=== PATIENT | male | born 1945 | race Caucasian/White ===

== ENCOUNTER 2019-08-15 00:53 | Day surgery (SDC) | payer MEDICARE, SELFPAY ==
[2019-08-12 11:24] VITALS: BMI 38.0
[2019-08-15 07:45] VITALS: BP 168/74; PULSE 59; RESP 18; TEMP 36.4; O2SAT 96; BMI 38.6
--- NOTE | 2019-08-15 08:01 | WPDANESEPPF ---
Anes - Initial Pre Proc Eval Procedure: Operation Date: 08/15/19 08:30 Proposed Procedures p Screening Colonoscopy - Carlos Simpson MD Date/Time: 08/15/19 08:01 Surgeon: Carlos Simpson MD Pre Op Diagnosis: hx colon polyps Patient Data Age: 74 Gender: M Height: 6 ft Weight: 129.1 kg Last Vital Signs Temp 36.4 C 08/15/19 07:45 Pulse 59 L 08/15/19 07:45 Resp 18 08/15/19 07:45 BP 168/74 H 08/15/19 07:45 Pulse Ox 96 08/15/19 07:45 Allergies Allergy/AdvReac Type Severity Reaction Status Date / Time No Known Allergies Allergy Unknown Verified 08/15/19 07:43 Home Medications Medication Instructions Recorded Confirmed Type allopurinol 300 mg PO QAM 08/12/19 08/12/19 History aspirin [Aspir-81] 81 mg PO DAILY 08/12/19 08/12/19 History atorvastatin 80 mg PO DAILY 08/12/19 08/12/19 History benazepril 20 mg PO QAM 08/12/19 08/12/19 History carvedilol 25 mg PO BID 08/12/19 08/12/19 History gabapentin 600 mg PO BID 08/12/19 08/12/19 History hydralazine 10 mg PO QAM 08/12/19 08/12/19 History insulin glargine U-300 conc 34 unit SUBCUT BID 08/12/19 08/12/19 History [Toujeo SoloStar U-300 Insulin] leflunomide See Rx Instructions .ROUTE .COMPLEX 08/12/19 08/12/19 History sildenafil [Viagra] 100 mg PO BID PRN 08/12/19 08/12/19 History testosterone cypionate 200 mg SUBCUT DIRECTED 08/12/19 08/12/19 History Patient hx anesthesia problems: none Family hx anesthesia problems: none PMFSH Past Medical History Medical History (Updated 08/15/19 @ 08:05 by Fransico Alcantar MD) CAD (coronary artery disease) Diabetes HTN (hypertension) Hyperlipidemia Obesity JAZMYNE (obstructive sleep apnea) Social History Social History Smoking status: Never smoker Alcohol intake: never Anes - Eval Final PreProcedure Day of Procedure 08/15/19 08:01 Patient weight: obese Heart: regular rate and rhythm Lungs: clear to auscultation Airway: Mallampati scale class II Neurological: alert and oriented Last oral intake: >/= 8 hours ASA classification: III Emergent: no Anesthetic plan: proceed Anesthesia type and monitoring: general GIVS and standard monitoring Informed Consent: The patient's anesthetic plan and its attendant risks and benefits were discussed with the patient/family/POA. Questions were solicited and answers provided to the satisfaction of the patient/family/POA.
[2019-08-15] MEDS: LACTATED RINGERS 1,000 ML 150 ML IV CONT (08:02)
[2019-08-15 08:03] LABS: Glucose Point of Care 140 (65-105)
--- NOTE | 2019-08-15 08:11 | WPDGICN ---
Assessment and Plan Additional Plan This is a 74-year-old white male patient I am asked to see at the request of NP. Lizzy Villa. Patient presents for follow-up colonoscopy. Patient's current weight appetite bowel movements are normal. He denies any blood in his stools. He denies abdominal pain. His bowel habits are regular in the past he has had an adenomatous colon polyp removed in 2006. An inflammatory polyp removed in 2014. Patient presents today for surveillance colonoscopy. Family history noncontributory Past medical history is significant for diabetes mellitus. 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 He is also treated for hypertension and neuropathy. Current medications include benazepril, carvedilol, hydralazine, indapamide, a atorvastatin, allopurinol, gabapentin, and insulin. No known drug allergies Physical exam reveals him to be alert. Vital signs stable. HEENT exam unremarkable. Lungs are clear to auscultation and percussion. Heart is without murmur or extra sounds. Abdominal exam bowel sounds are present soft nontender with no organomegaly. Digital external rectal exam is normal. Extremities revealed surgical deformity to the right foot. Impression 1. Personal history of colon polyps. 2. Diabetes mellitus. 3. Peripheral neuropathy. 4. History of Charcot joint Plan is for surveillance colonoscopy now and at intervals in the future 5 year follow-up anticipated GI Consult Note Consult date/time: 08/15/19 08:11 HPI: Erickson Navarro Sr. is a 74 year old male [facility] Past Medical History Medical History (Updated 08/15/19 @ 08:05 by Fransico Alcantar MD) CAD (coronary artery disease) Diabetes HTN (hypertension) Hyperlipidemia Obesity JAZMYNE (obstructive sleep apnea) Social History Social History Smoking status: Never smoker Alcohol intake: never Meds Home Medications and Allergies Home Medications Medication Instructions Recorded Confirmed Type allopurinol 300 mg PO QAM 08/12/19 08/12/19 History aspirin [Aspir-81] 81 mg PO DAILY 08/12/19 08/12/19 History atorvastatin 80 mg PO DAILY 08/12/19 08/12/19 History benazepril 20 mg PO QAM 08/12/19 08/12/19 History carvedilol 25 mg PO BID 08/12/19 08/12/19 History gabapentin 600 mg PO BID 08/12/19 08/12/19 History hydralazine 10 mg PO QAM 08/12/19 08/12/19 History insulin glargine U-300 conc 34 unit SUBCUT BID 08/12/19 08/12/19 History [Touhairo SoloStar U-300 Insulin] leflunomide See Rx Instructions .ROUTE .COMPLEX 08/12/19 08/12/19 History sildenafil [Viagra] 100 mg PO BID PRN 08/12/19 08/12/19 History testosterone cypionate 200 mg SUBCUT DIRECTED 08/12/19 08/12/19 History Allergies Allergy/AdvReac Type Severity Reaction Status Date / Time No Known Allergies Allergy Unknown Verified 08/15/19 07:43 Vital Signs Vital Signs - 24 hr 08/15/19 07:45 Temperature 36.4 C Pulse Rate 59 L Respiratory Rate 18 Blood Pressure 168/74 H Pulse Oximetry 96
[2019-08-15 08:41] VITALS: BP 119/65; PULSE 61; RESP 17; O2SAT 96
[2019-08-15 08:46] LABS: Glucose Point of Care 102 (65-105)
[2019-08-15 08:51] VITALS: BP 105/61; PULSE 60; RESP 16; O2SAT 99
[2019-08-15 09:01] VITALS: BP 116/68; PULSE 61; RESP 13; O2SAT 98
[2019-08-15 09:11] VITALS: BP 116/65; PULSE 60; RESP 18; O2SAT 100
== END 2019-08-15 09:21 | disposition home or self-care (01) ==
PROVIDERS: PCP Registered Nurse; Visit Provider Internal Medicine Gastroenterology
PROC: 0DJD8ZZ Inspection of Lower Intestinal Tract, Via Natural or Artificial Opening Endoscopic (ICD-10-PCS; CPT 45378; principal; 2019-08-15 08:30)
DX: Z12.11 Encounter for screening for malignant neoplasm of colon (principal); D12.4 Benign neoplasm of descending colon; D12.5 Benign neoplasm of sigmoid colon; K63.5 Polyp of colon; K64.8 Other hemorrhoids; I10 Essential (primary) hypertension; I25.10 Atherosclerotic heart disease of native coronary artery without angina pectoris; E11.40 Type 2 diabetes mellitus with diabetic neuropathy, unspecified; E78.5 Hyperlipidemia, unspecified; G47.33 Obstructive sleep apnea (adult) (pediatric); E66.9 Obesity, unspecified; Z68.38 Body mass index [BMI] 38.0-38.9, adult; Z79.82 Long term (current) use of aspirin; Z79.4 Long term (current) use of insulin
CPT/HCPCS: 45385; 88305; J2704; J7120

== ENCOUNTER 2019-08-17 21:10 | Inpatient (IN) | payer MEDICARE, SELFPAY ==
[2019-08-17] VITALS (11 sets, daily range): BP systolic 123–178; BP diastolic 72–102; PULSE 38–62; RESP 16–26; TEMP 36.6; O2SAT 94–100; BMI 39.6
--- NOTE | ~2019-08-17 | XR_ITS ---
EXAMINATION: XR chest 1V portable DATE: 08/17/2019 21:33 INDICATION: Left chest pain. Shortness of breath. TECHNIQUE: A single frontal view of the chest was obtained. COMPARISON: Chest single view 02/24/2016, CT abdomen and pelvis 06/01/2017 FINDINGS: Sensitivity is decreased by obesity. There are mild airspace opacities in left mid and lowe r lung zones. No pleural effusion or pneumothorax. The heart size is normal. IMPRESSION: 1. Mild airspace opacities in left mid and lower lung zones, consistent with atelectasis versus pneum onia. Reviewed, dictated and finalized at location A. TENDER IMPRESSION: 1. Mild airspace opacities in left mid and lower lung zones, consistent with at electasis versus pneumonia.
--- NOTE | 2019-08-17 21:12 | ED.CHESTPAIN ---
HPI - Chest Pain General Chief Complaint: Chest Pain Stated Complaint: CP Time Seen by Provider: 08/17/19 21:12 Source: patient Mode of arrival: ambulatory Limitations: no limitations History of Present Illness HPI narrative: A 74 y/o male pt presents to the ED, via private vehicle, with c/o midsternal CP, SOB, and lt arm pain that began 30 minutes ago. Pt states that the CP is constant and describes his pain as an elephant sitting on his chest. Pt has N/V in the ED bed, and is complaining of epigastric ABD pain. He notes that his pain feels worse when lying supine. Pt states that he has a hx of CAD and had 4 stents placed about 7 years ago, but states that the pain does not feel similar to any prior episodes or cardiac events he has had in the past. Pt's cover seamer is Dr. Apodaca. complaint: chest pain Pertinent past history: coronary artery disease Onset (ago): minute(s) (30) Timing of current episode: constant Prior episodes: No Pain location: epigastric and other (midsternal) Pain radiation: left arm Severity: severe Quality: other ( elephant sitting on chest ) Exacerbating factors: supine Associated symptoms: nausea, vomiting, diaphoresis and dyspnea Related Data Home Medications Medication Instructions Recorded Confirmed allopurinol 300 mg PO QAM 08/12/19 08/12/19 aspirin [Aspir-81] 81 mg PO DAILY 08/12/19 08/12/19 atorvastatin 80 mg PO DAILY 08/12/19 08/12/19 benazepril 20 mg PO QAM 08/12/19 08/12/19 carvedilol 25 mg PO BID 08/12/19 08/12/19 gabapentin 600 mg PO BID 08/12/19 08/12/19 hydralazine 10 mg PO QAM 08/12/19 08/12/19 insulin glargine U-300 conc 34 unit SUBCUT BID 08/12/19 08/12/19 [Toujeo SoloStar U-300 Insulin] leflunomide See Rx Instructions .ROUTE .COMPLEX 08/12/19 08/12/19 sildenafil [Viagra] 100 mg PO BID PRN 08/12/19 08/12/19 testosterone cypionate 200 mg SUBCUT DIRECTED 08/12/19 08/12/19 Allergies Allergy/AdvReac Type Severity Reaction Status Date / Time No Known Allergies Allergy Unknown Verified 08/17/19 21:49 Review of Systems Review of Systems: All systems reviewed & are unremarkable except as noted in HPI and below Cardiovascular: Cardiovascular: Reports chest pain, Reports dyspnea and Reports other (radiating lt arm pain) Gastrointestinal: Gastrointestinal: Reports abdominal pain (epigastric), Reports nausea and Reports vomiting PMFSH Past Medical History Medical History (Updated 08/17/19 @ 22:20 by Jacques Soto MD) CAD (coronary artery disease) Chronic cholecystitis Diabetes Gout HTN (hypertension) Hypercholesteremia Hyperlipidemia Obesity JAZMYNE (obstructive sleep apnea) Peripheral neuropathy Rheumatoid arthritis Sleep apnea Surgical History Surgical History (Updated 08/17/19 @ 21:40 by Afshin Brown To The Tops) History of cardiac cath Social History Social History (Updated 08/17/19 @ 21:47 by Afshin Brown To [employer]) Smoking status: Never smoker Alcohol intake: never Living arrangements: with family Gender identity (if verbalized by the patient): Male Exam Const: General: ill appearing acutely Nutritional Appearance: obese Other: severe distress HENMT: Head: normal to inspection Neck: Neck: normal visual inspection Resp: Effort & Inspection: normal respiratory effort Auscultation: clear to auscultation bilaterally Cardio: Rate: bradycardic Rhythm: regular rhythm GI: Other: epigastric tenderness Skin: General skin exam: pallor Other: Diaphoretic Neuro: General: patient oriented x3 and moves all extremities Speech: normal speech Extrem: General: edema bilateral Course Vital Signs Vital signs: Vital Signs Temperature 36.6 C 08/17/19 21:13 Pulse Rate 62 08/17/19 21:13 Respiratory Rate 22 H 08/17/19 21:13 Blood Pressure 123/73 08/17/19 21:13 Pulse Oximetry 100 08/17/19 21:13 Temperature 36.6 C 08/17/19 21:13 Pulse Rate 49 L 08/17/19 22:00 Respiratory Rate 24 H 08/17/19 22:00 Blood Pressu
--- NOTE | 2019-08-17 21:21 | PC.NURSE ---
PT HEART RATE 38- DR WEEKS NOTIFIED. VRBO. NS BOLUS STARTED. WILL CONTINUE TO MONITOR
[2019-08-17] MEDS: MORPHINE SULFATE 2 MG/ML INJ ×3 (21:22→21:55)
--- NOTE | 2019-08-17 21:25 | ECG_ITS ---
Measurements Intervals [place] Rate: 38 P: 81 NH: 159 QRS: 66 QRSD: 121 T: 88 QT: 401 QTc: 320 Interpretive Statements SINUS RHYTHM WITH SECOND DEGREE AV BLOCK, TYPE I OR II INTRAVENTRICULAR CONDUCTION DELAY INFERIOR ST ELEVATION MYOCARDIAL INFARCT- ACUTE CONSIDER POSTERIOR INFARCT, ACUTE BASELINE ARTIFACT- I, II, III, AVR, AVL, AVF, V2-V6 ABNORMAL ECG Electronically Signed On 08-18-2019 9:15:20 TECHNICAL REPORT WRITER by Philippe Abdi D.O.
[2019-08-17] MEDS: MORPHINE SULFATE 2 MG/ML INJ 4 MG (21:31)
[2019-08-17 21:34] LABS: Basophils Absolute Auto 0.1 K/mm3 (0.0-0.1); Basophils Percent Auto 1.1 % (0.2-1.2); Eosinophils Absolute Auto 0.6 K/mm3 (0-0.3); Hematocrit 45.1 % (42.0-52.0); Hemoglobin 14.4 g/dL (14.0-18.0); Immature Granulocyte Absolute 0.04 K/mm3 (0.00-0.031); Immature Granulocyte Percent A 0.3 % (0-0.5); Lymphocytes Absolute Auto 4.27 K/mm3 (0.9-3.2); Lymphocytes Percent Auto 34.9 % (18.3-44.2); Mean Corpuscular HGB Conc 31.9 g/dl (32-36); Mean Corpuscular Hemoglobin 30.1 pg (26-34); Mean Corpuscular Volume 94.4 fl (80-100); Mean Platelet Volume 10.6 fl (7.4-10.4); Monocytes Absolute Auto 1.7 K/mm3 (0.1-0.6); Monocytes Percent Auto 13.8 % (2.6-8.5); Neutrophils Absolute Auto 5.5 K/mm3 (1.3-6.7); Neutrophils Percent Auto 44.9 % (45.5-73.1); Platelet Count Result 183 k/mm3 (150-375); Red Blood Count 4.78 M/mm3 (4.6-6.20); Red Cell Distribution Width 13.8 % (11.5-14.5); White Blood Count 12.3 K/mm3 (4.5-10.0)
[2019-08-17 21:47] LABS: INR 0.9; Prothrombin Time 12.1 Seconds (11.1-14.7)
[2019-08-17 21:48] LABS: Partial Thromboplastin Time 25.1 SECONDS (22.3-36.8)
[2019-08-17 22:06] LABS: Alanine Aminotransferase 23 U/L (4-50); Albumin Level 3.7 g/dL (3.5-5.1); Alkaline Phosphatase 49 U/L (38-126); Aspartate Amino Transferase 24 U/L (17-59); Bilirubin,Total 0.6 mg/dL (0.2-1.3); Blood Urea Nitrogen 31 mg/dL (9-20); Calcium 8.9 mg/dL (8.4-10.2); Carbon Dioxide 23 mmol/L (22-30); Chloride 101 mmol/L (98-107); Cholesterol 97 mg/dL (0-200); Estimated Glomerular Filt Rate 33; Glucose 234 mg/dL (75-110); HDL Direct 30 mg/dL; Potassium 3.6 mmol/L (3.4-5.0); Sodium 140 mmol/L (137-145); Triglycerides 119 mg/dL (<150)
[2019-08-17 22:18] LABS: LDL Cholesterol Direct 48 mg/dL
[2019-08-17 22:46] LABS: Troponin I 0.051 ng/mL (0.000-0.034)
--- NOTE | 2019-08-17 22:51 | ECG_ITS ---
Measurements Intervals [place] Rate: 59 P: 89 NV: 211 QRS: 0 QRSD: 107 T: 26 QT: 384 QTc: 383 Interpretive Statements SINUS BRADYCARDIA WITH FIRST DEGREE AV BLOCK INFERIOR INFARCT, AGE INDETERMINATE BORDERLINE ST ABNORMALITY- LATERAL LEADS BASELINE ARTIFACT- V4 ABNORMAL ECG Electronically Signed On 08-18-2019 9:16:06 PERFORMANCE ARCHITECT by Philippe Abdi D.O.
--- NOTE | 2019-08-17 22:57 | WPDCARDPROC ---
Cardiac Cath Procedure Note Date of procedure:: 08/17/19 Performing physician:: Ravi Apodaca MD Indication:: 74-year-old man with history of coronary artery disease previous PCI in 2013 presenting with 30 minutes of chest pain and inferolateral ST-elevation by ECG. Brief clinical history:: As detailed above Procedure Procedure performed:: emergency coronary angiography emergency PCI to circumflex ostium no left ventriculogram performed because of renal insufficiency Sedation/Medication given:: no additional sedation in the kiln labourer Access site:: right femoral artery Estimated blood loss:: a 30-50 cc Procedure note:: patient was brought to the cardiac catheterization lab in the emergent setting described above. His right femoral triangle was prepped and draped in the usual fashion. Anesthesia was then provided with 1% lidocaine infiltrated locally. Using the modified Seldinger technique the femoral artery was punctured and a 6 [place] vascular sheath was placed. After this I used a 6 [place] Citizen JR4 catheter to inject the right coronary artery in orthogonal projections. Following this the left coronary artery was not engaged using a 6 [place] Citizen CLS 3.5 guiding catheter. Angiography was performed in multiple projections. Following review of the cineangiogram circumflex ostial PCI was recommended and carried out as detailed below. Prior to PCI the patient was systemically anticoagulated with bolus and infusion of intravenous Angiomax. He received Brilinta 180 mg orally. He was loaded with aspirin in the emergency department. Following PCI as detailed below the sheath was sutured into position and the patient was taken to the ICU in stable condition with no evidence of a groin hematoma chest pain was minimal upon leaving the cardiac catheterization lab otherwise no evidence of a groin hematoma. Findings:: Central aortic pressure was 142/84. Left ventricle was not entered during the case left main coronary artery is moderate caliber and widely patent the LAD is a medium caliber vessel extending down to around the apex the LAD has mild luminal irregularities throughout but no flow limiting lesions are identified. Circumflex is a very large caliber vessel and is dominant to the posterior circulation. The ostial segment of the circumflex has a 99% stenosis with visible intraluminal thrombus obviously the culprit for the acute presentation. There is SOPHIE 2 flow in the circumflex due to this subtotal ostial stenosis. The OM2 branch is visible stent material in the in it from a previous PCI. Right coronary artery is small and non dominant with mild luminal irregularities. PCI was carried out to the circumflex ostium. I elected to place 2.014 BMW wires 1 down the circumflex and 1 in the LAD to protected due to the ostial nature of the circumflex disease. Following this the circumflex was pre-dilated using a 3.0 x 20 mm emerge PTCA balloon. Care was given to position this balloon right at the ostium of the circumflex. Following this the 3.5 by 28 mm Tereza science stent was placed into the circumflex and with multiple cineangiograms being performed to ensure ostial placement and avoiding the LAD this stent was deployed at 20 atmospheres with a favorable anatomical result. There was mild residual stenosis at the ostium and the I post dilated this with a 3.5 by 15 mm apex noncompliant balloon at 22 atmospheres with a nice anatomic result. At the end of the procedure there was SOPHIE 3 flow in the circumflex and no embarrassment of the left main or LAD. Conclusion:: Acute myocardial infarction due to subtotal stenosis at the ostium of the a dominant left circumflex in this gentleman with previous stenting into the OM2 branch in 2013. This lesion was treated successfully using the 3.5 x 28 mm Tereza drug-eluting stent with an excellent anatomical result and no dissection perforation or distal embolization. Patient will be admitted to the ICU fo
[2019-08-17] MEDS: AMIODARONE 360 MG/D5W 200 ML 360 MG/200 ML BAG 33.3 MG IV CONT (23:15)
[2019-08-18] VITALS (18 sets, daily range): BP systolic 105–158; BP diastolic 63–84; PULSE 49–70; RESP 11–20; TEMP 36.3–36.9; O2SAT 94–100
--- NOTE | 2019-08-18 00:07 | ADMGEN ---
This patient, Erickson Navarro Sr., was admitted to Intensive Care Unit-7 at 2316. Patient/family oriented to hospital policies and general routines including ID bracelet, bed and alarms, visiting hours, pain management, procedures, bathroom and other care routines, personal items, smoking policy, room service/diet, and visiting hours. Valuables list has been completed. Information on how to activate the Rapid Response Team has been discussed. Patient/Family are encouraged to report perceived risks to care and to ask questions if they do not understand what they are told or what they should do.
[2019-08-18] MEDS: SODIUM CHLORIDE 0.9% IV 1,000 ML 125 ML IV CONT (01:07)
[2019-08-18 01:25] LABS: Glucose Point of Care 112 (65-105)
[2019-08-18] MEDS: AMIODARONE 360 MG/D5W 200 ML 360 MG/200 ML BAG 16.7 MG IV CONT (04:06)
--- NOTE | 2019-08-18 05:11 | ECG_ITS ---
Measurements Intervals [place] Rate: 58 P: 85 MI: 210 QRS: 2 QRSD: 105 T: 42 QT: 385 QTc: 381 Interpretive Statements SINUS BRADYCARDIA WITH FIRST DEGREE AV BLOCK INFERIOR INFARCT, AGE INDETERMINATE BORDERLINE ST ABNORMALITY- LATERAL LEADS BASELINE ARTIFACT- V4 ABNORMAL ECG Electronically Signed On 08-18-2019 9:16:38 SHUTTLELESS LOOM WEAVER by Philippe Abdi D.O.
[2019-08-18 05:44] LABS: Troponin I > 80.000 ng/mL (0.000-0.034)
[2019-08-18 08:40] LABS: Glucose Point of Care 174 (65-105)
--- NOTE | 2019-08-18 09:36 | PM.PNCARD ---
Progress Note: A&P Additional Plan 74-year-old man with: Coronary artery disease with previous PCI presenting last evening with acute ST-elevation FL and subtotal stenosis of the circumflex ostium which was a large dominant vessel. PCI done successfully with a 3.5 mm drug-eluting stent with good angiographic result. Patient was placed on intravenous amiodarone in the track repair laborer that will be stopped this morning is there are no arrhythmias currently Patient will be allowed to get up in a chair and ambulate in the room Anticipate at least 2 more days in the hospital before discharge can be considered Time Spent With Patient Time with patient: 15 - 25 minutes Subjective Date/time seen: Date of service: 08/18/19 09:36 Interval history: Follow-up visit for acute inferolateral FL last evening Patient with history of previous PCI to the circumflex Looks good this morning reports some residual central chest discomfort persisting. Rather high troponin peak not unexpected given the ostial stenosis of the large dominant circumflex. Exam Const: General: comfortable and no acute distress Other: Obese white male in no distress appears to be in good spirits HENMT: Mouth: Yes moist mucous membranes Eyes: Sclera: sclerae normal Pupils: Equal, round and reactive pupils present Neck: Neck: supple and no JVD Thyroid: thyroid normal Resp: Effort & Inspection: normal respiratory effort Auscultation: clear to auscultation bilaterally Cardio: Rate: regular rate and bradycardic Rhythm: regular rhythm Other: No murmur no rub GI: Auscultation: normal bowel sounds Skin: General skin exam: normal color Neuro: Cognition (Neuro): normal cognition Extrem: General: normal to inspection Other: Right groin puncture site looks normal good pulse no hematoma Objective Data Vital Signs Vital Signs: Vital Signs - 24 hr 08/17/19 21:13 08/17/19 21:23 08/17/19 21:33 Temperature 36.6 C Pulse Rate 62 38 L 43 L Pulse Rate [Bilateral Pedal (Dorsalis Pedis)] Respiratory Rate 22 H 26 H 22 H Blood Pressure 123/73 125/72 150/79 H Pulse Oximetry 100 100 100 08/17/19 21:37 08/17/19 21:38 08/17/19 21:46 Temperature Pulse Rate 45 L 46 L 49 L Pulse Rate [Bilateral Pedal (Dorsalis Pedis)] Respiratory Rate 20 24 H Blood Pressure 156/81 H 166/100 H Pulse Oximetry 98 100 08/17/19 21:51 08/17/19 21:57 08/17/19 22:00 Temperature Pulse Rate 49 L 49 L 49 L Pulse Rate [Bilateral Pedal (Dorsalis Pedis)] Respiratory Rate 22 H 22 H 24 H Blood Pressure 174/99 H 178/98 H 178/98 H Pulse Oximetry 98 98 08/17/19 22:51 08/17/19 23:06 08/18/19 00:00 Temperature Pulse Rate 58 L 58 L 58 L Pulse Rate [Bilateral Pedal (Dorsalis Pedis)] Respiratory Rate 16 16 Blood Pressure 148/102 H 161/78 H Pulse Oximetry 94 94 08/18/19 02:00 08/18/19 02:28 08/18/19 03:35 Temperature 36.6 C 36.4 C L Pulse Rate 57 L 52 L 58 L Pulse Rate [Bilateral Pedal (Dorsalis Pedis)] Respiratory Rate 12 17 Blood Pressure 143/81 H 148/82 H Pulse Oximetry 94 95 08/18/19 03:45 08/18/19 04:00 08/18/19 05:19 Temperature 36.6 C Pulse Rate 53 L 54 L 51 L Pulse Rate [Bilateral Pedal (Dorsalis Pedis)] Respiratory Rate 16 11 L 16 Blood Pressure 148/82 H 153/81 H 152/83 H Pulse Oximetry 97 95 96 08/18/19 06:00 08/18/19 08:00 Temperature 36.3 C L Pulse Rate 52 L 49 L Pulse Rate [Bilateral Pedal (Dorsalis Pedis)] 52 L Respiratory Rate 16 16 Blood Pressure 158/74 H 153/79 H Pulse Oximetry 99 99 Intake/Output Intake/Output: Intake & Output 08/15/19 08/16/19 08/17/19 08/18/19 23:59 23:59 23:59 23:59 Intake Total 1320 Output Total 500 Balance 820 Meds/Results Medications: Active Medications Generic Name Dose Route Start Last Admin Trade Name Freq PRN Reason Stop Dose Admin Aspirin 81 mg 08/18/19 08:00 Aspirin Chewable PO DAILY@0800 [facility] Atorvastatin Calcium 80 mg 08/18/19 09:00
[2019-08-18] MEDS: ATORVASTATIN 40 MG TABLET 80 MG PO (09:48)
[2019-08-18] MEDS: lisinopriL 20 MG TABLET PO (09:48)
[2019-08-18] MEDS: ASPIRIN 81 MG CHEWABLE TABLET PO (09:48)
[2019-08-18] MEDS: DOCUSATE SODIUM 100 MG CAPSULE PO ×2 (09:48→20:07)
[2019-08-18] MEDS: carvediloL 12.5 MG TABLET PO ×2 (09:48→20:07)
[2019-08-18] MEDS: PANTOPRAZOLE 40 MG TABLET PO (09:48)
[2019-08-18] MEDS: TICAGRELOR 90 MG TABLET PO ×2 (09:48→20:07)
--- NOTE | 2019-08-18 11:32 | WPDCNINT ---
Assessment and Plan Assessment and plan (1) ST elevation (STEMI) myocardial infarction: Qualifiers: Involved coronary artery: unspecified coronary artery Qualified Code(s): I21.3 - ST elevation (STEMI) myocardial infarction of unspecified site Code(s): I21.3 - ST elevation (STEMI) myocardial infarction of unspecified site Status: Acute Assessment and Plan: status post PCI of circumflex ostium Echo ordered continue aspirin Lipitor Coreg Brilinta and lisinopril . (2) Ventricular arrhythmia: Code(s): I49.9 - Cardiac arrhythmia, unspecified Status: Acute Assessment and Plan: likely from reperfusion. Patient on amiodarone infusion. Check electrolytes monitor in ICU for another 24 hours (3) Diabetes: Code(s): E11.9 - Type 2 diabetes mellitus without complications Status: Acute Assessment and Plan: start Lantus and sliding scale monitor blood sugars (4) Hyperlipidemia: Code(s): E78.5 - Hyperlipidemia, unspecified Status: Acute Assessment and Plan: continue statin (5) HTN (hypertension): Code(s): I10 - Essential (primary) hypertension Status: Acute Assessment and Plan: on lisinopril and beta-veronica. Monitor and treat as needed (6) Atelectasis: Code(s): J98.11 - Atelectasis Status: Acute Assessment and Plan: incentive spirometry and out of bed today (7) JAZMYNE (obstructive sleep apnea): Code(s): G47.33 - Obstructive sleep apnea (adult) (pediatric) Status: Acute Assessment and Plan: home CPAP Additional Plan DVT prophylaxis - start heparin Stress ulcer prophylaxis - on PPI Nutrition - advance diet Code Status - Full Code Family updated at bedside Corrective And Manual Arts Therapist Consult Note Consult date: 08/18/19 Time Seen: 11:20 HPI: Erickson Navarro Sr. is a 74 year old male with PMH of CAD and had 4 stents placed about 7 years ago Presented yesterday to ED with c/o midsternal CP, SOB, and lt arm pain that began 30 minutes prior to arrival. patient was diagnosed with STEMI and taken emergently to [facility]. patient underwent emergent PCI of circumflex ostium with drug-eluting stent. Patient an episode of ventricular tachycardia during PCI which resolved spontaneously. Patient was started on amiodarone infusion and admitted overnight to ICU for further management and monitor. Patient this morning feels better he feels sore and and states that he it feels like he has been hit by a truck. He states that his chest pain has resolved except some soreness on left side of his chest which is 1/10 severe but different than the pain that he came in. Pain does not radiate anywhere else. Worse with palpation and relieved with rest. he described his quality of soreness. patient denies any shortness of breath or cough at this time Review of Systems Constitutional: Constitutional: Reports no additional constitutional complaints Eyes: Eyes: Reports no additional eye complaints ENT: Reports system reviewed and no additional complaints, except as documented Cardiovascular: Cardiovascular: Denies chest pain, Denies chest pain at rest, Denies rapid heart rate, Denies irregular heart rhythm, Denies palpitations, Denies dyspnea and Denies orthopnea Respiratory: Respiratory: Reports no additional respiratory complaints and Denies cough Gastrointestinal: Gastrointestinal: Reports no additional gastrointestinal complaints Genitourinary: Genitourinary: Reports no additional male genitourinary complaints Musculoskeletal: Musculoskeletal: Reports no additional musculoskeletal complaints Integumentary/Breasts: Skin/Breast: Reports system reviewed and no additional complaints, except as docu Neurologic: Reports system reviewed and no additional complaints, except as documented Psychiatric: Psychiatric: Reports no additional psychiatric complaints Endocrine: Endocrine: Reports no additional
[2019-08-18 12:18] LABS: Blood Urea Nitrogen 30 mg/dL (9-20); Calcium 8.9 mg/dL (8.4-10.2); Carbon Dioxide 30 mmol/L (22-30); Chloride 98 mmol/L (98-107); Estimated CRCL calculation 44 ml/min; Estimated Glomerular Filt Rate 35; Glucose 213 mg/dL (75-110); Magnesium 1.6 mg/dL (1.6-2.3); Potassium 4.3 mmol/L (3.4-5.0); Sodium 138 mmol/L (137-145)
[2019-08-18 12:46] LABS: Glucose Point of Care 231 (65-105)
[2019-08-18] MEDS: INSULIN ASPART (*BKC) 100 UNITS/ML SUB-Q (12:50)
[2019-08-18] MEDS: MAGNESIUM SULF 2 GM/WATER 50ML 2 GM/50 ML BAG IVPB (13:20)
[2019-08-18 17:34] LABS: Glucose Point of Care 198 (65-105)
[2019-08-18] MEDS: GABAPENTIN 300 MG CAPSULE 600 MG PO (20:07)
[2019-08-18] MEDS: HEPARIN SODIUM 5,000 UNITS/ML VIAL 5000 UNITS SUB-Q (20:08)
[2019-08-18 20:18] LABS: Glucose Point of Care 229 (65-105)
[2019-08-19] VITALS (18 sets, daily range): BP systolic 115–181; BP diastolic 65–102; PULSE 62–92; RESP 16–36; TEMP 36.4–36.9; O2SAT 94–100
--- NOTE | 2019-08-19 | ECHO_ITS ---
Patient Info Name: Erickson Navarro Age: 74 years : 1945 Gender: Male Ht: 72 in Wt: 282 lbs BSA: 2.60 m2 HR: 92 bpm BP: 171 / 85 mmHg Heart Rhythm: Sinus Rhythm Exam Date: 08/19/2019 11:12 AM Exam Location: [facility] Patient Status: Inpatient Admit Date: 08/17/2019 Staff Ordering Physician: Ravi Apodaca MD Cash Register Repairer: Nico Pepe RDCS, RT Attending Provider: Ravi Apodaca MD Exam Type: CA echo doppler color flow Study Info Indications - STATUS POST INFEROLATERAL [place] Complete two-dimensional, color flow and Doppler transthoracic echocardiogram is performed. Summary 1. Left ventricular systolic function is normal, estimated at 55-60%. 2. There is mildly increased left ventricular wall thickness. 3. The left ventricular diastolic function is grade II diastolic dysfunction. 4. Regional wall motion assessment limited due to poor endomyocardial border definition despite definity contrast enhancement. However, there is suggestion of mild inferolateral hypokinesis. 5. Right atrial chamber dimension is mildly enlarged. 6. There is no aortic valve stenosis. 7. The mitral valve has normal leaflets. 8. There is trace mitral valve regurgitation. 9. The mitral valve annulus is moderately calcified. 10. There is mild tricuspid valve regurgitation. 11. Moderate pulmonary hypertension, estimated pulmonary arterial systolic pressure is 48 mmHg. 12. Dilated inferior vena cava with >50% collapse upon inspiration consistent with elevated right atrial pressure, 10 mmHg. Left Ventricle Left ventricular chamber dimension is normal. Left ventricular systolic function is normal, estimated at 55-60%. There is mildly increased left ventricular wall thickness. The left ventricular diastolic function is grade II diastolic dysfunction. Regional wall motion assessment limited due to poor endomyocardial border definition despite definity contrast enhancement. However, there is suggestion of mild inferolateral hypokinesis. Right Ventricle Right ventricular chamber dimension is normal. Right ventricular systolic function is normal. Left Atria Left atrial chamber dimension is normal. Right Atria Right atrial chamber dimension is mildly enlarged. Aortic Valve The aortic valve is not well visualized. There is mild aortic valve sclerosis. There is no aortic valve stenosis. There is no aortic valve regurgitation. Pulmonic Valve The pulmonic valve is not well visualized. There is trace pulmonic regurgitation. Mitral Valve The mitral valve has normal leaflets. There is trace mitral valve regurgitation. The mitral valve annulus is moderately calcified. Tricuspid Valve The tricuspid valve leaflets are normal. There is mild tricuspid valve regurgitation. Moderate pulmonary hypertension, estimated pulmonary arterial systolic pressure is 48 mmHg. Pericardium/Pleural The pericardium appears normal. There is trivial pericardial effusion. Inferior Vena Cava Dilated inferior vena cava with >50% collapse upon inspiration consistent with elevated right atrial pressure, 10 mmHg. Aorta The aortic root size at the sinus of Valsalva is normal. There is mild aortic atherosclerosis. Left Ventricular Outflow Tract Name Value Normal LVOT 2D
--- NOTE | 2019-08-19 02:28 | ECG_ITS ---
Measurements Intervals [place] Rate: 86 P: ID: 0 QRS: -53 QRSD: 108 T: -43 QT: 360 QTc: 432 Interpretive Statements ATRIAL FIBRILLATION INFERIOR INFARCT, AGE INDETERMINATE BASELINE ARTIFACT- II, III, AVF ABNORMAL ECG Electronically Signed On 08-19-2019 10:17:35 WIRE STITCHER OPERATOR by Philippe Abdi D.O.
--- NOTE | 2019-08-19 03:11 | PC.NURSE ---
Dr. Mayberry updated on pt A-fib with controlled rate. No new orders received at this time.
[2019-08-19 04:49] LABS: Hematocrit 43.8 % (42.0-52.0); Hemoglobin 14.2 g/dL (14.0-18.0); Mean Corpuscular HGB Conc 32.4 g/dl (32-36); Mean Corpuscular Hemoglobin 30.2 pg (26-34); Mean Corpuscular Volume 93.2 fl (80-100); Mean Platelet Volume 10.4 fl (7.4-10.4); Platelet Count Result 156 k/mm3 (150-375); Red Cell Distribution Width 14.1 % (11.5-14.5); White Blood Count 16.4 K/mm3 (4.5-10.0)
[2019-08-19 05:01] LABS: Blood Urea Nitrogen 32 mg/dL (9-20); Calcium 9.1 mg/dL (8.4-10.2); Carbon Dioxide 30 mmol/L (22-30); Chloride 102 mmol/L (98-107); Estimated CRCL calculation 40 ml/min; Estimated Glomerular Filt Rate 31; Glucose 194 mg/dL (75-110); Magnesium 1.9 mg/dL (1.6-2.3); Sodium 137 mmol/L (137-145)
[2019-08-19 07:57] LABS: Glucose Point of Care 180 (65-105)
[2019-08-19] MEDS: ATORVASTATIN 40 MG TABLET 80 MG PO (08:19)
[2019-08-19] MEDS: PANTOPRAZOLE 40 MG TABLET PO (08:20)
[2019-08-19] MEDS: GABAPENTIN 300 MG CAPSULE 600 MG PO ×2 (08:20→20:30)
[2019-08-19] MEDS: DOCUSATE SODIUM 100 MG CAPSULE PO ×2 (08:20→20:29)
[2019-08-19] MEDS: carvediloL 12.5 MG TABLET PO (08:20)
[2019-08-19] MEDS: HEPARIN SODIUM 5,000 UNITS/ML VIAL 5000 UNITS SUB-Q ×2 (08:21→20:30)
[2019-08-19] MEDS: lisinopriL 20 MG TABLET PO ×2 (08:21→17:54)
[2019-08-19] MEDS: INSULIN GLARGINE (*BKC) 100 UNITS/ML 24 UNITS SUB-Q (08:21)
[2019-08-19] MEDS: ASPIRIN 81 MG CHEWABLE TABLET PO (08:21)
[2019-08-19] MEDS: TICAGRELOR 90 MG TABLET PO ×2 (08:21→20:30)
--- NOTE | 2019-08-19 11:41 | WPDINTPN ---
Progress Note: A&P Assessment and Plan (1) ST elevation (STEMI) myocardial infarction: Qualifiers: Involved coronary artery: unspecified coronary artery Qualified Code(s): I21.3 - ST elevation (STEMI) myocardial infarction of unspecified site Code(s): I21.3 - ST elevation (STEMI) myocardial infarction of unspecified site Status: Acute Assessment and Plan: status post PCI with ANTHONY x1 of circumflex ostium - Echo ordered and pending - continue aspirin Lipitor Coreg Brilinta and lisinopril (2) Ventricular arrhythmia: Code(s): I49.9 - Cardiac arrhythmia, unspecified Status: Acute Assessment and Plan: likely from reperfusion. off amio infusion - maintain normal K and mag (3) Diabetes: Code(s): E11.9 - Type 2 diabetes mellitus without complications Status: Acute Assessment and Plan: Continue Lantus and sliding scale monitor blood sugars (4) Hyperlipidemia: Code(s): E78.5 - Hyperlipidemia, unspecified Status: Acute Assessment and Plan: continue statin (5) HTN (hypertension): Code(s): I10 - Essential (primary) hypertension Status: Acute Assessment and Plan: on lisinopril and beta-veronica. - hydralazine PRN (6) Atelectasis: Code(s): J98.11 - Atelectasis Status: Acute Assessment and Plan: incentive spirometry, up to chair - Pt/OT to folow (7) JAZMYNE (obstructive sleep apnea): Code(s): G47.33 - Obstructive sleep apnea (adult) (pediatric) Status: Acute Assessment and Plan: home CPAP Additional Plan DVT prophylaxis - heparin SQ Stress ulcer prophylaxis - on PPI Nutrition - advance diet Code Status - Full Code Family updated at bedside Subjective Date/time seen: 08/19/19 11:41 Interval history: REASON FOR CONSULT: STEMI status post PCI with ANTHONY x1 to circumflex ostium 08/19/2019; Pt seen and examined. Went into A fib and then converted. had a few runs of NSVT. Pt states he feels weak and has no energy. Denies any chest pain, SOB, N/V, abdominal pain. Review of Systems Review of Systems: All systems reviewed & are unremarkable except as noted in HPI and below Exam Narrative: Exam Narrative: General: Pt is alert awake and in NAD Lungs/Chest: Trachea central Clear BS B/L, No crackles or wheezing. Cardiac: RRR. Normal S1 S2. No murmurs Circulation: Pedal pulses are intact and symmetrical. Abdomen: Normal bowel sounds.. Soft. NT. ND. Extremities: No clubbing, cyanosis or edema. Warm the right femoral catheterization site shows no hematoma or ecchymosis. : Gutierrez in place Neurologic: Follows commands. Moves all 4 extremities PERRL alert oriented x3 Skin: No Rash Objective Data Vital Signs Vital Signs: Vital Signs - 24 hr 08/18/19 12:00 08/18/19 13:53 08/18/19 16:00 Temperature 98.4 F Pulse Rate 56 L 55 L 70 Respiratory Rate 16 17 18 Blood Pressure 144/82 H 153/66 H 157/74 H Pulse Oximetry 99 98 98 08/18/19 18:00 08/18/19 20:00 08/18/19 20:07 Temperature 98.2 F Pulse Rate 60 69 64 Respiratory Rate 14 17 Blood Pressure 135/63 129/67 Pulse Oximetry 99 100 08/18/19 22:00 08/19/19 00:00 08/19/19 02:00 Temperature 98.4 F Pulse Rate 69 72 79 Respiratory Rate 18 22 H 20 Blood Pressure 105/68 126/72 139/69 Pulse Oximetry 99 100 98 08/19/19 02:30 08/19/19 04:00 08/19/19 06:00 Temperature 98.2 F Pulse Rate 86 86 92 Respiratory Rate 26 H 22 H Blood Pressure 145/86 H 171/85 H Pulse Oximetry 99 98 08/19/19 08:00 08/19/19 10:00 Temperature 97.5 F L Pulse Rate 85 78 Respiratory Rate 36 H 21 H Blood Pressure 181/83 H 146/79 H Pulse Oximetry 94 Intake/Output Intake/Output: Intake & Output 08/16/19 08/17/19 08/18/19 08/19/19 23:59 23:59 23:59 23:59 Intake Total 2860 720 Output Total 500 400 Balance 2360 320 Meds/Results Medications: Active Medications Generic Name Dose Route Start Las
[2019-08-19 12:01] LABS: Glucose Point of Care 191 (65-105)
--- NOTE | 2019-08-19 12:31 | PM.PNCARD ---
Progress Note: A&P Assessment and Plan (1) ST elevation (STEMI) myocardial infarction: Qualifiers: Involved coronary artery: unspecified coronary artery Qualified Code(s): I21.3 - ST elevation (STEMI) myocardial infarction of unspecified site Code(s): I21.3 - ST elevation (STEMI) myocardial infarction of unspecified site Status: Acute Assessment and Plan: Coronary artery disease with previous PCI presenting 08/17/[address]-elevation [place] and subtotal stenosis of the circumflex ostium which was a large dominant vessel. PCI done successfully with a 3.5 mm drug-eluting stent with good angiographic result. Ventricular tachycardia requiring amiodarone in the lab animal technician. This was discontinued on 08/18/2019. One 5 beat run noted yesterday evening. Episode of atrial fibrillation for approximately 1 hour this morning. Carvedilol was decreased due to 12.5 mg b.i.d. due to bradycardia. Heart rates have recovered. Will restart carvedilol 25 mg q.12 hours with this evening's dose. Continue aspirin, atorvastatin and Brilinta. (2) HTN (hypertension): Code(s): I10 - Essential (primary) hypertension Status: Acute Assessment and Plan: Blood pressures have been elevated. Carvedilol as above. Was taking benazepril at home b.i.d.. Will increase lisinopril to 20 mg b.i.d. as well. (3) Ventricular arrhythmia: Code(s): I49.9 - Cardiac arrhythmia, unspecified Status: Acute Assessment and Plan: As above. (4) Diabetes: Code(s): E11.9 - Type 2 diabetes mellitus without complications Status: Acute Assessment and Plan: Concerned that his blood sugars are not being controlled with what he is getting at the hospital. Will adjust his insulin and sliding scale (5) Hyperlipidemia: Code(s): E78.5 - Hyperlipidemia, unspecified Status: Acute Assessment and Plan: Continue atorvastatin (6) Dizziness: Code(s): R42 - Dizziness and giddiness Status: Acute Assessment and Plan: Check orthostatic blood pressures. He believes that some his dizziness is due to his elevated blood sugars. Additional Plan Transfer to [facility]. Plan discussed with Dr. Apodaca 1230 08/19/2019 Time Spent With Patient Time with patient: 15 - 25 minutes Subjective Date/time seen: 08/19/19 12:07 Interval history: Follow-up visit for: Acute inferolateral OH 08/17/2019 post drug-eluting stent to proximal circumflex. Diabetes, hypertension, hyperlipidemia Date of service: 08/19/2019 Subjective: Denied chest pain, pressure, tightness or squeezing. Very dizzy when got up to wash up in the bathroom this morning. Was very short of breath coming back to bed as well. States has been dizzy every time he tries to get up. Also concerned about his blood sugars. Review of Systems Constitutional: Constitutional: Reports lethargy and Reports weakness Eyes: Eyes: Denies blurry vision ENT: Reports Normal hearing present Cardiovascular: Cardiovascular: Denies chest pain, Denies pedal edema, Denies leg edema, Reports lightheadedness and Denies palpitations Respiratory: Respiratory: Denies cough, Denies hemoptysis, Reports dyspnea on exertion and Denies wheezing Gastrointestinal: Gastrointestinal: Denies abdominal pain, Reports bloating, Denies nausea and Denies vomiting Genitourinary: Genitourinary: Denies hematuria Musculoskeletal: Musculoskeletal: Denies arthralgias Integumentary/Breasts: Skin/Breast: Denies erythema and Denies rash Neurologic: Denies headache(s) Psychiatric: Psychiatric: Denies behavioral changes Exam Const: General: comfortable and no acute distress Nutritional Appearance: obese Orientation/consciousness:
--- NOTE | 2019-08-19 12:40 | PC.NURSE ---
orthostatic b/p- laying left- 147/70, sitting, left- 164/76, standing, left 153/66
[2019-08-19] MEDS: PERFLUTREN LIPID MICROSPHERES 1.5 ML VIAL DILUTED TO 10 ML TOTAL VOLUME IV PUSH (12:49)
[2019-08-19 16:09] LABS: Glucose Point of Care 162 (65-105)
[2019-08-19] MEDS: carvediloL 25 MG TABLET PO (20:30)
[2019-08-19] MEDS: INSULIN GLARGINE (*BKC) 100 UNITS/ML 32 UNITS SUB-Q (20:35)
[2019-08-19 20:42] LABS: Glucose Point of Care 230 (65-105)
[2019-08-20] VITALS: BP 133/66; PULSE 59; PULSE 65; RESP 12; TEMP 36.8; O2SAT 100
[2019-08-20 02:00] VITALS: BP 126/64; PULSE 64; PULSE 69; RESP 20
[2019-08-20 04:00] VITALS: BP 102/64; PULSE 61; PULSE 65; RESP 20; TEMP 36.9; O2SAT 94
[2019-08-20 04:57] LABS: Hematocrit 38.6 % (42.0-52.0); Hemoglobin 12.6 g/dL (14.0-18.0); Mean Corpuscular HGB Conc 32.6 g/dl (32-36); Mean Corpuscular Hemoglobin 30.2 pg (26-34); Mean Corpuscular Volume 92.6 fl (80-100); Mean Platelet Volume 10.7 fl (7.4-10.4); Platelet Count Result 141 k/mm3 (150-375); Red Blood Count 4.17 M/mm3 (4.6-6.20); Red Cell Distribution Width 14.4 % (11.5-14.5); White Blood Count 10.6 K/mm3 (4.5-10.0)
[2019-08-20 05:15] LABS: Blood Urea Nitrogen 38 mg/dL (9-20); Calcium 8.4 mg/dL (8.4-10.2); Carbon Dioxide 28 mmol/L (22-30); Chloride 98 mmol/L (98-107); Estimated CRCL calculation 35 ml/min; Estimated Glomerular Filt Rate 27; Glucose 134 mg/dL (75-110); Potassium 3.7 mmol/L (3.4-5.0); Sodium 137 mmol/L (137-145)
[2019-08-20 08:00] VITALS: BP 152/71; PULSE 66; RESP 18; TEMP 36.4; O2SAT 99
[2019-08-20 08:07] LABS: Glucose Point of Care 134 (65-105)
[2019-08-20] MEDS: GABAPENTIN 300 MG CAPSULE 600 MG PO (08:33)
[2019-08-20] MEDS: carvediloL 25 MG TABLET PO (08:33)
[2019-08-20] MEDS: ATORVASTATIN 40 MG TABLET 80 MG PO (08:34)
[2019-08-20] MEDS: PANTOPRAZOLE 40 MG TABLET PO (08:34)
[2019-08-20] MEDS: DOCUSATE SODIUM 100 MG CAPSULE PO (08:34)
[2019-08-20] MEDS: TICAGRELOR 90 MG TABLET PO (08:34)
[2019-08-20] MEDS: lisinopriL 20 MG TABLET PO (08:35)
[2019-08-20] MEDS: INSULIN GLARGINE (*BKC) 100 UNITS/ML 32 UNITS SUB-Q (08:35)
[2019-08-20] MEDS: ASPIRIN 81 MG CHEWABLE TABLET PO (08:37)
[2019-08-20 10:00] VITALS: BP 132/71; PULSE 63; RESP 17; O2SAT 98
--- NOTE | 2019-08-20 11:42 | PM.DS ---
DS: Diagnosis Admitting Diagnosis Admitting Diagnosis: ST elevation (STEMI) myocardial infarction of unspecified site Discharge Diagnosis (1) ST elevation (STEMI) myocardial infarction: Qualifiers: Involved coronary artery: unspecified coronary artery Qualified Code(s): I21.3 - ST elevation (STEMI) myocardial infarction of unspecified site Code(s): I21.3 - ST elevation (STEMI) myocardial infarction of unspecified site Status: Acute Assessment and Plan: Coronary artery disease with previous PCI presenting 08/17/[address]-elevation [place] and subtotal stenosis of the circumflex ostium which was a large dominant vessel. PCI done successfully with a 3.5 mm drug-eluting stent with good angiographic result. Ventricular tachycardia requiring amiodarone in the quality assurance/r&d lab technician. This was discontinued on 08/18/2019. One 5 beat run noted after was discontinued. Episode of atrial fibrillation for approximately 1 hour Carvedilol was decreased due to 12.5 mg b.i.d. due to bradycardia. Heart rates have recovered. Carvedilol 25 mg q.12 hours resumed. Continue aspirin, atorvastatin and Brilinta. (2) HTN (hypertension): Code(s): I10 - Essential (primary) hypertension Status: Acute Assessment and Plan: Blood pressures were elevated. Carvedilol as above. Was taking benazepril at home b.i.d.. Resume on discharge (3) Ventricular arrhythmia: Code(s): I49.9 - Cardiac arrhythmia, unspecified Status: Acute Assessment and Plan: As above. (4) Diabetes: Code(s): E11.9 - Type 2 diabetes mellitus without complications Status: Acute Assessment and Plan: Blood sugars better controlled with an adjustments of his insulin (5) Hyperlipidemia: Code(s): E78.5 - Hyperlipidemia, unspecified Status: Acute Assessment and Plan: Continue atorvastatin (6) Dizziness: Code(s): R42 - Dizziness and giddiness Status: Acute Assessment and Plan: No orthostatic blood pressure changes. Dizziness due to elevated blood sugars. Resolved with better control of his blood sugar. DS: Summary Hospital Course Reason for hospitalization: Chest pain Hospital Course: 74-year-old male with a history of coronary artery disease previous PCI in 2013 presented to the emergency room via private vehicle with chest pain. He had inferolateral ST-elevation by ECG. He was taken emergently to the cardiac catheterization lab by Dr. Apodaca on August 17, 2019 with a significant findings of: Subtotal stenosis at the ostium of the a dominant left circumflex in this gentleman with previous stenting into the OM2 branch in 2013. This lesion was treated successfully using the 3.5 x 28 mm Tereza drug-eluting stent with an excellent anatomical result and no dissection perforation or distal embolization. During the procedure he had ventricular tachycardia requiring amiodarone. He was admitted to the ICU for observation. Amiodarone was discontinued. He had approximately 1 hour of atrial fibrillation. Bradycardia was noted and carvedilol dose was decreased. Echocardiogram: Ejection fraction 55-60%. Mild increase of the LV wall thickness. Grade 2 diastolic dysfunction. Mild inferior lateral hypokinesis. Moderate pulmonary hypertension. Despite his heart rate recovering nicely, he still felt dizzy and weak the second day post OR. He attributed this to his elevated blood sugars. His insulin was adjusted. He was observed for another day. On the day of discharge he was ambulating in the avila with no lightheadedness, shortness of breath, chest discomfort or palpitations. Vital signs were stable. He had no further arrhythmias. He was discharged home in stable and pain-free condition. Status at Discharge Functio
== END 2019-08-20 12:31 | disposition home or self-care (01) | DRG 247 ==
LOC: ANHED 21:20 → ANHICU 22:20
PROVIDERS: Internal Medicine; Admitting Provider Specialist; Emergency Provider Emergency Medicine; PCP Registered Nurse; Visit Provider Internal Medicine Cardiovascular Disease
PROC: 027034Z Dilation of Coronary Artery, One Artery with Drug-eluting Intraluminal Device, Percutaneous Approach (ICD-10-PCS; CPT 93454; principal; 2019-08-17 21:50)
PROC: 027034Z Dilation of Coronary Artery, One Artery with Drug-eluting Intraluminal Device, Percutaneous Approach (ICD-10-PCS; 2019-08-17 21:50)
DX: I21.19 ST elevation (STEMI) myocardial infarction involving other coronary artery of inferior wall (principal); Z68.41 Body mass index [BMI] 40.0-44.9, adult; J98.11 Atelectasis; I47.2 Ventricular tachycardia; I48.91 Unspecified atrial fibrillation; I10 Essential (primary) hypertension; E11.42 Type 2 diabetes mellitus with diabetic polyneuropathy; E78.5 Hyperlipidemia, unspecified; R42 Dizziness and giddiness; I25.10 Atherosclerotic heart disease of native coronary artery without angina pectoris; G47.33 Obstructive sleep apnea (adult) (pediatric); M10.9 Gout, unspecified; M06.9 Rheumatoid arthritis, unspecified; E66.9 Obesity, unspecified; Z28.21 Immunization not carried out because of patient refusal; Z95.5 Presence of coronary angioplasty implant and graft
CPT/HCPCS: 36415; 71045; 80048; 80053; 80061; 83735; 84484; 85025; 85027; 85610; 85730; 86850; 86900; 86901; 87081; 88305; 93005; 93306; 93454; 96374; 97161; 97165; 99291; A9270; C1725; C1769; C1874; C1887; C1894; C9606; J0282; J0461; J0583; J1644; J1815; J2270; J2704; J3475; J7030; J7040; J7120; Q9957

== ENCOUNTER 2019-09-02 14:55 | Outpatient (CLI) | payer MEDICARE, SELFPAY ==
[2019-09-02 16:07] LABS: Blood Urea Nitrogen 62 mg/dL (9-20); Calcium 9.9 mg/dL (8.4-10.2); Carbon Dioxide 26 mmol/L (22-30); Chloride 101 mmol/L (98-107); Estimated Glomerular Filt Rate 28; Glucose 152 mg/dL (75-110); Potassium 4.3 mmol/L (3.4-5.0); Sodium 137 mmol/L (137-145)
== END 2019-09-02 14:56 | disposition home or self-care (01) ==
PROVIDERS: PCP Registered Nurse; Visit Provider Nurse Practitioner Adult Health
DX: N18.3 Chronic kidney disease, stage 3 (moderate) (principal)
CPT/HCPCS: 36415; 80048

== ENCOUNTER 2019-12-18 07:37 | Outpatient (CLI) | payer MEDICARE, SELFPAY ==
--- NOTE | ~2019-12-18 | US_ITS ---
EXAMINATION: US right upper quadrant EXAM DATE: 12/18/2019 08:09 INDICATION: Right upper quadrant pain. TECHNIQUE: Multiple grayscale and Doppler images of the abdomen right upper quadrant were obtained (b y a technologist who performed the scan) and subsequently reviewed. Comparison is made to prior exami nation from 02/26/2016. FINDINGS: The pancreatic head and body are normal in appearance. The pancreatic tail is not visualized. The l iver has normal echogenicity and contour. There are no focal liver lesions identified. There is no evidence of intrahepatic biliary duct dilation. Portal venous flow was seen in the hepatopedal, nor mal direction and has normal Doppler waveform. No right-sided hydronephrosis. Common bile duct measures 5 mm, which is normal. The gallbladder wall is normal in thickness, with ex pected amount of distention. No sonographic evidence of pericholecystic fluid. There is no cholelit hiases. Technologist noted maximal tenderness over the otherwise sonographically unremarkable gallbla dder. IMPRESSION: 1. Sonographically normal gallbladder. Reviewed, dictated and finalized at location B.
== END 2019-12-18 07:38 | disposition home or self-care (01) ==
LOC: ANHIMG 07:40
PROVIDERS: PCP Registered Nurse; Visit Provider Registered Nurse
DX: R10.11 Right upper quadrant pain (principal)
CPT/HCPCS: 76705

== ENCOUNTER 2020-01-12 08:36 | Emergency (ER) | payer MEDICARE, SELFPAY ==
--- NOTE | ~2020-01-12 | XR_ITS ---
XR chest 1V portable DATE: 01/12/2020 09:16 INDICATION: Cough. Frontal and midsternal and left chest pain for 2 days. History of myocardial infar ction. TECHNIQUE: Portable AP chest on 01/12/2020 at 0912 hours COMPARISON: 08/17/2019 portable AP chest at 2129 hours FINDINGS: Heart size is within normal range. There is aortic calcification. No hilar or mediastinal e nlargement. No pulmonary infiltrate or consolidation, pleural effusion or pulmonary vascular congestion or pneumo thorax is detected. Degenerative spurring and dextro scoliosis of the thoracic spine. IMPRESSION: No active cardiopulmonary disease Aortic atherosclerosis. Reviewed, dictated and finalized at location A.
[2020-01-12 08:40] VITALS: BP 194/63; PULSE 64; RESP 20; TEMP 37.1; O2SAT 98
--- NOTE | 2020-01-12 09:05 | ECG_ITS ---
Measurements Intervals [place] Rate: 62 P: 32 VT: 194 QRS: -43 QRSD: 102 T: 14 QT: 371 QTc: 378 Interpretive Statements SINUS RHYTHM INFERIOR INFARCT, AGE INDETERMINATE BASELINE ARTIFACT- I, III, AVL, AVF, V3, V6 ABNORMAL ECG Electronically Signed On 01-12-2020 10:46:45 CDT by Philippe Abdi D.O.
--- NOTE | 2020-01-12 09:21 | ED.GENADULT ---
HPI - General Adult General Chief complaint: Chest Pain Stated complaint: chest pain Time Seen by Provider: 01/12/20 08:53 Source: patient Mode of arrival: ambulatory Limitations: no limitations History of Present Illness HPI narrative: This patient is a 74 year old male who presents for evaluation of possible COVID. He states starting on he developed runny nose, cough, intermittent chest pain and shortness of breath. He reports his cough is productive with green sputum. He reports intermittent sob. He also has left chest tightness that occurs at rest and exertion. He states he does not think this is a heart attack. He went to [employer] yesterday to get COVID test but he states they would not perform since he was have chest pain and shortness of breath. He just wants to have COVID test because his is going to baby sit his grandkids this week. Related Data Home Medications Medication Instructions Recorded Confirmed allopurinol 300 mg PO QAM 08/12/19 10/22/19 atorvastatin 80 mg PO HS 08/12/19 10/22/19 benazepril 20 mg PO BID 08/12/19 10/22/19 gabapentin 600 mg PO BID 08/12/19 10/22/19 adalimumab [Humira(CF)] 40 mg SUBCUT [id number] 08/17/19 10/22/19 cholecalciferol (vitamin D3) 2,500 unit PO DAILY 08/17/19 10/22/19 cinnamon bark 1,000 mg PO DAILY 08/17/19 10/22/19 flaxseed oil 1,000 mg PO DAILY 08/17/19 10/22/19 clopidogrel 75 mg tablet 75 mg PO DAILY 10/07/19 10/22/19 insulin glargine U-300 conc 300 60 unit SUBCUT QPM ml 10/12/19 10/22/19 unit/mL (1.5 mL) subcutaneous pen pen needle, diabetic 31 gauge x #1,200 each 10/12/19 10/22/1911/01 carvedilol 6.25 mg PO Q12H 01/12/20 indapamide 2.5 mg PO DAILY 01/12/20 isosorbide mononitrate 7.5 mg PO BID 01/12/20 leflunomide 20 mg PO DAILY 01/12/20 Allergies Allergy/AdvReac Type Severity Reaction Status Date / Time No Known Allergies Allergy Unknown Verified 08/17/19 21:49 Review of Systems Review of Systems: All systems reviewed & are unremarkable except as noted in HPI and below Constitutional: Constitutional: Denies chills and Denies fever(s) Cardiovascular: Cardiovascular: Reports chest pain Respiratory: Respiratory: Reports cough, Reports dyspnea and Denies wheezing Gastrointestinal: Gastrointestinal: Denies abdominal pain, Denies diarrhea, Denies nausea and Denies vomiting PMFSH Social History Social History Smoking status: Never smoker Alcohol intake: never Substance use: never Gender identity (if verbalized by the patient): Male Spiritual care concerns: No Agree to blood products: Yes Exam Narrative: Exam Narrative: GENERAL: Well-appearing, well-nourished, and in no acute distress. HEAD: Normocephalic, atraumatic EYES: PERRLA and EOMI, conjunctiva clear without discharge THROAT:Mucous membranes moist, Oropharynx normal without erythema, exudate, peritonsillar swelling or fluctuance NECK: Supple, without lymphadenopathy or mass RESPIRATORY: No respiratory distress, Airway patent, Respirations non-labored, Clear to auscultation without rales, rhonchi or wheeze HEART: Regular rate and rhythm. No murmur heard. Normal peripheral pulses. ABDOMEN: Soft, nontender, nondistended, normal active bowel sounds. No masses. No rebound or guarding, No organomegaly. EXTREMITIES: No edema, normal strength with full range of motion. SKIN: Warm, dry, normal color without rash NEURO: Alert and oriented x3. CN 2-12 grossly intact. No focal deficits. PSYCH: Normal mood and affect. Course Reevaluation(s) Reevaluation #1: I have discussed with patient xray and labs. Kidney function is stable. Repeat potassium is normal. He is stable for discharge and I discussed cose results. Date: 01/12/20 Time: 11:03 Vital Signs Vital signs: Vital Signs Temperature 98.7 F 01/12/20 08:40 Pulse Rate 64 01/12/20 08:40 Respiratory Rate 20 01/12/20 08:40 Blood Pressure 194/63 H 0
[2020-01-12 09:22] LABS: Basophils Absolute Auto 0.1 K/mm3 (0.0-0.1); Basophils Percent Auto 1.3 % (0.2-1.2); Eosinophils Absolute Auto 0.5 K/mm3 (0-0.3); Eosinophils Percent Auto 7.4 % (0-4.4); Hematocrit 40.5 % (42.0-52.0); Hemoglobin 13.2 g/dL (14.0-18.0); Immature Granulocyte Absolute 0.02 K/mm3 (0.00-0.031); Immature Granulocyte Percent A 0.3 % (0-0.5); Lymphocytes Absolute Auto 1.66 K/mm3 (0.9-3.2); Lymphocytes Percent Auto 26.2 % (18.3-44.2); Mean Corpuscular HGB Conc 32.6 g/dl (32-36); Mean Corpuscular Hemoglobin 31.6 pg (26-34); Mean Corpuscular Volume 96.9 fl (80-100); Mean Platelet Volume 10.7 fl (7.4-10.4); Monocytes Absolute Auto 0.7 K/mm3 (0.1-0.6); Monocytes Percent Auto 11.5 % (2.6-8.5); Neutrophils Absolute Auto 3.4 K/mm3 (1.3-6.7); Neutrophils Percent Auto 53.3 % (45.5-73.1); Platelet Count Result 182 k/mm3 (150-375); Red Blood Count 4.18 M/mm3 (4.6-6.20); Red Cell Distribution Width 13.8 % (11.5-14.5); White Blood Count 6.3 K/mm3 (4.5-10.0)
[2020-01-12 09:36] LABS: Prothrombin Time 12.4 Seconds (11.1-14.7)
[2020-01-12 09:41] LABS: Alanine Aminotransferase 39 U/L (4-50); Albumin Level 4.6 g/dL (3.5-5.1); Alkaline Phosphatase 63 U/L (38-126); Anion Gap 16.5 mmol/L (7-16); Aspartate Amino Transferase 75 U/L (17-59); Bilirubin,Total 1.6 mg/dL (0.2-1.3); Blood Urea Nitrogen 47 mg/dL (9-20); CRP 0.8 mg/dL (<1.0); Carbon Dioxide 22 mmol/L (22-30); Chloride 103 mmol/L (98-107); Estimated CRCL calculation 41 ml/min; Estimated Glomerular Filt Rate 33; Glucose 207 mg/dL (75-110); Potassium 6.5 mmol/L (3.4-5.0); Sodium 135 mmol/L (137-145)
[2020-01-12 09:46] LABS: Troponin I 0.025 ng/mL (0.000-0.034)
[2020-01-12 10:49] LABS: Potassium 4.8 mmol/L (3.4-5.0)
[2020-01-12 11:29] VITALS: BP 127/76; PULSE 56; RESP 18; O2SAT 100
[2020-01-15 03:25] LABS: SARS-CoV-2 RNA PCR Negative
== END 2020-01-12 11:30 | disposition home or self-care (01) ==
PROVIDERS: Emergency Provider General Practice; PCP Registered Nurse
DX: J06.9 Acute upper respiratory infection, unspecified (principal); R07.89 Other chest pain; Z20.828 Contact with and (suspected) exposure to other viral communicable diseases; I70.0 Atherosclerosis of aorta; R94.31 Abnormal electrocardiogram [ECG] [EKG]
CPT/HCPCS: 36415; 71045; 80053; 84132; 84484; 85025; 85610; 85730; 86140; 87635; 93005; 99284; C9803; U0003

== ENCOUNTER → 2021-02-12 04:15 | Outpatient (CLI) | payer MEDICARE, SELFPAY ==
[2021-02-12 18:23] LABS: SARS-CoV-2 RNA PCR Positive
== END ==
PROVIDERS: PCP Registered Nurse; Visit Provider Internal Medicine Gastroenterology
DX: U07.1 COVID-19 (principal)
CPT/HCPCS: C9803; U0003; U0005

== ENCOUNTER 2021-03-03 00:44 | Day surgery (SDC) | payer MEDICARE, SELFPAY ==
[2021-02-03 14:36] VITALS: BMI 38.4
--- NOTE | 2021-02-15 08:14 | WPDANESEPPF ---
Anes - Initial Pre Proc Eval Procedure: Operation Date: 02/15/21 11:00 Proposed Procedures p Esophagogastroduodenoscopy - Carlos Simpson MD Date/Time: 02/15/21 08:14 Surgeon: Carlos Simpson MD Pre Op Diagnosis: Epigastric Pain Patient Data Age: 76 Gender: M Height: 1.8 m Weight: 125 kg Allergies Allergy/AdvReac Type Severity Reaction Status Date / Time No Known Allergies Allergy Unknown Verified 01/27/21 10:45 Home Medications Medication Instructions Recorded Confirmed Type allopurinol 300 mg PO QAM 08/12/19 02/10/21 History benazepril 20 mg PO BID 08/12/19 02/10/21 History cinnamon bark 1,000 mg PO DAILY 08/17/19 02/10/21 History flaxseed oil 1,000 mg PO DAILY 08/17/19 02/10/21 History aspirin [Children's Aspirin] 81 mg PO DAILY@0800 #30 tablet 08/20/19 02/10/21 Rx clopidogrel 75 mg tablet 75 mg PO DAILY 10/07/19 02/10/21 History carvedilol 6.25 mg PO Q12H 01/12/20 02/10/21 History indapamide 2.5 mg PO DAILY 01/12/20 02/10/21 History leflunomide 20 mg PO DAILY 01/12/20 02/10/21 History atorvastatin 80 mg tablet 80 mg PO QPM tablet 04/10/20 02/10/21 History cholecalciferol (vitamin D3) 75 3,000 unit PO DAILY tablet 04/10/20 02/10/21 History mcg (3,000 unit) tablet insulin lispro 200 unit/mL (3 mL) See Rx Instructions SUBCUT TID #69 10/22/20 02/10/21 Rx subcutaneous pen ml blood sugar diagnostic #400 each 11/30/20 02/10/21 Rx gabapentin 600 mg PO BID 02/03/21 02/10/21 History hydroxychloroquine 200 mg PO BID 02/03/21 02/10/21 History insulin glargine [Basaglar KwikPen 65 unit SUBCUT QAM 02/03/21 02/10/21 History U-100 Insulin] sucralfate 1 g PO QID 02/03/21 02/10/21 History ezetimibe 10 mg tablet 10 mg PO DAILY #90 tablet 02/10/21 02/10/21 Rx pen needle, diabetic 31 gauge x #1,200 each 02/10/21 02/10/21 Rx 11/01 [facility] Past Medical History Medical History (Updated 02/15/21 @ 08:14 by Sd Brown DO) CAD (coronary artery disease) Chronic cholecystitis Diabetes Epigastric pain Gout HTN (hypertension) Hypercholesteremia Hyperlipidemia Obesity JAZMYNE (obstructive sleep apnea) CPAP Peripheral neuropathy Rheumatoid arthritis Sleep apnea Surgical History Surgical History (Updated 02/15/21 @ 08:14 by Sd Brown DO) History of cardiac cath History of coronary artery stent placement x4 Social History Social History (Reviewed 02/10/21 @ 10:16 by Clementine Monk, [facility]) Smoking status: Never smoker Alcohol intake: never Substance use: never Living arrangements: with family Gender identity (if verbalized by the patient): Male Sexual Orientation (if Verbalized by the Patient): Straight or Heterosexual Spiritual care concerns: No Agree to blood products: Yes Anes - Eval Final PreProcedure Day of Procedure 02/15/21 08:14 Patient weight: obese Heart: regular rate and rhythm Lungs: clear to auscultation and normal air movement Airway: Mallampati scale class II Neurological: alert and oriented Last oral intake: >/= 8 hours ASA classification: III Emergent: no Anesthetic plan: proceed Anesthesia type and monitoring: general GIVS and standard monitoring Informed Consent: The patient's anesthetic plan and its attendant risks and benefits were discussed with the patient/family/POA. Questions were solicited and answers provided to the satisfaction of the patient/family/POA.
[2021-02-26 16:13] VITALS: BMI 38.4
--- NOTE | 2021-03-03 07:52 | WPDANESEPPF ---
Anes - Initial Pre Proc Eval Procedure: Operation Date: 03/03/21 11:00 Proposed Procedures p Esophagogastroduodenoscopy - Carlos Simpson MD Date/Time: 03/03/21 07:52 Surgeon: Carlos Simpson MD Pre Op Diagnosis: Epigastric Pain Patient Data Age: 76 Gender: M Height: 1.8 m Weight: 125 kg Allergies Allergy/AdvReac Type Severity Reaction Status Date / Time No Known Allergies Allergy Unknown Verified 03/03/21 10:06 Home Medications Medication Instructions Recorded Confirmed Type allopurinol 300 mg PO QAM 08/12/19 02/10/21 History benazepril 20 mg PO BID 08/12/19 02/10/21 History cinnamon bark 1,000 mg PO DAILY 08/17/19 02/10/21 History flaxseed oil 1,000 mg PO DAILY 08/17/19 02/10/21 History aspirin [Children's Aspirin] 81 mg PO DAILY@0800 #30 tablet 08/20/19 02/10/21 Rx clopidogrel 75 mg tablet 75 mg PO DAILY 10/07/19 02/10/21 History carvedilol 6.25 mg PO Q12H 01/12/20 02/10/21 History indapamide 2.5 mg PO DAILY 01/12/20 02/10/21 History leflunomide 20 mg PO DAILY 01/12/20 02/10/21 History atorvastatin 80 mg tablet 80 mg PO QPM tablet 04/10/20 02/10/21 History cholecalciferol (vitamin D3) 75 3,000 unit PO DAILY tablet 04/10/20 02/10/21 History mcg (3,000 unit) tablet insulin lispro 200 unit/mL (3 mL) See Rx Instructions SUBCUT TID #69 10/22/20 02/10/21 Rx subcutaneous pen ml blood sugar diagnostic #400 each 11/30/20 02/10/21 Rx gabapentin 600 mg PO BID 02/03/21 02/10/21 History hydroxychloroquine 200 mg PO BID 02/03/21 02/10/21 History insulin glargine [Basaglar KwikPen 65 unit SUBCUT QAM 02/03/21 02/10/21 History U-100 Insulin] sucralfate 1 g PO QID 02/03/21 02/24/21 History ezetimibe 10 mg tablet 10 mg PO DAILY #90 tablet 02/10/21 02/24/21 Rx pen needle, diabetic 31 gauge x #1,200 each 02/10/21 02/10/21 Rx 11/01 Patient hx anesthesia problems: none Family hx anesthesia problems: none PMFSH Past Medical History Medical History (Updated 03/03/21 @ 07:53 by Sd Brown DO) CAD (coronary artery disease) Chronic cholecystitis Diabetes Epigastric pain Gout HTN (hypertension) Hypercholesteremia Hyperlipidemia Obesity JAZMYNE (obstructive sleep apnea) CPAP Peripheral neuropathy Person under investigation for COVID-19 02/12/21 Rheumatoid arthritis Sleep apnea Surgical History Surgical History (Updated 02/15/21 @ 08:14 by Sd Brown DO) History of cardiac cath History of coronary artery stent placement x4 Social History Social History Smoking status: Never smoker Alcohol intake: never Substance use: never Substance use type: does not use Living arrangements: with family Gender identity (if verbalized by the patient): Male Sexual Orientation (if Verbalized by the Patient): Straight or Heterosexual Spiritual care concerns: No Agree to blood products: Yes Anes - Eval Final PreProcedure Day of Procedure 03/03/21 07:52 Patient weight: obese Heart: regular rate and rhythm Lungs: clear to auscultation and normal air movement Airway: Mallampati scale class II Neurological: alert and oriented Last oral intake: >/= 8 hours ASA classification: III Emergent: no Anesthetic plan: proceed Anesthesia type and monitoring: general GIVS and standard monitoring Informed Consent: The patient's anesthetic plan and its attendant risks and benefits were discussed with the patient/family/POA. Questions were solicited and answers provided to the satisfaction of the patient/family/POA.
[2021-03-03] MEDS: LACTATED RINGERS 1,000 ML 150 ML IV CONT (10:18)
[2021-03-03 10:21] VITALS: BP 152/57; PULSE 64; RESP 20; TEMP 36.6; O2SAT 97
--- NOTE | 2021-03-03 10:34 | WPDGICN ---
Assessment and Plan Assessment and plan (1) Epigastric pain: Code(s): R10.13 - Epigastric pain Status: Acute Assessment and Plan: Patient has had epigastric abdominal cramping. Along with increased bowel sounds. Plan is to initially evaluate with EGD. Subsequently will try small-bowel follow-through if this is not fruitful. A trial of Bentyl antispasmodic agent will be given. Further recommendations will be given after endoscopy. (2) Obesity: Code(s): E66.9 - Obesity, unspecified Status: Acute (3) History of colon polyps: Code(s): Z86.010 - Personal history of colonic polyps Status: Acute Assessment and Plan: Patient has a history of a benign colon polyp removed from the colon just last year. Follow-up colonoscopy is suggested in 4 years. GI Consult Note Consult date/time: 03/03/21 10:34 HPI: Erickson Navarro is a 76 year old male Presents for EGD. Patient reports a gurgling sensation throughout his abdomen that has been present intermittently over the last 8 weeks. Patient reports initially when this occurred he had abdominal cramping. Patient states that he eats well with no change in symptoms no pain with eating. His bowel habits remain normal. He does report occasional hard stools. He has had no bleeding. Colonoscopy performed in 2019 revealed benign colon polyps. Patient presents for EGD today to assess his pain. Gallbladder ultrasound last year was unremarkable. Review of Systems Review of Systems: All systems reviewed & are unremarkable except as noted in HPI and below PMFSH Past Medical History Medical History (Updated 03/03/21 @ 10:36 by Carlos Simpson MD) CAD (coronary artery disease) Chronic cholecystitis Diabetes Epigastric pain Gout HTN (hypertension) Hypercholesteremia Hyperlipidemia Obesity JAZMYNE (obstructive sleep apnea) CPAP Peripheral neuropathy Person under investigation for COVID-19 02/12/21 Rheumatoid arthritis Sleep apnea Surgical History Surgical History (Updated 02/15/21 @ 08:14 by Sd Brown DO) History of cardiac cath History of coronary artery stent placement x4 Social History Social History Smoking status: Never smoker Alcohol intake: never Substance use: never Substance use type: does not use Living arrangements: with family Gender identity (if verbalized by the patient): Male Sexual Orientation (if Verbalized by the Patient): Straight or Heterosexual Spiritual care concerns: No Agree to blood products: Yes Meds Home Medications and Allergies Home Medications Medication Instructions Recorded Confirmed Type allopurinol 300 mg PO QAM 08/12/19 02/10/21 History benazepril 20 mg PO BID 08/12/19 02/10/21 History cinnamon bark 1,000 mg PO DAILY 08/17/19 02/10/21 History flaxseed oil 1,000 mg PO DAILY 08/17/19 02/10/21 History aspirin [Children's Aspirin] 81 mg PO DAILY@0800 #30 tablet 08/20/19 02/10/21 Rx clopidogrel 75 mg tablet 75 mg PO DAILY 10/07/19 02/10/21 History carvedilol 6.25 mg PO Q12H 01/12/20 02/10/21 History indapamide 2.5 mg PO DAILY 01/12/20 02/10/21 History leflunomide 20 mg PO DAILY 01/12/20 02/10/21 History atorvastatin 80 mg tablet 80 mg PO QPM tablet 04/10/20 02/10/21 History cholecalciferol (vitamin D3) 75 3,000 unit PO DAILY tablet 04/10/20 02/10/21 History mcg (3,000 unit) tablet insulin lispro 200 unit/mL (3 mL) See Rx Instructions SUBCUT TID #69 10/22/20 02/10/21 Rx subcutaneous pen ml blood sugar diagnostic #400 each 11/30/20 02/10/21 Rx gabapentin 600 mg PO BID 02/03/21 02/10/21 History hydroxychloroquine 200 mg PO BID 02/03/21 02/10/21 History insulin glargine [Basaglar KwikPen 65 unit SUBCUT QAM 02/03/21 02/10/21 History U-100 Insulin] sucralfate 1 g PO QID 02/03/21 02/24/21 History ezetimibe 10 mg tablet 10 mg PO DAILY #90 tablet 02/10/21 02/24/21 Rx pen needle, diabetic 31 gauge
[2021-03-03 10:51] VITALS: BP 140/69; PULSE 64; RESP 23; O2SAT 96
[2021-03-03 11:01] VITALS: BP 126/64; PULSE 60; RESP 20; O2SAT 96
== END 2021-03-03 11:44 | disposition home or self-care (01) ==
PROVIDERS: PCP Registered Nurse; Visit Provider Internal Medicine Gastroenterology
PROC: 0DJ08ZZ Inspection of Upper Intestinal Tract, Via Natural or Artificial Opening Endoscopic (ICD-10-PCS; CPT 43235; principal; 2021-03-03 11:00)
DX: K29.80 Duodenitis without bleeding (principal); Z86.010 Personal history of colon polyps; I25.10 Atherosclerotic heart disease of native coronary artery without angina pectoris; K81.1 Chronic cholecystitis; E11.42 Type 2 diabetes mellitus with diabetic polyneuropathy; I10 Essential (primary) hypertension; E78.5 Hyperlipidemia, unspecified; M10.9 Gout, unspecified; G47.33 Obstructive sleep apnea (adult) (pediatric); M06.9 Rheumatoid arthritis, unspecified; Z95.5 Presence of coronary angioplasty implant and graft; Z79.02 Long term (current) use of antithrombotics/antiplatelets; Z79.82 Long term (current) use of aspirin; Z79.4 Long term (current) use of insulin; E66.9 Obesity, unspecified; Z68.39 Body mass index [BMI] 39.0-39.9, adult
CPT/HCPCS: 43239; 87081; J2704; J7120

== ENCOUNTER 2021-03-19 08:05 | Outpatient (CLI) | payer MEDICARE, SELFPAY ==
--- NOTE | ~2021-03-19 | XR_ITS ---
EXAMINATION: XR small bowel follow through EXAM DATE: 03/19/2021 09:29 INDICATION: R10.13 -Episodes of epigastric pain, stomach gurgling and fatigue. TECHNIQUE: Store Team Member radiograph was acquired. Barium was administered for small bowel exam performed by radiologist Willis Kaufman M.D.. Spot images of the terminal ileum were acquired. Pulsed dose reductio n fluoroscopy was used with fluoroscopic time of 0.3. The DAP for this procedure was 270 Gycm2. A t otal of 60 images obtained for the exam. FINDINGS: Ileal and jejunal fold patterns are normal. There is no small bowel wall thickening or m ass effect displacing small bowel. There are no intraluminal filling defects identified. There is n o small bowel dilation. Terminal ileum is normal in appearance. Contrast reached the colon by 45 mi nutes time, normal. IMPRESSION: Unremarkable small bowel exam. Reviewed, dictated and finalized at location A.
== END 2021-03-19 08:06 | disposition home or self-care (01) ==
PROVIDERS: PCP Registered Nurse; Visit Provider Internal Medicine Gastroenterology
DX: R10.13 Epigastric pain (principal); R10.9 Unspecified abdominal pain
CPT/HCPCS: 74250

== ENCOUNTER 2021-08-26 09:12 | Inpatient (IN) | payer MEDICARE, SELFPAY ==
[2021-08-26] VITALS (8 sets, daily range): BP systolic 101–158; BP diastolic 61–85; PULSE 70–86; RESP 18–21; TEMP 36.2–36.8; O2SAT 98–100; BMI 40.7
--- NOTE | ~2021-08-26 | XR_ITS ---
EXAMINATION: XR wrist LT w scaphoid DATE: 08/31/2021 14:53 INDICATION: Left wrist pain. TECHNIQUE: 5 views of left wrist were obtained. COMPARISON: None. 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 No fracture. There is mild osteoarthritis of radioscaphoid joint, radiolunate joint, and lunate-capitate joint. Th ere is mild osteoarthritis of triscaphe joint, first carpometacarpal joint, and first-third metacarpo phalangeal joints. 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 Reviewed, dictated and finalized at location A.
--- NOTE | ~2021-08-26 | XR_ITS ---
EXAMINATION: XR abdomen/kub 1V INDICATION: Abdominal distention, constipation TECHNIQUE: Supine views of the abdomen were obtained on 2 radiographs. COMPARISON: None FINDINGS: There is gaseous distention of the large bowel. Stool is seen in the rectum. The bowel gas pattern is normal. There is moderate osteoarthritis of the hips. IMPRESSION: 1. Gaseous distention of the large bowel which may reflect ileus. Reviewed, dictated and finalized at location B. AZZO POLISHER HELPER
--- NOTE | ~2021-08-26 | CT_ITS ---
EXAMINATION: CT brain wo con DATE: 08/31/2021 14:49 INDICATION: Confusion. Hallucinations. TECHNIQUE: Computed tomography (CT) of the head was performed without intravenous contrast. The mA wa s adjusted according to patient size. Iterative reconstruction technique was employed. The dose-lengt h product was 756.67 mGy-cm. COMPARISON: Head CT 07/20/2004 FINDINGS: There are scattered areas of low attenuation in the cerebral white matter. There is a small old infarct in left occipital lobe. There is an old infarct in right parietal lobe. There is no intr acranial hemorrhage, acute infarction, or abnormal intracranial mass lesion. The ventricles are oneil l in size. There are likely changes of ocular lens replacement surgeries. There is mild mucosal thick ening in the ethmoid sinuses. The mastoid air cells are normal. IMPRESSION: 1. 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 2. Moderate nonspecific cerebral white matter disease, which likely represents chronic small vessel i schemic disease. Reviewed, dictated and finalized at location A. IMPRESSION: 1. 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 2. Moderate nonspecific cerebral white matter disease, which likely represents chronic small vessel ischemic disease.
--- NOTE | ~2021-08-26 | CT_ITS ---
EXAMINATION: CT abdomen pelvis wo con DATE: 08/26/2021 11:41 INDICATION: Abdominal distention TECHNIQUE: Computed tomography (CT) of the abdomen and pelvis was performed without intravenous contr ast. The dose-length product (DLP) was 1573.70 mGy-cm. Automated exposure control and iterative recon struction technique were employed. COMPARISON: None FINDINGS: Minimal dependent atelectasis is present in the lung bases. The heart size is normal. Calci fied pulmonary nodules are consistent with old granulomatous disease. A stable noncalcified 4 mm nodu le of the right lower lobe is also consistent with old granulomatous disease. Punctate calcifications in the otherwise normal appearing liver likely represent healed granulomatous disease. The spleen, p ancreas, and adrenal glands are normal. The right kidney is unremarkable. Cysts of the left kidney me asure up to 5.5 cm. There is calcified atherosclerosis of the aorta and many of the other arteries. N o pathologically enlarged abdominal or pelvic lymph nodes are identified. There is no free intraperit olsen gas or evidence of bowel obstruction. There is formed and liquid stool throughout the colon the re is an umbilical hernia containing fat. There are bridging osteophytes at multiple levels in the lo wer thoracic spine, consistent with diffuse idiopathic skeletal hyperostosis (DISH). IMPRESSION: 1. No CT correlate for the patient's symptoms. Reviewed, dictated and finalized at location B. ROLL MAN
[2021-08-26] MEDS: ONDANSETRON INJ 4 MG/2 ML VIAL IV PUSH (10:08)
[2021-08-26] MEDS: SODIUM CHLORIDE 0.9% IV 1,000 ML 999 ML IV CONT ×2 (10:08→12:06)
[2021-08-26 10:27] LABS: Basophils Absolute Auto 0.1 K/mm3 (0.0-0.1); Basophils Percent Auto 0.4 % (0.2-1.2); Hematocrit 30.7 % (42.0-52.0); Hemoglobin 9.6 g/dL (14.0-18.0); Immature Granulocyte Absolute 0.63 K/mm3 (0.00-0.031); Immature Granulocyte Percent A 2.1 % (0-0.5); Lymphocytes Absolute Auto 0.78 K/mm3 (0.9-3.2); Lymphocytes Percent Auto 2.6 % (18.3-44.2); Mean Corpuscular HGB Conc 31.3 g/dl (32-36); Mean Platelet Volume 9.6 fl (7.4-10.4); Monocytes Absolute Auto 2.2 K/mm3 (0.1-0.6); Monocytes Percent Auto 7.3 % (2.6-8.5); Neutrophils Absolute Auto 26.1 K/mm3 (1.3-6.7); Neutrophils Percent Auto 87.6 % (45.5-73.1); Platelet Count Result 276 k/mm3 (150-375); Red Cell Distribution Width 14.3 % (11.5-14.5); White Blood Count 29.9 K/mm3 (4.5-10.0)
[2021-08-26 10:34] LABS: Anion Gap 11 mmol/L (8-16); Blood Urea Nitrogen 69 mg/dL (9-20); Calcium 9.3 mg/dL (8.4-10.2); Carbon Dioxide 21 mmol/L (22-30); Chloride 102 mmol/L (98-107); Estimated CRCL calculation 23 ml/min; Estimated Glomerular Filt Rate 17; Glucose 189 mg/dL (65-110); Sodium 134 mmol/L (137-145)
[2021-08-26] MEDS: METHYLNALTREXONE 12 MG/0.6 ML VIAL SUB-Q (10:38)
[2021-08-26 11:48] LABS: Lactic Acid Reflex 2.3 mmol/L (0.7-2.1)
--- NOTE | 2021-08-26 12:46 | ED.WEAKNESS ---
HPI - Weakness General Chief complaint: Weakness Stated complaint: weakness Time Seen by Provider: 08/26/21 09:40 History of Present Illness HPI Narrative: Patient is a 76-year-old male who presents ER with abdominal cramping and bloating. Ongoing over the last week since he had surgery for his left knee. He underwent knee replacement at [facility]. He has been taking Percocet scheduled for his pain. His gave him some stool softener yesterday to have a bowel movement. Afterwards he began having abdominal cramping. He is having some nausea. Reports he had no loss of consciousness and was weak and his knee gave out of him. He has no new pain in his knee that he has not had since the surgery. No new redness. No fevers or chills at home. Patient reports he was able to force 1 small bowel movement last night. He also had some incontinence of urine last night. Related Data Home Medications Medication Instructions Recorded Confirmed allopurinol 100 mg PO QAM 08/12/19 02/10/21 benazepril 20 mg PO BID 08/12/19 02/10/21 cinnamon bark 1,000 mg PO DAILY 08/17/19 02/10/21 clopidogrel 75 mg tablet 75 mg PO DAILY 10/07/19 02/10/21 carvedilol 6.25 mg PO Q12H 01/12/20 02/10/21 indapamide 2.5 mg PO DAILY 01/12/20 02/10/21 leflunomide 20 mg PO DAILY 01/12/20 02/10/21 atorvastatin 80 mg tablet 80 mg PO QPM tablet 04/10/20 02/10/21 cholecalciferol (vitamin D3) 75 3,000 unit PO DAILY tablet 04/10/20 02/10/21 mcg (3,000 unit) tablet gabapentin 600 mg PO BID 02/03/21 02/10/21 hydroxychloroquine 200 mg PO BID 02/03/21 02/10/21 sulfamethoxazole 08/26/21 Allergies Allergy/AdvReac Type Severity Reaction Status Date / Time No Known Allergies Allergy Unknown Verified 06/02/21 10:45 Review of Systems Review of Systems: All systems reviewed & are unremarkable except as noted in HPI and below Constitutional: Constitutional: Denies chills, Reports fatigue, Denies fever(s) and Reports weakness ENT: Denies nasal congestion and Denies sore throat Cardiovascular: Cardiovascular: Denies chest pain, Denies rapid heart rate and Denies radiating jaw, neck or arm pain Respiratory: Respiratory: Denies cough, Denies dyspnea and Denies wheezing Gastrointestinal: Gastrointestinal: Denies abdominal pain, Reports bloating, Reports constipation and Reports nausea Musculoskeletal: Musculoskeletal: Denies back pain and Denies muscle cramps Comments: LLE swelling s/p surgery Neurologic: Denies focal weakness and Denies numbness PMFSH Past Medical History Medical History (Updated 08/26/21 @ 15:18 by Moody Mead MD) CAD (coronary artery disease) Chronic cholecystitis Diabetes Epigastric pain Gout HTN (hypertension) Hypercholesteremia Hyperlipidemia Obesity JAZMYNE (obstructive sleep apnea) CPAP Peripheral neuropathy Person under investigation for COVID-19 02/12/21 Rheumatoid arthritis Sleep apnea Surgical History Surgical History (Updated 08/26/21 @ 15:08 by Lashon Dale APRN) History of cardiac cath History of coronary artery stent placement x4 History of total left knee replacement Stented coronary artery Social History Social History Smoking status: Never smoker Alcohol intake: never Substance use: never Substance use type: does not use Gender identity (if verbalized by the patient): Male Sexual Orientation (if Verbalized by the Patient): Straight or Heterosexual Spiritual care concerns: No Agree to blood products: Yes Exam Narrative: GENERAL: Uncomfortable-appearing, well-nourished, and in no acute distress. HEAD: Normocephalic, atraumatic. EYES: PERRLAand EOMI. ENT: Dry mucous membranes. CHEST: Clear to auscultation. No respiratory distress. HEART: Regular rate and rhythm. Normal peripheral pulses. ABDOMEN: Firm distended abdomen that is modestly tender diffusely. EXTREMITIES: Left lower extremity has bruising around the knee with boyd
--- NOTE | 2021-08-26 13:22 | PM.CNNEP ---
Assessment and Plan Assessment and plan (1) ADOLPH (acute kidney injury): Code(s): N17.9 - Acute kidney failure, unspecified Status: Acute Assessment and Plan: possibly due prerenal factors + ALVARO-I use + diuretics holding benzapril and indapamide trial of IVFs for now abdominal imaging noted - no acute kidney issues follow repeat labs and UOP (2) CKD (chronic kidney disease): Code(s): N18.9 - Chronic kidney disease, unspecified Status: Chronic Assessment and Plan: baseline creatinine runs around 1.9 - 2.4mg/dl he fluctuates between CKD stage 3B and stage 4 (GFR 25 - 30cc/min) due to HTN, DM, vascular disease and age (3) Hyperkalemia: Code(s): E87.5 - Hyperkalemia Status: Acute Assessment and Plan: due to #1 + ALVARO-I seems to be improving with conservative therapyl follow trend (4) Leukocytosis: Code(s): D72.829 - Elevated white blood cell count, unspecified Status: Acute Assessment and Plan: etiology? possibly from previous ileus(?) follow trend for now (5) HTN (hypertension): Code(s): I10 - Essential (primary) hypertension Status: Chronic Assessment and Plan: mildly elevated - possible due to ileus follow trend of hemodynamics holding ALVARO-I and indapamide (6) Diabetes: Code(s): E11.9 - Type 2 diabetes mellitus without complications Status: Chronic Assessment and Plan: follow accuchecks glycemic control Will continue to follow. History of Present Illness Reason for Consult Consult date: 08/26/21 Reason for consult: acute renal failure (on chronic kidney disease) Chief Complaint Chief complaint: Acute on chronic renal failure/hperkalemia/ileus History of Present Illness Narrative: The patient is a 76-year-old male with a past medical history as outlined below who presented to [facility] Emergency room with complaints of constipation and generalized weakness. The patient recently had a left total knee replacement done about a week ago at [facility]. Since that time he has been taking Percocet every 4 hr scheduled for treatment of his postoperative pain. Unfortunately, with taking this medication he has suffered from significant constipation has not had a bowel movement in approximately eight days. He tried [id number] medications including to collapse multiple times without any significant relief. Apparently, after taking suppositories, he felt the urge to go but was still unable to do so and in an effort to force the issue, he is has been bearing down very hard but this just result in some lightheadedness. Due to the a for mentioned constipation, he has not been eating and drinking very well and has had issues and problems with nausea and vomiting as well. He denied any other subjective symptoms. For all these reasons, he presented to the emergency room for further assessment. Workup and evaluation emergency room demonstrated the patient be hemodynamically stable but clearly in some mild distress secondary to his abdominal distension/constipation and nausea. However, he felt significantly better after he was given relistor. Routine blood test however demonstrate some abnormalities including a significant leukocytosis, hyperkalemia, and elevated BUN and creatinine above his baseline. He also had a mild lactic acidosis as well. He was given IV fluids and subsequent minute to the hospital for further evaluation and therapy. Renal consultation was requested due to his acute kidney injury on chronic kidney disease. The patient normally follows with Dr. Dennis Hernandez in the office for ongoing management of his chronic kidney disease. In the last year, his creatinine has fluctuated anywhere from 1.9-2.4 mg/dL causing the fluctuated between CKD stage IIIB and stage IV. The etiology of his chronic kidney disease is thought to be secondary to his hypertension, di
[2021-08-26 13:58] LABS: Glucose Point of Care 172 mg/dl (65-105)
[2021-08-26 14:33] LABS: Reflex Lactic Acid Yes or No Add Lactic
--- NOTE | 2021-08-26 14:58 | PM.IMHP ---
H&P: HPI History of Present Illness Date/Time: Patient was placed observation status for expected length of stay less than 23 hours for management, will plan to re-evaluate tomorrow for improvement. 08/26/21 14:58 Chief Complaint: Weakness and constipation Narrative: Mr. Navarro is a 76-year-old gentleman who presented to the emergency room with complaints of weakness and no bowel movement for 8 days. Patient states he had a left total knee replacement 8 days ago at [facility] and he has been taking Manter every 4 hours routinely and has not had a bowel movement in 8 days. Patient states he tried taking 2 Dulcolax tablets on Monday 2 Dulcolax tablets on Monday and then did 2 Dulcolax suppositories on Monday with no relief. Patient states after the suppositories he felt the urge to go to the bathroom and he was bearing down very hard and then after he became very lightheaded and weak. Patient states after trying to have multiple bowel movements and he was unable to he started becoming very nauseous and then vomited most of the night. Patient states he has not been eating or drinking because he has felt so weak and nauseated. Patient denied any chest pain, shortness a breath, syncopal episodes, or palpitations. Patient states that he does have left knee pain. Patient states that he has not urinated today, but he felt like he was having some dysuria postoperatively. Patient states he also did have an episode of incontinence last night, which he has never had before. Patient has a known history of obstructive sleep apnea, CAD status post stent placement, ST segment elevated myocardial infarction, BPH, diabetes mellitus, dyslipidemia, and hypertension. Review of Systems Review of Systems: A 12 point review of systems was completed patient all pertinent positive and negative per HPI the remainder are unremarkable. [facility] Past Medical History Medical History (Updated 08/26/21 @ 17:34 by Nati Madrid MD) CAD (coronary artery disease) Chronic cholecystitis Diabetes Epigastric pain Gout HTN (hypertension) Hypercholesteremia Hyperlipidemia Obesity JAZMYNE (obstructive sleep apnea) CPAP Peripheral neuropathy Person under investigation for COVID-19 02/12/21 Rheumatoid arthritis Sleep apnea Surgical History Surgical History (Updated 08/26/21 @ 15:08 by Lashon Dale APRN) History of cardiac cath History of coronary artery stent placement x4 History of total left knee replacement Stented coronary artery Social History Social History Smoking status: Never smoker Second hand tobacco smoke exposure: Yes (just as an adolescent) Alcohol intake: never Substance use: never Substance use type: does not use Gender identity (if verbalized by the patient): Male Sexual Orientation (if Verbalized by the Patient): Straight or Heterosexual Spiritual care concerns: Yes ([facility]) Agree to blood products: Yes Meds Home Medications and Allergies Home Medications Medication Instructions Recorded Confirmed Type allopurinol 100 mg PO QAM 08/12/19 08/26/21 History benazepril 20 mg PO BID 08/12/19 08/26/21 History cinnamon bark 1,000 mg PO DAILY 08/17/19 08/26/21 History aspirin [Children's Aspirin] 81 mg PO DAILY@0800 #30 tablet 08/20/19 08/26/21 Rx clopidogrel 75 mg tablet 75 mg PO DAILY 10/07/19 08/26/21 History carvedilol 6.25 mg PO Q12H 01/12/20 08/26/21 History indapamide 2.5 mg PO DAILY 01/12/20 08/26/21 History leflunomide 20 mg PO DAILY 01/12/20 08/26/21 History atorvastatin 80 mg tablet 80 mg PO QPM tablet 04/10/20 08/26/21 History cholecalciferol (vitamin D3) 75 3,000 unit PO DAILY tablet 04/10/20 08/26/21 History mcg (3,000 unit) tablet blood sugar diagnostic #400 each 11/30/20 08/26/21 Rx gabapentin 600 mg PO BID 02/03/21 08/26/21 History hydroxychloroquine 200 mg PO BID 02/03/21 08/26/21 History pen needle, diabetic 31 gau
--- NOTE | 2021-08-26 15:04 | ADMGEN ---
This patient, Erickson Navarro, was admitted to [facility] Surg Room 324-01. Patient/family oriented to hospital policies and general routines including ID bracelet, bed and alarms, visiting hours, pain management, procedures, bathroom and other care routines, personal items, smoking policy, room service/diet, and visiting hours. Information on how to activate the Rapid Response Team has been discussed. Patient/Family are encouraged to report perceived risks to care and to ask questions if they do not understand what they are told or what they should do.
[2021-08-26 15:47] LABS: Potassium 4.9 mmol/L (3.4-5.0)
[2021-08-26 15:51] LABS: Lactic Acid 2.5 mmol/L (0.7-2.1)
[2021-08-26] MEDS: SODIUM CHLORIDE 0.9% IV 1,000 ML 125 ML IV CONT ×2 (15:58→23:16)
[2021-08-26 16:44] LABS: Glucose Point of Care 147 mg/dl (65-105)
[2021-08-26 18:22] LABS: Add Urine Microscopic? YES; Appearance Urine Clear (Clear); Bacteria Urine Trace /hpf; Bilirubin Urine Negative (Negative); Blood Urine Negative (Negative); Color Urine Yellow (Yellow); Glucose Urine UA Negative (Negative); Ketones Urine Negative (Negative); Leukocyte Esterase Ur Negative LEU/UL (Negative); Nitrate Urine Negative (Negative); Protein Urine 1+ mg/dL (Negative); RBC Urine 0-2 /hpf (0-2); Specific Grav Ur 1.015 (1.001-1.035); Squamous Epithelial Cell Urine Rare /hpf (Few); Urobilinogen Urine Negative mg/dL (<2.0); WBC Urine 0-3 /hpf
[2021-08-26] MEDS: ATORVASTATIN 40 MG TABLET 80 MG PO (20:58)
[2021-08-26] MEDS: HYOSCYAMINE SULFATE 0.375 MG TAB.ER.12H PO (20:59)
[2021-08-26] MEDS: calcium polycarbophiL 625 MG TABLET 1250 MG PO (20:59)
[2021-08-26] MEDS: HYDROXYCHLOROQUINE SULFATE 200 MG TABLET PO (20:59)
[2021-08-26] MEDS: carvediloL 6.25 MG TABLET PO (20:59)
[2021-08-26] MEDS: lisinopriL 20 MG TABLET PO (21:00)
[2021-08-26] MEDS: HEPARIN SODIUM 5,000 UNITS/ML VIAL 5000 UNITS SUB-Q (21:00)
[2021-08-26] MEDS: GABAPENTIN 300 MG CAPSULE PO (21:00)
[2021-08-26 22:05] LABS: Basophils Absolute Auto 0.1 K/mm3 (0.0-0.1); Basophils Percent Auto 0.2 % (0.2-1.2); Hematocrit 25.2 % (42.0-52.0); Hemoglobin 7.9 g/dL (14.0-18.0); Immature Granulocyte Absolute 0.26 K/mm3 (0.00-0.031); Immature Granulocyte Percent A 1.3 % (0-0.5); Lymphocytes Absolute Auto 1.08 K/mm3 (0.9-3.2); Lymphocytes Percent Auto 5.2 % (18.3-44.2); Mean Corpuscular HGB Conc 31.3 g/dl (32-36); Mean Corpuscular Hemoglobin 31.2 pg (26-34); Mean Corpuscular Volume 99.6 fl (80-100); Mean Platelet Volume 9.3 fl (7.4-10.4); Monocytes Absolute Auto 1.8 K/mm3 (0.1-0.6); Monocytes Percent Auto 8.7 % (2.6-8.5); Neutrophils Absolute Auto 17.6 K/mm3 (1.3-6.7); Neutrophils Percent Auto 84.6 % (45.5-73.1); Platelet Count Result 213 k/mm3 (150-375); Red Blood Count 2.53 M/mm3 (4.6-6.20); Red Cell Distribution Width 14.4 % (11.5-14.5); White Blood Count 20.8 K/mm3 (4.5-10.0)
[2021-08-26 22:14] LABS: Lactic Acid Reflex 1.1 mmol/L (0.7-2.1)
[2021-08-26 22:43] LABS: Anion Gap 6 mmol/L (8-16); Blood Urea Nitrogen 71 mg/dL (9-20); Calcium 8.3 mg/dL (8.4-10.2); Carbon Dioxide 21 mmol/L (22-30); Chloride 105 mmol/L (98-107); Estimated CRCL calculation 26 ml/min; Estimated Glomerular Filt Rate 19; Glucose 155 mg/dL (65-110); Potassium 4.5 mmol/L (3.4-5.0); Sodium 132 mmol/L (137-145)
[2021-08-27] VITALS (11 sets, daily range): BP systolic 117–153; BP diastolic 54–61; PULSE 66–92; RESP 16–20; TEMP 36.2–36.7; O2SAT 94–98
[2021-08-27 06:18] LABS: Basophils Absolute Auto 0.1 K/mm3 (0.0-0.1); Basophils Percent Auto 0.3 % (0.2-1.2); Eosinophils Percent Auto 0.2 % (0-4.4); Hematocrit 25.6 % (42.0-52.0); Immature Granulocyte Absolute 0.17 K/mm3 (0.00-0.031); Immature Granulocyte Percent A 0.9 % (0-0.5); Lymphocytes Absolute Auto 1.02 K/mm3 (0.9-3.2); Lymphocytes Percent Auto 5.4 % (18.3-44.2); Mean Corpuscular HGB Conc 31.3 g/dl (32-36); Mean Corpuscular Hemoglobin 30.9 pg (26-34); Mean Corpuscular Volume 98.8 fl (80-100); Mean Platelet Volume 9.5 fl (7.4-10.4); Monocytes Percent Auto 10.8 % (2.6-8.5); Neutrophils Absolute Auto 15.5 K/mm3 (1.3-6.7); Neutrophils Percent Auto 82.4 % (45.5-73.1); Platelet Count Result 224 k/mm3 (150-375); Red Blood Count 2.59 M/mm3 (4.6-6.20); Red Cell Distribution Width 14.4 % (11.5-14.5); White Blood Count 18.8 K/mm3 (4.5-10.0)
[2021-08-27 06:22] LABS: Alanine Aminotransferase 16 U/L (4-50); Albumin Level 3.3 g/dL (3.5-5.1); Alkaline Phosphatase 76 U/L (38-126); Anion Gap 8 mmol/L (8-16); Aspartate Amino Transferase 29 U/L (17-59); Bilirubin,Total 0.8 mg/dL (0.2-1.3); Blood Urea Nitrogen 64 mg/dL (9-20); Calcium 8.6 mg/dL (8.4-10.2); Carbon Dioxide 21 mmol/L (22-30); Chloride 104 mmol/L (98-107); Estimated CRCL calculation 27 ml/min; Estimated Glomerular Filt Rate 20; Glucose 120 mg/dL (65-110); Potassium 4.7 mmol/L (3.4-5.0); Sodium 133 mmol/L (137-145)
[2021-08-27] MEDS: SODIUM CHLORIDE 0.9% IV 1,000 ML 75 ML IV CONT ×2 (06:26→20:13)
[2021-08-27 08:07] LABS: Glucose Point of Care 122 mg/dl (65-105)
[2021-08-27] MEDS: calcium polycarbophiL 625 MG TABLET 1250 MG PO ×2 (08:54→17:12)
[2021-08-27] MEDS: HEPARIN SODIUM 5,000 UNITS/ML VIAL 5000 UNITS SUB-Q ×2 (08:54→20:14)
[2021-08-27] MEDS: CHOLECALCIFEROL 1,000 UNITS TABLET 3000 UNITS PO (08:54)
[2021-08-27] MEDS: LEFLUNOMIDE 20 MG TABLET PO (08:54)
[2021-08-27] MEDS: METHYLNALTREXONE 12 MG/0.6 ML VIAL SUB-Q (08:54)
[2021-08-27] MEDS: carvediloL 6.25 MG TABLET PO ×2 (08:55→20:14)
[2021-08-27] MEDS: HYOSCYAMINE SULFATE 0.375 MG TAB.ER.12H PO ×2 (08:55→20:14)
[2021-08-27] MEDS: EZETIMIBE 10 MG TABLET BY MOUTH (08:55)
[2021-08-27] MEDS: allopurinoL 100 MG TABLET PO (08:55)
[2021-08-27] MEDS: GABAPENTIN 300 MG CAPSULE PO ×2 (08:55→20:13)
[2021-08-27] MEDS: CLOPIDOGREL BISULFATE 75 MG TABLET PO (08:56)
[2021-08-27] MEDS: HYDROXYCHLOROQUINE SULFATE 200 MG TABLET PO ×2 (08:56→17:12)
[2021-08-27] MEDS: ASPIRIN 81 MG CHEWABLE TABLET PO (08:56)
[2021-08-27] MEDS: HYDROcodone/acetaminophen (*CRX) 5-325 MG TABLET 1 TAB PO ×3 (08:56→21:25)
[2021-08-27 09:15] LABS: Creatinine Urine 54.1 mg/dL; Total Protein Urine Random 40 mg/dL; Ur Ttl Prot Creatinine Ratio 0.74 mg/mg (0-0.20)
[2021-08-27 09:16] LABS: Sodium Urine Random 93 meq/L
--- NOTE | 2021-08-27 10:23 | P.PNNP_ITS ---
Progress Note: A&P Assessment and Plan (1) ADOLPH (acute kidney injury): Code(s): N17.9 - Acute kidney failure, unspecified Status: Acute Assessment and Plan: * acute kidney injury. * Renal ultrasound unremarkable. * Urine electrolytes non pre renal but he was on diuretics. * Probably due prerenal factors + ALVARO-I use + diuretics * holding benzapril and indapamide * Still getting IV fluids. Saline at 75 per hour. * creatinine slowly better. (2) CKD (chronic kidney disease): Code(s): N18.9 - Chronic kidney disease, unspecified Status: Chronic Assessment and Plan: * baseline creatinine runs around 1.9 - 2.4mg/dl * he fluctuates between CKD stage 3B and stage 4 (GFR 25 - 30cc/min) * due to HTN, DM, vascular disease and age (3) Hyperkalemia: Code(s): E87.5 - Hyperkalemia Status: Acute Assessment and Plan: * due to #1 + ALVARO-I * seems to be improving with conservative therapy * follow trend (4) Leukocytosis: Code(s): D72.829 - Elevated white blood cell count, unspecified Status: Acute Assessment and Plan: * etiology? * possibly from previous ileus(?) * White cell count slowly better (5) HTN (hypertension): Code(s): I10 - Essential (primary) hypertension Status: Chronic Assessment and Plan: * Systolic up and down between 100 and 150. * Variability probably due to pain. * holding ALVARO-I and indapamide (6) Diabetes: Code(s): E11.9 - Type 2 diabetes mellitus without complications Status: Chronic Assessment and Plan: * follow accuchecks * glycemic control Will continue to follow. Subjective Date/time seen: 08/27/21 10:23 Interval history: patient is still having bowel movements. He is upset that he can't have more pain medicine. Review of Systems Cardiovascular: Cardiovascular: Reports no additional cardiovascular complaints Respiratory: Respiratory: Reports no additional respiratory complaints Gastrointestinal: Gastrointestinal: Reports no additional gastrointestinal complaints Genitourinary: Genitourinary: Reports no additional male genitourinary complaints Exam Narrative: WDWN in NAD skin no rash or sq nodules. head ncat lungs clear cor reg no rub or gallop. abd BS+ nontender and soft ext no edema. Objective Data Vital Signs Vital Signs: Vital Signs - 24 hr 08/26/21 15:00 08/26/21 16:00 08/26/21 20:00 Temperature 36.2 C L 36.2 C L Pulse Rate 76 70 79 Respiratory Rate 20 20 Blood Pressure 101/61 101/61 Pulse Oximetry 98 98 08/26/21 20:35 08/26/21 20:59 08/26/21 21:07 Temperature 36.8 C Pulse Rate 81 81 84 Respiratory Rate 21 H Blood Pressure 145/66 H Pulse Oximetry 100 98 08/26/21 21:08 08/27/21 00:00 08/27/21 00:35 Temperature 36.4 C Pulse Rate 78 73 Respiratory Rate 18 Blood Pressure 117/54 L Pulse Oximetry 98 97 08/27/21 01:40 08/27/21 04:00 08/27/21 08:00 Temperature 36.2 C L 36.7 C Pulse Rate 77 76 81 Respiratory Rate 20 18 Blood Pressure 153/58 H 135/59 L Pulse Oximetry 98 98 98 08/27/21 08:55
--- NOTE | 2021-08-27 10:23 | PM.PNNEP ---
Progress Note: A&P Assessment and Plan (1) ADOLPH (acute kidney injury): Code(s): N17.9 - Acute kidney failure, unspecified Status: Acute Assessment and Plan: acute kidney injury. Renal ultrasound unremarkable. Urine electrolytes non pre renal but he was on diuretics. Probably due prerenal factors + ALVARO-I use + diuretics holding benzapril and indapamide Still getting IV fluids. Saline at 75 per hour. creatinine slowly better. (2) CKD (chronic kidney disease): Code(s): N18.9 - Chronic kidney disease, unspecified Status: Chronic Assessment and Plan: baseline creatinine runs around 1.9 - 2.4mg/dl he fluctuates between CKD stage 3B and stage 4 (GFR 25 - 30cc/min) due to HTN, DM, vascular disease and age (3) Hyperkalemia: Code(s): E87.5 - Hyperkalemia Status: Acute Assessment and Plan: due to #1 + ALVARO-I seems to be improving with conservative therapy follow trend (4) Leukocytosis: Code(s): D72.829 - Elevated white blood cell count, unspecified Status: Acute Assessment and Plan: etiology? possibly from previous ileus(?) White cell count slowly better (5) HTN (hypertension): Code(s): I10 - Essential (primary) hypertension Status: Chronic Assessment and Plan: Systolic up and down between 100 and 150. Variability probably due to pain. holding ALVARO-I and indapamide (6) Diabetes: Code(s): E11.9 - Type 2 diabetes mellitus without complications Status: Chronic Assessment and Plan: follow accuchecks glycemic control Will continue to follow. Subjective Date/time seen: 08/27/21 10:23 Interval history: patient is still having bowel movements. He is upset that he can't have more pain medicine. Review of Systems Cardiovascular: Cardiovascular: Reports no additional cardiovascular complaints Respiratory: Respiratory: Reports no additional respiratory complaints Gastrointestinal: Gastrointestinal: Reports no additional gastrointestinal complaints Genitourinary: Genitourinary: Reports no additional male genitourinary complaints Exam Narrative: WDWN in NAD skin no rash or sq nodules. head ncat lungs clear cor reg no rub or gallop. abd BS+ nontender and soft ext no edema. Objective Data Vital Signs Vital Signs: Vital Signs - 24 hr 08/26/21 15:00 08/26/21 16:00 08/26/21 20:00 Temperature 36.2 C L 36.2 C L Pulse Rate 76 70 79 Respiratory Rate 20 20 Blood Pressure 101/61 101/61 Pulse Oximetry 98 98 08/26/21 20:35 08/26/21 20:59 08/26/21 21:07 Temperature 36.8 C Pulse Rate 81 81 84 Respiratory Rate 21 H Blood Pressure 145/66 H Pulse Oximetry 100 98 08/26/21 21:08 08/27/21 00:00 08/27/21 00:35 Temperature 36.4 C Pulse Rate 78 73 Respiratory Rate 18 Blood Pressure 117/54 L Pulse Oximetry 98 97 08/27/21 01:40 08/27/21 04:00 08/27/21 08:00 Temperature 36.2 C L 36.7 C Pulse Rate 77 76 81 Respiratory Rate 20 18 Blood Pressure 153/58 H 135/59 L Pulse Oximetry 98 98 98 08/27/21 08:55 Temperature Pulse Rate 86 Respiratory Rate Blood Pressure Pulse Oximetry Intake/Output Intake/Output: Intake & Output 08/24/21 08/25/21 08/26/21 08/27/21 23:59 23:59 23:59 23:59 Intake Total 1240 1760 Output Total 400 800 Balance 840 960 Meds/Results Medications: Active Medications Generic Name Dose Route Start Last Admin Trade Name Freq PRN Reason Stop Dose Admin Acetaminophen 650 mg 08/26/21 13:41 Acetaminophen 325 Mg Tablet PO Q4H PRN Mild Pain (1-3) or Fever Hydrocodone Bitart/Acetaminophen 1 tab 08/26/21 13:41 08/27/21 08:56 Hydrocodone/Acetaminophen (*Crx) 5-325 Mg Tablet PO 1 tab Q4H PRN Administration Pain Rated 4-6 Allopurinol 100 mg 08/27/21 09:00 08/27/21 08:55 Allopurinol 100 Mg Tablet PO 100 mg QAM PAVITHRA Administration Aspirin 81 mg
[2021-08-27 10:41] LABS: Eosinophil Urine None Seen % (None Seen)
[2021-08-27 11:50] LABS: Glucose Point of Care 176 mg/dl (65-105)
[2021-08-27] MEDS: busPIRone HCL 10 MG TABLET PO (13:01)
--- NOTE | 2021-08-27 13:29 | PM.IMPN ---
Progress Note: A&P Assessment and Plan (1) Constipation due to opioid therapy: Code(s): K59.03 - Drug induced constipation; T40.2X5A - Adverse effect of other opioids, initial encounter Status: Acute Assessment and Plan: - Patient received Relistor in the emergency room and had good success from this medication. - Continue Relistor daily for 3 days while here. - Stressed importance of getting up and moving around and he was advised that PT has been ordered for that reason, to get him moving. - Increase water intake. (2) Acute kidney injury superimposed on CKD: Code(s): N17.9 - Acute kidney failure, unspecified; N18.9 - Chronic kidney disease, unspecified Status: Acute Assessment and Plan: - Baseline creatinine is 1.9-2.4. - Pt's creatinine today is 3.10. - Nephrology covering and managing. Appreciate continued management recommendations. - Continue to hold Indapamide and Benazepril. - Monitor labs, VS and continue I&O. - Avoid nephrotoxic agents. (3) Hyperkalemia: Code(s): E87.5 - Hyperkalemia Status: Acute Assessment and Plan: - Repeat Potassium is 4.7. (4) JAZMYNE (obstructive sleep apnea): Code(s): G47.33 - Obstructive sleep apnea (adult) (pediatric) Status: Acute Assessment and Plan: - Using home CPAP without any difficulty. (5) Diabetes: Qualifiers: Diabetes mellitus type: type 2 Diabetes mellitus lobsterman insulin use: without fpc use Diabetes mellitus complication status: with kidney complications Diabetes mellitus complication detail: with chronic kidney disease Chronic kidney disease stage: stage 3 (moderate) Chronic kidney disease stage 3 subtype: stage 3b (GFR 30-44) Qualified Code(s): E11.22 - Type 2 diabetes mellitus with diabetic chronic kidney disease; N18.32 - Chronic kidney disease, stage 3b Code(s): E11.9 - Type 2 diabetes mellitus without complications Status: Chronic Assessment and Plan: - Will have blood glucose monitoring before meals and at bedtime restart patient's home insulin regimen. - Moderately well controlled reviewing pt's glucose levels. (6) Leukocytosis: Qualifiers: Leukocytosis type: unspecified Qualified Code(s): D72.829 - Elevated white blood cell count, unspecified Code(s): D72.829 - Elevated white blood cell count, unspecified Status: Acute Assessment and Plan: - Exact etiology unclear. - Pt. did at one point complain of having urinary urgency. There is no overt UTI, however, pt. did have Urinary retention when bladder scanned showing 450 urine in the bladder as post void residual. - Gutierrez catheter placed to gravity. - Continue to monitor and trend WBC count as it is starting to decline. - Blood cultures negative thus far. (7) Urinary retention with incomplete bladder emptying: Onset Date: ~08/27/21 Code(s): R33.9 - Retention of urine, unspecified Status: Acute Assessment and Plan: - Pt. with post-void residual today of >450 as evidenced by bladder scan post-void. Gutierrez catheter is placed to gravity and urine is sent. - Will attempt bladder training tomorrow. - Possible Urology consult as needed. - No UTI noted. (8) Anxiety: Onset Date: ~08/27/21 Code(s): F41.9 - Anxiety disorder, unspecified Status: Acute Assessment and Plan: - Very anxious, likely situational. - Buspar 10 mg po once ordered. - Will order Hydroxyzine prn for anxiety. - Pt. reassured that he is experiencing a minor setback at this point. Time Spent With Patient Time with patient: 25 - 35 minutes Subjective Date/time seen: 08/27/21 0750 This pt. is examined at the bedside in interval assessment. He is very anxious and weak. His pain is controlled at this time but states he has increasing pain with any movement. He has no N/V/D, and states that he finally had a BM last evening after receiving Relistor in the ER. He is jimmy
[2021-08-27 16:22] LABS: Glucose Point of Care 152 mg/dl (65-105)
[2021-08-27] MEDS: ALPRAZolam (*CRX) 0.5 MG TABLET PO (17:12)
[2021-08-27] MEDS: ATORVASTATIN 40 MG TABLET 80 MG PO (17:12)
[2021-08-27 21:48] LABS: Glucose Point of Care 162 mg/dl (65-105)
[2021-08-28] VITALS (9 sets, daily range): BP systolic 124–158; BP diastolic 51–62; PULSE 60–80; RESP 16–18; TEMP 36.4–37; O2SAT 96–100
[2021-08-28] MEDS: HYDROcodone/acetaminophen (*CRX) 5-325 MG TABLET 1 TAB PO ×3 (01:31→17:35)
[2021-08-28 06:28] LABS: Basophils Absolute Auto 0.1 K/mm3 (0.0-0.1); Basophils Percent Auto 0.5 % (0.2-1.2); Eosinophils Absolute Auto 0.1 K/mm3 (0-0.3); Eosinophils Percent Auto 0.6 % (0-4.4); Hematocrit 25.7 % (42.0-52.0); Hemoglobin 7.9 g/dL (14.0-18.0); Immature Granulocyte Absolute 0.12 K/mm3 (0.00-0.031); Immature Granulocyte Percent A 0.9 % (0-0.5); Lymphocytes Absolute Auto 1.03 K/mm3 (0.9-3.2); Lymphocytes Percent Auto 7.8 % (18.3-44.2); Mean Corpuscular HGB Conc 30.7 g/dl (32-36); Mean Corpuscular Hemoglobin 31.6 pg (26-34); Mean Corpuscular Volume 102.8 fl (80-100); Mean Platelet Volume 9.5 fl (7.4-10.4); Monocytes Absolute Auto 1.9 K/mm3 (0.1-0.6); Monocytes Percent Auto 14.5 % (2.6-8.5); Neutrophils Absolute Auto 10.1 K/mm3 (1.3-6.7); Neutrophils Percent Auto 75.7 % (45.5-73.1); Platelet Count Result 200 k/mm3 (150-375); Red Cell Distribution Width 14.3 % (11.5-14.5); White Blood Count 13.3 K/mm3 (4.5-10.0)
[2021-08-28 06:38] LABS: Alanine Aminotransferase 15 U/L (4-50); Albumin Level 3.2 g/dL (3.5-5.1); Alkaline Phosphatase 82 U/L (38-126); Anion Gap 6 mmol/L (8-16); Aspartate Amino Transferase 25 U/L (17-59); Bilirubin,Total 0.8 mg/dL (0.2-1.3); Blood Urea Nitrogen 56 mg/dL (9-20); Calcium 8.7 mg/dL (8.4-10.2); Carbon Dioxide 20 mmol/L (22-30); Chloride 106 mmol/L (98-107); Estimated CRCL calculation 31 ml/min; Estimated Glomerular Filt Rate 23; Glucose 150 mg/dL (65-110); Magnesium 2.2 mg/dL (1.6-2.3); Potassium 4.9 mmol/L (3.4-5.0); Sodium 132 mmol/L (137-145)
[2021-08-28 07:55] LABS: Glucose Point of Care 131 mg/dl (65-105)
[2021-08-28] MEDS: SODIUM CHLORIDE 0.9% IV 1,000 ML 75 ML IV CONT ×2 (09:44→23:33)
[2021-08-28] MEDS: HYDROXYCHLOROQUINE SULFATE 200 MG TABLET PO ×2 (09:45→17:35)
[2021-08-28] MEDS: ALPRAZolam (*CRX) 0.5 MG TABLET PO ×2 (09:45→20:53)
[2021-08-28] MEDS: GABAPENTIN 300 MG CAPSULE PO ×2 (09:45→20:52)
[2021-08-28] MEDS: busPIRone HCL 10 MG TABLET PO (09:45)
[2021-08-28] MEDS: carvediloL 6.25 MG TABLET PO ×2 (09:46→20:53)
[2021-08-28] MEDS: EZETIMIBE 10 MG TABLET BY MOUTH (09:46)
[2021-08-28] MEDS: allopurinoL 100 MG TABLET PO (09:46)
[2021-08-28] MEDS: CHOLECALCIFEROL 1,000 UNITS TABLET 3000 UNITS PO (09:52)
[2021-08-28] MEDS: calcium polycarbophiL 625 MG TABLET 1250 MG PO ×2 (09:52→17:35)
[2021-08-28] MEDS: HYOSCYAMINE SULFATE 0.375 MG TAB.ER.12H PO ×2 (09:52→20:53)
[2021-08-28] MEDS: CLOPIDOGREL BISULFATE 75 MG TABLET PO (09:53)
[2021-08-28] MEDS: METHYLNALTREXONE 12 MG/0.6 ML VIAL SUB-Q (09:53)
[2021-08-28] MEDS: ASPIRIN 81 MG CHEWABLE TABLET PO (09:53)
[2021-08-28] MEDS: LEFLUNOMIDE 20 MG TABLET PO (09:53)
[2021-08-28] MEDS: HEPARIN SODIUM 5,000 UNITS/ML VIAL 5000 UNITS SUB-Q (09:53)
--- NOTE | 2021-08-28 10:20 | P.PNNP_ITS ---
Progress Note: A&P Assessment and Plan (1) ADOLPH (acute kidney injury): Code(s): N17.9 - Acute kidney failure, unspecified Status: Acute Assessment and Plan: * acute kidney injury. * Renal ultrasound unremarkable. * Urine electrolytes non pre renal but he was on diuretics. * Probably due prerenal factors + ALVARO-I use + diuretics * holding benzapril and indapamide * Still getting IV fluids. Saline at 75 per hour. * creatinine is a little bit better again. * Almost to baseline. * Okay to pull out Gutierrez need time COMIC BOOK WRITER Tenzin is ready. (2) CKD (chronic kidney disease): Code(s): N18.9 - Chronic kidney disease, unspecified Status: Chronic Assessment and Plan: * baseline creatinine runs around 1.9 - 2.4mg/dl * he fluctuates between CKD stage 3B and stage 4 (GFR 25 - 30cc/min) * due to HTN, DM, vascular disease and age (3) Hyperkalemia: Code(s): E87.5 - Hyperkalemia Status: Acute Assessment and Plan: * Resolved (4) Leukocytosis: Code(s): D72.829 - Elevated white blood cell count, unspecified Status: Acute Assessment and Plan: * etiology possibly due to GI process?? * improving. (5) HTN (hypertension): Code(s): I10 - Essential (primary) hypertension Status: Chronic Assessment and Plan: * Systolic up and down between 120-140. * Variability probably due to pain. * holding ALVARO-I and indapamide (6) Diabetes: Qualifiers: Diabetes mellitus type: type 2 Diabetes mellitus mcfp insulin use: without mcfp use Diabetes mellitus complication status: with kidney complications Diabetes mellitus complication detail: with chronic kidney disease Chronic kidney disease stage: stage 3 (moderate) Chronic kidney disease stage 3 subtype: stage 3b (GFR 30-44) Qualified Code(s): E11.22 - Type 2 diabetes mellitus with diabetic chronic kidney disease; N18.32 - Chronic kidney disease, stage 3b Code(s): E11.9 - Type 2 diabetes mellitus without complications Status: Chronic Assessment and Plan: * On Accu-Cheks and sliding-scale insulin. Subjective Date/time seen: 08/28/21 10:20 Interval history: patient is has been having some bowel movements. He feels like more is left. Just gas this morning. No chest pain or shortness of breath. Exam Narrative: WDWN in NAD skin no rash or sq nodules. head ncat lungs clear cor reg no rub or gallop. abd BS+ nontender and soft ext no edema or cyanosis. Objective Data Vital Signs Vital Signs: Vital Signs - 24 hr 08/27/21 11:55 08/27/21 16:00 08/27/21 20:00 Temperature 36.5 C 36.2 C L 36.2 C L Pulse Rate 92 71 71 Respiratory Rate 18 18 16 Blood Pressure 152/58 H 139/61 135/55 L Pulse Oximetry 94 97 97 08/27/21 20:14 08/27/21 23:39 08/28/21 02:00 Temperature 36.6 C Pulse Rate 80 66 80 Respiratory Rate 19 Blood Pressure 143/58 H Pulse Oximetry 98 96 08/28/21 04:00 08/28/21 08:00 08/28/21 09:46 Temperature 37.0 C 36.5 C Pulse Rate 60 66 66 Respiratory Rate 17 16 Blood Pressure 128/60 126/53 L Pulse Oximetry 100 99 Intake/Output Intake/Output: Intake & Output 08/25/21 08/26/21 08/27/21 08/28/21 23:59 23:59
--- NOTE | 2021-08-28 10:20 | PM.PNNEP ---
Progress Note: A&P Assessment and Plan (1) ADOLPH (acute kidney injury): Code(s): N17.9 - Acute kidney failure, unspecified Status: Acute Assessment and Plan: acute kidney injury. Renal ultrasound unremarkable. Urine electrolytes non pre renal but he was on diuretics. Probably due prerenal factors + ALVARO-I use + diuretics holding benzapril and indapamide Still getting IV fluids. Saline at 75 per hour. creatinine is a little bit better again. Almost to baseline. 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 (2) CKD (chronic kidney disease): Code(s): N18.9 - Chronic kidney disease, unspecified Status: Chronic Assessment and Plan: baseline creatinine runs around 1.9 - 2.4mg/dl he fluctuates between CKD stage 3B and stage 4 (GFR 25 - 30cc/min) due to HTN, DM, vascular disease and age (3) Hyperkalemia: Code(s): E87.5 - Hyperkalemia Status: Acute Assessment and Plan: Resolved (4) Leukocytosis: Code(s): D72.829 - Elevated white blood cell count, unspecified Status: Acute Assessment and Plan: etiology possibly due to GI process?? improving. (5) HTN (hypertension): Code(s): I10 - Essential (primary) hypertension Status: Chronic Assessment and Plan: Systolic up and down between 120-140. Variability probably due to pain. holding ALVARO-I and indapamide (6) Diabetes: Qualifiers: Diabetes mellitus type: type 2 Diabetes mellitus long term care pharmacist insulin use: without long term care pharmacist use Diabetes mellitus complication status: with kidney complications Diabetes mellitus complication detail: with chronic kidney disease Chronic kidney disease stage: stage 3 (moderate) Chronic kidney disease stage 3 subtype: stage 3b (GFR 30-44) Qualified Code(s): E11.22 - Type 2 diabetes mellitus with diabetic chronic kidney disease; N18.32 - Chronic kidney disease, stage 3b Code(s): E11.9 - Type 2 diabetes mellitus without complications Status: Chronic Assessment and Plan: On Accu-Cheks and sliding-scale insulin. Subjective Date/time seen: 08/28/21 10:20 Interval history: patient is has been having some bowel movements. He feels like more is left. Just gas this morning. No chest pain or shortness of breath. Exam Narrative: WDWN in NAD skin no rash or sq nodules. head ncat lungs clear cor reg no rub or gallop. abd BS+ nontender and soft ext no edema or cyanosis. Objective Data Vital Signs Vital Signs: Vital Signs - 24 hr 08/27/21 11:55 08/27/21 16:00 08/27/21 20:00 Temperature 36.5 C 36.2 C L 36.2 C L Pulse Rate 92 71 71 Respiratory Rate 18 18 16 Blood Pressure 152/58 H 139/61 135/55 L Pulse Oximetry 94 97 97 08/27/21 20:14 08/27/21 23:39 08/28/21 02:00 Temperature 36.6 C Pulse Rate 80 66 80 Respiratory Rate 19 Blood Pressure 143/58 H Pulse Oximetry 98 96 08/28/21 04:00 08/28/21 08:00 08/28/21 09:46 Temperature 37.0 C 36.5 C Pulse Rate 60 66 66 Respiratory Rate 17 16 Blood Pressure 128/60 126/53 L Pulse Oximetry 100 99 Intake/Output Intake/Output: Intake & Output 08/25/21 08/26/21 08/27/21 08/28/21 23:59 23:59 23:59 23:59 Intake Total 1240 3000 2030 Output Total 400 2200 1450 Balance 840 800 580 Meds/Results Medications: Active Medications Generic Name Dose Route Start Last Admin Trade Name Freq PRN Reason Stop Dose Admin Acetaminophen 650 mg 08/26/21 13:41 Acetaminophen 325 Mg Tablet PO Q4H PRN Mild Pain (1-3) or Fever Hydrocodone Bitart/Acetaminophen 1 tab 08/26/21 13:41 08/28/21 05:40 Hydrocodone/Acetaminophen (*Crx) 5-325 Mg Tablet PO 1 tab Q4H PRN Administration Pain Rated 4-6 Allopurinol 100 mg 08/27/21 09:00 08/28/21 09:46 Allopurinol 100 Mg Tablet PO 100 mg QAM PAVITHRA Administration Alprazolam 0.5 mg 08/27/21 13:51 08/28/21 09:45 Alprazolam (*Crx)
[2021-08-28 12:05] LABS: Glucose Point of Care 168 mg/dl (65-105)
--- NOTE | 2021-08-28 12:12 | PM.IMPN ---
Progress Note: A&P Assessment and Plan (1) Constipation due to opioid therapy: Code(s): K59.03 - Drug induced constipation; T40.2X5A - Adverse effect of other opioids, initial encounter Status: Resolved Assessment and Plan: - Patient received Relistor in the emergency room and had good success from this medication. - Continue Relistor daily for 3 days while here. - Stressed importance of getting up and moving around and he was advised that PT has been ordered for that reason, to get him moving. - Increase water intake. - RESOLVED (2) Acute kidney injury superimposed on CKD: Code(s): N17.9 - Acute kidney failure, unspecified; N18.9 - Chronic kidney disease, unspecified Status: Acute Assessment and Plan: - Baseline creatinine is 1.9-2.4. - Pt's creatinine today is 2.7. - Nephrology covering and managing. Appreciate continued management recommendations. - Continue to hold Indapamide and Benazepril. - Monitor labs, VS and continue I&O. - Avoid nephrotoxic agents. - Bladder training performed today and Flomax is being restarted. - Discontinue bruno catheter. (3) Hyperkalemia: Code(s): E87.5 - Hyperkalemia Status: Resolved Assessment and Plan: - RESOLVED (4) JAZMYNE (obstructive sleep apnea): Code(s): G47.33 - Obstructive sleep apnea (adult) (pediatric) Status: Acute Assessment and Plan: - Using home CPAP without any difficulty. (5) Diabetes: Qualifiers: Diabetes mellitus type: type 2 Diabetes mellitus terminal operations supervisor insulin use: without correction use Diabetes mellitus complication status: with kidney complications Diabetes mellitus complication detail: with chronic kidney disease Chronic kidney disease stage: stage 3 (moderate) Chronic kidney disease stage 3 subtype: stage 3b (GFR 30-44) Qualified Code(s): E11.22 - Type 2 diabetes mellitus with diabetic chronic kidney disease; N18.32 - Chronic kidney disease, stage 3b Code(s): E11.9 - Type 2 diabetes mellitus without complications Status: Chronic Assessment and Plan: - Will have blood glucose monitoring before meals and at bedtime restart patient's home insulin regimen. - Moderately well controlled reviewing pt's glucose levels. (6) Leukocytosis: Qualifiers: Leukocytosis type: unspecified Qualified Code(s): D72.829 - Elevated white blood cell count, unspecified Code(s): D72.829 - Elevated white blood cell count, unspecified Status: Acute Assessment and Plan: - Exact etiology unclear. - WBC count continuing to decline further today. - Blood cultures negative thus far. - Continue to monitor. (7) Urinary retention with incomplete bladder emptying: Onset Date: ~08/27/21 Code(s): R33.9 - Retention of urine, unspecified Status: Acute Assessment and Plan: - Pt. with post-void residual today of >450 as evidenced by bladder scan post-void. Bruno catheter is placed to gravity and urine is sent. - Bladder training performed and pt.s bruno being removed today. - Possible Urology consult as needed. - No UTI noted. (8) Anxiety: Onset Date: ~08/27/21 Code(s): F41.9 - Anxiety disorder, unspecified Status: Acute Assessment and Plan: - Very anxious, likely situational. - Buspar 10 mg po once ordered. - Will order Hydroxyzine prn for anxiety. - Pt. reassured that he is experiencing a minor setback at this point. (9) Hematemesis: Qualifiers: Nausea presence: with nausea Qualified Code(s): K92.0 - Hematemesis Code(s): K92.0 - Hematemesis Status: Acute Assessment and Plan: - Pt's was concerned as she states the pt. had an episode of maroon emesis prior to coming into the ER. - They voice that the pt. has been scoped by Dr. Esteves within the past six months and had no abnormalities found. - Occult blood stool ordered. - Consult GI for any recommendations. - PPI daily. - PT.
[2021-08-28 17:20] LABS: Glucose Point of Care 183 mg/dl (65-105)
[2021-08-28] MEDS: ATORVASTATIN 40 MG TABLET 80 MG PO (17:35)
[2021-08-28 21:56] LABS: Glucose Point of Care 195 mg/dl (65-105)
[2021-08-29] VITALS (9 sets, daily range): BP systolic 111–162; BP diastolic 36–73; PULSE 62–77; RESP 16–20; TEMP 36.1–36.4; O2SAT 96–100
--- NOTE | 2021-08-29 03:01 | PC.NURSE ---
Daylight Savings Time For Daylight Savings Time Ending in the Fall - Clocks are moved back. For Daylight Savings Time Beginning in the Spring - Clocks are moved ahead. For [facility], the time of change occurs at 0200 hrs. Time is taken from the railcar brake operator. This entry on the patient's chart recognizes the change in time reflected during documentation. Example: 2 entries for vital signs may be charted for 0200 hrs.
[2021-08-29] MEDS: ALPRAZolam (*CRX) 0.5 MG TABLET PO (06:12)
[2021-08-29 06:15] LABS: Basophils Absolute Auto 0.1 K/mm3 (0.0-0.1); Basophils Percent Auto 0.5 % (0.2-1.2); Eosinophils Absolute Auto 0.1 K/mm3 (0-0.3); Eosinophils Percent Auto 0.8 % (0-4.4); Hematocrit 24.5 % (42.0-52.0); Hemoglobin 7.8 g/dL (14.0-18.0); Immature Granulocyte Absolute 0.12 K/mm3 (0.00-0.031); Lymphocytes Absolute Auto 1.03 K/mm3 (0.9-3.2); Lymphocytes Percent Auto 8.5 % (18.3-44.2); Mean Corpuscular HGB Conc 31.8 g/dl (32-36); Mean Corpuscular Hemoglobin 31.2 pg (26-34); Mean Platelet Volume 9.2 fl (7.4-10.4); Monocytes Absolute Auto 1.7 K/mm3 (0.1-0.6); Monocytes Percent Auto 14.3 % (2.6-8.5); Neutrophils Absolute Auto 9.1 K/mm3 (1.3-6.7); Neutrophils Percent Auto 74.9 % (45.5-73.1); Platelet Count Result 225 k/mm3 (150-375); Red Cell Distribution Width 14.1 % (11.5-14.5); White Blood Count 12.1 K/mm3 (4.5-10.0)
[2021-08-29 06:39] LABS: Alanine Aminotransferase 19 U/L (4-50); Albumin Level 3.2 g/dL (3.5-5.1); Alkaline Phosphatase 84 U/L (38-126); Anion Gap 7 mmol/L (8-16); Aspartate Amino Transferase 27 U/L (17-59); Bilirubin,Total 0.6 mg/dL (0.2-1.3); Blood Urea Nitrogen 52 mg/dL (9-20); Calcium 8.6 mg/dL (8.4-10.2); Carbon Dioxide 22 mmol/L (22-30); Chloride 106 mmol/L (98-107); Estimated CRCL calculation 33 ml/min; Estimated Glomerular Filt Rate 25; Glucose 220 mg/dL (65-110); Magnesium 1.9 mg/dL (1.6-2.3); Phosphorus 3.9 mg/dL (2.5-4.5); Potassium 5.1 mmol/L (3.4-5.0); Sodium 135 mmol/L (137-145)
[2021-08-29 08:29] LABS: Glucose Point of Care 183 mg/dl (65-105)
[2021-08-29] MEDS: LEFLUNOMIDE 20 MG TABLET PO (08:52)
[2021-08-29] MEDS: EZETIMIBE 10 MG TABLET BY MOUTH (08:52)
[2021-08-29] MEDS: CLOPIDOGREL BISULFATE 75 MG TABLET PO (08:52)
[2021-08-29] MEDS: HYOSCYAMINE SULFATE 0.375 MG TAB.ER.12H PO ×2 (08:52→20:45)
[2021-08-29] MEDS: TAMSULOSIN HCL 0.4 MG CAPSULE PO (08:52)
[2021-08-29] MEDS: CHOLECALCIFEROL 1,000 UNITS TABLET 3000 UNITS PO (08:52)
[2021-08-29] MEDS: GABAPENTIN 300 MG CAPSULE PO ×2 (08:55→20:45)
[2021-08-29] MEDS: calcium polycarbophiL 625 MG TABLET 1250 MG PO ×2 (08:55→17:43)
[2021-08-29] MEDS: carvediloL 6.25 MG TABLET PO ×2 (08:56→20:45)
[2021-08-29] MEDS: busPIRone HCL 10 MG TABLET PO (08:56)
[2021-08-29] MEDS: HYDROXYCHLOROQUINE SULFATE 200 MG TABLET PO ×2 (08:56→17:43)
[2021-08-29] MEDS: ASPIRIN 81 MG CHEWABLE TABLET PO (08:56)
[2021-08-29] MEDS: allopurinoL 100 MG TABLET PO (08:56)
--- NOTE | 2021-08-29 09:55 | PC.NURSE ---
Orders clarified per hospitalist and floor RN. Matt Rob. Patient aware to call when voiding and will bladder scan to clarify of any post void residual. Patient alert and oriented. Call light within reach.
--- NOTE | 2021-08-29 10:47 | P.PNNP_ITS ---
Progress Note: A&P Assessment and Plan (1) ADOLPH (acute kidney injury): Code(s): N17.9 - Acute kidney failure, unspecified Status: Acute Assessment and Plan: * acute kidney injury. * Renal ultrasound unremarkable. * Urine electrolytes non pre renal but he was on diuretics. * Probably due prerenal factors + ALVARO-I use + diuretics * holding benzapril and indapamide * Still getting IV fluids. Saline at 75 per hour. * his creatinine has fallen to 2.5. * Almost to baseline. * Okay to pull out Gutierrez need time CONTINUOUS WAVE OPERATOR Tenzin is ready. * Will go 1 more day of fluids and then stop. (2) CKD (chronic kidney disease): Code(s): N18.9 - Chronic kidney disease, unspecified Status: Chronic Assessment and Plan: * baseline creatinine runs around 1.9 - 2.4mg/dl * he fluctuates between CKD stage 3B and stage 4 (GFR 25 - 30cc/min) * due to HTN, DM, vascular disease and age (3) Hyperkalemia: Code(s): E87.5 - Hyperkalemia Status: Acute Assessment and Plan: * Resolved (4) Leukocytosis: Code(s): D72.829 - Elevated white blood cell count, unspecified Status: Acute Assessment and Plan: * etiology possibly due to GI process?? * White cell count down to 12 now. (5) HTN (hypertension): Code(s): I10 - Essential (primary) hypertension Status: Chronic Assessment and Plan: * Systolic up and down between 120-150. * Variability probably due to pain. * holding ALVARO-I and indapamide (6) Diabetes: Qualifiers: Diabetes mellitus type: type 2 Diabetes mellitus halfway insulin use: without computer terminal operator use Diabetes mellitus complication status: with kidney complications Diabetes mellitus complication detail: with chronic kidney disea se Chronic kidney disease stage: stage 3 (moderate) Chronic kidney disease stage 3 subtype: stage 3b (GFR 30-44) Qualified Code(s): E11.22 - Type 2 diabetes mellitus with diabetic chronic kidney disease; N18.32 - Chronic kidney disease, stage 3b Code(s): E11.9 - Type 2 diabetes mellitus without complications Status: Chronic Assessment and Plan: * on accuchecks but no SSI. * sugars 150 to 200 * Pt says he is on SSI at home. * Subjective Date/time seen: 08/29/21 10:47 Interval history: Patient is sitting up in a chair. He was hallucinating last night. He thought he was playing poker with 4 of his friends. No chest pain or shortness of breath. Exam Narrative: WDWN in NAD skin no rash or sq nodules. head ncat lungs clear bilaterally cor reg no rub or gallop. abd BS+ nontender and soft ext no edema or cyanosis. Objective Data Vital Signs Vital Signs: Vital Signs - 24 hr 08/28/21 12:00 08/28/21 16:00 08/28/21 20:00 Temperature 36.4 C L 36.9 C 36.6 C Pulse Rate 64 74 73 Respiratory Rate 18 18 16 Blood Pressure 124/54 L 158/62 H 149/51 H Pulse Oximetry 100 96 100 08/28/21 20:45 08/28/21 20:53 08/29/21 00:00 Temperature 36.2 C L Pulse Rate 74 73 70 Respiratory Rate 16 Blood Pressure 153/56 H Pulse Oximetry 97 99 08/29/21 01:50 08/29/21 04:00 08/29/21 08:56 Temperature 36.2 C L Pulse Rate 71 70 72 Respiratory Rate 20 Blood Pressure 158/53 H Pulse Oximetry 96 100
--- NOTE | 2021-08-29 10:47 | PM.PNNEP ---
Progress Note: A&P Assessment and Plan (1) ADOLPH (acute kidney injury): Code(s): N17.9 - Acute kidney failure, unspecified Status: Acute Assessment and Plan: acute kidney injury. Renal ultrasound unremarkable. Urine electrolytes non pre renal but he was on diuretics. Probably due prerenal factors + ALVARO-I use + diuretics holding benzapril and indapamide Still getting IV fluids. Saline at 75 per hour. his creatinine has fallen to 2.5. Almost to baseline. Okay to pull out Gutierrez need time PATTERN GRADER CUTTER Tenzin is ready. Will go 1 more day of fluids and then stop. (2) CKD (chronic kidney disease): Code(s): N18.9 - Chronic kidney disease, unspecified Status: Chronic Assessment and Plan: baseline creatinine runs around 1.9 - 2.4mg/dl he fluctuates between CKD stage 3B and stage 4 (GFR 25 - 30cc/min) due to HTN, DM, vascular disease and age (3) Hyperkalemia: Code(s): E87.5 - Hyperkalemia Status: Acute Assessment and Plan: Resolved (4) Leukocytosis: Code(s): D72.829 - Elevated white blood cell count, unspecified Status: Acute Assessment and Plan: etiology possibly due to GI process?? White cell count down to 12 now. (5) HTN (hypertension): Code(s): I10 - Essential (primary) hypertension Status: Chronic Assessment and Plan: Systolic up and down between 120-150. Variability probably due to pain. holding ALVARO-I and indapamide (6) Diabetes: Qualifiers: Diabetes mellitus type: type 2 Diabetes mellitus skilled nursing insulin use: without intermediate teacher use Diabetes mellitus complication status: with kidney complications Diabetes mellitus complication detail: with chronic kidney disease Chronic kidney disease stage: stage 3 (moderate) Chronic kidney disease stage 3 subtype: stage 3b (GFR 30-44) Qualified Code(s): E11.22 - Type 2 diabetes mellitus with diabetic chronic kidney disease; N18.32 - Chronic kidney disease, stage 3b Code(s): E11.9 - Type 2 diabetes mellitus without complications Status: Chronic Assessment and Plan: on accuchecks but no SSI. sugars 150 to 200 Pt says he is on SSI at home. Subjective Date/time seen: 08/29/21 10:47 Interval history: Patient is sitting up in a chair. He was hallucinating last night. He thought he was playing poker with 4 of his friends. No chest pain or shortness of breath. Exam Narrative: WDWN in NAD skin no rash or sq nodules. head ncat lungs clear bilaterally cor reg no rub or gallop. abd BS+ nontender and soft ext no edema or cyanosis. Objective Data Vital Signs Vital Signs: Vital Signs - 24 hr 08/28/21 12:00 08/28/21 16:00 08/28/21 20:00 Temperature 36.4 C L 36.9 C 36.6 C Pulse Rate 64 74 73 Respiratory Rate 18 18 16 Blood Pressure 124/54 L 158/62 H 149/51 H Pulse Oximetry 100 96 100 08/28/21 20:45 08/28/21 20:53 08/29/21 00:00 Temperature 36.2 C L Pulse Rate 74 73 70 Respiratory Rate 16 Blood Pressure 153/56 H Pulse Oximetry 97 99 08/29/21 01:50 08/29/21 04:00 08/29/21 08:56 Temperature 36.2 C L Pulse Rate 71 70 72 Respiratory Rate 20 Blood Pressure 158/53 H Pulse Oximetry 96 100 Intake/Output Intake/Output: Intake & Output 08/26/21 08/27/21 08/28/21 08/30/21 23:59 23:59 23:59 00:59 Intake Total 1240 3000 4510 420 Output Total 400 2200 2750 2000 Balance 192 196 1986 -1580 Meds/Results Medications: Active Medications Generic Name Dose Route Start Last Admin Trade Name Freq PRN Reason Stop Dose Admin Acetaminophen 650 mg 08/26/21 13:41 Acetaminophen 325 Mg Tablet PO Q4H PRN Mild Pain (1-3) or Fever Hydrocodone Bitart/Acetaminophen 1 tab 08/26/21 13:41 08/28/21 17:35 Hydrocodone/Acetaminophen (*Crx) 5-325 Mg Tablet PO 1 tab Q4H PRN Administration Pain Rated 4-6 Allopurinol 100 mg 08/27/21 09:00 08/29/21 08:5
[2021-08-29] MEDS: ACETAMINOPHEN 325 MG TABLET 650 MG PO ×2 (11:15→17:45)
--- NOTE | 2021-08-29 11:30 | WPDGICN ---
Assessment and Plan Assessment and plan (1) Acute blood loss anemia: Code(s): D62 - Acute posthemorrhagic anemia Status: Acute Assessment and Plan: probably this is multifactorial from recent knee surgery, also presentation with worsening renal failure, use of plavix, etc continue medical support patient finally had BM after relistor and no report of overt gib (2) Hematemesis: Qualifiers: Nausea presence: with nausea Qualified Code(s): K92.0 - Hematemesis Code(s): K92.0 - Hematemesis Status: Acute Assessment and Plan: mentioned that had dark emesis had EGD few months ago by Dr Simpson as part of work up for GI discomfort EGD tomorrow by Dr Simpson iv protonix for now (3) Acute on chronic kidney failure: Code(s): N17.9 - Acute kidney failure, unspecified; N18.9 - Chronic kidney disease, unspecified Status: Acute Assessment and Plan: back to his baseline nephrology on board (4) Constipation due to opioid therapy: Code(s): K59.03 - Drug induced constipation; T40.2X5A - Adverse effect of other opioids, initial encounter Status: Resolved Assessment and Plan: improved with relistor monitor had colonoscopy [address] Simpson (5) Leukocytosis: Code(s): D72.829 - Elevated white blood cell count, unspecified Status: Acute Assessment and Plan: trending down on abx by primary team (6) Essential hypertension: Code(s): I10 - Essential (primary) hypertension Status: Acute (7) Type 2 diabetes mellitus with hyperglycemia, with long-term current use of insulin: Code(s): E11.65 - Type 2 diabetes mellitus with hyperglycemia; Z79.4 - termite technician (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) use of insulin Status: Acute Assessment and Plan: on insulin (8) H/O: knee surgery: Code(s): Z98.890 - Other specified postprocedural states Status: Acute (9) Rheumatoid arthritis: Code(s): M06.9 - Rheumatoid arthritis, unspecified Status: Acute Assessment and Plan: on medication at home GI Consult Note Consult date/time: 08/29/21 11:30 Reason for consult: n/v, acute blood loss anemia, dark emesis HPI: Erickson Navarro is a 76 year old male with history of obstructive sleep apnea, CAD status post stent placement on plavix, BPH, diabetes mellitus on insulin, RA on plaquenil and leflunomide, CKD stage IIIB and stage IV (creatinine ~ 2). He had left total knee replacement about 10 days ago in [facility], prescribed [place] every 4 hours that was taking for post-op pain. He did not have a bowel movement since surgery, he tried Dulcolax tablets and suppository and felt the urge to go to the bathroom, he was straining and became very lightheaded and weak, also became very nauseous and then vomited most of the night ( says that burgundy color) and he was brought here. ER evaluation noted elevated wbc 29k (down to 12k now), worsening renal failure but back down to baseline, also hb 7.9 (baseline 13). He was given relistor and had good BM, no more nausea. is at bedside and concerned about anemia and acute weakness. Patient now is fully awake and alert, back to his baseline. He is also a patient of Dr Simpson, few months ago had EGD because long standing GI issues with intermittent abdominal cramping and feeling like having flu , only had duodenitis, SBFT was normal, had trial of bentyl and now on creon. Colonoscopy in 2020. Review of Systems Constitutional: Constitutional: Reports weakness Eyes: Eyes: Denies blurry vision ENT: Reports Normal hearing present Cardiovascular: Cardiovascular: Denies chest pain Respiratory: Respiratory: Denies dyspnea Gastrointestinal: Gastrointestinal: Reports constipation, Reports nausea and Reports vomiting Genitourinary: Genitourinary: Reports dysuria Musculoskeletal: Musculoskeletal: Reports arthralgias (recovering from surgery) Integumentary/Breasts: Skin/Breast: Denies dry ski
[2021-08-29 11:31] LABS: Glucose Point of Care 264 mg/dl (65-105)
--- NOTE | 2021-08-29 12:50 | PC.NURSE ---
1205 - pt voided per 100cc per urinal. used bladder scanner and pt had average of 30 ccs of urine in bladder. nurse aware
[2021-08-29] MEDS: INSULIN ASPART (*BKC) 100 UNITS/ML SUB-Q (13:13)
[2021-08-29] MEDS: SODIUM CHLORIDE 0.9% IV 1,000 ML 75 ML IV CONT (13:14)
--- NOTE | 2021-08-29 13:18 | PM.IMPN ---
Progress Note: A&P Assessment and Plan (1) Constipation due to opioid therapy: Code(s): K59.03 - Drug induced constipation; T40.2X5A - Adverse effect of other opioids, initial encounter Status: Resolved Assessment and Plan: - Patient received Relistor in the emergency room and had good success from this medication. - Continue Relistor daily for 3 days while here. - Stressed importance of getting up and moving around and he was advised that PT has been ordered for that reason, to get him moving. - Increase water intake. - RESOLVED (2) Acute kidney injury superimposed on CKD: Code(s): N17.9 - Acute kidney failure, unspecified; N18.9 - Chronic kidney disease, unspecified Status: Acute Assessment and Plan: - Baseline creatinine is 1.9-2.4. - Pt's creatinine today is 2.5, almost back to baseline. - Nephrology covering and managing. Thank you for the help given thus far. - Continue to hold Indapamide and Benazepril. - Monitor labs, VS and continue I&O. - Avoid nephrotoxic agents. - Bladder training performed today and Flomax is being restarted. - Discontinue bruno catheter. (3) Hyperkalemia: Code(s): E87.5 - Hyperkalemia Status: Resolved Assessment and Plan: - RESOLVED (4) JAZMYNE (obstructive sleep apnea): Code(s): G47.33 - Obstructive sleep apnea (adult) (pediatric) Status: Acute Assessment and Plan: - Using home CPAP without any difficulty. (5) Diabetes: Qualifiers: Diabetes mellitus type: type 2 Diabetes mellitus machine long goods helper insulin use: without machine long goods helper use Diabetes mellitus complication status: with kidney complications Diabetes mellitus complication detail: with chronic kidney disease Chronic kidney disease stage: stage 3 (moderate) Chronic kidney disease stage 3 subtype: stage 3b (GFR 30-44) Qualified Code(s): E11.22 - Type 2 diabetes mellitus with diabetic chronic kidney disease; N18.32 - Chronic kidney disease, stage 3b Code(s): E11.9 - Type 2 diabetes mellitus without complications Status: Chronic Assessment and Plan: - Will have blood glucose monitoring before meals and at bedtime restart patient's home insulin regimen. - Moderately well controlled reviewing pt's glucose levels. (6) Leukocytosis: Qualifiers: Leukocytosis type: unspecified Qualified Code(s): D72.829 - Elevated white blood cell count, unspecified Code(s): D72.829 - Elevated white blood cell count, unspecified Status: Acute Assessment and Plan: - Exact etiology unclear. - WBC count continuing to decline further today. - GI scoping tomorrow. - Blood cultures negative thus far. - Continue to monitor. (7) Urinary retention with incomplete bladder emptying: Onset Date: ~08/27/21 Code(s): R33.9 - Retention of urine, unspecified Status: Acute Assessment and Plan: - Pt. with post-void residual today of >450 as evidenced by bladder scan post-void. Bruno catheter is placed to gravity and urine is sent. - Bladder training performed and pt.s bruno being removed today. - Possible Urology consult as needed. - No UTI noted. (8) Anxiety: Onset Date: ~08/27/21 Code(s): F41.9 - Anxiety disorder, unspecified Status: Acute Assessment and Plan: - Very anxious, likely situational. - Buspar 10 mg po once ordered. - Will order Xanax prn anxiety - Pt. reassured that he is experiencing a minor setback at this point. (9) Hematemesis: Qualifiers: Nausea presence: with nausea Qualified Code(s): K92.0 - Hematemesis Code(s): K92.0 - Hematemesis Status: Acute Assessment and Plan: - Pt's was concerned as she states the pt. had an episode of maroon emesis prior to coming into the ER. - They voice that the pt. has been scoped by Dr. Esteves within the past six months and had no abnormalities found. - Occult blood stool ordered. Not collected yesterday. - GI
--- NOTE | 2021-08-29 14:01 | PC.NURSE ---
1350 - pt voided 180mls of yellow urine per urinal. average of 14mls noted in bladder via using the bladder scanner
--- NOTE | 2021-08-29 16:11 | PC.NURSE ---
1605 - pt voided 380mls per urinal. bladder scanner showed average of 26mls of urine in bladder
[2021-08-29 17:00] LABS: Glucose Point of Care 74 mg/dl (65-105)
[2021-08-29 17:00] LABS: Glucose Point of Care 66 mg/dl (65-105)
[2021-08-29 17:00] LABS: Glucose Point of Care 80 mg/dl (65-105)
[2021-08-29 17:36] LABS: Glucose Point of Care 166 mg/dl (65-105)
[2021-08-29] MEDS: ATORVASTATIN 40 MG TABLET 80 MG PO (17:43)
--- NOTE | 2021-08-29 18:26 | PC.NURSE ---
1730 - pt voided 275mls per urinal. at 1820 bladder scanner used and average of 125mls in bladder
[2021-08-29] MEDS: PANTOPRAZOLE SODIUM IV 40 MG VIAL IV PUSH (20:46)
[2021-08-29 21:04] LABS: Glucose Point of Care 170 mg/dl (65-105)
[2021-08-30] VITALS (14 sets, daily range): BP systolic 110–194; BP diastolic 50–71; PULSE 64–78; RESP 16–22; TEMP 36–37; O2SAT 95–100
[2021-08-30] MEDS: SODIUM CHLORIDE 0.9% IV 1,000 ML 75 ML IV CONT (05:01)
[2021-08-30 06:22] LABS: Alanine Aminotransferase 19 U/L (4-50); Albumin Level 3.2 g/dL (3.5-5.1); Alkaline Phosphatase 86 U/L (38-126); Anion Gap 5 mmol/L (8-16); Aspartate Amino Transferase 27 U/L (17-59); Bilirubin,Total 0.6 mg/dL (0.2-1.3); Blood Urea Nitrogen 42 mg/dL (9-20); Carbon Dioxide 22 mmol/L (22-30); Chloride 107 mmol/L (98-107); Estimated CRCL calculation 37 ml/min; Estimated Glomerular Filt Rate 29; Glucose 164 mg/dL (65-110); Magnesium 1.7 mg/dL (1.6-2.3); Sodium 134 mmol/L (137-145)
[2021-08-30 08:04] LABS: Glucose Point of Care 158 mg/dl (65-105)
--- NOTE | 2021-08-30 08:23 | P.PNNP_ITS ---
Progress Note: A&P Assessment and Plan (1) ADOLPH (acute kidney injury): Code(s): N17.9 - Acute kidney failure, unspecified Status: Acute Assessment and Plan: * acute kidney injury. * Renal ultrasound unremarkable. * Urine electrolytes non pre renal but he was on diuretics. * Probably due prerenal factors + ALVARO-I use + diuretics * holding benzapril and indapamide * His creatinine is down to baseline. Will stop IV fluids. (2) CKD (chronic kidney disease): Code(s): N18.9 - Chronic kidney disease, unspecified Status: Chronic Assessment and Plan: * baseline creatinine runs around 1.9 - 2.4mg/dl * he fluctuates between CKD stage 3B and stage 4 (GFR 25 - 30cc/min) * due to HTN, DM, vascular disease and age (3) Hyperkalemia: Code(s): E87.5 - Hyperkalemia Status: Acute Assessment and Plan: * Resolved (4) Leukocytosis: Code(s): D72.829 - Elevated white blood cell count, unspecified Status: Acute Assessment and Plan: * etiology possibly due to GI process?? * White cell count down to 12 now. (5) HTN (hypertension): Code(s): I10 - Essential (primary) hypertension Status: Chronic Assessment and Plan: * Systolic up and down between 120-150. * Variability probably due to pain. * holding ALVARO-I and indapamide (6) Diabetes: Qualifiers: Diabetes mellitus type: type 2 Diabetes mellitus prison insulin use: without laborer marine terminal use Diabetes mellitus complication status: with kidney complications Diabetes mellitus complication detail: with chronic kidney disease Chronic kidney disease stage: stage 3 (moderate) Chronic kidney disease stage 3 subtype: stage 3b (GFR 30-44) Qualified Code(s): E11.22 - Type 2 diabetes mellitus with diabetic chronic kidney disease; N18.32 - Chronic kidney disease, stage 3b Code(s): E11.9 - Type 2 diabetes mellitus without complications Status: Chronic Assessment and Plan: * on accuchecks but no SSI. * sugars 150 to 200 * Pt says he is on SSI at home. * Subjective Date/time seen: 08/30/21 08:23 Interval history: Patient is sitting up in a chair. he feels better this morning. He did not sleep very well last night though. No reports of hallucinations. No chest pain or shortness of breath. Exam Narrative: WDWN in NAD skin no rash or sq nodules. head ncat lungs clear to ausc cor reg no rub or gallop. abd BS+ nontender and soft ext no edema Objective Data Vital Signs Vital Signs: Vital Signs - 24 hr 08/29/21 08:56 08/29/21 11:58 08/29/21 16:00 Temperature 36.1 C L 36.4 C L Pulse Rate 72 77 65 Respiratory Rate 18 18 Blood Pressure 144/70 H 111/36 L Pulse Oximetry 100 99 08/29/21 20:00 08/29/21 22:50 08/29/21 22:51 Temperature 36.1 C L Pulse Rate 62 74 Respiratory Rate 20 Blood Pressure 162/73 H Pulse Oximetry 97 98 98 08/30/21 06:00 08/30/21 08:15 Temperature 36.4 C Pulse Rate 70 Respiratory Rate 18 Blood Pressure 149/50 H Pulse Oximetry 98 98 Intake/Output Intake/Output: Intake & Output 08/27/21 08/28/21 08/29/21 08/30/21 22:59 22:59 23:59 23:59 Intake Total 1200 Outpu
--- NOTE | 2021-08-30 08:23 | PM.PNNEP ---
Progress Note: A&P Assessment and Plan (1) ADOLPH (acute kidney injury): Code(s): N17.9 - Acute kidney failure, unspecified Status: Acute Assessment and Plan: acute kidney injury. Renal ultrasound unremarkable. Urine electrolytes non pre renal but he was on diuretics. Probably due prerenal factors + ALVARO-I use + diuretics holding benzapril and indapamide His creatinine is down to baseline. Will stop IV fluids. (2) CKD (chronic kidney disease): Code(s): N18.9 - Chronic kidney disease, unspecified Status: Chronic Assessment and Plan: baseline creatinine runs around 1.9 - 2.4mg/dl he fluctuates between CKD stage 3B and stage 4 (GFR 25 - 30cc/min) due to HTN, DM, vascular disease and age (3) Hyperkalemia: Code(s): E87.5 - Hyperkalemia Status: Acute Assessment and Plan: Resolved (4) Leukocytosis: Code(s): D72.829 - Elevated white blood cell count, unspecified Status: Acute Assessment and Plan: etiology possibly due to GI process?? White cell count down to 12 now. (5) HTN (hypertension): Code(s): I10 - Essential (primary) hypertension Status: Chronic Assessment and Plan: Systolic up and down between 120-150. Variability probably due to pain. 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 sugars 150 to 200 Pt says he is on SSI at home. Subjective Date/time seen: 08/30/21 08:23 Interval history: Patient is sitting up in a chair. he feels better this morning. He did not sleep very well last night though. No reports of hallucinations. No chest pain or shortness of breath. Exam Narrative: WDWN in NAD skin no rash or sq nodules. head ncat lungs clear to ausc cor reg no rub or gallop. abd BS+ nontender and soft ext no edema Objective Data Vital Signs Vital Signs: Vital Signs - 24 hr 08/29/21 08:56 08/29/21 11:58 08/29/21 16:00 Temperature 36.1 C L 36.4 C L Pulse Rate 72 77 65 Respiratory Rate 18 18 Blood Pressure 144/70 H 111/36 L Pulse Oximetry 100 99 08/29/21 20:00 08/29/21 22:50 08/29/21 22:51 Temperature 36.1 C L Pulse Rate 62 74 Respiratory Rate 20 Blood Pressure 162/73 H Pulse Oximetry 97 98 98 08/30/21 06:00 08/30/21 08:15 Temperature 36.4 C Pulse Rate 70 Respiratory Rate 18 Blood Pressure 149/50 H Pulse Oximetry 98 98 Intake/Output Intake/Output: Intake & Output 08/27/21 08/28/21 08/29/21 08/30/21 22:59 22:59 23:59 23:59 Intake Total 1200 Output Total 800 Balance 400 Meds/Results Medications: Active Medications Generic Name Dose Route Start Last Admin Trade Name Freq PRN Reason Stop Dose Admin Acetaminophen 650 mg 08/26/21 13:41 08/29/21 17:45 Acetaminophen 325 Mg Tablet PO 650 mg Q4H PRN Administration Mild Pain (1-3) or Fever Hydrocodone Bitart/Acetaminophen 1 tab 08/26/21 13:41 08/28/21 17:35 Hydrocodone/Acetaminophen (*Crx) 5-325 Mg Tablet PO 1 tab Q4H PRN Administration Pain Rated 4-6 Allopurinol 100 mg 08/27/21 09:00 08/29/21 08:56 Allopurinol 100 Mg Tablet PO 100 mg QAM PAVITHRA Administration Alprazolam 0.5 mg 08/27/21 13:51 08/29/21 06:12 Alprazolam (*Crx) 0.5 Mg Tablet PO 0.5 mg TID PRN Adminis
[2021-08-30 08:24] LABS: Basophils Absolute Auto 0.1 K/mm3 (0.0-0.1); Basophils Percent Auto 0.5 % (0.2-1.2); Eosinophils Absolute Auto 0.2 K/mm3 (0-0.3); Eosinophils Percent Auto 1.5 % (0-4.4); Hematocrit 24.6 % (42.0-52.0); Hemoglobin 7.7 g/dL (14.0-18.0); Immature Granulocyte Absolute 0.12 K/mm3 (0.00-0.031); Immature Granulocyte Percent A 1.1 % (0-0.5); Lymphocytes Absolute Auto 1.21 K/mm3 (0.9-3.2); Lymphocytes Percent Auto 11.1 % (18.3-44.2); Mean Corpuscular HGB Conc 31.3 g/dl (32-36); Mean Corpuscular Hemoglobin 31.6 pg (26-34); Mean Corpuscular Volume 100.8 fl (80-100); Mean Platelet Volume 9.5 fl (7.4-10.4); Monocytes Absolute Auto 1.3 K/mm3 (0.1-0.6); Monocytes Percent Auto 12.1 % (2.6-8.5); Neutrophils Absolute Auto 8.1 K/mm3 (1.3-6.7); Neutrophils Percent Auto 73.7 % (45.5-73.1); Platelet Count Result 249 k/mm3 (150-375); Red Blood Count 2.44 M/mm3 (4.6-6.20); Red Cell Distribution Width 14.1 % (11.5-14.5); White Blood Count 10.9 K/mm3 (4.5-10.0)
[2021-08-30] MEDS: ACETAMINOPHEN 325 MG TABLET 650 MG PO ×3 (09:02→23:59)
[2021-08-30] MEDS: carvediloL 6.25 MG TABLET PO ×2 (09:03→20:03)
[2021-08-30] MEDS: PANTOPRAZOLE SODIUM IV 40 MG VIAL IV PUSH (09:03)
[2021-08-30] MEDS: GABAPENTIN 300 MG CAPSULE PO ×2 (09:05→20:03)
--- NOTE | 2021-08-30 11:00 | PCPTNOTE ---
The patient treatment was not able to be completed due to patient out of room for EGD. Will plan to continue treatment per plan of care.
--- NOTE | 2021-08-30 11:02 | PC.NURSE ---
to GI lab per steph.
[2021-08-30] MEDS: AMPICILLIN 2 GM/NS 100 ML 2 GM/100 ML BAG IVPB (11:26)
[2021-08-30] MEDS: LACTATED RINGERS 1,000 ML 150 ML IV CONT (11:26)
--- NOTE | 2021-08-30 11:29 | WPDANESEPPF ---
Anes - Initial Pre Proc Eval Procedure: Operation Date: 08/30/21 14:00 Proposed Procedures p Esophagogastroduodenoscopy - Carlos Simpson MD Date/Time: 08/30/21 11:29 Surgeon: LAURA Novak Pre Op Diagnosis: Acute on chronic renal failure/hperkalemia/ileus Patient Data Age: 76 Gender: M Height: 1.83 m Weight: 136.3 kg Last Vital Signs Temp 36.2 C L 08/30/21 11:24 Pulse 69 08/30/21 11:24 Resp 20 08/30/21 11:24 BP 160/63 H 08/30/21 11:24 Pulse Ox 99 08/30/21 11:24 Allergies Allergy/AdvReac Type Severity Reaction Status Date / Time No Known Allergies Allergy Unknown Verified 08/30/21 11:22 Home Medications Medication Instructions Recorded Confirmed Type allopurinol 100 mg PO QAM 08/12/19 08/26/21 History benazepril 20 mg PO BID 08/12/19 08/26/21 History cinnamon bark 1,000 mg PO DAILY 08/17/19 08/26/21 History aspirin [Children's Aspirin] 81 mg PO DAILY@0800 #30 tablet 08/20/19 08/26/21 Rx clopidogrel 75 mg tablet 75 mg PO DAILY 10/07/19 08/26/21 History carvedilol 6.25 mg PO Q12H 01/12/20 08/26/21 History indapamide 2.5 mg PO DAILY 01/12/20 08/26/21 History leflunomide 20 mg PO DAILY 01/12/20 08/26/21 History atorvastatin 80 mg tablet 80 mg PO QPM tablet 04/10/20 08/26/21 History cholecalciferol (vitamin D3) 75 3,000 unit PO DAILY tablet 04/10/20 08/26/21 History mcg (3,000 unit) tablet blood sugar diagnostic #400 each 11/30/20 08/26/21 Rx gabapentin 600 mg PO BID 02/03/21 08/26/21 History hydroxychloroquine 200 mg PO BID 02/03/21 08/26/21 History pen needle, diabetic 31 gauge x #1,200 each 02/10/21 08/26/21 Rx 11/01 insulin lispro 200 unit/mL (3 mL) See Rx Instructions SUBCUT TID #69 03/23/21 08/26/21 Rx subcutaneous pen ml calcium polycarbophil 625 mg tablet 1,250 mg PO BID 90 Days #360 tablet 06/02/21 08/26/21 Rx hyoscyamine sulfate 0.375 mg 0.375 mg PO Q12H 90 Days #180 06/02/21 08/26/21 Rx tablet,extended release,12 hr tablet ezetimibe 10 mg tablet See Rx Instructions .ROUTE 08/06/21 08/26/21 Rx .COMPLEX #90 tablet sulfamethoxazole-trimethoprim 1 tablet PO BID 08/26/21 08/26/21 History Laboratory Tests 08/29/21 08/29/21 08/29/21 11:28 16:34 16:46 WBC RBC Hgb Hct MCV MCH MCHC RDW Plt Count MPV Immature Gran % (Auto) Neut % (Auto) Lymph % (Auto) [place] % (Auto) Eos % (Auto) Baso % (Auto) Lymph # (Auto) [place] # (Auto) Eos # (Auto) Baso # (Auto) Abs Immat Gran (auto) Absolute Neuts (auto) Absolute Nucleated RBC Nucleated RBC % Sodium Potassium Chloride Carbon Dioxide Anion Gap BUN Creatinine Estim Creat Clear Calc Estimated GFR Glucose POC Capillary Glucose 264 mg/dl H mg/dl 74 mg/dl mg/dl 66 mg/dl mg/dl (65-105) (65-105) (65-105) Calcium Magnesium Total Bilirubin AST ALT Alkaline Phosphatase Total Protein Albumin 08/29/21 08/29/21 08/29/21 16:57 17:33 20:45 WBC RBC Hgb Hct MCV MCH MCHC RDW Plt Count MPV Immature Gran % (Auto) Neut % (Auto) Lymph % (Auto) [place] % (Auto) Eos % (Auto) Baso % (Auto) Lymph # (Auto) [place] # (Auto) Eos # (Auto) Baso # (Auto) Abs Immat Gran (auto) Absolute Neuts (auto) Absolute Nucleated RBC Nucleated RBC %
--- NOTE | 2021-08-30 12:07 | P.PNIM_ITS ---
Progress Note: A&P Assessment and Plan (1) Constipation due to opioid therapy: Code(s): K59.03 - Drug induced constipation; T40.2X5A - Adverse effect of other opioids, initial encounter Status: Resolved Assessment and Plan: - Patient received Relistor in the emergency room and had good success from this medication. - Continue Relistor daily for 3 days while here. - Stressed importance of getting up and moving around and he was advised that PT has been ordered for that reason, to get him moving. - Increase water intake. - RESOLVED (2) Acute kidney injury superimposed on CKD: Code(s): N17.9 - Acute kidney failure, unspecified; N18.9 - Chronic kidney disease, unspecified Status: Acute Assessment and Plan: - Baseline creatinine is 1.9-2.4. - Pt's creatinine today is 2.5, almost back to baseline. - Nephrology covering and managing. Thank you for the help given thus far. - Continue to hold Indapamide and Benazepril. - Monitor labs, VS and continue I&O. - Avoid nephrotoxic agents. - Bladder training performed today and Flomax is being restarted. - Discontinue bruno catheter. (3) Hyperkalemia: Code(s): E87.5 - Hyperkalemia Status: Resolved Assessment and Plan: - RESOLVED (4) JAZMYNE (obstructive sleep apnea): Code(s): G47.33 - Obstructive sleep apnea (adult) (pediatric) Status: Acute Assessment and Plan: - Using home CPAP without any difficulty. (5) Diabetes: Qualifiers: Diabetes mellitus type: type 2 Diabetes mellitus intermediate manager insulin use: without intermediate manager use Diabetes mellitus complication status: with kidney complications Diabetes mellitus complication detail: with chronic kidney disease Chronic kidney disease stage: stage 3 (moderate) Chronic kidney disease stage 3 subtype: stage 3b (GFR 30-44) Qualified Code(s): E11.22 - Type 2 diabetes mellitus with diabetic chronic kidney disease; N18.32 - Chronic kidney disease, stage 3b Code(s): E11.9 - Type 2 diabetes mellitus without complications Status: Chronic Assessment and Plan: - Will have blood glucose monitoring before meals and at bedtime restart patient's home insulin regimen. - Moderately well controlled reviewing pt's glucose levels. (6) Leukocytosis: Qualifiers: Leukocytosis type: unspecified Qualified Code(s): D72.829 - Elevated white blood cell count, unspecified Code(s): D72.829 - Elevated white blood cell count, unspecified Status: Acute Assessment and Plan: - Exact etiology unclear. - WBC count continuing to decline further today. - GI scoping tomorrow. - Blood cultures negative thus far. - Continue to monitor. (7) Urinary retention with incomplete bladder emptying: Onset Date: ~08/27/21 Code(s): R33.9 - Retention of urine, unspecified Status: Acute Assessment and Plan: - Pt. with post-void residual today of >450 as evidenced by bladder scan post- void. Bruno catheter is placed to gravity and urine is sent. - Bladder training performed and pt.s bruno being removed today. - Possible Urology consult as needed. - No UTI noted. (8) Anxiety: Onset Date: ~08/27/21 Code(s): F41.9 - Anxiety disorder, unspecified Status: Acute Assessment and Plan: - Very anxious, likely situational. - Buspar 10 mg po once ordered. - Will order Xanax prn anxiety - Pt. reassured that he is experiencing a minor setback at this point. (9) Hematemesis: Qualifiers: Nausea presence: with nausea Qualified Code(s): K92.0 - Hematemesis
[2021-08-30 12:57] LABS: Glucose Point of Care 166 mg/dl (65-105)
[2021-08-30] MEDS: CHOLECALCIFEROL 1,000 UNITS TABLET 3000 UNITS PO (14:38)
[2021-08-30] MEDS: CLOPIDOGREL BISULFATE 75 MG TABLET PO (14:38)
[2021-08-30] MEDS: HYOSCYAMINE SULFATE 0.375 MG TAB.ER.12H PO ×2 (14:38→20:03)
[2021-08-30] MEDS: allopurinoL 100 MG TABLET PO (14:39)
[2021-08-30] MEDS: TAMSULOSIN HCL 0.4 MG CAPSULE PO (14:39)
[2021-08-30] MEDS: EZETIMIBE 10 MG TABLET BY MOUTH (14:39)
[2021-08-30] MEDS: LEFLUNOMIDE 20 MG TABLET PO (14:39)
[2021-08-30] MEDS: ASPIRIN 81 MG CHEWABLE TABLET PO (14:39)
[2021-08-30 16:31] LABS: Glucose Point of Care 237 mg/dl (65-105)
[2021-08-30] MEDS: calcium polycarbophiL 625 MG TABLET 1250 MG PO (17:41)
[2021-08-30] MEDS: ATORVASTATIN 40 MG TABLET 80 MG PO (17:41)
[2021-08-30] MEDS: INSULIN ASPART (*BKC) 100 UNITS/ML SUB-Q (17:41)
[2021-08-30] MEDS: HYDROXYCHLOROQUINE SULFATE 200 MG TABLET PO (17:41)
[2021-08-30 18:49] LABS: Glucose Point of Care 231 mg/dl (65-105)
[2021-08-30 20:42] LABS: Glucose Point of Care 141 mg/dl (65-105)
[2021-08-31] VITALS (16 sets, daily range): BP systolic 147–177; BP diastolic 55–91; PULSE 70–80; RESP 16–18; TEMP 36.4–37.3; O2SAT 96–100
[2021-08-31] MEDS: hydrALAZINE HCL 20 MG/ML VIAL 10 MG IV PUSH (00:32)
[2021-08-31] MEDS: HYDROcodone/acetaminophen (*CRX) 5-325 MG TABLET 1 TAB PO (01:20)
[2021-08-31 06:43] LABS: Albumin Level 3.3 g/dL (3.5-5.1); Anion Gap 8 mmol/L (8-16); Blood Urea Nitrogen 37 mg/dL (9-20); Calcium 9.2 mg/dL (8.4-10.2); Carbon Dioxide 22 mmol/L (22-30); Chloride 106 mmol/L (98-107); Estimated CRCL calculation 39 ml/min; Estimated Glomerular Filt Rate 31; Glucose 151 mg/dL (65-110); Phosphorus 3.8 mg/dL (2.5-4.5); Potassium 4.9 mmol/L (3.4-5.0); Sodium 136 mmol/L (137-145)
--- NOTE | 2021-08-31 07:28 | WPDGIPROGNO ---
Progress Note: A&P Assessment and Plan (1) Deborah-Segovia tear: Code(s): K22.6 - Gastro-esophageal laceration-hemorrhage syndrome Status: Acute Assessment and Plan: Patient found to have Deborah-Segovia tear at time of endoscopy. This likely related to emesis prior to presentation. Plan to keep on PPI therapy for several weeks. Advance diet as tolerated. No active bleeding at this time. Should heal with conservative management. (2) Hematemesis: Qualifiers: Nausea presence: with nausea Qualified Code(s): K92.0 - Hematemesis Code(s): K92.0 - Hematemesis Status: Acute Assessment and Plan: Imaged emesis has resolved. Appears to have been from Deborah-Segovia tear now identified. (3) Anemia: Qualifiers: Anemia type: unspecified type Qualified Code(s): D64.9 - Anemia, unspecified Code(s): D64.9 - Anemia, unspecified Status: Acute Assessment and Plan: Anemia likely multifactorial. A portion of it was from hematemesis and upper GI blood loss. Also postoperative anemia is likely. Continue to monitor hemoglobin. Transfuse only if necessary. May resume diet at this point. (4) History of colon polyps: Code(s): Z86.010 - Personal history of colonic polyps Status: Acute Assessment and Plan: Patient identified as having colon polyps. Would recommend follow-up colonoscopy at 5 year intervals. (5) Constipation due to opioid therapy: Code(s): K59.03 - Drug induced constipation; T40.2X5A - Adverse effect of other opioids, initial encounter Status: Resolved Assessment and Plan: Constipation resolved. After dose of Relistor. Continue stool softeners and laxative. Try to minimize opioids if at all possible. (6) H/O: knee surgery: Code(s): Z98.890 - Other specified postprocedural states Status: Acute Assessment and Plan: Patient recovering from recent knee surgery. Plan to resume physical therapy under orthopedic direction. Subjective Date/time seen: 08/31/21 07:28 Patient comfortable this morning although he does complain of some left arm pain. He was able to tolerate diet yesterday with no further emesis or abdominal pain. Continues to have bowel movements regularly. Not yet ambulating given recent knee replacement. Review of Systems Review of Systems: All systems reviewed & are unremarkable except as noted in HPI and below Exam Narrative: Physical exam reveals patient be alert. Vital signs are stable. HEENT exam reveals no icterus. Lungs are clear. Heart without murmur. Abdomen is somewhat obese. Bowel sounds are present soft nontender with no organomegaly. Objective Data Vital Signs Vital Signs: Vital Signs - 24 hr 08/30/21 08:00 08/30/21 08:15 08/30/21 09:03 Temperature 97 F L Pulse Rate 71 70 Respiratory Rate 20 Blood Pressure 160/69 H Pulse Oximetry 99 98 08/30/21 11:24 08/30/21 12:17 08/30/21 12:27 Temperature 97.2 F L Pulse Rate 69 68 66 Respiratory Rate 20 22 H 22 H Blood Pressure 160/63 H 114/53 L 110/54 L Pulse Oximetry 99 96 97 08/30/21 12:37 08/30/21 13:00 08/30/21 16:00 Temperature 96.8 F L 97 F L Pulse Rate 66 64 68 Respiratory Rate 21 H 17 20 Blood Pressure 122/59 L 153/59 H 160/62 H Pulse Oximetry 98 97 100 08/30/21 20:00 08/30/21 21:48 08/30/21 21:50 Temperature 98.6 F Pulse Rate 71 78 Respiratory Rate 16 Blood Pressure 180/71 H Pulse Oximetry 98 95 95 08/30/21 23:51 08/31/21 03:14 08/31/21 04:00 Temperature 98.2 F 98.7 F Pulse Rate 75 74 70 Respiratory Rate 16 16 Blood Pressure 194/67 H 161/63 H Pulse Oximetry 99 98 96 Intake/Output Intake/Output: Intake & Output 08/28/21 08/29/21 08/30/21 08/31/21 22:59 23:59 23:59 23:59 Intake Total 2730 750 Output Total 1430 1300 Balance 1300 -550 Meds/Results Medications: Active Medications Generic Name Dose Route Start Last Admin
[2021-08-31 07:42] LABS: Glucose Point of Care 161 mg/dl (65-105)
--- NOTE | 2021-08-31 07:56 | PM.PNNEP ---
Progress Note: A&P Assessment and Plan (1) ADOLPH (acute kidney injury): Code(s): N17.9 - Acute kidney failure, unspecified Status: Acute Assessment and Plan: acute kidney injury. Renal ultrasound unremarkable. Urine electrolytes non pre renal but he was on diuretics. Probably due prerenal factors + ALVARO-I use + diuretics holding benzapril and indapamide His creatinine is at baseline. (2) CKD (chronic kidney disease): Code(s): N18.9 - Chronic kidney disease, unspecified Status: Chronic Assessment and Plan: baseline creatinine runs around 1.9 - 2.4mg/dl he fluctuates between CKD stage 3B and stage 4 (GFR 25 - 30cc/min) due to HTN, DM, vascular disease and age (3) Hyperkalemia: Code(s): E87.5 - Hyperkalemia Status: Acute Assessment and Plan: Resolved (4) Leukocytosis: Code(s): D72.829 - Elevated white blood cell count, unspecified Status: Acute Assessment and Plan: etiology possibly due to GI process?? White cell count down to 12 yesterday. (5) HTN (hypertension): Code(s): I10 - Essential (primary) hypertension Status: Chronic Assessment and Plan: Systolic up and down between 120-150. Will restart indapamide. (6) Diabetes: Qualifiers: Diabetes mellitus type: type 2 Diabetes mellitus senior living insulin use: without senior living use Diabetes mellitus complication status: with kidney complications Diabetes mellitus complication detail: with chronic kidney disease Chronic kidney disease stage: stage 3 (moderate) Chronic kidney disease stage 3 subtype: stage 3b (GFR 30-44) Qualified Code(s): E11.22 - Type 2 diabetes mellitus with diabetic chronic kidney disease; N18.32 - Chronic kidney disease, stage 3b Code(s): E11.9 - Type 2 diabetes mellitus without complications Status: Chronic Assessment and Plan: on accuchecks but no SSI. sugars 150 to 200 Pt says he is on SSI at home. Subjective Date/time seen: 08/31/21 07:56 Interval history: Patient lying flat in bed. Multiple complaints. He has left wrist pain. He says that happened when he was at home and sprained it on the walker. He does not know who to ask about this. I referred him to the hospitalist. He has not had a bowel movement for the last day or 2. Exam Narrative: WDWN in NAD skin no rash or sq nodules. head ncat lungs clear to ausc cor reg no rub or gallop. abd BS+ nontender and soft ext no edema Objective Data Vital Signs Vital Signs: Vital Signs - 24 hr 08/30/21 08:00 08/30/21 08:15 08/30/21 09:03 Temperature 36.1 C L Pulse Rate 71 70 Respiratory Rate 20 Blood Pressure 160/69 H Pulse Oximetry 99 98 08/30/21 11:24 08/30/21 12:17 08/30/21 12:27 Temperature 36.2 C L Pulse Rate 69 68 66 Respiratory Rate 20 22 H 22 H Blood Pressure 160/63 H 114/53 L 110/54 L Pulse Oximetry 99 96 97 08/30/21 12:37 08/30/21 13:00 08/30/21 16:00 Temperature 36.0 C L 36.1 C L Pulse Rate 66 64 68 Respiratory Rate 21 H 17 20 Blood Pressure 122/59 L 153/59 H 160/62 H Pulse Oximetry 98 97 100 08/30/21 20:00 08/30/21 21:48 08/30/21 21:50 Temperature 37.0 C Pulse Rate 71 78 Respiratory Rate 16 Blood Pressure 180/71 H Pulse Oximetry 98 95 95 08/30/21 23:51 08/31/21 03:14 08/31/21 04:00 Temperature 36.8 C 37.1 C Pulse Rate 75 74 70 Respiratory Rate 16 16 Blood Pressure 194/67 H 161/63 H Pulse Oximetry 99 98 96 Intake/Output Intake/Output: Intake & Output 08/28/21 08/29/21 08/30/21 08/31/21 22:59 23:59 23:59 23:59 Intake Total 2730 750 Output Total 1430 1300 Balance 1300 -550 Meds/Results Medications: Active Medications Generic Name Dose Route Start Last Admin Trade Name Freq PRN Reason Stop Dose Admin Acetaminophen 650 mg 08/26/21 13:41 08/30/21 23:59 Acetaminophen 325 Mg Tablet PO 650 mg Q4H PRN Administration
[2021-08-31] MEDS: CHOLECALCIFEROL 1,000 UNITS TABLET 3000 UNITS PO (10:33)
[2021-08-31] MEDS: carvediloL 6.25 MG TABLET PO ×2 (10:35→20:02)
[2021-08-31] MEDS: PANTOPRAZOLE 40 MG TABLET PO (10:35)
[2021-08-31] MEDS: HYOSCYAMINE SULFATE 0.375 MG TAB.ER.12H PO ×2 (10:35→20:01)
[2021-08-31] MEDS: CLOPIDOGREL BISULFATE 75 MG TABLET PO (10:35)
[2021-08-31] MEDS: calcium polycarbophiL 625 MG TABLET 1250 MG PO ×2 (10:35→17:15)
[2021-08-31] MEDS: GABAPENTIN 300 MG CAPSULE PO ×2 (10:35→20:01)
[2021-08-31] MEDS: HYDROXYCHLOROQUINE SULFATE 200 MG TABLET PO ×2 (10:36→17:15)
[2021-08-31] MEDS: ASPIRIN 81 MG CHEWABLE TABLET PO (10:36)
[2021-08-31] MEDS: TAMSULOSIN HCL 0.4 MG CAPSULE PO (10:37)
[2021-08-31] MEDS: EZETIMIBE 10 MG TABLET BY MOUTH (10:37)
[2021-08-31] MEDS: allopurinoL 100 MG TABLET PO (10:37)
[2021-08-31] MEDS: LEFLUNOMIDE 20 MG TABLET PO (10:38)
[2021-08-31 10:58] LABS: Hematocrit 25.1 % (42.0-52.0); Hemoglobin 7.9 g/dL (14.0-18.0); Mean Corpuscular HGB Conc 31.5 g/dl (32-36); Mean Corpuscular Hemoglobin 30.6 pg (26-34); Mean Corpuscular Volume 97.3 fl (80-100); Mean Platelet Volume 9.3 fl (7.4-10.4); Platelet Count Result 262 k/mm3 (150-375); Red Blood Count 2.58 M/mm3 (4.6-6.20); White Blood Count 13.4 K/mm3 (4.5-10.0)
[2021-08-31 11:10] LABS: Magnesium 1.5 mg/dL (1.6-2.3)
--- NOTE | 2021-08-31 11:23 | WPDANESPN ---
Anes - Prog Note Post-Op Date/Time: 08/31/21 11:23 Cardiovascular status: normal Respiratory status: normal Airway patency: baseline Mental status: baseline Post-Op hydration status: normal Vital Signs: Last Vital Signs Temp 97.7 F 08/31/21 08:00 Pulse 80 08/31/21 10:35 Resp 18 08/31/21 08:00 BP 177/76 H 08/31/21 08:00 Pulse Ox 97 08/31/21 08:00 Pain Score (VAS): 0 I/O: Intake & Output 08/30/21 08/31/21 08/31/21 23:59 07:59 15:59 Intake Total 540 750 240 Output Total 630 1300 Balance -90 -550 240 Laboratory Tests 08/31/21 05:57 08/31/21 05:57 08/30/21 08/30/21 08/30/21 12:54 16:23 18:46 WBC RBC Hgb Hct MCV MCH MCHC RDW Plt Count MPV Sodium Potassium Chloride Carbon Dioxide Anion Gap BUN Creatinine Estim Creat Clear Calc Estimated GFR Glucose POC Capillary Glucose 166 H 237 H 231 H Calcium Phosphorus Magnesium Albumin 08/30/21 08/31/21 08/31/21 20:40 05:57 05:57 WBC 13.4 H RBC 2.58 L Hgb 7.9 L Hct 25.1 L MCV 97.3 MCH 30.6 MCHC 31.5 L RDW 14.0 Plt Count 262 MPV 9.3 Sodium 136 L Potassium 4.9 Chloride 106 Carbon Dioxide 22 Anion Gap 8 BUN 37 H Creatinine 2.10 H Estim Creat Clear Calc 39 Estimated GFR 31 L Glucose 151 H POC Capillary Glucose 141 H Calcium 9.2 Phosphorus 3.8 Magnesium Albumin 3.3 L 08/31/21 08/31/21 05:57 07:31 WBC RBC Hgb Hct MCV MCH MCHC RDW Plt Count MPV Sodium Potassium Chloride Carbon Dioxide Anion Gap BUN Creatinine Estim Creat Clear Calc Estimated GFR Glucose POC Capillary Glucose 161 H Calcium Phosphorus Magnesium 1.5 L Albumin Patient Feedback: Patient satisfied with anesthetic care.
[2021-08-31 11:51] LABS: Glucose Point of Care 199 mg/dl (65-105)
--- NOTE | 2021-08-31 12:11 | WPDCDIQUERY2 ---
CDI Query Clarification Request -08/26 ER physician documented: Clinical Impression: - Acute on chronic kidney failure, Hyperkalemia, Leukocytosis, Ileus Please clarify if diagnosis, ileus has been ruled in or ruled out or unable to determine. <Liz Holliday - Last Filed: 08/31/21 12:22> Provider Comments Ileus ruled in due to constipation <Angel Barrow MD - Last Filed: 09/05/21 10:44>
[2021-08-31] MEDS: INDAPAMIDE 2.5 MG TABLET PO (12:27)
--- NOTE | 2021-08-31 13:20 | PCPTNOTE ---
The patient treatment was not able to be completed at this time due to patient sleeping and requested to allow him to sleep. Patient's states patient was unable to rest this morning due to having visitors. Will plan to continue treatment per plan of care.
--- NOTE | 2021-08-31 13:39 | PM.IMPN ---
Progress Note: A&P Assessment and Plan (1) Constipation due to opioid therapy: Code(s): K59.03 - Drug induced constipation; T40.2X5A - Adverse effect of other opioids, initial encounter Status: Resolved Assessment and Plan: - Patient received Relistor in the emergency room and had good success from this medication. - Continue Relistor daily for 3 days while here. - Stressed importance of getting up and moving around and he was advised that PT has been ordered for that reason, to get him moving. - Increase water intake. - RESOLVED but now backing up again Will add MiraLax and Senokot S scheduled He continues to be on [place] p.r.n. (2) Acute kidney injury superimposed on CKD: Code(s): N17.9 - Acute kidney failure, unspecified; N18.9 - Chronic kidney disease, unspecified Status: Acute Assessment and Plan: - Baseline creatinine is 1.9-2.4. -admission creatinine of 3.5 Patient creatinine continues to improve and back to baseline - Nephrology covering and managing. Thank you for the help given thus far. - Continue to hold Indapamide and Benazepril. Likely prerenal plus ALVARO inhibitor and diuretic use - Monitor labs, VS and continue I&O. - Avoid nephrotoxic agents. - (3) Hyperkalemia: Code(s): E87.5 - Hyperkalemia Status: Resolved Assessment and Plan: - RESOLVED (4) JAZMYNE (obstructive sleep apnea): Code(s): G47.33 - Obstructive sleep apnea (adult) (pediatric) Status: Acute Assessment and Plan: - Using home CPAP without any difficulty. (5) Diabetes: Qualifiers: Diabetes mellitus type: type 2 Diabetes mellitus shelter insulin use: without assistant terminal manager use Diabetes mellitus complication status: with kidney complications Diabetes mellitus complication detail: with chronic kidney disease Chronic kidney disease stage: stage 3 (moderate) Chronic kidney disease stage 3 subtype: stage 3b (GFR 30-44) Qualified Code(s): E11.22 - Type 2 diabetes mellitus with diabetic chronic kidney disease; N18.32 - Chronic kidney disease, stage 3b Code(s): E11.9 - Type 2 diabetes mellitus without complications Status: Chronic Assessment and Plan: - Will have blood glucose monitoring before meals and at bedtime restart patient's home insulin regimen. - Moderately well controlled reviewing pt's glucose levels. (6) Leukocytosis: Qualifiers: Leukocytosis type: unspecified Qualified Code(s): D72.829 - Elevated white blood cell count, unspecified Code(s): D72.829 - Elevated white blood cell count, unspecified Status: Acute Assessment and Plan: - Exact etiology unclear. - [place]BC [place] [address] UA was negative. Chest x-ray was not done however no respiratory symptoms reported. - Blood cultures negative thus far. - Continue to monitor. (7) Urinary retention with incomplete bladder emptying: Onset Date: ~08/27/21 Code(s): R33.9 - Retention of urine, unspecified Status: Acute Assessment and Plan: - Pt. with post-void residual today of >450 as evidenced by bladder scan post-void. Bruno catheter is placed to gravity and urine is sent. - Bladder training performed and pt.s bruno removed 08/30/2021 - Possible Urology consult as needed. - No UTI noted. (8) Anxiety: Onset Date: ~08/27/21 Code(s): F41.9 - Anxiety disorder, unspecified Status: Acute Assessment and Plan: - Very anxious, likely situational. - Buspar 10 mg po once ordered. - Will order Xanax prn anxiety - Pt. reassured that he is experiencing a minor setback at this point. (9) Hematemesis: Qualifiers: Nausea presence: with nausea Qualified Code(s): K92.0 - Hematemesis Code(s): K92.0 - Hematemesis Status: Acute Assessment and Plan: - Pt's was concerned as she states the pt. had an episode of maroon emesis prior to coming into the ER. - They voice t
[2021-08-31 14:28] LABS: Chloride Rand Ur 68 mmol/L (32-290); Chloride/Creatinine Rand Ur 155 (23-275); Creatinine Random Urine 44 mg/dL (20-320)
[2021-08-31 15:20] LABS: Alveolar/Arterial O2 Gradient 24.7 mmHg; Base Excess ABG -2.3 mEq/l (+/-2.0); Fractional Inspired Oxygen 21 %; HCO3 ABG 21.2 mEq/l (22.0-26.0); Oxygen Content ABG 12.7 %vol (16.0-22.0); Oxyhemoglobin 94.9 % THb (90.0-100.0); PCO2 ABG 31.9 mmHg (35.0-45.0); PO2 ABG 86.8 mmHg (80.0-100.0); PO2 FiO2 Ratio Arterial Blood 4.13 %; Total Hemoglobin 9.4 g/dL (12.0-18.0); pH ABG 7.441 (7.350-7.450)
[2021-08-31 15:21] LABS: Device ROOM AIR; Modified Allen's Test Pass; Site Drawn RIGHT RADIAL
[2021-08-31 15:47] LABS: Ammonia < 9 umol/L (9-30)
[2021-08-31 15:48] LABS: Uric Acid 5.8 mg/dL (3.5-8.5)
[2021-08-31] MEDS: MAGNESIUM SULF 2 GM/WATER 50ML 2 GM/50 ML BAG IVPB (16:01)
[2021-08-31] MEDS: SODIUM CHLORIDE 0.9% IV 250 ML 30 ML IV CONT (16:02)
[2021-08-31 16:08] LABS: Iron 25 ug/dL (49-181)
[2021-08-31 16:17] LABS: Percent Iron Saturation 12 % (20-50)
[2021-08-31 16:32] LABS: Glucose Point of Care 268 mg/dl (65-105)
[2021-08-31 17:02] LABS: Folic Acid 9.6 ng/mL (2.76->20)
[2021-08-31] MEDS: SENNA/DOCUSATE SODIUM TABLET 1 TAB PO (17:15)
[2021-08-31] MEDS: ATORVASTATIN 40 MG TABLET 80 MG PO (17:15)
[2021-08-31] MEDS: DICLOFENAC SODIUM 1% 100 GM GEL (*BKC) 1 APPLIC TOPICAL ×2 (17:15→20:05)
[2021-08-31] MEDS: INSULIN ASPART (*BKC) 100 UNITS/ML SUB-Q (17:16)
[2021-08-31 21:58] LABS: Glucose Point of Care 93 mg/dl (65-105)
[2021-09-01] VITALS: BP 174/74; PULSE 71; RESP 16; TEMP 37; O2SAT 98
[2021-09-01 00:56] LABS: Add Urine Microscopic? YES; Appearance Urine Clear (Clear); Bilirubin Urine Negative (Negative); Blood Urine Negative (Negative); Color Urine Yellow (Yellow); Glucose Urine UA Negative (Negative); Ketones Urine Negative (Negative); Leukocyte Esterase Ur Negative LEU/UL (Negative); Mucus Urine Rare /lpf; Nitrate Urine Negative (Negative); Protein Urine 1+ mg/dL (Negative); RBC Urine 0-2 /hpf (0-2); Specific Grav Ur 1.012 (1.001-1.035); Urobilinogen Urine Negative mg/dL (<2.0); WBC Urine 0-3 /hpf
[2021-09-01 03:58] LABS: Glucose Point of Care 133 mg/dl (65-105)
[2021-09-01 04:00] VITALS: BP 166/72; PULSE 69; RESP 16; TEMP 36.5; O2SAT 97
[2021-09-01 06:11] LABS: Hematocrit 28.6 % (42.0-52.0); Hemoglobin 9.3 g/dL (14.0-18.0); Mean Corpuscular HGB Conc 32.5 g/dl (32-36); Mean Corpuscular Hemoglobin 31.7 pg (26-34); Mean Corpuscular Volume 97.6 fl (80-100); Platelet Count Result 241 k/mm3 (150-375); Red Blood Count 2.93 M/mm3 (4.6-6.20); White Blood Count 13.2 K/mm3 (4.5-10.0)
[2021-09-01 06:24] LABS: Alanine Aminotransferase 25 U/L (4-50); Albumin Level 3.3 g/dL (3.5-5.1); Alkaline Phosphatase 88 U/L (38-126); Anion Gap 6 mmol/L (8-16); Aspartate Amino Transferase 33 U/L (17-59); Bilirubin,Total 0.7 mg/dL (0.2-1.3); Blood Urea Nitrogen 34 mg/dL (9-20); Calcium 9.6 mg/dL (8.4-10.2); Carbon Dioxide 22 mmol/L (22-30); Chloride 105 mmol/L (98-107); Estimated CRCL calculation 36 ml/min; Estimated Glomerular Filt Rate 28; Glucose 123 mg/dL (65-110); Phosphorus 4.4 mg/dL (2.5-4.5); Potassium 5.1 mmol/L (3.4-5.0); Sodium 133 mmol/L (137-145)
[2021-09-01 07:37] LABS: Glucose Point of Care 122 mg/dl (65-105)
--- NOTE | 2021-09-01 07:42 | WPDGIPROGNO ---
Progress Note: A&P Assessment and Plan (1) Deborah-Segovia tear: Code(s): K22.6 - Gastro-esophageal laceration-hemorrhage syndrome Status: Acute Assessment and Plan: Deborah-Segovia tear identified at time of endoscopy. Appears to be healing. No additional bleeding noted. Would recommend advancing to a regular diet. Continue PPI for several weeks. Okay to discharge from GI perspective. (2) Anemia: Qualifiers: Anemia type: unspecified type Qualified Code(s): D64.9 - Anemia, unspecified Code(s): D64.9 - Anemia, unspecified Status: Acute Assessment and Plan: Anemia stable. No signs of additional bleeding. Hemoglobin improved after transfusion. Suggest follow-up CBC after discharge to ensure resolution. 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 Follow-up colonoscopy at 5 year intervals encourage period (6) Constipation due to opioid therapy: Code(s): K59.03 - Drug induced constipation; T40.2X5A - Adverse effect of other opioids, initial encounter Status: Resolved Assessment and Plan: constipation likely secondary to decrease activity after knee surgery as well as secondary to pain medications. We discussed taking pain medications but only as needed. Will make sure he has MiraLax available on a daily basis if necessary. Subjective Date/time seen: 09/01/21 07:42 Patient alert. Tolerating diet. Denies abdominal pain. Slightly more constipated. Notes his left hand pain has improved significantly. Anxious to go home. He is restarted physical therapy. No signs of additional bleeding. Review of Systems Review of Systems: All systems reviewed & are unremarkable except as noted in HPI and below Exam Narrative: Physical exam reveals patient be alert. Vital signs stable. HEENT exam reveals no icterus. Lungs are clear. Heart without murmur. Abdomen is obese bowel sounds present soft and nontender. Objective Data Vital Signs Vital Signs: Vital Signs - 24 hr 08/31/21 08:00 08/31/21 10:35 08/31/21 12:00 Temperature 97.7 F 98.1 F Pulse Rate 72 80 78 Respiratory Rate 18 16 Blood Pressure 177/76 H 168/75 H Pulse Oximetry 97 98 08/31/21 14:24 08/31/21 16:00 08/31/21 17:18 Temperature 99.1 F 98.0 F Pulse Rate 76 77 Respiratory Rate 16 18 Blood Pressure 153/58 H 147/63 H Pulse Oximetry 96 98 99 08/31/21 17:21 08/31/21 17:35 08/31/21 18:35 Temperature 98.0 F 98.4 F 98.7 F Pulse Rate 77 73 73 Respiratory Rate 18 18 18 Blood Pressure 147/63 H 156/55 H 147/91 H Pulse Oximetry 99 100 98 08/31/21 19:35 08/31/21 20:00 08/31/21 20:02 Temperature 99.0 F 99.0 F Pulse Rate 72 72 70 Respiratory Rate 16 16 Blood Pressure 151/66 H 151/66 H Pulse Oximetry 100 100 08/31/21 21:15 08/31/21 22:00 09/01/21 00:00 Temperature 97.6 F 98.6 F Pulse Rate 71 71 71 Respiratory Rate 16 16 Blood Pressure 158/62 H 174/74 H Pulse Oximetry 96 96 98 09/01/21 04:00 Temperature 97.7 F Pulse Rate 69 Respiratory Rate 16 Blood Pressure 166/72 H Pulse Oximetry 97 Intake/Output Intake/Output: Intake & Output 08/29/21 08/30/21 08/31/21 09/01/21 23:59 23:59 23:59 23:59 Intake Total 2730 3000 750 Output Total 1430 2150 1825 Balance 1300 850 -1075 Meds/Results Medications: Active Medications Generic Name Dose Route Start Last Admin Trade Name Pallavi PRN Reason Stop Dose Admin Acetaminophen 650 mg 08/26/21 13:41 08/30/21 23:59 Acetaminophen 325 Mg Tablet PO
[2021-09-01 07:57] VITALS: BP 151/78; PULSE 75; RESP 17; TEMP 36.1; O2SAT 98
[2021-09-01] MEDS: LEFLUNOMIDE 20 MG TABLET PO (08:38)
[2021-09-01] MEDS: CHOLECALCIFEROL 1,000 UNITS TABLET 3000 UNITS PO (08:38)
[2021-09-01] MEDS: ASPIRIN 81 MG CHEWABLE TABLET PO (08:38)
[2021-09-01] MEDS: calcium polycarbophiL 625 MG TABLET 1250 MG PO ×2 (08:38→17:53)
[2021-09-01] MEDS: HYDROXYCHLOROQUINE SULFATE 200 MG TABLET PO ×2 (08:38→17:53)
[2021-09-01] MEDS: PANTOPRAZOLE 40 MG TABLET PO (08:38)
[2021-09-01] MEDS: INDAPAMIDE 2.5 MG TABLET PO (08:38)
[2021-09-01] MEDS: HYOSCYAMINE SULFATE 0.375 MG TAB.ER.12H PO (08:38)
[2021-09-01] MEDS: polyethylene glycoL 3350 17 GM POWD.PACK PO ×3 (08:38→15:43)
[2021-09-01 08:39] VITALS: PULSE 74
[2021-09-01] MEDS: carvediloL 6.25 MG TABLET PO (08:39)
[2021-09-01] MEDS: SENNA/DOCUSATE SODIUM TABLET 1 TAB PO ×2 (08:39→17:53)
[2021-09-01] MEDS: EZETIMIBE 10 MG TABLET BY MOUTH (08:39)
[2021-09-01] MEDS: allopurinoL 100 MG TABLET PO (08:39)
[2021-09-01] MEDS: GABAPENTIN 300 MG CAPSULE PO (08:39)
[2021-09-01] MEDS: CLOPIDOGREL BISULFATE 75 MG TABLET PO (08:40)
[2021-09-01] MEDS: DICLOFENAC SODIUM 1% 100 GM GEL (*BKC) 1 APPLIC TOPICAL ×3 (08:40→17:54)
[2021-09-01] MEDS: TAMSULOSIN HCL 0.4 MG CAPSULE PO (08:40)
[2021-09-01 11:30] VITALS: BP 138/69; PULSE 79; RESP 17; TEMP 36.2; O2SAT 98
[2021-09-01 11:31] LABS: Glucose Point of Care 179 mg/dl (65-105)
[2021-09-01] MEDS: INSULIN ASPART (*BKC) 100 UNITS/ML SUB-Q (12:49)
--- NOTE | 2021-09-01 13:30 | PM.DS ---
DS: Admitting Diagnosis Discharge Date 09/01/2021 Admitting Diagnosis Weakness and constipation DS: Discharge Diagnosis Discharge Diagnosis (1) Constipation due to opioid therapy: Code(s): K59.03 - Drug induced constipation; T40.2X5A - Adverse effect of other opioids, initial encounter Status: Resolved Assessment and Plan: - Patient received Relistor in the emergency room and had good success from this medication. - Continue Relistor daily for 3 days while here. - Stressed importance of getting up and moving around and he was advised that PT has been ordered for that reason, to get him moving. - Increase water intake. - RESOLVED but now backing up again Will add MiraLax and Senokot S scheduled He continues to be on [place] p.r.n. Pt had recent knee replacement (2) Acute kidney injury superimposed on CKD: Code(s): N17.9 - Acute kidney failure, unspecified; N18.9 - Chronic kidney disease, unspecified Status: Acute Assessment and Plan: - Baseline creatinine is 1.9-2.4. -admission creatinine of 3.5 Patient creatinine continues to improve and back to baseline - Nephrology covering and managing. Thank you for the help given thus far. - Continue to hold Indapamide continue benzapril. Likely prerenal plus ALVARO inhibitor and diuretic use - Continue on dischrage pt adviced to drink plenty of water and follow with Nephrology (3) Hyperkalemia: Code(s): E87.5 - Hyperkalemia Status: Resolved Assessment and Plan: - RESOLVED (4) JAZMYNE (obstructive sleep apnea): Code(s): G47.33 - Obstructive sleep apnea (adult) (pediatric) Status: Acute Assessment and Plan: - Using home CPAP without any difficulty. (5) Diabetes: Qualifiers: Chronic kidney disease stage: stage 3 (moderate) Chronic kidney disease stage 3 subtype: stage 3b (GFR 30-44) Diabetes mellitus complication detail: with chronic kidney disease Diabetes mellitus complication status: with kidney complications Diabetes mellitus custodial insulin use: without exterminator use Diabetes mellitus type: type 2 Qualified Code(s): E11.22 - Type 2 diabetes mellitus with diabetic chronic kidney disease; N18.32 - Chronic kidney disease, stage 3b Code(s): E11.9 - Type 2 diabetes mellitus without complications Status: Chronic Assessment and Plan: - Will have blood glucose monitoring before meals and at bedtime restart patient's home insulin regimen. - Moderately well controlled reviewing pt's glucose levels. (6) Leukocytosis: Qualifiers: Leukocytosis type: unspecified Qualified Code(s): D72.829 - Elevated white blood cell count, unspecified Code(s): D72.829 - Elevated white blood cell count, unspecified Status: Acute Assessment and Plan: - Exact etiology unclear. - WBC [place] [address] UA was negative. Chest x-ray was not done however no respiratory symptoms reported. - Blood cultures negative thus far. - Continue to monitor. (7) Urinary retention with incomplete bladder emptying: Onset Date: ~08/27/21 Code(s): R33.9 - Retention of urine, unspecified Status: Acute Assessment and Plan: - Pt. with post-void residual today of >450 as evidenced by bladder scan post-void. Bruno catheter is placed to gravity and urine is sent. - Bladder training performed and pt.s bruno removed 08/30/2021 - Possible Urology consult as needed. - No UTI noted. (8) Anxiety: Onset Date: ~08/27/21 Code(s): F41.9 - Anxiety disorder, unspecified Status: Acute Assessment and Plan: - Very anxious, likely situational. - Buspar 10 mg po once ordered. - Will order Xanax prn anxiety - Pt. reassured that he is experiencing a minor setback at this point. (9) Hematemesis: Qualifiers: Nausea presence: with nausea Qualified Code(s): K92.0 - Hematemesis Code(s): K92.0 - Hematemesis Status:
[2021-09-01] MEDS: METOCLOPRAMIDE HCL INJ 10 MG/2 ML VIAL 5 MG IV PUSH (15:43)
[2021-09-01 15:48] VITALS: BP 146/61; PULSE 78; RESP 17; TEMP 36.4; O2SAT 96
--- NOTE | 2021-09-01 16:13 | PM.CNOR ---
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 HE HAS PREEXISTING DJD TO THE CARPAL JOINT. THIS MAY BE FROM AN OLD INJURY HE RELATED TOO A PREVIOUS FRACTURE AT SOME TIME. RECOMMEND SYMPTOMATIC TREATMENT. XRAYS SHOW SCAPHOLUNATE WIDENING AND DJD. WE DISCUSSED THE OPTION OF CORTISONE INJECTION BY HIS ORTHOPEDIC SURGEON IF HE DOES NOT IMPROVE. HE WILL F/U NEEDED. History of Present Illness HPI Consult date: 09/01/21 Consult reason: joint pain Chief complaint: Acute on chronic renal failure/hperkalemia/ileus Narrative: LITTLE IS A 76 YO MALE WITH A RECENT HISTORY OF LEFT WRIST INJURY. HE HAS A RECENT LEFT KNEE REPLACEMENT. HE WAS USING HIS WALKER IN REHAB AND HIS WRIST SLIPPED AND HE HAD PAIN. HE DOES HAVE A HISTORY OF LEFT WRIST FRACTURE IN THE PAIN. HE CURRENTLY STATES THE PAIN IS IMPROVING. HE DENIES ANY OTHER INJURIES OR PAIN. HE WAS ADMITTED FOR A LOWER GI BLEED AND HAS BEEN SEEN BY GI SERVICES. HE IS CURRENTLY STABLE. Review of Systems Review of Systems: All systems reviewed & are unremarkable except as noted in HPI and below PMFSH Past Medical History Medical History Acute blood loss anemia CAD (coronary artery disease) Chronic cholecystitis Diabetes Epigastric pain Gout HTN (hypertension) Hypercholesteremia Hyperlipidemia Obesity JAZMYNE (obstructive sleep apnea) CPAP Peripheral neuropathy Person under investigation for COVID-19 02/12/21 Rheumatoid arthritis Sleep apnea Surgical History Surgical History H/O: knee surgery History of cardiac cath History of coronary artery stent placement x4 History of total left knee replacement Stented coronary artery Social History Social History Smoking status: Never smoker Second hand tobacco smoke exposure: Yes (just as an adolescent) Alcohol intake: never Substance use: never Substance use type: does not use Gender identity (if verbalized by the patient): Male Sexual Orientation (if Verbalized by the Patient): Straight or Heterosexual Spiritual care concerns: Yes ([facility] [employer]) Agree to blood products: Yes Meds Home Medications and Allergies Home Medications Medication Instructions Recorded Confirmed Type allopurinol 100 mg PO QAM 08/12/19 08/26/21 History benazepril 20 mg PO BID 08/12/19 08/26/21 History cinnamon bark 1,000 mg PO DAILY 08/17/19 08/26/21 History aspirin [Children's Aspirin] 81 mg PO DAILY@0800 #30 tablet 08/20/19 08/26/21 Rx clopidogrel 75 mg tablet 75 mg PO DAILY 10/07/19 08/26/21 History carvedilol 6.25 mg PO Q12H 01/12/20 08/26/21 History indapamide 2.5 mg PO DAILY 01/12/20 08/26/21 History leflunomide 20 mg PO DAILY 01/12/20 08/26/21 History atorvastatin 80 mg tablet 80 mg PO QPM tablet 04/10/20 08/26/21 History cholecalciferol (vitamin D3) 75 3,000 unit PO DAILY tablet 04/10/20 08/26/21 History mcg (3,000 unit) tablet blood sugar diagnostic #400 each 11/30/20 08/26/21 Rx gabapentin 600 mg PO BID 02/03/21 08/26/21 History hydroxychloroquine 200 mg PO BID 02/03/21 08/26/21 History pen needle, diabetic 31 gauge x #1,200 each 02/10/21 08/26/21 Rx 11/01 insulin lispro 200 unit/mL (3 mL) See Rx Instructions SUBCUT TID #69 03/23/21 08/26/21 Rx subcutaneous pen ml calcium polycarbophil 625 mg tablet 1,250 mg PO BID 90 Days #360 tablet 06/02/21 08/26/21 Rx
[2021-09-01 16:59] LABS: Glucose Point of Care 137 mg/dl (65-105)
[2021-09-01] MEDS: ATORVASTATIN 40 MG TABLET 80 MG PO (17:54)
== END 2021-09-01 18:35 | disposition home health service (06) | DRG 369 ==
LOC: ANHED 10:10 → ANH3MEDSUR 14:33
PROVIDERS: Internal Medicine Gastroenterology; Internal Medicine Nephrology; Nurse Practitioner Adult Health; Admitting Provider Internal Medicine; Emergency Provider Emergency Medicine; PCP Registered Nurse; Visit Provider Family Medicine
PROC: 0DJ08ZZ Inspection of Upper Intestinal Tract, Via Natural or Artificial Opening Endoscopic (ICD-10-PCS; CPT 43235; principal; 2021-08-30 14:00)
DX: K22.6 Gastro-esophageal laceration-hemorrhage syndrome (principal); N17.9 Acute kidney failure, unspecified; N18.4 Chronic kidney disease, stage 4 (severe); D62 Acute posthemorrhagic anemia; K56.7 Ileus, unspecified; R44.3 Hallucinations, unspecified; K59.03 Drug induced constipation; E87.5 Hyperkalemia; G47.33 Obstructive sleep apnea (adult) (pediatric); D72.829 Elevated white blood cell count, unspecified; I25.10 Atherosclerotic heart disease of native coronary artery without angina pectoris; E78.00 Pure hypercholesterolemia, unspecified; E66.9 Obesity, unspecified; E11.42 Type 2 diabetes mellitus with diabetic polyneuropathy; M06.9 Rheumatoid arthritis, unspecified; Z95.5 Presence of coronary angioplasty implant and graft; N40.0 Benign prostatic hyperplasia without lower urinary tract symptoms; I25.2 Old myocardial infarction; T40.2X5A Adverse effect of other opioids, initial encounter; E11.22 Type 2 diabetes mellitus with diabetic chronic kidney disease; I12.9 Hypertensive chronic kidney disease with stage 1 through stage 4 chronic kidney disease, or unspecified chronic kidney disease; Z79.4 Long term (current) use of insulin; Z79.899 Other long term (current) drug therapy; Z79.82 Long term (current) use of aspirin; R33.9 Retention of urine, unspecified; F41.9 Anxiety disorder, unspecified; Z98.890 Other specified postprocedural states; E11.65 Type 2 diabetes mellitus with hyperglycemia; Z86.010 Personal history of colon polyps; D63.1 Anemia in chronic kidney disease; S60.212A Contusion of left wrist, initial encounter; M19.032 Primary osteoarthritis, left wrist
CPT/HCPCS: 36415; 36430; 36600; 70450; 73110; 74018; 74176; 80048; 80053; 80069; 81001; 81050; 82140; 82436; 82570; 82607; 82728; 82746; 82805; 82948; 83540; 83550; 83605; 83735; 84100; 84132; 84156; 84300; 84550; 85025; 85027; 85999; 86850; 86900; 86901; 86920; 87040; 87081; 96361; 96372; 96374; 97110; 97116; 97140; 97162; 97166; 97530; 97535; 99285; A9270; C9113; G0378; J0290; J0360; J1644; J1815; J2001; J2212; J2405; J2704; J2765; J3475; J7030; J7050; J7120; P9016

== ENCOUNTER 2021-09-04 08:23 | Inpatient (IN) | payer MEDICARE, SELFPAY ==
[2021-09-04] VITALS (9 sets, daily range): BP systolic 147–179; BP diastolic 60–96; PULSE 73–80; RESP 18–26; TEMP 36.2–36.4; O2SAT 99–100; BMI 37.1
--- NOTE | ~2021-09-04 | XR_ITS ---
EXAMINATION: XR abdomen obstructive series DATE: 09/05/2021 08:17 INDICATION: Follow-up ileus versus partial small bowel obstruction. Abdomen pain. TECHNIQUE: Supine and upright views of the abdomen. FINDINGS: 08/26/2021 The visualized lung parenchyma is normal.. There is a nonspecific bowel gas pattern. Small bowel aneta sharmin has improved. There is gas throughout the colon. Gas and stool are seen throughout the colon to t he level of the rectum. There is no free air. Lung bases are unremarkable. IMPRESSION: 1. Improving small bowel dilation which may represent resolving ileus or partial obstruction.. Reviewed, dictated and finalized at location A. IMPRESSION: 1. Improving small bowel dilation which may represent resolving ileus or parti al obstruction..
--- NOTE | ~2021-09-04 | XR_ITS ---
EXAMINATION: XR abdomen/kub 1V INDICATION: Follow-up on ileus/obstipation TECHNIQUE: Supine views of the abdomen were obtained on 2 radiographs. COMPARISON: 09/05/2021 FINDINGS: No definitely dilated loops of small bowel persist. No free intraperitoneal gas is identifi ed. The lung bases are clear. There is mild osteoarthritis of the hips. IMPRESSION: 1. No definitely dilated bowel. Reviewed, dictated and finalized at location B.
--- NOTE | ~2021-09-04 | CT_ITS ---
EXAMINATION: CT abdomen pelvis wo con DATE: 09/04/2021 10:04 INDICATION: Abdomen pain. TECHNIQUE: Computed tomography (CT) of the abdomen and pelvis was performed without intravenous contr ast. The dose-length product was 1499.76 mGy-cm. Automated exposure control and iterative reconstruct ion technique were employed. COMPARISON: CT dated 08/26/2021. FINDINGS: There are calcified granulomas in the lung bases. Heart size normal. No significant pleural or pericardial effusion. The liver, spleen, pancreas, adrenal glands and right kidney are unremarkab le. There is exophytic left renal cyst measuring 5.3 cm. There is thickening of the small bowel in th e left abdomen with mild dilation of the bowel proximal to the area of thickening. Partial obstructio n not excluded. The colon is decompressed. Small fat-containing umbilical hernia. There is osteoarthr itis of the hips. No focal lytic or blastic lesion. Moderate lumbar spondylosis. Wedge deformity of t he L1 vertebra is unchanged. There is diffuse atherosclerosis of the aorta without aneurysm. No free air or free fluid. There is mild bladder wall thickening which may be due to underdistention. Prostat e gland is enlarged. IMPRESSION: 1. New focal thickening of the small bowel in the left mid abdomen with mildly dilated more proximal small bowel, suspicious for partial obstruction. Considerations include enteritis, inflammatory bowel disease and ischemic bowel. 2: Mild bladder wall thickening which may be due to underdistention, palate obstruction or cystitis in the appropriate clinical setting. Reviewed, dictated and finalized at location A. IMPRESSION: 1. New focal thickening of the small bowel in the left mid abdomen with mildly dilated more proximal small bowel, suspicious for partial obstruction. Consider ations include enteritis, inflammatory bowel disease and ischemic bowel. 2: Mild bladder wall thickening which may be due to underdistention, palate ob struction or cystitis in the appropriate clinical setting.
--- NOTE | 2021-09-04 08:47 | ECG_ITS ---
Measurements Intervals [place] Rate: 80 P: 89 [place]: 179 QRS: -14 QRSD: 108 T: 42 QT: 364 QTc: 420 Interpretive Statements SINUS RHYTHM INFERIOR MYOCARDIAL INFARCTION , PROBABLY OLD WITH POSTERIOR EXTENSION [40+ ms Q WAVE AND/OR ST/T ABNORMALITY IN II/aVFPROMINE COMPARED TO ECG 01/12/2020 08:44:35 NO SIGNIFICANT CHANGES Electronically Signed On 09-04-2021 9:33:51 CDT by Naga Garcia M.D.
--- NOTE | 2021-09-04 08:52 | ED.WEAKNESS ---
HPI - Weakness General Chief complaint: Weakness Stated complaint: no eating/drinking x2 days Time Seen by Provider: 09/04/21 08:33 Source: RN notes reviewed History of Present Illness HPI Narrative: Patient presents emergency department from home for nausea vomiting. Patient states that presently 2 weeks ago he had a left knee replacement done at [facility] following this he had severe constipation and secondary to straining from constipation it appears he developed a Deborah-Segovia tear patient had been admitted to our facility and been seen by Dr Simpson with treatment of Deborah-Segovia tear and was discharged approximately 4 days ago. Patient states that since he has been home he had numerous episodes of nausea vomiting is been unable to keep anything down has been feeling generally weak he states he has had several small bowel movements states associate with abdominal pain described as crampy and diffuse denies any fevers or chills, chest pain shortness of breath or any other symptoms Related Data Home Medications Medication Instructions Recorded Confirmed allopurinol 100 mg PO QAM 08/12/19 08/26/21 benazepril 20 mg PO BID 08/12/19 08/26/21 cinnamon bark 1,000 mg PO DAILY 08/17/19 08/26/21 clopidogrel 75 mg tablet 75 mg PO DAILY 10/07/19 08/26/21 carvedilol 6.25 mg PO Q12H 01/12/20 08/26/21 indapamide 2.5 mg PO DAILY 01/12/20 08/26/21 leflunomide 20 mg PO DAILY 01/12/20 08/26/21 atorvastatin 80 mg tablet 80 mg PO QPM tablet 04/10/20 08/26/21 cholecalciferol (vitamin D3) 75 3,000 unit PO DAILY tablet 04/10/20 08/26/21 mcg (3,000 unit) tablet gabapentin 600 mg PO BID 02/03/21 08/26/21 hydroxychloroquine 200 mg PO BID 02/03/21 08/26/21 sulfamethoxazole-trimethoprim 1 tablet PO BID 08/26/21 08/26/21 Allergies Allergy/AdvReac Type Severity Reaction Status Date / Time No Known Allergies Allergy Unknown Verified 08/30/21 11:22 Review of Systems Review of Systems: Gen.: Denies fevers or chills ENT: Denies congestion Respiratory: Denies shortness of breath or cough CV: Denies chest pain or palpitations GI: See HPI reports decreased urine output Musculoskeletal: Denies back pain or muscle pain Neuro: Reports weakness denies headache Skin: Denies rash Except as documented, all other systems reviewed and negative [facility] Past Medical History Medical History Acute blood loss anemia CAD (coronary artery disease) Chronic cholecystitis Diabetes Epigastric pain Gout HTN (hypertension) Hypercholesteremia Hyperlipidemia Obesity JAZMYNE (obstructive sleep apnea) CPAP Peripheral neuropathy Person under investigation for COVID-19 02/12/21 Rheumatoid arthritis Sleep apnea Surgical History Surgical History H/O: knee surgery History of cardiac cath History of coronary artery stent placement x4 History of total left knee replacement Stented coronary artery Social History Social History Smoking status: Never smoker Second hand tobacco smoke exposure: Yes (just as an adolescent) Alcohol intake: never Substance use: never Substance use type: does not use Gender identity (if verbalized by the patient): Male Sexual Orientation (if Verbalized by the Patient): Straight or Heterosexual Spiritual care concerns: Yes ([facility]) Agree to blood products: Yes Exam Narrative: APPEARANCE: No acute distress, nontoxic, resting in bed EYES: EOMI HEENT: Normocephalic, atraumatic, OMM RESPIRATORY: No respiratory distress Clear to auscultation bilaterally with no rhonchi wheezing or rales. CARDIOVASCULAR: Regular rate and rhythm without murmurs rubs or gallops. ABDOMINAL: Soft, nondistended diffusely tender to palpation no rebound or guarding MUSCULOSKELETAl: Moves all extremities. No clubbing, cyanosis or edema. Left knee dressing in place c
[2021-09-04] MEDS: SODIUM CHLORIDE 0.9% IV 1,000 ML 999 ML IV CONT (09:22)
[2021-09-04 09:23] LABS: Basophils Absolute Auto 0.1 K/mm3 (0.0-0.1); Basophils Percent Auto 0.6 % (0.2-1.2); Eosinophils Percent Auto 0.3 % (0-4.4); Hematocrit 33.4 % (42.0-52.0); Hemoglobin 10.5 g/dL (14.0-18.0); Immature Granulocyte Absolute 0.05 K/mm3 (0.00-0.031); Immature Granulocyte Percent A 0.5 % (0-0.5); Lymphocytes Absolute Auto 0.79 K/mm3 (0.9-3.2); Lymphocytes Percent Auto 7.4 % (18.3-44.2); Mean Corpuscular HGB Conc 31.4 g/dl (32-36); Mean Corpuscular Hemoglobin 30.3 pg (26-34); Mean Corpuscular Volume 96.5 fl (80-100); Mean Platelet Volume 8.8 fl (7.4-10.4); Monocytes Absolute Auto 0.9 K/mm3 (0.1-0.6); Monocytes Percent Auto 8.4 % (2.6-8.5); Neutrophils Absolute Auto 8.8 K/mm3 (1.3-6.7); Neutrophils Percent Auto 82.8 % (45.5-73.1); Platelet Count Result 337 k/mm3 (150-375); Red Blood Count 3.46 M/mm3 (4.6-6.20); Red Cell Distribution Width 13.8 % (11.5-14.5); White Blood Count 10.7 K/mm3 (4.5-10.0)
[2021-09-04] MEDS: ONDANSETRON INJ 4 MG/2 ML VIAL IV PUSH ×3 (09:23→17:43)
[2021-09-04 09:33] LABS: INR 1.2; Prothrombin Time 14.7 Seconds (11.1-14.7)
[2021-09-04 09:34] LABS: Partial Thromboplastin Time 27.8 SECONDS (22.3-36.8)
[2021-09-04 09:42] LABS: Alanine Aminotransferase 24 U/L (4-50); Albumin Level 3.9 g/dL (3.5-5.1); Alkaline Phosphatase 108 U/L (38-126); Anion Gap 11 mmol/L (8-16); Aspartate Amino Transferase 32 U/L (17-59); Blood Urea Nitrogen 43 mg/dL (9-20); Calcium 9.7 mg/dL (8.4-10.2); Carbon Dioxide 22 mmol/L (22-30); Chloride 102 mmol/L (98-107); Estimated CRCL calculation 33 ml/min; Estimated Glomerular Filt Rate 26; Glucose 194 mg/dL (65-110); Lipase 187 U/L (23-300); Magnesium 1.7 mg/dL (1.6-2.3); Potassium 4.8 mmol/L (3.4-5.0); Sodium 135 mmol/L (137-145)
--- NOTE | 2021-09-04 10:00 | PC.NURSE ---
pt in CT at this time.
--- NOTE | 2021-09-04 10:13 | PC.NURSE ---
pt unable to urinate at this time. pt refusing straight cath
[2021-09-04 10:52] LABS: Lactic Acid Reflex 1.5 mmol/L (0.7-2.1)
[2021-09-04 11:29] LABS: Add Urine Microscopic? YES; Appearance Urine Cloudy (Clear); Bilirubin Urine Negative (Negative); Blood Urine 1+ (Negative); Color Urine Yellow (Yellow); Glucose Urine UA 1+ mg/dL (Negative); Ketones Urine Trace mg/dL (Negative); Leukocyte Esterase Ur Negative LEU/UL (Negative); Mucus Urine Rare /lpf; Nitrate Urine Negative (Negative); Protein Urine 2+ mg/dL (Negative); RBC Urine 0-2 /hpf (0-2); Specific Grav Ur 1.017 (1.001-1.035); Squamous Epithelial Cell Urine Rare /hpf (Few); Urobilinogen Urine Negative mg/dL (<2.0); WBC Urine 0-3 /hpf
[2021-09-04] MEDS: PANTOPRAZOLE SODIUM IV 40 MG VIAL IV PUSH ×2 (11:35→20:10)
[2021-09-04] MEDS: SODIUM CHLORIDE 0.9% IV 1,000 ML 100 ML IV CONT ×2 (11:36→21:26)
--- NOTE | 2021-09-04 12:36 | ADMGEN ---
This patient, Erickson Navarro, was admitted to [facility] Surg Room 326-01 at 1230. Patient/family oriented to hospital policies and general routines including ID bracelet, bed and alarms, visiting hours, pain management, procedures, bathroom and other care routines, personal items, smoking policy, room service/diet, and visiting hours. Information on how to activate the Rapid Response Team has been discussed. Patient/Family are encouraged to report perceived risks to care and to ask questions if they do not understand what they are told or what they should do.
--- NOTE | 2021-09-04 13:30 | PM.IMHP ---
H&P: HPI History of Present Illness Date/Time: 09/04/21 13:30 <Kassi Tamayo PA-C - Last Filed: 09/04/21 21:20> Chief Complaint: Vomiting and weakness. <Kassi Tamayo PA-C - Last Filed: 09/04/21 21:20> Narrative: This a pleasant 76-year-old male with chronic kidney disease, insulin-dependent diabetes, rheumatoid arthritis, coronary artery disease, and obstructive sleep apnea who presented to the emergency department for evaluation of vomiting and weakness. He was recently admitted to the hospital between August 26 and September 01 for dehydration and constipation after presenting with similar symptoms. Ten days prior to that admission he had a left total knee replacement and it was felt his constipation was related to opioid use and his symptoms improved with Relistor x3 days. He also had an EGD was performed during that stay for evaluation of hematemesis and he was found to have a Deborah-Segovia tear just distal to the GE junction with stigmata of recent bleeding for which he was started on pantoprazole 40 mg daily. He was feeling okay on discharge though the following morning he once again developed nausea, dry heaves, and ultimately vomiting whenever he tried to eat or drink. Additionally he had several episodes of loose stools on and Monday but that seems to have improved somewhat. He has gotten progressively more weak and is unable to hold down any of his medications any felt it would be best to come in for evaluation. A CT of abdomen and pelvis showed new focal thickening of the small bowel in the left mid abdomen with mildly dilated proximal small bowel suspicious for partial obstruction and he is being admitted in this setting. At the time my evaluation he was just getting up with the REGISTERED ASSOCIATE to ambulate however after walking approximately 10 ft he began to feel dizzy and nauseated. We sat him down quickly in the chair and he proceeded to have multiple episodes of dry heaves. He has not had a fever but does report having ?hard chills.? He denies focal weakness and paresthesias. He has felt lightheaded but he has not had any episodes of syncope or near syncope. He has not had any chest pain or shortness of breath. <Kassi Tamayo PA-C - Last Filed: 09/04/21 21:20> Review of Systems Review of Systems: Twelve systems were reviewed and are negative except for as per HPI. <Kassi Tamayo PA-C - Last Filed: 09/04/21 21:20> [facility] Past Medical History Medical History: Medical History (Updated 09/05/21 @ 13:09 by Shin Navarrete MD) Arthritis Chronic cholecystitis Chronic kidney disease, stage 4 (severe) Coronary artery disease COVID-19 (12/2019) Diabetic peripheral neuropathy Gout History of amputation of toe Hyperlipidemia Hypertension Insulin dependent type 2 diabetes mellitus (Unknown) Deborah-Segovia tear (08/2021) Obesity Obstructive sleep apnea on CPAP Rheumatoid arthritis <Kassi Tamayo PA-C - Last Filed: 09/04/21 21:20> Surgical History Surgical History: Surgical History History of arthroscopy of left knee History of cardiac catheterization History of cataract extraction with lens replacement History of colonoscopy with polypectomy History of coronary artery stent placement x4 History of total left knee replacement Status post right foot surgery <Kassi Tamayo PA-C - Last Filed: 09/04/21 21:20> Family History Family History: Family History Other Adopted <Kassi Tamayo PA-C - Last Filed: 09/04/21 21:20> Social History Social History: Social History Social History: Surrogate decision maker: Amanda Ramachandranden, spouse. Code status: Full code. Smoking status: Never smoker Second hand tobacco smoke exposure: No Alcohol intake: never Substance use: never Substa
[2021-09-04 16:46] LABS: Glucose Point of Care 140 mg/dl (65-105)
--- NOTE | 2021-09-04 20:26 | PM.CNGS ---
Assessment and Plan Assessment and plan (1) Partial small bowel obstruction: Code(s): K56.600 - Partial intestinal obstruction, unspecified as to cause Status: Acute Assessment and Plan: This patient has not had previous abdominal surgery it is unlikely that he has a bowel obstruction related to adhesions. Some type of inflammatory process could lead to this however patient also has recently had issues with ileus/constipation after taking significant opioids following his knee replacement. He is now off of opioids and this time since arriving at the hospital he has not been having any nausea vomiting. . Therefore, the ER physician I decided not to place an NG tube in his situation. We will keep him strictly NPO for least 24 hours and then begin advancing his diet if his plain films of the abdomen tomorrow show no signs of continuing obstruction. Plan is to do an obstructive abdominal x-ray series in the morning and repeat labs. 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 Status: Acute (5) Hypertension: Code(s): I10 - Essential (primary) hypertension Status: Acute (6) Obstructive sleep apnea on CPAP: Code(s): G47.33 - Obstructive sleep apnea (adult) (pediatric); Z99.89 - Dependence on other enabling machines and devices Status: Acute History of Present Illness Consult details Consult date: 09/04/21 Reason for consult: abdominal pain Narrative: This a 76-year-old obese White male with chronic kidney disease, insulin-dependent diabetes, rheumatoid arthritis, coronary artery disease, and obstructive sleep apnea who presented to the emergency department this AM for evaluation of vomiting and weakness. He was recently admitted to the hospital between August 26 and September 01 for dehydration and constipation after presenting with similar symptoms. Ten days prior to that admission he had had a left total knee replacement and it was felt his constipation was related to opioid use. There was some question of GI bleeding therefore GI consultation was obtained. An EGD was performed during that stay for reported hematemesis and he was found to have a Deborah-Segovia tear just distal to the GE junction with stigmata of recent bleeding. He was then started on pantoprazole 40 mg daily. Was also supposed to be taking daily MiraLax resolve the constipation upon discharge that admission. He has not been feeling well since the day after discharge with vague epigastric discomfort, and ongoing nausea and vomiting. He has not been able to hold down food, water, and he has not taken his medications. Because of this he has gotten progressively more weak and he came back in for evaluation. Today, CT of the abdomen and pelvis showed a new focal thickening of the small bowel in the left mid abdomen with mildly dilated proximal small bowel suspicious for partial obstruction and he is being admitted in this setting. Further history however is the patient has never had any abdominal surgery and does not have any hernias. Therefore a adhesion related small bowel obstruction is unlikely. Most likely the patient is having some continued affects of constipation or some element of enteritis. Review of Systems Review of Systems: All systems reviewed & are unremarkable except as noted in HPI and below (HPI) Constitutional: Constitutional: Reports as per HPI, Denies chills, Denies fever(s) and Reports malaise Comments: Obese Eyes: Eyes: Reports no additional eye complaints ENT: Reports Normal hearing present and Denies dizziness Cardiovascular: Cardiovascular: Reports no additional cardiova
[2021-09-04 21:55] LABS: Glucose Point of Care 137 mg/dl (65-105)
[2021-09-05] MEDS: hydrALAZINE HCL 20 MG/ML VIAL 10 MG IV PUSH ×2 (00:32→05:31)
[2021-09-05] MEDS: LORazepam INJ (*CRX) 2 MG/ML VIAL 0.5 MG IV PUSH (01:08)
[2021-09-05 06:00] VITALS: BP 162/61; PULSE 81; RESP 16; TEMP 36.2; O2SAT 97
[2021-09-05 06:08] LABS: Basophils Absolute Auto 0.1 K/mm3 (0.0-0.1); Basophils Percent Auto 0.9 % (0.2-1.2); Eosinophils Absolute Auto 0.1 K/mm3 (0-0.3); Eosinophils Percent Auto 0.9 % (0-4.4); Hematocrit 30.1 % (42.0-52.0); Hemoglobin 9.8 g/dL (14.0-18.0); Immature Granulocyte Absolute 0.04 K/mm3 (0.00-0.031); Immature Granulocyte Percent A 0.4 % (0-0.5); Lymphocytes Absolute Auto 1.27 K/mm3 (0.9-3.2); Lymphocytes Percent Auto 13.8 % (18.3-44.2); Mean Corpuscular HGB Conc 32.6 g/dl (32-36); Mean Corpuscular Hemoglobin 31.3 pg (26-34); Mean Corpuscular Volume 96.2 fl (80-100); Mean Platelet Volume 8.8 fl (7.4-10.4); Monocytes Absolute Auto 1.2 K/mm3 (0.1-0.6); Monocytes Percent Auto 12.7 % (2.6-8.5); Neutrophils Absolute Auto 6.6 K/mm3 (1.3-6.7); Neutrophils Percent Auto 71.3 % (45.5-73.1); Platelet Count Result 275 k/mm3 (150-375); Red Blood Count 3.13 M/mm3 (4.6-6.20); Red Cell Distribution Width 13.8 % (11.5-14.5); White Blood Count 9.2 K/mm3 (4.5-10.0)
[2021-09-05 06:19] LABS: Alanine Aminotransferase 19 U/L (4-50); Albumin Level 3.4 g/dL (3.5-5.1); Alkaline Phosphatase 88 U/L (38-126); Anion Gap 9 mmol/L (8-16); Aspartate Amino Transferase 27 U/L (17-59); Bilirubin,Total 0.8 mg/dL (0.2-1.3); Blood Urea Nitrogen 42 mg/dL (9-20); Carbon Dioxide 22 mmol/L (22-30); Chloride 107 mmol/L (98-107); Estimated CRCL calculation 36 ml/min; Estimated Glomerular Filt Rate 29; Glucose 128 mg/dL (65-110); Magnesium 1.7 mg/dL (1.6-2.3); Potassium 4.3 mmol/L (3.4-5.0); Sodium 138 mmol/L (137-145)
[2021-09-05] MEDS: SODIUM CHLORIDE 0.9% IV 1,000 ML 100 ML IV CONT (06:22)
[2021-09-05 06:51] LABS: Hemoglobin A1C 6.2 % (<5.7)
[2021-09-05 06:57] LABS: Glucose Point of Care 131 mg/dl (65-105)
[2021-09-05 07:46] LABS: Glucose Point of Care 136 mg/dl (65-105)
[2021-09-05 08:00] VITALS: PULSE 81; RESP 16; O2SAT 97
[2021-09-05] MEDS: BISACODYL 10 MG SUPPOSITORY RECTAL (09:51)
[2021-09-05] MEDS: PANTOPRAZOLE SODIUM IV 40 MG VIAL IV PUSH ×2 (09:51→21:00)
[2021-09-05] MEDS: polyethylene glycoL 3350 17 GM POWD.PACK PO (09:52)
[2021-09-05 11:35] LABS: Glucose Point of Care 177 mg/dl (65-105)
--- NOTE | 2021-09-05 12:27 | PM.IMPN ---
Progress Note: A&P Assessment and Plan (1) Chronic kidney disease, stage 4 (severe): Code(s): N18.4 - Chronic kidney disease, stage 4 (severe) Status: Acute (2) Dehydration: Code(s): E86.0 - Dehydration Status: Acute (3) Normocytic anemia: Code(s): D64.9 - Anemia, unspecified Status: Acute (4) Partial small bowel obstruction: Code(s): K56.600 - Partial intestinal obstruction, unspecified as to cause Status: Acute (5) Obstructive sleep apnea on CPAP: Code(s): G47.33 - Obstructive sleep apnea (adult) (pediatric); Z99.89 - Dependence on other enabling machines and devices Status: Acute (6) Hypertension: Code(s): I10 - Essential (primary) hypertension Status: Acute (7) Insulin dependent type 2 diabetes mellitus: Code(s): E11.9 - Type 2 diabetes mellitus without complications; Z79.4 - FPC (current) use of insulin Status: Acute Additional Plan # partial small-bowel obstruction -seen on CT scan -general surgery consulted, discussed with Dr. Navarrete, plan for MiraLax and clear liquid diet for today -encourage patient to walk with his walker every couple hours -continue IV fluids well p.o. intake is minimal -hopefully we can avoid surgery if he starts passing gas and stool # Deborah-Segovia tear -EGD 4 days prior to admission, Dr. Simpson which observed a Deborah-Segovia tear, continue IV b.i.d. Protonix # constipation -continue MiraLax b.i.d., Dulcolax -recently admitted 08/26 - 09/01 for dehydration and constipation # recent left knee arthroplasty -patient needs home health on discharge (has been previously arranged), continue PT # type 2 diabetes -Accu-Cheks a.c. HS, sliding scale insulin, hypoglycemia protocol -using sliding scale at home # essential hypertension -will give IV hydralazine p.r.n. for now, will resume home meds tomorrow -home uses benazepril, Coreg # other chronic conditions, holding nonessential home p.o. meds -anemia: Was on ferrous sulfate home -peripheral neuropathy: On gabapentin, will restart tomorrow -gout: Allopurinol -hyperlipidemia, CAD: Atorvastatin and aspirin, Plavix, Coreg, ALVARO-inhibitor -rheumatoid arthritis: Hydroxychloroquine, leflunomide -obstructive sleep apnea on CPAP -BPH: Flomax Diet: Diabetic clear liquid diet DVT prophylaxis: SCD Code status: Full code Disposition: Pending clinical course likely home in 1-2 days, continue observation Time Spent With Patient Time with patient: 15 - 25 minutes Subjective Date/time seen: 09/05/21 12:27 Patient seen examined. He is doing well. He had a partial small-bowel obstruction, surgery evaluated patient and advanced to clear liquid diet this morning. I discussed with patient to restart p.o. medications, which he would like to do tomorrow morning. We will continue with IV medications for now. He uses a walker and I encouraged him to walk around to help move his bowels. He has p.r.n. hydralazine for hypertension. Review of Systems Review of Systems: All systems reviewed & are unremarkable except as noted in HPI and below Exam Narrative: - GENERAL: Pleasant elderly obese gentleman in no acute distress. - EYES: EOMI. Anicteric. - HENT: Moist mucous membranes. - LUNGS: Clear to auscultation bilaterally, no wheezing, rhonchi, or rales. - CARDIOVASCULAR: Regular rate and rhythm. No murmur. No JVD. - ABDOMEN: Soft, non-tender and non-distended. No palpable masses. Bowel sounds present all quadrants - EXTREMITIES: No edema. Peripheral pulses 2+. Non-tender. - NEUROLOGIC: No focal neurological deficits. CN II-XII grossly intact. - PSYCHIATRIC: Awake, Alert and oriented x 3. Appropriate mood and affect. - SKIN: No rashes or lesions. Warm. - LYMPH: No cervical lymphadenopathy. Objective Data Vital Signs Vital Signs: Vital Signs - 24 hr 09/04/21 12:30 09/04/21 12:36 09/04/21 17:03 Temperature 36.4 C L Pulse Rate 73 73 Respiratory Rate
--- NOTE | 2021-09-05 13:04 | PM.PNGS ---
Progress Note: A&P Assessment and Plan (1) Partial small bowel obstruction: Onset Date: Unknown Code(s): K56.600 - Partial intestinal obstruction, unspecified as to cause Status: Acute Assessment and Plan: This appears to be resolving. ( See x-ray report). More likely patient had ileus or slow motility secondary to colon constipation related to his narcotic use. At this point will try to avoid narcotics. Patient should be mobilizing and he does have a walker today and will plan to walk in the hallways. Will start the patient on clear liquids and give the nurses permission to advance him to full liquids if he does well through the day. Will repeat a KUB tomorrow just to be sure that everything still fine and then we will probably sign off. (2) Normocytic anemia: Onset Date: ~08/2021 Code(s): D64.9 - Anemia, unspecified Status: Acute Assessment and Plan: Warned patient about use of iron tablets. He did not start on these when he went home according to his . However I explained to him that these can lead to a further constipation so he needs to be careful with her use perhaps when he starts out he should just take it 2-3 times per week and gradually increase it watching whether not he is having issues with constipation. (3) Insulin dependent type 2 diabetes mellitus: Onset Date: Unknown Code(s): E11.9 - Type 2 diabetes mellitus without complications; Z79.4 - intermediate designer (current) use of insulin Status: Acute Assessment and Plan: As per hospitalist. I did note on the diet for them to make it carbohydrate controlled. (4) Obstructive sleep apnea on CPAP: Code(s): G47.33 - Obstructive sleep apnea (adult) (pediatric); Z99.89 - Dependence on other enabling machines and devices Status: Acute Assessment and Plan: Patient should be using his CPAP at night. Subjective Subjective Date/Time Seen: 09/05/21 9:04 Patient is sitting up in bed when I entered the room. He states that he does feel better. He has not yet had a bowel movement but is passing gas. He is not as nauseas as he was yesterday. He does not have abdominal pain today. Review of Systems Review of Systems: All systems reviewed & are unremarkable except as noted in HPI and below Constitutional: Constitutional: Reports as per HPI, Denies chills and Denies fever(s) Cardiovascular: Cardiovascular: Denies chest pain and Denies dyspnea Respiratory: Respiratory: Reports no additional respiratory complaints and Denies dyspnea Gastrointestinal: Gastrointestinal: Reports as per HPI and Denies bloating Musculoskeletal: Musculoskeletal: Reports no additional musculoskeletal complaints Neurologic: Denies memory loss Psychiatric: Psychiatric: Denies anxiety and Denies memory loss Exam Const: General: cooperative, comfortable, alert and awake Orientation/consciousness: patient oriented x3 HENMT: Head: normal to inspection Mouth: Yes moist mucous membranes Eyes: Sclera: sclerae normal Pupils: Equal, round and reactive pupils present Neck: Neck: normal visual inspection and no JVD Chest: Chest palpation & inspection: normal inspection of the chest Resp: Effort & Inspection: normal respiratory effort Auscultation: clear to auscultation bilaterally Cardio: Jugular venous distension: no JVD Rate: regular rate GI: Inspection: normal to inspection and obesity Auscultation: normal bowel sounds Other: No tenderness to palpation today. Neuro: General: patient oriented x3 Cranial nerves: Yes Equal, round and reactive pupils present Objective Data Vital Signs Vital Signs: Vital Signs - 24 hr 09/04/21 17:03 09/04/21 20:00 09/04/21 21:22 Temperature Pulse Rate 76 Respiratory Rate 18 Blood Pressure Pulse Oximetry 99 99 99 09/04/21 22:00 09/05/21 06:00 09/05/21 08:00 Temperature 36.2 C L 36.2 C L Pulse Rate 76 81 81 Respiratory Rate 18 1
[2021-09-05] MEDS: ONDANSETRON INJ 4 MG/2 ML VIAL IV PUSH (13:57)
[2021-09-05 14:00] VITALS: BP 176/78; PULSE 70; RESP 18; TEMP 35.9; O2SAT 99
[2021-09-05 16:46] LABS: Glucose Point of Care 146 mg/dl (65-105)
[2021-09-05 18:18] LABS: Add Urine Microscopic? YES; Appearance Urine Clear (Clear); Bacteria Urine Trace /hpf; Bilirubin Urine Negative (Negative); Blood Urine 1+ (Negative); Color Urine Yellow (Yellow); Glucose Urine UA Negative (Negative); Ketones Urine Negative (Negative); Leukocyte Esterase Ur Negative LEU/UL (Negative); Mucus Urine Rare /lpf; Nitrate Urine Negative (Negative); Protein Urine 2+ mg/dL (Negative); RBC Urine 0-2 /hpf (0-2); Specific Grav Ur 1.016 (1.001-1.035); Squamous Epithelial Cell Urine Rare /hpf (Few); Urobilinogen Urine Negative mg/dL (<2.0); WBC Urine 0-3 /hpf
[2021-09-05 20:00] VITALS: PULSE 73; RESP 16; O2SAT 97
[2021-09-05 21:30] VITALS: PULSE 73; O2SAT 96
[2021-09-05 21:51] VITALS: BP 160/67; PULSE 73; RESP 16; TEMP 36.4; O2SAT 97
[2021-09-06] MEDS: ONDANSETRON INJ 4 MG/2 ML VIAL IV PUSH (02:02)
[2021-09-06] MEDS: SODIUM CHLORIDE 0.9% IV 1,000 ML 100 ML IV CONT ×2 (02:05→12:59)
[2021-09-06 06:00] VITALS: BP 155/69; PULSE 70; RESP 16; TEMP 36.4; O2SAT 98
[2021-09-06 06:01] LABS: Glucose Point of Care 166 mg/dl (65-105)
[2021-09-06 06:10] LABS: Hematocrit 28.4 % (42.0-52.0); Hemoglobin 8.9 g/dL (14.0-18.0); Mean Corpuscular HGB Conc 31.3 g/dl (32-36); Mean Corpuscular Hemoglobin 30.4 pg (26-34); Mean Corpuscular Volume 96.9 fl (80-100); Mean Platelet Volume 9.1 fl (7.4-10.4); Platelet Count Result 259 k/mm3 (150-375); Red Blood Count 2.93 M/mm3 (4.6-6.20); Red Cell Distribution Width 13.5 % (11.5-14.5); White Blood Count 9.1 K/mm3 (4.5-10.0)
[2021-09-06 06:24] LABS: Anion Gap 5 mmol/L (8-16); Blood Urea Nitrogen 33 mg/dL (9-20); Carbon Dioxide 23 mmol/L (22-30); Chloride 107 mmol/L (98-107); Estimated CRCL calculation 41 ml/min; Estimated Glomerular Filt Rate 35; Glucose 137 mg/dL (65-110); Potassium 4.1 mmol/L (3.4-5.0); Sodium 135 mmol/L (137-145)
[2021-09-06 08:00] VITALS: PULSE 70; RESP 16; O2SAT 98
[2021-09-06 08:01] LABS: Glucose Point of Care 155 mg/dl (65-105)
[2021-09-06] MEDS: polyethylene glycoL 3350 17 GM POWD.PACK PO ×2 (09:15→17:48)
[2021-09-06] MEDS: PANTOPRAZOLE SODIUM IV 40 MG VIAL IV PUSH ×2 (09:16→20:39)
[2021-09-06] MEDS: METOCLOPRAMIDE HCL INJ 10 MG/2 ML VIAL IV PUSH (10:00)
[2021-09-06 11:48] LABS: Glucose Point of Care 178 mg/dl (65-105)
--- NOTE | 2021-09-06 12:56 | PM.IMPN ---
Progress Note: A&P Assessment and Plan (1) Chronic kidney disease, stage 4 (severe): Code(s): N18.4 - Chronic kidney disease, stage 4 (severe) Status: Acute (2) Dehydration: Code(s): E86.0 - Dehydration Status: Acute (3) Normocytic anemia: Onset Date: ~08/2021 Code(s): D64.9 - Anemia, unspecified Status: Acute (4) Partial small bowel obstruction: Onset Date: Unknown Code(s): K56.600 - Partial intestinal obstruction, unspecified as to cause Status: Acute (5) Obstructive sleep apnea on CPAP: Code(s): G47.33 - Obstructive sleep apnea (adult) (pediatric); Z99.89 - Dependence on other enabling machines and devices Status: Acute (6) Hypertension: Code(s): I10 - Essential (primary) hypertension Status: Acute (7) Insulin dependent type 2 diabetes mellitus: Onset Date: Unknown Code(s): E11.9 - Type 2 diabetes mellitus without complications; Z79.4 - long term care phlebotomist (current) use of insulin Status: Acute Additional Plan # partial small-bowel obstruction -seen on CT scan -general surgery consulted, discussed with Dr. Navarrete, plan for MiraLax and clear liquid diet for today -encourage patient to walk with his walker every couple hours -continue IV fluids well p.o. intake is minimal -hopefully we can avoid surgery if he starts passing gas and stool # Deborah-Segovia tear -EGD 4 days prior to admission, Dr. Simpson which observed a Deborah-Segovia tear, continue IV b.i.d. Protonix # constipation -continue MiraLax b.i.d., Dulcolax -recently admitted 08/26 - 09/01 for dehydration and constipation # recent left knee arthroplasty -patient needs home health on discharge (has been previously arranged), continue PT # type 2 diabetes -Accu-Cheks a.c. HS, sliding scale insulin, hypoglycemia protocol -using sliding scale at home # essential hypertension -will give IV hydralazine p.r.n. for now, will resume home meds tomorrow -home uses benazepril, Coreg # other chronic conditions, holding nonessential home p.o. meds -anemia: Was on ferrous sulfate home -peripheral neuropathy: On gabapentin, will restart tomorrow -gout: Allopurinol -hyperlipidemia, CAD: Atorvastatin and aspirin, Plavix, Coreg, ALVARO-inhibitor -rheumatoid arthritis: Hydroxychloroquine, leflunomide -obstructive sleep apnea on CPAP -BPH: Flomax Diet: Diabetic clear liquid diet DVT prophylaxis: SCD Code status: Full code Disposition: Pending clinical course likely home in 1-2 days, continue observation 09/06/21 12:56 09/06/2021 interval history: patient is 76-year-old male status post left knee surgery on narcotics for pain control, history of diabetes insulin dependent here with constipation abdominal pain and bloating states has not had a regular BM for few days, I suspect most likely patient has multi factorial with narcotics for pain control and diabetes gastroparesis, will continue Colace MiraLax will add Reglan, will continue to encourage patient to ambulate and fluid intake, will have a PT OT work with the patient will continue to monitor and further recommendation to follow. if there is no improvement patient may benefit from methylnaltrexone inj if need, will continue to monitor. Subjective Date/time seen: 09/06/21 12:56 09/06/2021 interval history: patient is 76-year-old male status post left knee surgery on narcotics for pain control, history of diabetes insulin dependent here with constipation abdominal pain and bloating states has not had a regular BM for few days, I suspect most likely patient has multi factorial with narcotics for pain control and diabetes gastroparesis, will continue Colace MiraLax will add Reglan, will continue to encourage patient to ambulate and fluid intake, will have a PT OT work with the patient will continue to monitor and further recommendation to follow. if there is no improvement patient may benefit from methylnaltrexone inj if need, joycelyn
--- NOTE | 2021-09-06 13:25 | PM.PNGS ---
Progress Note: A&P Assessment and Plan (1) Partial small bowel obstruction: Onset Date: Unknown Code(s): K56.600 - Partial intestinal obstruction, unspecified as to cause Status: Acute Assessment and Plan: Resolving. KUB this morning showed normal bowel gas pattern. Patient has moved his bowels multiple times yesterday, although he is still feeling bloated. Will advance to full liquids. He was given a dose of IV reglan this morning and Senokot S was added BID. Continue Miralax. Discussed the case with the Hospitalist - will start PT today and encouraged the patient to be ambulating in the halls and working with therapy. Hospitalist will look at his home medications and restart oral meds as appropriate. (2) Normocytic anemia: Onset Date: ~08/2021 Code(s): D64.9 - Anemia, unspecified Status: Acute (3) Insulin dependent type 2 diabetes mellitus: Onset Date: Unknown Code(s): E11.9 - Type 2 diabetes mellitus without complications; Z79.4 - intermediate (current) use of insulin Status: Acute Assessment and Plan: Advanced to full liquids - continue diabetic diet additionally. (4) Obstructive sleep apnea on CPAP: Code(s): G47.33 - Obstructive sleep apnea (adult) (pediatric); Z99.89 - Dependence on other enabling machines and devices Status: Acute Additional Plan I have discussed the patient's case and plan of care with Dr. Navarrete. Subjective Subjective Date/Time Seen: 09/06/21 10:25 Patient reports: no new complaints, flatus, bowel movement (large BM yesterday morning, few small liquid stools throughout the rest of yesterday) and afebrile Interval history: Patient seen and examined this morning with his , Rosalie, at the bedside. Chart reviewed prior to exam. He denies any abdominal pain, nausea, or vomiting. He does feel slightly bloated and his reports that he had complained of nausea this morning, but it has since resolved. He reports having a large BM yesterday morning and a few small liquid stools yesterday afternoon and evening. He reportedly tolerated clear liquids this morning. No other complaints at this time. He is concerned that he is not receiving physical therapy for his recent left knee replacement (this appears to have been ordered this morning). He has only been getting up to the commode in the room. He also was questioning restarting his home medication that has been held since admission. Review of Systems Review of Systems: All systems reviewed & are unremarkable except as noted in HPI and below Exam Const: General: comfortable, no acute distress and awake Orientation/consciousness: patient oriented x3 GI: Inspection: non-distended and obesity GI Palp: Yes Soft to palpation, No Tenderness to palpation present (GI), No Guarding due to palpation present (GI) and No Rebound tenderness present Auscultation: normal bowel sounds Psych: Mental Status: mental status grossly normal Insight: Fair insight present (Psych) Judgement: Fair judgement present (Psych) Objective Data Vital Signs Vital Signs: Vital Signs - 24 hr 09/05/21 14:00 09/05/21 20:00 09/05/21 21:30 Temperature 96.6 F L Pulse Rate 70 73 73 Respiratory Rate 18 16 Blood Pressure 176/78 H Pulse Oximetry 99 97 96 09/05/21 21:51 09/06/21 06:00 09/06/21 08:00 Temperature 97.6 F 97.6 F Pulse Rate 73 70 70 Respiratory Rate 16 16 16 Blood Pressure 160/67 H 155/69 H Pulse Oximetry 97 98 98 Intake/Output Intake/Output: Intake & Output 09/03/21 09/04/21 09/05/21 09/06/21 23:59 23:59 23:59 23:59 Intake Total 1999 3008 1236 Output Total 1100 329 700 Balance 900 2732 536 Meds/Results Medications: Active Medications Generic Name Dose Route Start Last Admin Trade Name Freq PRN Reason Stop Dose Admin Allopurinol 100 mg 09/07/21 09:00 Allopurinol [address] [facility] Aspirin 81 mg 09/07/21 08:00 Aspirin 81 Mg Chewable Tablet PO
[2021-09-06 14:00] VITALS: BP 148/56; PULSE 80; RESP 18; TEMP 35.5; O2SAT 98
[2021-09-06] MEDS: HYOSCYAMINE SULFATE 0.375 MG TAB.ER.12H PO (14:16)
[2021-09-06 16:38] LABS: Glucose Point of Care 172 mg/dl (65-105)
[2021-09-06] MEDS: GABAPENTIN 300 MG CAPSULE 600 MG PO (17:48)
[2021-09-06] MEDS: calcium polycarbophiL 625 MG TABLET 1250 MG PO (17:49)
[2021-09-06] MEDS: SENNA/DOCUSATE SODIUM TABLET 1 TAB PO (17:49)
[2021-09-06] MEDS: ATORVASTATIN 40 MG TABLET 80 MG PO (17:50)
[2021-09-06 20:38] VITALS: PULSE 67
[2021-09-06] MEDS: carvediloL 6.25 MG TABLET PO (20:38)
[2021-09-06] MEDS: lisinopriL 20 MG TABLET PO (20:39)
[2021-09-06 21:17] LABS: Glucose Point of Care 190 mg/dl (65-105)
[2021-09-06 22:00] VITALS: BP 160/67; PULSE 67; RESP 16; TEMP 36.2; O2SAT 100
[2021-09-06 23:10] VITALS: PULSE 74; O2SAT 95
[2021-09-07] MEDS: HYOSCYAMINE SULFATE 0.375 MG TAB.ER.12H PO ×2 (01:31→11:36)
[2021-09-07] MEDS: SODIUM CHLORIDE 0.9% IV 1,000 ML 100 ML IV CONT (01:31)
[2021-09-07 02:31] VITALS: PULSE 71; O2SAT 96
[2021-09-07 05:53] VITALS: BP 142/60; PULSE 65; RESP 16; TEMP 37; O2SAT 100
[2021-09-07 06:27] LABS: Hematocrit 28.9 % (42.0-52.0); Mean Corpuscular HGB Conc 31.1 g/dl (32-36); Mean Corpuscular Hemoglobin 30.6 pg (26-34); Mean Corpuscular Volume 98.3 fl (80-100); Mean Platelet Volume 9.2 fl (7.4-10.4); Platelet Count Result 252 k/mm3 (150-375); Red Blood Count 2.94 M/mm3 (4.6-6.20); Red Cell Distribution Width 13.4 % (11.5-14.5); White Blood Count 9.3 K/mm3 (4.5-10.0)
[2021-09-07 06:36] LABS: Anion Gap 7 mmol/L (8-16); Blood Urea Nitrogen 28 mg/dL (9-20); Calcium 8.6 mg/dL (8.4-10.2); Carbon Dioxide 22 mmol/L (22-30); Chloride 106 mmol/L (98-107); Estimated CRCL calculation 49 ml/min; Estimated Glomerular Filt Rate 42; Glucose 163 mg/dL (65-110); Magnesium 1.7 mg/dL (1.6-2.3); Potassium 4.1 mmol/L (3.4-5.0); Sodium 135 mmol/L (137-145)
[2021-09-07 07:44] LABS: Glucose Point of Care 167 mg/dl (65-105)
[2021-09-07] MEDS: PANTOPRAZOLE SODIUM IV 40 MG VIAL IV PUSH (08:35)
[2021-09-07] MEDS: polyethylene glycoL 3350 17 GM POWD.PACK PO ×2 (08:35→15:45)
[2021-09-07] MEDS: INDAPAMIDE 2.5 MG TABLET PO (08:35)
[2021-09-07] MEDS: lisinopriL 20 MG TABLET PO (08:35)
[2021-09-07] MEDS: LEFLUNOMIDE 20 MG TABLET PO (08:35)
[2021-09-07] MEDS: allopurinoL 100 MG TABLET PO (08:35)
[2021-09-07] MEDS: EZETIMIBE 10 MG TABLET PO (08:35)
[2021-09-07] MEDS: CLOPIDOGREL BISULFATE 75 MG TABLET PO (08:35)
[2021-09-07] MEDS: SENNA/DOCUSATE SODIUM TABLET 1 TAB PO ×2 (08:35→16:07)
[2021-09-07] MEDS: calcium polycarbophiL 625 MG TABLET 1250 MG PO ×2 (08:35→16:07)
[2021-09-07] MEDS: TAMSULOSIN HCL 0.4 MG CAPSULE PO (08:35)
[2021-09-07] MEDS: ASPIRIN 81 MG CHEWABLE TABLET PO (08:36)
[2021-09-07] MEDS: CHOLECALCIFEROL 1,000 UNITS TABLET 3000 UNITS PO (08:36)
[2021-09-07] MEDS: GABAPENTIN 300 MG CAPSULE 600 MG PO ×2 (08:36→16:07)
[2021-09-07 08:37] VITALS: PULSE 72
[2021-09-07] MEDS: carvediloL 6.25 MG TABLET PO (08:37)
--- NOTE | 2021-09-07 10:41 | PM.PNGS ---
Progress Note: A&P Assessment and Plan (1) Partial small bowel obstruction: Onset Date: Unknown Code(s): K56.600 - Partial intestinal obstruction, unspecified as to cause Status: Acute Assessment and Plan: Continues to clinically improve. Lots of flatus today and feels the urge to have a BM. Will advance to a solid diet. Stop IV fluids. Continue Miralax and Senokot - discussed using Miralax daily on discharge. Encouraged increasing activity and continue with recommended post-op PT from his recent knee surgery. (He has a scheduled f/u with his Ortho surgeon next Monday) We will sign off the case at this point. Okay to discharge when medically stable if he has had a BM and tolerating a solid diet. Please call us if there are any surgical needs in the future. (2) Normocytic anemia: Onset Date: ~08/2021 Code(s): D64.9 - Anemia, unspecified Status: Acute (3) Insulin dependent type 2 diabetes mellitus: Onset Date: Unknown Code(s): E11.9 - Type 2 diabetes mellitus without complications; Z79.4 - intermediate (current) use of insulin Status: Acute Assessment and Plan: Advanced to full liquids - continue diabetic diet additionally. (4) Obstructive sleep apnea on CPAP: Code(s): G47.33 - Obstructive sleep apnea (adult) (pediatric); Z99.89 - Dependence on other enabling machines and devices Status: Acute Additional Plan I have discussed the patient's case and plan of care with Dr. Navarrete. Subjective Subjective Date/Time Seen: 09/07/21 10:41 Patient reports: no new complaints, feels better, tolerating liquids well, voiding w/o difficulty, flatus and afebrile Interval history: Patient seen and examined this morning, no family at the bedside. He is in better spirits today and reports feeling great this morning. He feels more like himself at baseline. He denies any abdominal pain, nausea, bloating, or vomiting. He is tolerating full liquids and requesting solid foods. He reports passing lots of flatus this morning and has not yet had a BM, but currently feels like he needs to have one and will try shortly. No other complaints at this time. Review of Systems Review of Systems: All systems reviewed & are unremarkable except as noted in HPI and below Exam Const: General: comfortable, no acute distress and awake Orientation/consciousness: patient oriented x3 GI: Inspection: non-distended and other (rounded, protuberant abd) GI Palp: Yes Soft to palpation, No Tenderness to palpation present (GI), No Guarding due to palpation present (GI) and No Rebound tenderness present Auscultation: normal bowel sounds Psych: Insight: Good insight present (Psych) Judgement: Good judgement present (Psych) Objective Data Vital Signs Vital Signs: Vital Signs - 24 hr 09/06/21 14:00 09/06/21 20:38 09/06/21 22:00 Temperature 96 F L 97.2 F L Pulse Rate 80 67 67 Respiratory Rate 18 16 Blood Pressure 148/56 H 160/67 H Pulse Oximetry 98 100 09/06/21 23:10 09/07/21 02:31 09/07/21 05:53 Temperature 98.6 F Pulse Rate 74 71 65 Respiratory Rate 16 Blood Pressure 142/60 H Pulse Oximetry 95 96 100 09/07/21 08:37 Temperature Pulse Rate 72 Respiratory Rate Blood Pressure Pulse Oximetry Intake/Output Intake/Output: Intake & Output 09/04/21 09/05/21 09/06/21 09/07/21 23:59 23:59 23:59 23:59 Intake Total 2000 3008 2472 987 Output Total 3820 084 2437 1450 Balance 900 9114 2891 -950 Meds/Results Medications: Active Medications Generic Name Dose Route Start Last Admin Trade Name Freq PRN Reason Stop Dose Admin Allopurinol 100 mg 09/07/21 09:00 09/07/21 08:35 Allopurinol 100 Mg [facility] [place] Aspirin 81 mg 09/07/21 08:00 09/07/21 08:36 Aspirin 81 Mg Chewable Tablet PO 81 mg DAILY@0800 [facility] Administration Atorvastatin Calcium 80 mg 09/06/21 18:00 09/06/21 17:50 Atorvastatin 40 Mg Tablet PO 80 mg
[2021-09-07 11:11] LABS: Glucose Point of Care 237 mg/dl (65-105)
[2021-09-07] MEDS: INSULIN ASPART (*BKC) 100 UNITS/ML SUB-Q ×2 (11:36→17:03)
--- NOTE | 2021-09-07 12:55 | PM.DS ---
DS: Admitting Diagnosis Discharge Date 09/08/2019 Admitting Diagnosis Constipation DS: Discharge Diagnosis Discharge Diagnosis (1) Chronic kidney disease, stage 4 (severe): Code(s): N18.4 - Chronic kidney disease, stage 4 (severe) Status: Acute Assessment and Plan: Acute on top of chronic renal failure treated with IV hydration improved (2) Dehydration: Code(s): E86.0 - Dehydration Status: Acute Assessment and Plan: Treated with IV hydration improved most likely secondary to constipation (3) Normocytic anemia: Onset Date: ~08/2021 Code(s): D64.9 - Anemia, unspecified Status: Acute Assessment and Plan: Stable follow-up with PCP hold iron supplement as patient has significant constipation follow-up with GI as outpatient may need colonoscopy (4) Partial small bowel obstruction: Onset Date: Unknown Code(s): K56.600 - Partial intestinal obstruction, unspecified as to cause Status: Acute Assessment and Plan: Surgery was consulted conservative management resolved treated with IV hydration gradually advancing diet patient tolerated diet (5) Obstructive sleep apnea on CPAP: Code(s): G47.33 - Obstructive sleep apnea (adult) (pediatric); Z99.89 - Dependence on other enabling machines and devices Status: Acute Assessment and Plan: Follow-up with PCP (6) Hypertension: Code(s): I10 - Essential (primary) hypertension Status: Acute Assessment and Plan: Resume home medication (7) Insulin dependent type 2 diabetes mellitus: Onset Date: Unknown Code(s): E11.9 - Type 2 diabetes mellitus without complications; Z79.4 - residential (current) use of insulin Status: Acute Assessment and Plan: Resume home medication DS: Summary Hospital Course Hospital Course: Patient was admitted to the hospital with generalized weakness nausea constipation was found to have probable bowel obstruction secondary to constipation treated conservatively surgery was consulted patient was given laxative IV fluid diet was gradually advanced patient condition improved patient to follow-up with PCP and surgery as outpatient repeat CMP and CBC in 1 week Time Spent with Patient Time attestation: Total time spent providing and/or coordinating discharge services: Exam Narrative: Patient is comfortable, NAD HEENT: eyes are clear and none icteric LUNGS: normal respiratory effort ABD: BS+, Soft and nontender Lower extremities: no edema SKIN: nonjaundiced Neuro: grossly intact. DS: Data Data Completed and Pending Labs on day of discharge: Labs from last 24 hours 09/07/21 09/07/21 09/07/21 11:04 07:28 06:05 WBC RBC Hgb Hct MCV MCH MCHC RDW Plt Count MPV Sodium 135 L Potassium 4.1 Chloride 106 Carbon Dioxide 22 Anion Gap 7 L BUN 28 H Creatinine 1.60 H Estim Creat Clear Calc 49 Estimated GFR 42 L Glucose 163 H POC Capillary Glucose 237 H 167 H Calcium 8.6 Magnesium 1.7 09/07/21 09/06/21 09/06/21 06:05 20:42 16:25 WBC 9.3 RBC 2.94 L Hgb 9.0 L Hct 28.9 L MCV 98.3 MCH 30.6 MCHC 31.1 L RDW 13.4 Plt Count 252 MPV 9.2 Sodium Potassium Chloride Carbon Dioxide Anion Gap BUN Creatinine Estim Creat Clear Calc Estimated GFR Glucose POC Capillary Glucose 190 H 172 H Calcium Magnesium Discharge Plan Discharge Attending physician on discharge: Barbara Alva M.A. Consulting providers: Shin Navarrete Discharging Clinician: Barbara Alva M.A. Patient Disposition: Home Health Service Activity: no preference Diet: heart healthy and renal Discharge Instructions: Per Care Coordination, patient to resume home health services with [facility] ([phone]) for PT/OT and chcf services. Please fax discharge
[2021-09-07 13:45] VITALS: BP 103/46; PULSE 73; RESP 17; TEMP 36.1; O2SAT 100
[2021-09-07 16:30] LABS: Glucose Point of Care 270 mg/dl (65-105)
[2021-09-07] MEDS: ATORVASTATIN 40 MG TABLET 80 MG PO (17:03)
== END 2021-09-07 17:35 | disposition home health service (06) | DRG 388 ==
LOC: ANHED 11:45 → ANH3MEDSUR 12:05
PROVIDERS: Physician Assistant; Student in an Organized Health Care Education/Training Program; Admitting Provider Family Medicine; Emergency Provider Emergency Medicine; PCP Registered Nurse; Visit Provider Internal Medicine
DX: K56.600 Partial intestinal obstruction, unspecified as to cause (principal); K22.6 Gastro-esophageal laceration-hemorrhage syndrome; N18.4 Chronic kidney disease, stage 4 (severe); K59.00 Constipation, unspecified; E86.0 Dehydration; I12.9 Hypertensive chronic kidney disease with stage 1 through stage 4 chronic kidney disease, or unspecified chronic kidney disease; G47.33 Obstructive sleep apnea (adult) (pediatric); E11.22 Type 2 diabetes mellitus with diabetic chronic kidney disease; D64.9 Anemia, unspecified; I25.10 Atherosclerotic heart disease of native coronary artery without angina pectoris; E78.5 Hyperlipidemia, unspecified; M06.9 Rheumatoid arthritis, unspecified; M10.9 Gout, unspecified; E11.42 Type 2 diabetes mellitus with diabetic polyneuropathy; N40.0 Benign prostatic hyperplasia without lower urinary tract symptoms; E66.9 Obesity, unspecified; Z96.652 Presence of left artificial knee joint; Z68.37 Body mass index [BMI] 37.0-37.9, adult; Z79.4 Long term (current) use of insulin; Z95.5 Presence of coronary angioplasty implant and graft; Z86.16 Personal history of COVID-19
CPT/HCPCS: 36415; 74018; 74019; 74176; 80048; 80053; 81001; 82948; 83036; 83605; 83690; 83735; 85025; 85027; 85610; 85730; 93005; 96361; 96374; 96375; 96376; 97161; 99285; A9270; C9113; G0378; J0360; J1815; J2060; J2405; J2765; J7030

== ENCOUNTER 2022-01-31 02:14 | Day surgery (SDC) | payer MEDICARE, SELFPAY ==
[2022-01-31] VITALS (7 sets, daily range): BP systolic 135–166; BP diastolic 70–92; PULSE 52–61; RESP 13–16; TEMP 36.5; O2SAT 96–100; BMI 40.2
[2022-01-31 10:17] LABS: Basophils Absolute Auto 0.1 K/mm3 (0.0-0.1); Basophils Percent Auto 1.1 % (0.2-1.2); Eosinophils Absolute Auto 0.4 K/mm3 (0-0.3); Eosinophils Percent Auto 4.2 % (0-4.4); Hematocrit 37.1 % (42.0-52.0); Hemoglobin 11.7 g/dL (14.0-18.0); Immature Granulocyte Absolute 0.03 K/mm3 (0.00-0.031); Immature Granulocyte Percent A 0.3 % (0-0.5); Lymphocytes Absolute Auto 1.74 K/mm3 (0.9-3.2); Mean Corpuscular HGB Conc 31.5 g/dl (32-36); Mean Corpuscular Volume 95.1 fl (80-100); Mean Platelet Volume 9.5 fl (7.4-10.4); Monocytes Absolute Auto 0.8 K/mm3 (0.1-0.6); Monocytes Percent Auto 9.1 % (2.6-8.5); Neutrophils Absolute Auto 5.7 K/mm3 (1.3-6.7); Neutrophils Percent Auto 65.3 % (45.5-73.1); Platelet Count Result 252 k/mm3 (150-375); Red Cell Distribution Width 14.3 % (11.5-14.5); White Blood Count 8.7 K/mm3 (4.5-10.0)
[2022-01-31 10:22] LABS: Anion Gap 11 mmol/L (8-16); Blood Urea Nitrogen 39 mg/dL (9-20); Calcium 9.3 mg/dL (8.4-10.2); Carbon Dioxide 25 mmol/L (22-30); Chloride 104 mmol/L (98-107); Estimated Glomerular Filt Rate 29; Glucose 156 mg/dL (65-110); Potassium 4.7 mmol/L (3.4-5.0); Sodium 140 mmol/L (137-145)
--- NOTE | 2022-01-31 10:45 | WPDMODSED ---
Moderate Sedation Note-Pt Data Patient Data Diagnosis: coronary artery disease with previous PCI exertional symptoms compatible with angina recent angiography with LAD lesion by report significant Present Complaint: exertional chest discomfort Procedure to be performed/Plan: follow-up coronary angiography / possible PCI Allergies Allergy/AdvReac Type Severity Reaction Status Date / Time No Known Allergies Allergy Unknown Verified 01/31/22 10:05 Home Medications Medication Instructions Recorded Confirmed Type allopurinol 300 mg tablet 100 mg PO QAM 08/12/19 01/31/22 History benazepril 20 mg tablet 20 mg PO BID 08/12/19 01/31/22 History cinnamon bark 500 mg capsule 1,000 mg PO DAILY 08/17/19 01/31/22 History aspirin 81 mg chewable tablet 81 mg PO DAILY@0800 #30 tabs 08/20/19 01/31/22 Rx (Children's Aspirin) clopidogrel 75 mg tablet 75 mg PO DAILY 10/07/19 01/31/22 History carvedilol 25 mg tablet 6.25 mg PO Q12H 01/12/20 01/31/22 History indapamide 2.5 mg tablet 2.5 mg PO DAILY 01/12/20 01/31/22 History leflunomide 20 mg tablet 20 mg PO DAILY 01/12/20 10/21/21 History atorvastatin 80 mg tablet 80 mg PO QPM 04/10/20 01/31/22 History cholecalciferol (vitamin D3) 75 3,000 unit PO DAILY 04/10/20 01/31/22 History mcg (3,000 unit) tablet gabapentin 600 mg tablet 600 mg PO BID 02/03/21 01/31/22 History hydroxychloroquine 200 mg tablet 200 mg PO BID 02/03/21 01/31/22 History insulin lispro 200 unit/mL (3 mL) See Rx Instructions subcut TID #69 03/23/21 01/31/22 Rx subcutaneous pen (Humalog KwikPen mL U-200 Insulin) calcium polycarbophil 625 mg 1,250 mg PO BID 3 months #360 tabs 06/02/21 01/31/22 Rx tablet (FiberCon) hyoscyamine sulfate 0.375 mg 0.375 mg PO Q12H 3 months #180 tabs 06/02/21 01/31/22 Rx tablet,extended release,12 hr ezetimibe 10 mg tablet See Rx Instructions .Route 08/06/21 01/31/22 Rx .COMPLEX #90 tabs polyethylene glycol 3350 17 gram 17 g PO BID #30 ea 09/07/21 10/21/21 Rx oral powder packet (Miralax) blood sugar diagnostic (OneTouch See Rx Instructions .Route 10/07/21 10/21/21 Rx Verio test strips) .COMPLEX #400 strips insulin glargine 100 unit/mL (3 62 unit (0.62 mL) subcut QAM 90 10/21/21 01/31/22 Rx mL) subcutaneous pen (Basaglar days #60 mL KwikPen U-100 Insulin) pen needle, diabetic 31 gauge x #600 ea 11/01/21 Rx 11/01 Current Medications: Active Medications Sodium Chloride (Normal Saline Iv) 500 mls @ 100 mls/hr IV CONT .Q5H PAVITHRA Sedation/Anesthesia: No previous sedation/anesthesia problems (including family history). [facility] Past Medical History Medical History (Updated 09/05/21 @ 13:09 by Shin Navarrete MD) Arthritis Chronic cholecystitis Chronic kidney disease, stage 4 (severe) Coronary artery disease COVID-19 (12/2019) Diabetic peripheral neuropathy Gout History of amputation of toe Hyperlipidemia Hypertension Insulin dependent type 2 diabetes mellitus (Unknown) Deborah-Segovia tear (08/2021) Obesity Obstructive sleep apnea on CPAP Rheumatoid arthritis Surgical History Surgical History History of arthroscopy of left knee History of cardiac catheterization History of cataract extraction with lens replacement History of colonoscopy with polypectomy History of coronary artery stent placement x4 History of total left knee replacement Status post right foot surgery Family History Family History Other Adopted Social History Social History Social History: Surrogate decision maker: Amanda Navarro, spouse. Code status: Full code. Smoking status: Never smoker Second hand tobacco smoke exposure: No Alcohol intake: never Substance use: never Substance use type: does not use Spiritual care concerns: No Agree to blood products: Yes Mod Sed Physic
--- NOTE | 2022-01-31 11:28 | WPDCARDPROC ---
Cardiac Cath Procedure Note Date of procedure:: 01/31/22 Performing physician:: Ravi Apodaca MD Indication:: exertional chest pain compatible with angina coronary disease with previous PCI/mi Brief clinical history:: this is a 77-year-old patient with known coronary disease who has undergone percutaneous revascularization of his circumflex in the mid to distal portion in the remote past. Ostial circumflex in 2020 in the setting of AMI and proximal LAD in the remote past. He apparently had significant chest pain and non ST elevation ME at another hospital recently while he was recovering from gallbladder surgery. Follow-up angiography was recommended after that event. The patient does have chronic kidney disease creatinine today is 2.2 leading to my decision to forego left ventriculography Procedure Procedure performed:: coronary angiography Angio-Seal to right femoral artery Sedation/Medication given:: fentanyl 50 mg Versed 2 mg Access site:: right femoral artery Estimated blood loss:: 20 cc Procedure note:: patient was brought to the cardiac catheterization lab in the postabsorptive state where the right femoral triangle was prepared and draped in the usual fashion. Anesthesia was provided with 1% lidocaine infiltrated locally. The right femoral artery was then punctured and a 5 Setswana vascular sheath was placed. After this the left coronary artery was engaged and injected using a 5 Setswana FL4 catheter. The right coronary artery was engaged and injected using a standard 5 Setswana JR4 catheter. cineangiograms were then reviewed and the case was terminated. An Angio-Seal was placed in the right common femoral artery after an angiogram was done of the femoral artery through the sheath. Hemostasis was successful he was taken to the holding area for post cath recovery without any complication of groin hematoma. Findings:: Hemodynamics: Central aortic pressure 1 48/82 the left main coronary artery is large caliber. There is good patency in the mid and proximal segments. At the bifurcation there is hazy eccentric lesion in the distal left main at the ostium of the circumflex the left anterior descending is a moderate caliber artery extending down to the apex. In the SWETA caudal projection there appears to be about 70-80% stenosis at the ostium of the LAD. There is a distal stent further out from this in the proximal segment of the artery with good patency. The circumflex is a very large caliber vessel which is dominant to the posterior circulation. There is also a small ramus intermedius vessel seen. There is stent material in the ostium of the circumflex which extends into the proximal segment of the vessel. The ostium of the circumflex has 90% stenosis. The ramus intermedius branch has moderate diffuse disease and is relatively small. There is distal stent material seen in the trunk of the circumflex that remains patent. The last posterior branch of the circumflex which is very small has a 90% stenosis on the posterior wall. The right coronary artery is small in caliber non dominant giving rise to 2 right ventricular branches. There is ostial stenosis of 70-80% of this non dominant RCA. Conclusion:: 1. Left coronary dominant circulation with critical coronary artery disease. 2. Hazy mild distal left main stenosis involving the left main at the ostium of the circumflex which was stented emergently to years earlier 3. high-grade 90% stenosis at the ostium of the large circumflex which is in stent. The distal circumflex stent is patent. Last terminal branch of the posterior circumflex has 90% stenosis this is a very small vessel 4. approximately 70-80% stenosis at the origin of the nondominant RCA. Ravi Apodaca MD [facility]
--- NOTE | 2022-01-31 14:51 | SUR.PHASEII ---
Discharge instruction reviewed with pt and . Verbalized understanding. Pt escorted off floor via w/c
== END 2022-01-31 15:00 | disposition home or self-care (01) ==
PROVIDERS: PCP Registered Nurse; Visit Provider Specialist
PROC: (CPT 93454; principal; 2022-01-31 11:30)
DX: I25.10 Atherosclerotic heart disease of native coronary artery without angina pectoris (principal); R07.9 Chest pain, unspecified; Z95.5 Presence of coronary angioplasty implant and graft; I25.2 Old myocardial infarction; I12.9 Hypertensive chronic kidney disease with stage 1 through stage 4 chronic kidney disease, or unspecified chronic kidney disease; N18.4 Chronic kidney disease, stage 4 (severe); E11.22 Type 2 diabetes mellitus with diabetic chronic kidney disease; E11.42 Type 2 diabetes mellitus with diabetic polyneuropathy; M10.9 Gout, unspecified; E78.5 Hyperlipidemia, unspecified; G47.33 Obstructive sleep apnea (adult) (pediatric); M06.9 Rheumatoid arthritis, unspecified; Z79.02 Long term (current) use of antithrombotics/antiplatelets; Z79.82 Long term (current) use of aspirin; Z79.4 Long term (current) use of insulin
CPT/HCPCS: 36415; 80048; 85025; 93454; C1760; C1887; C1894; G0269; J0583; J1644; J2250; J3010; J7040

== ENCOUNTER 2022-05-30 00:01 | Day surgery (SDC) | payer MEDICARE, SELFPAY ==
[2022-05-27 12:00] VITALS: BMI 38.0
[2022-05-30] VITALS (8 sets, daily range): BP systolic 117–137; BP diastolic 63–72; PULSE 67–71; RESP 16–20; TEMP 36.3; O2SAT 96–100; BMI 38.2
--- NOTE | 2022-05-30 12:00 | ECG_ITS ---
Measurements Intervals [place] Rate: 74 P: 64 [place]: 235 QRS: 28 QRSD: 113 T: -30 QT: 423 QTc: 472 Interpretive Statements SINUS RHYTHM WITH FIRST DEGREE AV BLOCK INFERIOR MYOCARDIAL INFARCTION , PROBABLY OLD [40+ ms Q WAVE AND/OR ST/T ABNORMALITY IN II/aVF] COMPARED TO ECG 05/30/2022 13:31:40 NORMAL SINUS RHYTHM HAS BEEN RESTORED FOLLOWING CARDIOVERSION Electronically Signed On 05-30-2022 15:17:04 SCREEN MACHINE OPERATOR by Ravi Apodaca M.D.
[2022-05-30 12:35] LABS: INR 1.4; Prothrombin Time 16.7 Seconds (11.1-14.7)
[2022-05-30 12:44] LABS: Anion Gap 11 mmol/L (8-16); Blood Urea Nitrogen 51 mg/dL (9-20); Calcium 8.9 mg/dL (8.4-10.2); Carbon Dioxide 26 mmol/L (22-30); Chloride 99 mmol/L (98-107); Estimated CRCL calculation 15 ml/min; Estimated Glomerular Filt Rate 11; Glucose 135 mg/dL (65-110); Magnesium 1.9 mg/dL (1.6-2.3); Sodium 136 mmol/L (137-145)
--- NOTE | 2022-05-30 13:26 | WPDANESEPPF ---
Anes - Initial Pre Proc Eval Procedure: Operation Date: 05/30/22 13:30 Proposed Procedures p Electrical Cardioversion - Ravi Apodaca MD Date/Time: 05/30/22 13:26 Surgeon: Ravi Apodaca MD Pre Op Diagnosis: a-fib Patient Data Age: 77 Gender: M Height: 1.83 m Weight: 128 kg Last Vital Signs Temp 97.4 F L 05/30/22 11:55 Pulse 69 05/30/22 11:55 Resp 20 05/30/22 11:55 BP 123/72 05/30/22 11:55 Pulse Ox 96 05/30/22 11:55 O2 Del Method Room Air 05/30/22 11:55 Allergies Allergy/AdvReac Type Severity Reaction Status Date / Time No Known Allergies Allergy Unknown Verified 05/27/22 14:09 Home Medications Medication Instructions Recorded Confirmed Type allopurinol 300 mg tablet 100 mg PO QAM 08/12/19 05/27/22 History benazepril 20 mg tablet 20 mg PO BID 08/12/19 05/27/22 History cinnamon bark 500 mg capsule 1,000 mg PO DAILY 08/17/19 05/27/22 History aspirin 81 mg chewable tablet 81 mg PO DAILY@0800 #30 tabs 08/20/19 05/27/22 Rx (Children's Aspirin) clopidogrel 75 mg tablet 75 mg PO DAILY 10/07/19 05/27/22 History carvedilol 25 mg tablet 6.25 mg PO Q12H 01/12/20 05/27/22 History leflunomide 20 mg tablet 20 mg PO DAILY 01/12/20 05/27/22 History atorvastatin 80 mg tablet 80 mg PO QPM 04/10/20 05/27/22 History cholecalciferol (vitamin D3) 75 3,000 unit PO DAILY 04/10/20 05/27/22 History mcg (3,000 unit) tablet gabapentin 600 mg tablet 600 mg PO BID 02/03/21 05/17/22 History hydroxychloroquine 200 mg tablet 200 mg PO BID 02/03/21 05/27/22 History blood sugar diagnostic (OneTouch See Rx Instructions .Route 10/07/21 05/27/22 Rx Verio test strips) .COMPLEX #400 strips pen needle, diabetic 31 gauge x #600 ea 11/01/21 05/17/22 Rx 5/16 nitroglycerin 0.4 mg sublingual 0.4 mg sublingual Q5M PRN Chest 03/09/22 05/27/22 History tablet Pain linagliptin 5 mg tablet (Tradjenta) 5 mg PO QAM 04/19/22 05/27/22 History Adults Multivitamin 1 tablet PO DAILY 05/27/22 05/27/22 History apixaban 5 mg tablet (Eliquis) 5 mg PO BID 05/27/22 05/27/22 History ascorbic acid (vitamin C) 1,000 mg 2,000 mg PO DAILY 05/27/22 05/27/22 History tablet ezetimibe 10 mg tablet 10 mg PO DAILY 05/27/22 History furosemide 80 mg tablet 80 mg PO DAILY 05/27/22 05/27/22 History metoclopramide HCl 5 mg tablet 5 mg PO BID 05/27/22 05/27/22 History metoprolol tartrate 25 mg tablet 12.5 mg PO HS 05/27/22 05/27/22 History tamsulosin 0.4 mg capsule 0.4 mg PO DAILY 05/27/22 05/27/22 History zinc 50 mg PO DAILY 05/27/22 05/27/22 History Laboratory Tests 05/30/22 05/30/22 12:06 12:06 PT 16.7 Seconds H Seconds (11.1-14.7) INR 1.4 Sodium 136 mmol/L L mmol/L (137-145) Potassium 4.0 mmol/L mmol/L (3.4-5.0) Chloride 99 mmol/L mmol/L (98-107) Carbon Dioxide 26 mmol/L mmol/L (22-30) Anion Gap 11 mmol/L mmol/L (8-16) BUN 51 mg/dL H D mg/dL (9-20) Creatinine 5.20 mg/dL H mg/dL (0.7-1.3) Estim Creat Clear Calc 15 ml/min ml/min Estimated GFR 11 L (59 - ) Glucose 135 mg/dL H mg/dL (65-110) Calcium 8.9 mg/dL mg/dL (8.4-10.2) Magnesium 1.9 mg/dL mg/dL (1.6-2.3) Patient hx anesthesia problems: none Family hx anesthesia problems: none Results Review: All pre-operative results and documents have been reviewed as part of the pre-operative evaluation. [facility] Past Medical History Medical History Arthritis Chronic cholecystitis Chronic kidney disease, stage 4 (severe) Coronary artery disease COVID-19 (12/2019) Diabetic peripheral neuropathy Gout History of amputation of toe Hyperlipidemia Hypertension Insulin dependent type 2 diabetes mellitus (Unknown) Deborah-Segovia tear (08/2021) Obesity Obstructive sleep apnea on CPAP Rheumatoid arthritis Surgical History Surgical History (Reviewed 05/17/22 @ 09:36 by Yvonne Qureshi,
[2022-05-30] MEDS: APIXABAN 5 MG TABLET PO (13:30)
--- NOTE | 2022-05-30 13:30 | ECG_ITS ---
Measurements Intervals [place] Rate: 95 P: [place]: 0 QRS: 38 QRSD: 105 T: 0 QT: 398 QTc: 502 Interpretive Statements ATRIAL FLUTTER INFERIOR MYOCARDIAL INFARCTION , PROBABLY OLD [40+ ms Q WAVE AND/OR ST/T ABNORMALITY IN II/aVF] COMPARED TO ECG 09/04/2021 09:04:43 ATRIAL FIBRILLATION NOW PRESENT Electronically Signed On 05-30-2022 15:16:00 SPECIAL SHOPPER by Ravi Apodaca M.D.
--- NOTE | 2022-05-30 13:46 | P.PCNCC_ITS ---
Cardiac Cath Procedure Note Date of procedure:: 05/30/22 Performing physician:: Ravi Apodaca MD Indication:: Persistent/postop atrial fib Brief clinical history:: This is a 77-year-old man with longstanding coronary artery disease recently he was found to have multivessel disease and was referred for surgical revascularization. Following surgery he developed end-stage renal disease and is now on dialysis. During that hospitalization he also developed atrial fibrillation which was persistent despite amiodarone treatment and he is admitted today electively as an outpatient for attempt at cardioversion. Procedure Procedure performed:: DC cardioversion Sedation/Medication given:: Sedation per the anesthesia service Estimated blood loss:: No blood loss Procedure note:: Patient was brought to the GI lab where he was sedated by the anesthesia service. Defibrillator patches were placed in the AP position. Following sedation he received 1 counter shock in a synchronized fashion a 200 joules which restored normal sinus rhythm. Findings:: As above Conclusion:: Successful uncomplicated DC cardioversion terminating atrial fibrillation restoring sinus rhythm using 200 joules x1 shock. Ravi Apodaca MD [facility]
== END 2022-05-30 15:20 | disposition home or self-care (01) ==
PROVIDERS: PCP Registered Nurse; Visit Provider Specialist
PROC: 5A2204Z Restoration of Cardiac Rhythm, Single (ICD-10-PCS; principal; 2022-05-30 13:30)
DX: I48.19 Other persistent atrial fibrillation (principal); I12.9 Hypertensive chronic kidney disease with stage 1 through stage 4 chronic kidney disease, or unspecified chronic kidney disease; E11.22 Type 2 diabetes mellitus with diabetic chronic kidney disease; N18.4 Chronic kidney disease, stage 4 (severe); I25.10 Atherosclerotic heart disease of native coronary artery without angina pectoris; E11.42 Type 2 diabetes mellitus with diabetic polyneuropathy; E78.5 Hyperlipidemia, unspecified; G47.33 Obstructive sleep apnea (adult) (pediatric); M06.9 Rheumatoid arthritis, unspecified; M10.9 Gout, unspecified; Z95.5 Presence of coronary angioplasty implant and graft; Z95.1 Presence of aortocoronary bypass graft; Z79.82 Long term (current) use of aspirin; Z79.02 Long term (current) use of antithrombotics/antiplatelets; Z79.01 Long term (current) use of anticoagulants; E66.9 Obesity, unspecified; Z68.38 Body mass index [BMI] 38.0-38.9, adult
CPT/HCPCS: 36415; 80048; 83735; 85610; 92960; A9270; J2704; J7120

== ENCOUNTER 2022-07-10 09:26 | Inpatient (IN) | payer MEDICARE, SELFPAY ==
--- NOTE | ~2022-07-10 | US_ITS ---
EXAMINATION: US arterial ankle brachial ind DATE: 07/11/2022 10:22 INDICATION: Peripheral arterial disease. Left toe ulcer. TECHNIQUE: Segmental pressures and plethysmographic and Doppler waveforms of the brachial and lower e xtremity arteries were obtained. COMPARISON: Left foot radiographs 07/10/2022 FINDINGS: Right and left brachial artery pressures of 137 mm Hg and 152 mm Hg, respectively, are concordant (no rmal difference <= 30 mmHg). The right ankle-brachial index (SHYLA) could not be measured due to inability to cuff-occlude the poste rior tibial artery (normal >= 0.9-1.0). The right great toe-brachial index (TBI) is 0.28 (normal >= 0 .65). Arterial Doppler waveforms are biphasic at the ankle. The left SHYLA is 1.16. The left TBI is 0.5. Arterial Doppler waveforms are biphasic at the ankle. IMPRESSION: 1. Decreased TBIs, nondiagnostic right SHYLA, and normal left SHYLA, consistent with arterial occlusive d isease. Note that the left foot radiographs demonstrate arterial calcifications, which may cause over estimation of ABIs. Reviewed, dictated and finalized at location A. EL MACHINE OPERATOR IMPRESSION: 1. Decreased TBIs, nondiagnostic right SHYLA, and normal left SHYLA, consistent wit h arterial occlusive disease. Note that the left foot radiographs demonstrate a rterial calcifications, which may cause overestimation of ABIs.
--- NOTE | ~2022-07-10 | XR_ITS ---
EXAMINATION: XR foot LT min 3V DATE: 07/10/2022 10:46 INDICATION: Left second and third toe infection. TECHNIQUE: 4 views of left foot were obtained. COMPARISON: Left foot radiographs 12/27/14 FINDINGS: Bone alignment is normal. No fracture. There is mild osteoarthritis of some of the midfoot joints and interphalangeal joints and first metatarsophalangeal joint. There are enthesophytes at the posterior and plantar aspects of calcaneal tuberosity. IMPRESSION: 1. No evidence of osteomyelitis. 2. Polyarticular osteoarthritis. Reviewed, dictated and finalized at location A. RETROFITTING TECHNICIAN
[2022-07-10 09:38] VITALS: BP 118/83; PULSE 77; RESP 18; TEMP 36.8; O2SAT 99
[2022-07-10 09:49] VITALS: BP 142/69; PULSE 76; RESP 18; TEMP 36.9; O2SAT 99
[2022-07-10 10:17] LABS: Basophils Absolute Auto 0.1 K/mm3 (0.0-0.1); Basophils Percent Auto 1.4 % (0.2-1.2); Eosinophils Absolute Auto 0.8 K/mm3 (0-0.3); Eosinophils Percent Auto 8.4 % (0-4.4); Hematocrit 42.5 % (42.0-52.0); Hemoglobin 13.4 g/dL (14.0-18.0); Immature Granulocyte Absolute 0.02 K/mm3 (0.00-0.031); Immature Granulocyte Percent A 0.2 % (0-0.5); Lymphocytes Absolute Auto 1.31 K/mm3 (0.9-3.2); Lymphocytes Percent Auto 14.5 % (18.3-44.2); Mean Corpuscular HGB Conc 31.5 g/dl (32-36); Mean Platelet Volume 9.5 fl (7.4-10.4); Monocytes Percent Auto 10.6 % (2.6-8.5); Neutrophils Absolute Auto 5.9 K/mm3 (1.3-6.7); Neutrophils Percent Auto 64.9 % (45.5-73.1); Platelet Count Result 183 k/mm3 (150-375); Red Blood Count 4.62 M/mm3 (4.6-6.20); Red Cell Distribution Width 15.3 % (11.5-14.5); White Blood Count 9.1 K/mm3 (4.5-10.0)
[2022-07-10 10:24] LABS: INR 1.1; Partial Thromboplastin Time 29.6 SECONDS (22.3-36.8); Prothrombin Time 13.8 Seconds (11.1-14.7)
[2022-07-10 10:25] LABS: Lactic Acid Reflex 1.1 mmol/L (0.7-2.0)
[2022-07-10 10:29] LABS: Alanine Aminotransferase 24 U/L (6-50); Albumin Level 4.3 g/dL (3.5-5.1); Alkaline Phosphatase 75 U/L (38-126); Anion Gap 8 mmol/L (8-16); Aspartate Amino Transferase 28 U/L (17-59); Bilirubin,Total 0.7 mg/dL (0.2-1.3); Blood Urea Nitrogen 47 mg/dL (9-20); CRP 2.1 mg/dL (<1.0); Calcium 8.9 mg/dL (8.4-10.2); Carbon Dioxide 27 mmol/L (22-30); Chloride 100 mmol/L (98-107); Estimated CRCL calculation 19 ml/min; Estimated Glomerular Filt Rate 14; Glucose 144 mg/dL (65-110); Potassium 4.8 mmol/L (3.4-5.0); Sodium 135 mmol/L (137-145)
--- NOTE | 2022-07-10 10:39 | ED.WOUNDLAC ---
HPI - Wound/Laceration General Chief Complaint: Wound/Laceration <Valerie Ozuna PA-C - Last Filed: 07/10/22 11:57> Stated Complaint: infected toe? <CANDICE Knox Last Filed: 07/10/22 11:57> Time Seen by Provider: 07/10/22 09:51 <CANDICE Knox Last Filed: 07/10/22 11:57> Source: patient <CANDICE Knox Last Filed: 07/10/22 11:57> Mode of arrival: ambulatory <CANDICE Knox Last Filed: 07/10/22 11:57> Limitations: no limitations <CANDICE Knox Last Filed: 07/10/22 11:57> History of Present Illness HPI narrative: This is a 77 year old male that presents to the ER for left 2nd and 3rd toe redness and swelling ongoing over the last couple of days. Reports worsening which prompted him to be seen. Does report he had some drainage from the area. Denies fevers. <CANDICE Knox Last Filed: 07/10/22 11:57> Related Data Home Medications: Home Medications Medication Instructions Recorded Confirmed allopurinol 300 mg tablet 400 mg PO QAM 08/12/19 07/10/22 benazepril 20 mg tablet 20 mg PO DAILY 08/12/19 07/10/22 cinnamon bark 500 mg capsule 1,000 mg PO DAILY 08/17/19 05/30/22 clopidogrel 75 mg tablet 75 mg PO DAILY 10/07/19 07/10/22 carvedilol 25 mg tablet 6.25 mg PO Q12H 01/12/20 07/10/22 leflunomide 20 mg tablet 40 mg PO DAILY 01/12/20 07/10/22 atorvastatin 80 mg tablet 80 mg PO QPM 04/10/20 07/10/22 cholecalciferol (vitamin D3) 75 3,000 unit PO DAILY 04/10/20 05/30/22 mcg (3,000 unit) tablet gabapentin 600 mg tablet 600 mg PO DAILY 02/03/21 07/10/22 hydroxychloroquine 200 mg tablet 200 mg PO BID 02/03/21 07/10/22 nitroglycerin 0.4 mg sublingual 0.4 mg sublingual Q5M PRN Chest 03/09/22 05/27/22 tablet Pain linagliptin 5 mg tablet (Tradjenta) 5 mg PO QAM 04/19/22 05/30/22 Adults Multivitamin 1 tablet PO DAILY 05/27/22 05/30/22 apixaban 5 mg tablet (Eliquis) 5 mg PO BID 05/27/22 07/10/22 ascorbic acid (vitamin C) 1,000 mg 1,000 mg PO DAILY 05/27/22 07/10/22 tablet ezetimibe 10 mg tablet 10 mg PO DAILY 05/27/22 07/10/22 furosemide 80 mg tablet 80 mg PO DAILY 05/27/22 07/10/22 metoclopramide HCl 5 mg tablet 5 mg PO BID 05/27/22 05/30/22 metoprolol tartrate 25 mg tablet 12.5 mg PO HS 05/27/22 05/30/22 tamsulosin 0.4 mg capsule 0.4 mg PO DAILY 05/27/22 07/10/22 zinc 50 mg PO DAILY 05/27/22 05/30/22 acetaminophen 650 mg tablet 650 mg PO Q4H PRN pain 07/10/22 07/10/22 indapamide 2.5 mg tablet 2.5 mg PO DAILY 07/10/22 07/10/22 insulin lispro 100 unit/mL 1 sliding scale dose subcut 07/10/22 07/10/22 subcutaneous pen USEASDIRECTD isosorbide mononitrate 30 mg 30 mg PO DAILY 07/10/22 07/10/22 tablet,extended release 24 hr ketoconazole 2 % topical cream 1 applic topical DAILY 07/10/22 07/10/22 midodrine 5 mg tablet 5 mg PO TID 07/10/22 07/10/22 pantoprazole 40 mg tablet,delayed 40 mg PO DAILY 07/10/22 07/10/22 release sennosides 8.6 mg-docusate sodium 1 tab-cap PO HS PRN constipation 07/10/22 07/10/22 50 mg tablet <Valerie Ozuna PA-C - Last Filed: 07/10/22 11:57> Allergies/Adverse Reactions: Allergies Allergy/AdvReac Type Severity Reaction Status Date / Time No Known Allergies Allergy Unknown Verified 05/30/22 14:21 <Valerie Ozuna PA-C - Last Filed: 07/10/22 11:57> Review of Systems Review of Systems: CONSTITUTIONAL: Denies fever SKIN: Reports redness MUSCULOSKELETAL: Reports joint pain, and myalgia. NEUROLOGIC: Reports numbness <Valerie Ozuna PA-C - Last Filed: 07/10/22 11:57> All systems reviewed & are unremarkable except as noted in HPI and below <Valerie Ozuna PA-C - Last Filed: 07/10/22 11:57> [facility] Past Medical History Medical History: Medical History (Updated 07/10/22 @ 15:41 by Kassi Tamayo PA-C) Arthritis Chronic anticoagulation Coronary artery disease STEMI 08/17/2019. History of multiple stents. Status post 3 vessel bypass in January 2022. COVID-19 (12/2019) Diabe
[2022-07-10] MEDS: metroNIDAZOLE 500 MG/ISO 100ML 500 MG/100 ML BAG 100 MG IVPB ×2 (11:03→21:30)
[2022-07-10 11:50] LABS: Influenza A QL RT-PCR Negative (Negative); Influenza B QL RT-PCR Negative (Negative); SARS-CoV-2 RNA PCR Negative
--- NOTE | 2022-07-10 13:45 | PM.IMHP ---
H&P: HPI History of Present Illness Date/Time: 07/10/22 13:45 Chief Complaint: Left toe wounds. Narrative: This a very pleasant 77-year-old male with insulin-dependent diabetes, Charcot foot, necrotizing fasciitis requiring right toe amputation, coronary artery disease, paroxysmal atrial fibrillation on anticoagulation, chronic renal failure, and other comorbidities who presented to the emergency department for evaluation of left toe wounds. The patient provides the following history. He has had a rough 5 months (three-vessel CABG in January 2022 with prolonged hospitalization complicated by acute renal failure for which he is currently on dialysis). He and his finally had an opportunity to go on vacation and they were recently in [place]. Within the last several days he noticed some wounds at the tip of the left 2nd and 3rd toes and he assumes that they developed due to ill-fitting shoes and walking more than usual while out of town. He and his have been meticulous about cleaning the area and keeping them dry. The last several days they have noticed redness and swelling around the tips of the toes surrounding what sounds like a small blisters. The blisters must have popped as he now has some crusting around the area. With his history of necrotizing fasciitis in the right foot requiring amputation, he felt it best to come in for evaluation. He denies fever, chills, and sweats. He was afebrile on arrival to the ED with stable vital signs. Pertinent labs include a WBC of 9.1, CRP 2.1, glucose 144, lactic acid 1.1. Left foot x-ray showed no evidence of osteomyelitis. He was given cefepime, metronidazole, and vancomycin in the ED and he is being admitted in this setting for treatment of cellulitis of the toes in a diabetic patient. Review of Systems Review of Systems: Twelve systems were reviewed and are negative except for as per HPI. [facility] Past Medical History Medical History (Updated 07/10/22 @ 15:41 by Kassi Tamayo PA-C) Arthritis Chronic anticoagulation Coronary artery disease STEMI 08/17/2019. History of multiple stents. Status post 3 vessel bypass in January 2022. COVID-19 (12/2019) Diabetic peripheral neuropathy End-stage renal disease on hemodialysis Gout Hyperlipidemia Hypertension Insulin dependent type 2 diabetes mellitus (Unknown) FDC (current) use of other immunomodulators and immunosuppressants Deborah-Segovia tear (08/2021) Obesity Obstructive sleep apnea on CPAP Paroxysmal atrial fibrillation Rheumatoid arthritis Surgical History Surgical History History of amputation of toe History of arthroscopy of left knee History of cardiac catheterization History of cardioversion History of cataract extraction with lens replacement History of colonoscopy with polypectomy History of coronary artery bypass graft x 3 (01/2022) History of coronary artery stent placement x4 History of esophagogastroduodenoscopy History of foot surgery History of laparoscopic cholecystectomy (01/2022) History of total left knee replacement Family History Family History Other Adopted Social History Social History (Updated 07/10/22 @ 15:15 by Kassi Tamayo PA-C) Social History: Surrogate decision maker: Amanda Navarro, spouse. Code status: Full code. Smoking status: Never smoker Second hand tobacco smoke exposure: No Alcohol intake: never Substance use: never Substance use type: does not use Additional living arrangements comments: Lives with spouse in [place]. 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 Spiritual care concerns: No Agree to blood products: Yes Meds Home Medications and Allergies Home Medications Medication Instructions Recorded Confirmed Type allopurinol 300 mg tablet 100 mg PO QAM 08/12/19 05/30/22 History benazepril 20 mg table
[2022-07-10 14:55] VITALS: BP 152/96; PULSE 86; RESP 17; O2SAT 97
--- NOTE | 2022-07-10 15:13 | PC.NURSE ---
This patient, Erickson Navarro, was admitted to [facility] Surg Room 327-01. Patient/family oriented to hospital policies and general routines including ID bracelet, bed and alarms, visiting hours, pain management, procedures, bathroom and other care routines, personal items, smoking policy, room service/diet, and visiting hours. Information on how to activate the Rapid Response Team has been discussed. Patient/Family are encouraged to report perceived risks to care and to ask questions if they do not understand what they are told or what they should do.
[2022-07-10 21:08] VITALS: BP 105/60; PULSE 73; RESP 20; TEMP 36.3; O2SAT 99
[2022-07-10] MEDS: WATER FOR IRRIGATION, STERILE 1,000 ML BOTTLE 1000 ML (21:30)
[2022-07-10 21:41] LABS: Glucose Point of Care 130 mg/dl (65-105)
[2022-07-11 05:21] VITALS: BP 113/57; PULSE 74; RESP 18; TEMP 36.8; O2SAT 97
[2022-07-11] MEDS: metroNIDAZOLE 500 MG/ISO 100ML 500 MG/100 ML BAG 100 MG IVPB ×3 (05:59→21:31)
[2022-07-11 06:36] VITALS: PULSE 74; O2SAT 98
[2022-07-11 08:08] LABS: Hemoglobin 12.6 g/dL (14.0-18.0); Mean Corpuscular HGB Conc 31.5 g/dl (32-36); Mean Corpuscular Hemoglobin 29.1 pg (26-34); Mean Corpuscular Volume 92.4 fl (80-100); Mean Platelet Volume 9.3 fl (7.4-10.4); Platelet Count Result 167 k/mm3 (150-375); Red Blood Count 4.33 M/mm3 (4.6-6.20); Red Cell Distribution Width 15.1 % (11.5-14.5); White Blood Count 8.3 K/mm3 (4.5-10.0)
[2022-07-11 08:17] LABS: Anion Gap 12 mmol/L (8-16); Blood Urea Nitrogen 55 mg/dL (9-20); Calcium 8.9 mg/dL (8.4-10.2); Carbon Dioxide 24 mmol/L (22-30); Chloride 102 mmol/L (98-107); Estimated CRCL calculation 16 ml/min; Estimated Glomerular Filt Rate 12; Glucose 134 mg/dL (65-110); Magnesium 1.8 mg/dL (1.6-2.3); Potassium 4.4 mmol/L (3.4-5.0); Sodium 138 mmol/L (137-145)
[2022-07-11 08:36] LABS: Hemoglobin A1C 7.2 % (<5.7)
[2022-07-11] MEDS: ASPIRIN 81 MG CHEWABLE TABLET PO (09:09)
[2022-07-11] MEDS: allopurinoL 100 MG TABLET 400 MG PO (09:09)
[2022-07-11] MEDS: CLOPIDOGREL BISULFATE 75 MG TABLET PO (09:10)
[2022-07-11] MEDS: EZETIMIBE 10 MG TABLET PO (09:10)
[2022-07-11] MEDS: CHOLECALCIFEROL 1,000 UNITS TABLET 3000 UNITS PO (09:10)
[2022-07-11] MEDS: APIXABAN 5 MG TABLET PO ×2 (09:10→21:33)
[2022-07-11] MEDS: GABAPENTIN 300 MG CAPSULE 600 MG PO (09:10)
[2022-07-11] MEDS: ISOSORBIDE MONONITRATE 30 MG TAB.ER.24H PO (09:11)
[2022-07-11] MEDS: HYDROXYCHLOROQUINE SULFATE 200 MG TABLET PO ×2 (09:11→17:13)
[2022-07-11] MEDS: INDAPAMIDE 2.5 MG TABLET PO (09:11)
[2022-07-11 09:12] VITALS: PULSE 78
[2022-07-11] MEDS: lisinopriL 20 MG TABLET PO (09:12)
[2022-07-11] MEDS: METOPROLOL TARTRATE 12.5 MG TABLET PO ×2 (09:12→21:33)
[2022-07-11] MEDS: MIDODRINE HCL 2.5 MG TABLET 5 MG PO (09:12)
[2022-07-11] MEDS: LEFLUNOMIDE 20 MG TABLET 40 MG PO (09:12)
[2022-07-11] MEDS: TAMSULOSIN HCL 0.4 MG CAPSULE PO (09:13)
[2022-07-11] MEDS: MULTIVITAMINS THERAPEUTIC TAB (*BKC) 1 TABLET PO ×2 (09:13→17:13)
[2022-07-11] MEDS: PANTOPRAZOLE 40 MG TABLET PO (09:13)
--- NOTE | 2022-07-11 11:24 | PM.CNNEP ---
Assessment and Plan Assessment and plan (1) Dependence on renal dialysis: Code(s): Z99.2 - Dependence on renal dialysis Status: Acute Assessment and Plan: plan HD tomorrow and continue Monday, , Monday dialysis schedule follow electrolytes, volume status, and clearance (2) Cellulitis of left toe: Code(s): L03.032 - Cellulitis of left toe Status: Acute Assessment and Plan: follow culture data on IV antibiotics local wound care (3) Hypertension: Code(s): I10 - Essential (primary) hypertension Status: Chronic Assessment and Plan: reasonable control at this time follow trend of hemodynamics (4) Paroxysmal atrial fibrillation: Code(s): I48.0 - Paroxysmal atrial fibrillation Status: Chronic Assessment and Plan: rate control strategy on anticoagulation (5) Insulin dependent type 2 diabetes mellitus: Onset Date: Unknown Code(s): E11.9 - Type 2 diabetes mellitus without complications; 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 History of Present Illness Reason for Consult Consult date: 07/11/22 Reason for consult: acute renal failure (with dialysis dependence) Chief Complaint Chief complaint: Left 2nd & 3rd Toe Cellulitis History of Present Illness Narrative: The patient is a 77-year-old male with a past medical history as outlined below who presented to [facility] Emergency room for further evaluation of left toe wounds. The patient is were recently out of town on vacation. They were probably doing more walking outside Than usual during this time. Several days into the vacation, he noticed some wounds at the tips of his left 2nd and 3rd toe which he thinks may have been caused by ill-fitting shoes during the extended walks. He and his have been keeping a close eye on these wounds given his known complex medical history and then trying to keep them dry and intact. However, more recently, he has noticed more redness /erythema in association with swelling on these left toe tips possibly complicated by a blister. He thinks the blister may have popped as there is now some crusting around the area. Given his history of necrotizing fasciitis in the past, he came to the ER for further assessment. Workup and evaluation emergency room demonstrated the patient to be hemodynamically stable and in no apparent distress. Routine blood test demonstrated a CBC with a normal white blood cell count, CRP of 2.1, lactic acid 1.1, and imaging studies of his left foot that did not demonstrate any osteomyelitis. However, as already mentioned above, given his complex medical history and previous history of necrotizing fasciitis, he was started on broad-spectrum IV antibiotic therapy after appropriate cultures were obtained and subsequent admitted to the hospital for further evaluation and therapy. Renal consultation was requested due to his dialysis dependent renal failure. The patient recently suffered an acute insult of his baseline kidney disease about 3 - 4 months ago (three-vessel coronary artery bypass grafting) that led to initiation of TRANSIT PLANNING DIRECTOR/hemodialysis. His baseline creatinine has fluctuated anywhere from 1.9-2.4 mg/dL causing him fluctuated between CKD stage IIIB and stage IV. The etiology of his chronic kidney disease is thought to be secondary to his hypertension, diabetes, vascular disease, and age-related change with a component of possibly obstructive sleep apnea. He has been on dialysis since March 2022 and although he continues to have good urine output, his last 24 hours urine collection still demonstrates a GFR ~ 8cc/min. He normally dialyzes on a Monday, , Monday dialysis schedule at [facility] under the care of Dr. Dennis Hernandez. His last dialysis treatment w
[2022-07-11] MEDS: CEFEPIME 0.5 GM in DEXTROSE 5% IN WATER 50 ML IVPB (12:09)
[2022-07-11 15:06] VITALS: BP 104/59; PULSE 66; RESP 16; TEMP 36.3; O2SAT 98
--- NOTE | 2022-07-11 15:32 | PM.IMPN ---
Progress Note: A&P Assessment and Plan (1) Cellulitis of left toe: Code(s): L03.032 - Cellulitis of left toe Status: Acute Assessment and Plan: The patient presented to the emergency department today for evaluation of blister-like wounds on the tip of the left 2nd and 3rd toe which appear to have ruptured, now with crusting (no drainage on exam today), erythema, and edema. While it appears that this is a mild cellulitis, he has a history of necrotizing fasciitis and multiple comorbidities (dialysis catheter, recent knee implant, diabetes, on immunosuppressants) which put him at risk for a poor outcome if not treated. cefepime, metronidazole, and vancomycin continued. Dr. Toni Lester, the patient's pilot can router, and the wound nurse have been consulted for recommendations. Blood cultures pending. Consider surgical consult if patient worsens. Will monitor for disease progression (2) End-stage renal disease on hemodialysis: Code(s): N18.6 - End stage renal disease; Z99.2 - Dependence on renal dialysis Status: Acute Assessment and Plan: He is due for dialysis on Monday and Dr. Hernandez will need to be contacted if he is here past tomorrow. Nephrology consulted Dialysis due tomorrow. 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 HS (4) Hypertension: Code(s): I10 - Essential (primary) hypertension Status: Acute Assessment and Plan: Continue home med Monitor (5) Paroxysmal atrial fibrillation: Code(s): I48.0 - Paroxysmal atrial fibrillation Status: Acute Assessment and Plan: Continue Eliquis (6) Coronary artery disease: Code(s): I25.10 - Atherosclerotic heart disease of [place] coronary artery without angina pectoris Status: Acute Assessment and Plan: SHYLA: Nondiagnostic right SHYLA, normal left SHYLA. Patient's previous x-ray redemonstrated arterial calcifications which may cause over estimation of ABIs. Decreased TBIs consistent with arterial occlusive disease Plan Medical decision making narrative History obtained from: Patient. History from independent sources: None. External chart review: None New problems addressed: Left foot wound and cellulitis. Chronic illnesses addressed: HTN, CAD, ESRD, DM, others. Independent interpretation of studies: Labs and imaging/reports personally reviewed. Discussion of management with other providers: None. Shared decision making: Case discussed with the patient and his at bedside. This appears to be a mild cellulitis surrounding what appears to have been blisters which likely developed due to a significant increase in walking recently with his vacation. Trial of outpatient antibiotics verses admission with IV antibiotics was discussed. Given his comorbidities, history of necrotizing fasciitis requiring amputation, and immunosuppressed state is felt that he would benefit from IV antibiotics for at least today. Patient and his are in agreement. Time Spent With Patient Time: Greater than 35 minutes Subjective Date/time seen: 07/11/22 15:32 Interval history: 77-year-old with a history of insulin-dependent diabetes, Charcot foot, necrotizing fasciitis requiring right toe amputation, coronary artery disease, paroxysmal atrial fibrillation on anticoagulation, chronic renal failure, and other comorbidities who presented to the emergency department for evaluation of left toe wounds.? Patient had had the chills and increased sweating before presentation to the ER. Since antibiotic trial the symptoms have resolved. Patient does not have pain in the toes. He has peripheral neuropathy. Today patient den
[2022-07-11] MEDS: ATORVASTATIN 40 MG TABLET 80 MG PO (17:13)
--- NOTE | 2022-07-11 17:13 | PM.IMHP ---
H&P: HPI History of Present Illness Date/Time: 07/11/22 17:13 Chief Complaint: Blisters to left foot Narrative: The patient relates that he has been sedantary since a CABG in february, 10 days ago while on vacation he wore shoes for the first time. A day or two after he noticed blistering to his feet. He is diabetic with ESRD on dialysis and a Charcot foot left with a history of necroticizing fasciitis leading to an amputation of the right hallux. When they returned back home they decided to go to the ER for management of the sores to his 2nd and 3rd toes. He does relates chills/ no FNV. Denies rest pain denies intermitent claudication. Review of Systems Constitutional: Comments: Chills Endocrine: Comments: DM [facility] Past Medical History Medical History (Updated 07/11/22 @ 17:21 by Mat Johnson JR, MD) Arthritis Chronic anticoagulation Coronary artery disease STEMI 08/17/2019. History of multiple stents. Status post 3 vessel bypass in January 2022. 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 immunomodulators and immunosuppressants Deborah-Segovia tear (08/2021) Obesity Obstructive sleep apnea on CPAP Paroxysmal atrial fibrillation Rheumatoid arthritis Surgical History Surgical History History of amputation of toe History of arthroscopy of left knee History of cardiac catheterization History of cardioversion History of cataract extraction with lens replacement History of colonoscopy with polypectomy History of coronary artery bypass graft x 3 (01/2022) History of coronary artery stent placement x4 History of esophagogastroduodenoscopy History of foot surgery History of laparoscopic cholecystectomy (01/2022) History of total left knee replacement Family History Family History Other Adopted Social History Social History (Updated 07/10/22 @ 15:15 by Kassi Tamayo PA-C) Social History: Surrogate decision maker: Amanda Navarro, spouse. Code status: Full code. Smoking status: Never smoker Second hand tobacco smoke exposure: No Alcohol intake: never Substance use: never Substance use type: does not use Lack of Transportation: No Lack of Food: Never True Current Housing: I Have Housing Concerned About Future Housing: No Difficulty Paying Gas/Electric Bills: No Difficulty Paying for Meds: No Currently Unemployed: No Education: Bachelor's Degree Difficulty w/ Childcare or Family Care: No Additional living arrangements comments: Lives with spouse in [place]. 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 Spiritual care concerns: No Agree to blood products: Yes Meds Home Medications and Allergies Home Medications Medication Instructions Recorded Confirmed Type allopurinol 300 mg tablet 400 mg PO QAM 08/12/19 07/10/22 History benazepril 20 mg tablet 20 mg PO DAILY 08/12/19 07/10/22 History cinnamon bark 500 mg capsule 1,000 mg PO DAILY 08/17/19 07/10/22 History aspirin 81 mg chewable tablet 81 mg PO DAILY@0800 #30 tabs 08/20/19 07/10/22 Rx ([facility] Asp[facility]in) clopidogrel 75 mg tablet 75 mg PO DAILY 10/07/19 07/10/22 History carvedilol 25 mg tablet 6.25 mg PO Q12H 01/12/20 07/10/22 History leflunomide 20 mg tablet 40 mg PO DAILY 01/12/20 07/10/22 History atorvastatin 80 mg tablet 80 mg PO QPM 04/10/20 07/10/22 History cholecalciferol (vitamin D3) 75 3,000 unit PO DAILY 04/10/20 07/10/22 History mcg (3,000 unit) tablet gabapentin 600 mg tablet 600 mg PO DAILY 02/03/21 07/10/22 History hydroxychloroquine 200 mg tablet 200 mg PO BID 02/03/21 07/10/22 History blood sugar diagnostic (OneTouch See Rx Instructions .Route 10/07/21 07/10/22 Rx Verio test strip
--- NOTE | 2022-07-11 18:53 | PC.NURSE ---
Patient has refused fingers sticks all day today due to having a personal monitor. His morning blood sugar was 146 Lunch was 162 before dinner was 129 and is currently 238.
[2022-07-11 22:00] VITALS: BP 128/59; PULSE 68; RESP 18; TEMP 36.7; O2SAT 100
[2022-07-11 22:36] VITALS: PULSE 75; O2SAT 97
[2022-07-12] VITALS (20 sets, daily range): BP systolic 94–131; BP diastolic 46–76; PULSE 62–84; RESP 18–20; TEMP 36–36.8; O2SAT 97–100
[2022-07-12] MEDS: metroNIDAZOLE 500 MG/ISO 100ML 500 MG/100 ML BAG 100 MG IVPB ×2 (06:01→15:13)
[2022-07-12 08:16] LABS: Hematocrit 38.4 % (42.0-52.0); Mean Corpuscular HGB Conc 31.3 g/dl (32-36); Mean Corpuscular Hemoglobin 29.2 pg (26-34); Mean Corpuscular Volume 93.4 fl (80-100); Mean Platelet Volume 9.8 fl (7.4-10.4); Platelet Count Result 167 k/mm3 (150-375); Red Blood Count 4.11 M/mm3 (4.6-6.20); Red Cell Distribution Width 15.3 % (11.5-14.5); White Blood Count 7.1 K/mm3 (4.5-10.0)
[2022-07-12 08:27] LABS: Alanine Aminotransferase 23 U/L (6-50); Albumin Level 3.5 g/dL (3.5-5.1); Alkaline Phosphatase 67 U/L (38-126); Anion Gap 10 mmol/L (8-16); Aspartate Amino Transferase 23 U/L (17-59); Bilirubin,Total 0.5 mg/dL (0.2-1.3); Blood Urea Nitrogen 59 mg/dL (9-20); Calcium 8.6 mg/dL (8.4-10.2); Carbon Dioxide 24 mmol/L (22-30); Chloride 103 mmol/L (98-107); Estimated CRCL calculation 14 ml/min; Estimated Glomerular Filt Rate 11; Glucose 145 mg/dL (65-110); Potassium 4.2 mmol/L (3.4-5.0); Sodium 137 mmol/L (137-145)
[2022-07-12] MEDS: ASPIRIN 81 MG CHEWABLE TABLET PO (09:35)
[2022-07-12] MEDS: APIXABAN 5 MG TABLET PO (09:35)
[2022-07-12] MEDS: GABAPENTIN 300 MG CAPSULE 600 MG PO (09:35)
[2022-07-12] MEDS: CHOLECALCIFEROL 1,000 UNITS TABLET 3000 UNITS PO (09:35)
[2022-07-12] MEDS: HYDROXYCHLOROQUINE SULFATE 200 MG TABLET PO (09:37)
[2022-07-12] MEDS: MULTIVITAMINS THERAPEUTIC TAB (*BKC) 1 TABLET PO (09:37)
[2022-07-12] MEDS: LEFLUNOMIDE 20 MG TABLET 40 MG PO (09:38)
[2022-07-12] MEDS: allopurinoL 100 MG TABLET 400 MG PO (09:38)
[2022-07-12] MEDS: CLOPIDOGREL BISULFATE 75 MG TABLET PO (09:39)
[2022-07-12] MEDS: INDAPAMIDE 2.5 MG TABLET PO (09:39)
[2022-07-12] MEDS: TAMSULOSIN HCL 0.4 MG CAPSULE PO (09:39)
[2022-07-12] MEDS: EZETIMIBE 10 MG TABLET PO (09:39)
[2022-07-12] MEDS: ISOSORBIDE MONONITRATE 30 MG TAB.ER.24H PO (09:39)
[2022-07-12] MEDS: METOPROLOL TARTRATE 12.5 MG TABLET PO (09:40)
[2022-07-12 09:41] LABS: Hepatitis B Surface Antigen Negative (Negative)
[2022-07-12] MEDS: lisinopriL 20 MG TABLET PO (09:41)
--- NOTE | 2022-07-12 09:41 | PM.IMPN ---
Progress Note: A&P Assessment and Plan (1) Cellulitis of left toe: Code(s): L03.032 - Cellulitis of left toe Status: Acute Assessment and Plan: The patient presented to the emergency department today for evaluation of blister-like wounds on the tip of the left 2nd and 3rd toe which appear to have ruptured, now with crusting (no drainage on exam today), erythema, and edema. While it appears that this is a mild cellulitis, he has a history of necrotizing fasciitis and multiple comorbidities (dialysis catheter, recent knee implant, diabetes, on immunosuppressants) which put him at risk for a poor outcome if not treated. cefepime, metronidazole, and vancomycin continued. Dr. Toni Lester, the patient's distribution collection operator, and the wound nurse have been consulted for recommendations. Blood cultures pending. Consider surgical consult if patient worsens. Will monitor for disease progression 07/12/22 Dr. Johnson consulted and appreciate recommendations. See note for more specifics. Vascular surgery consult as an outpatient recommended due to abnormal SHYLA Continue IV antibiotics Blood cultures no growth today (2) End-stage renal disease on hemodialysis: Code(s): N18.6 - End stage renal disease; Z99.2 - Dependence on renal dialysis Status: Acute Assessment and Plan: He is due for dialysis on Monday and Dr. Hernandez will need to be contacted if he is here past tomorrow. 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 HS (4) Hypertension: Code(s): I10 - Essential (primary) hypertension Status: Chronic Assessment and Plan: Continue home med Monitor (5) Paroxysmal atrial fibrillation: Code(s): I48.0 - Paroxysmal atrial fibrillation Status: Chronic Assessment and Plan: Continue Eliquis (6) Coronary artery disease: Code(s): I25.10 - Atherosclerotic heart disease of [place] coronary artery without angina pectoris Status: Acute Assessment and Plan: SHYLA: Nondiagnostic right SHYLA, normal left SHYLA. Patient's previous x-ray redemonstrated arterial calcifications which may cause over estimation of ABIs. Decreased TBIs consistent with arterial occlusive disease Vascular surgery referral as an outpatient Subjective Date/time seen: 07/12/22 09:41 Interval history: 77-year-old with a history of insulin-dependent diabetes, Charcot foot, necrotizing fasciitis requiring right toe amputation, coronary artery disease, paroxysmal atrial fibrillation on anticoagulation, chronic renal failure, and other comorbidities who presented to the emergency department for evaluation of left toe wounds.? Patient had had the chills and increased sweating before presentation to the ER. Since antibiotic trial the symptoms have resolved. Patient does not have pain in the toes. He has peripheral neuropathy. Today patient denies fevers, headaches, dizziness, chest pain, shortness a breath, nausea and vomiting. Patient appears well. He is sad due to circumstances surrounding his condition. Review of Systems Review of Systems: All systems reviewed & are unremarkable except as noted in HPI and below Exam Narrative: GENERAL: Comfortable, no acute distress HENMT: moist mucous membranes EYES: EOM intact b/l NECK: no lymphadenopathy RESPIRATORY: clear to auscultation CARDIO: RRR GI: soft, nontender, bowel sounds present SKIN: no rashes EXTREMITIES: Right middle toe amputation with Charcot foot; left-sided 2nd and middle toe with blisters on the tips bilaterally, wounds appear to be traumatic and most likely due to walkin
[2022-07-12 09:59] LABS: Hepatitis B Surface Anti Res Negative
--- NOTE | 2022-07-12 10:59 | PM.PNNEP ---
Progress Note: A&P Assessment and Plan (1) Dependence on renal dialysis: Code(s): Z99.2 - Dependence on renal dialysis Status: Acute Assessment and Plan: HD today and continue Monday, , Monday dialysis schedule follow electrolytes, volume status, and clearance (2) Cellulitis of left toe: Code(s): L03.032 - Cellulitis of left toe Status: Acute Assessment and Plan: follow culture data on IV antibiotics local wound care (3) Hypertension: Code(s): I10 - Essential (primary) hypertension Status: Chronic Assessment and Plan: reasonable control at this time follow trend of hemodynamics (4) Paroxysmal atrial fibrillation: Code(s): I48.0 - Paroxysmal atrial fibrillation Status: Chronic Assessment and Plan: rate control strategy on anticoagulation (5) Insulin dependent type 2 diabetes mellitus: Onset Date: Unknown Code(s): E11.9 - Type 2 diabetes mellitus without complications; Z79.4 - penitentiary (current) use of insulin Status: Chronic Assessment and Plan: follow accuchecks glycemic control Will continue to follow. Subjective Date/time seen: 07/12/22 10:59 Tolerating dialysis treatment at the time of my visit (seen on HD at ~ 10:48AM); no apparent distress voiced; feels reasonably well; no issues/events overnight or earlier this AM. Exam Narrative: General: WD/WN male in NAD Heart: normal S1 and S2; no rub Lungs: clear to auscultation Abdomen: soft, nontender, nondistended, positive bowel sounds Extremities: no cyanosis or clubbing; no edema Skin: left 2nd + 3rd toe erythema Objective Data Vital Signs Vital Signs: Vital Signs Temp Pulse Resp BP Pulse Ox O2 Del Method 07/12/22 10:03 97.8 F 71 20 97/57 L 07/12/22 09:40 72 07/12/22 09:30 115/55 L 07/12/22 05:17 98.2 F 65 18 107/53 L 97 07/12/22 03:19 Room Air 07/11/22 22:36 75 97 Room Air 07/11/22 22:00 98.0 F 68 18 128/59 L 100 07/11/22 15:06 97.4 F L 66 16 104/59 L 98 Intake/Output Intake/Output: Intake & Output 01/2107/10/22 07/11/22 07/12/22 23:59 23:59 23:59 23:59 Intake Total 1548 1910 490 Balance 1548 1910 490 Meds/Results Medications: Active Medications Generic Name Dose Route Start Last Admin Trade Name Pallavi PRN Reason Stop Dose Admin Allopurinol 400 mg 07/11/22 09:00 07/12/22 09:38 Allopurinol 100 Mg Tablet PO 400 mg QAM PAVITHRA Administration Apixaban 5 mg 07/11/22 09:00 07/12/22 09:35 Apixaban 5 Mg Tablet PO 5 mg Q12HR PAVITHRA Administration Aspirin 81 mg 07/11/22 08:00 07/12/22 09:35 Aspirin 81 Mg Chewable Tablet PO 81 mg DAILY@0800 PAVITHRA Administration Atorvastatin Calcium 80 mg 07/11/22 18:00 07/11/22 17:13 Atorvastatin 40 Mg Tablet PO 80 mg QPM PAVITHRA Administration Clopidogrel Bisulfate 75 mg 07/11/22 09:00 07/12/22 09:39 Clopidogrel Bisulfate 75 Mg Tablet PO 75 mg DAILY PAVITHRA Administration Dextrose 12.5 gm 07/11/22 19:33 Dextrose 50% 25 Gm/50 Ml Syringe IV PUSH PRN PRN Hypoglycemia Protocol Ezetimibe 10 mg 07/11/22 09:00 07/12/22 09:39 Ezetimibe 10 Mg Tablet PO 10 mg DAILY PAVITHRA Administration Gabapentin 600 mg 07/11/22 09:00 07/12/22 09:35 Gabapentin 300 Mg Capsule PO 600 mg DAILY PAVITHRA Administration Glucagon 1 mg 07/11/22 19:33 Glucagon For Inj 1 Mg Vial IM PRN PRN Hypoglycemia Protocol Glucose 15 gm 07/11/22 19:33 Glucose Oral Gel 15 Gm Of Glucse In 37.5 Gm Tube PO PRN PRN Hypoglycemia Protocol Hydroxychloroquine Sulfate 200 mg 07/11/22 09:00 07/12/22 09:37 Hydroxychloroquine Sulfate 200 Mg Tablet PO 200 mg BID PAVITHRA Administration Metronidazole 500 mg in 100 mls @ 100 mls/hr 07/10/22 21:00 07/12/22 06:01 Flagyl 500 Mg/Iso Soln 100 Ml IVPB 100 mls/hr Q8HR SC
[2022-07-12 11:47] LABS: Glucose Point of Care 153 mg/dl (65-105)
[2022-07-12] MEDS: MIDODRINE HCL 2.5 MG TABLET 5 MG PO (11:59)
--- NOTE | 2022-07-12 12:46 | WPDPN ---
Progress Note: A&P Assessment and Plan (1) Peripheral arterial occlusive disease: Code(s): I77.9 - Disorder of arteries and arterioles, unspecified Status: Acute Assessment and Plan: Outpatient referral to Vascular specialist (2) Cellulitis in diabetic foot: Code(s): E11.628 - Type 2 diabetes mellitus with other skin complications; L03.119 - Cellulitis of unspecified part of limb Status: Acute Assessment and Plan: D/c on clindamycin, await blood cultures. Ulceations now with dry stable eschar, NO SOI. continue with iodine application daily. Continue with surgical shoe until next visit. 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 Plan PAD with superficial ulceations healing well. No SOI. Discharge on oral abx Clindamycin. F/u in my office in one week. Patient to call and schedule. Continue with Iodine and cotton sock daily. Use sugical shoe. I will refer to vascular specialist as outpatient. Subjective Date/time seen: 07/12/22 12:46 Review of Systems Review of Systems: Patient seen at bedside receiving dyalysis. No FCNV. Anxious to go home. Exam Extrem: Other: Stable dry eschar to 2nd and 3rd digits. No erythema, no drainage no calor present. Non palpable pedal pulses. Objective Data Vital Signs Vital Signs: Vital Signs - 24 hr 07/11/22 15:06 07/11/22 22:00 07/11/22 22:36 Temperature 36.3 C L 36.7 C Pulse Rate 66 68 75 Respiratory Rate 16 18 Blood Pressure 104/59 L 128/59 L Pulse Oximetry 98 100 97 Oxygen Delivery Room Air 07/12/22 03:19 07/12/22 05:17 07/12/22 09:30 Temperature 36.8 C Pulse Rate 65 Respiratory Rate 18 Blood Pressure 107/53 L 115/55 L Pulse Oximetry 97 Oxygen Delivery Room Air 07/12/22 09:40 07/12/22 10:03 07/12/22 10:16 Temperature 36.6 C Pulse Rate 72 71 67 Respiratory Rate 20 Blood Pressure 97/57 L 121/64 Pulse Oximetry Oxygen Delivery 07/12/22 10:20 07/12/22 10:40 07/12/22 11:00 Temperature Pulse Rate 67 65 84 Respiratory Rate Blood Pressure 131/74 120/69 128/76 Pulse Oximetry Oxygen Delivery 07/12/22 11:20 07/12/22 11:40 07/12/22 12:00 Temperature Pulse Rate 68 66 65 Respiratory Rate Blood Pressure 97/64 L 100/66 129/69 Pulse Oximetry Oxygen Delivery 07/12/22 12:20 Temperature Pulse Rate 65 Respiratory Rate Blood Pressure 128/71 Pulse Oximetry Oxygen Delivery Intake/Output Intake/Output: Intake & Output 07/09/22 07/10/22 07/11/22 07/12/22 23:59 23:59 23:59 23:59 Intake Total 1548 1910 490 Balance 1548 1910 490 Meds/Results Medications: Active Medications Generic Name Dose Route Start Last Admin Trade Name Freq PRN Reason Stop Dose Admin Allopurinol 400 mg 07/11/22 09:00 07/12/22 09:38 Allopurinol 100 Mg Tablet PO 400 mg QAM PAVITHRA Administration Apixaban 5 mg 07/11/22 09:00 07/12/22 09:35 Apixaban 5 Mg Tablet PO 5 mg Q12HR PAVITHRA Administration Aspirin 81 mg 07/11/22 08:00 07/12/22 09:35 Aspirin 81 Mg Chewable Tablet PO 81 mg DAILY@0800 PAVITHRA Administration Atorvastatin Calcium 80 mg 07/11/22 18:00 07/11/22 17:13 Atorvastatin 40 Mg Tablet PO 80 mg QPM PAVITHRA Administration Clopidogrel Bisulfate 75 mg 07/11/22 09:00 07/12/22 09:39 Clopidogrel Bisulfate 75 Mg Tablet PO 75 mg DAILY PAVITHRA Administration Dextrose 12.5 gm 07/11/22 19:33 Dextrose 50% 25 Gm/50 Ml Syringe IV PUSH PRN PRN Hypoglycemia Protocol Ezetimibe 10 mg 07/11/22 09:00 07/12/22 09:39 Ezetimibe 10 Mg Tablet PO 10 mg DAILY PAVITHRA Administration Gabapentin 600 mg 07/11/22 09:00 07/12/22 09:35 Gabapentin 300 Mg Capsule PO 600 mg DAILY PAVITHRA Adminis
[2022-07-12] MEDS: CEFEPIME 0.5 GM in DEXTROSE 5% IN WATER 50 ML IVPB (14:28)
--- NOTE | 2022-07-12 16:23 | PM.DS ---
DS: Admitting Diagnosis Discharge Date 07/12/22 Admitting Diagnosis Left 2nd and 3rd toe wound DS: Discharge Diagnosis Discharge Diagnosis (1) Cellulitis of left toe: Code(s): L03.032 - Cellulitis of left toe Status: Acute Assessment and Plan: The patient presented to the emergency department today for evaluation of blister-like wounds on the tip of the left 2nd and 3rd toe which appear to have ruptured, now with crusting (no drainage on exam today), erythema, and edema. While it appears that this is a mild cellulitis, he has a history of necrotizing fasciitis and multiple comorbidities (dialysis catheter, recent knee implant, diabetes, on immunosuppressants) which put him at risk for a poor outcome if not treated. cefepime, metronidazole, and vancomycin continued. Dr. Toni Lester, the patient's economic developer, and the wound nurse have been consulted for recommendations. Blood cultures pending. Consider surgical consult if patient worsens. Will monitor for disease progression 07/12/22 Dr. Johnson consulted and appreciate recommendations. See note for more specifics. Vascular surgery consult as an outpatient recommended due to abnormal SHYLA Continue IV antibiotics Blood cultures no growth today (2) End-stage renal disease on hemodialysis: Code(s): N18.6 - End stage renal disease; Z99.2 - Dependence on renal dialysis Status: Acute Assessment and Plan: He is due for dialysis on Monday and Dr. Hernandez will need to be contacted if he is here past tomorrow. Nephrology consulted Dialysis Monday (3) Insulin dependent type 2 diabetes mellitus: Onset Date: Unknown Code(s): E11.9 - Type 2 diabetes mellitus without complications; Z79.4 - penitentiary (current) use of insulin Status: Chronic Assessment and Plan: Patient on home insulin pump hypogycemic protacols Accu-Cheks a.c. HS (4) Hypertension: Code(s): I10 - Essential (primary) hypertension Status: Chronic Assessment and Plan: Continue home med Monitor (5) Paroxysmal atrial fibrillation: Code(s): I48.0 - Paroxysmal atrial fibrillation Status: Chronic Assessment and Plan: Continue Eliquis (6) Coronary artery disease: Code(s): I25.10 - Atherosclerotic heart disease of [place] coronary artery without angina pectoris Status: Acute Assessment and Plan: SHYLA: Nondiagnostic right SHYLA, normal left SHYLA. Patient's previous x-ray redemonstrated arterial calcifications which may cause over estimation of ABIs. Decreased TBIs consistent with arterial occlusive disease Vascular surgery referral as an outpatient DS: Summary Hospital Course Reason for hospitalization: Left 2nd and 3rd toe wound Hospital Course: 77-year-old male with insulin-dependent diabetes, Charcot foot, necrotizing fasciitis requiring right toe amputation, coronary artery disease, paroxysmal atrial fibrillation on anticoagulation, chronic renal failure, and other comorbidities who presented to the emergency department for evaluation of left toe wounds. The patient provides the following history. He has had a rough 5 months (three-vessel CABG in January 2022 with prolonged hospitalization complicated by acute renal failure for which he is currently on dialysis). Receives dialysis on Monday. He and his finally had an opportunity to go on vacation and they were recently in [place]. Within the last several days he noticed some wounds at the tip of the left 2nd and 3rd toes and he assumes that they developed due to ill-fitting shoes and walking more than usual while out of town. He and his have been meticulous about cleaning the area and keeping them dry. The last several days they have noticed redness and swelling around the tips of the toes surrounding what sounds like a small blisters. The blisters must have popped as h
--- NOTE | 2022-07-19 08:56 | PC.NURSE ---
Blood cx are negative.
== END 2022-07-12 16:50 | disposition home or self-care (01) | DRG 638 ==
LOC: ANHED 11:58 → ANH3MEDSUR 13:06
PROVIDERS: Internal Medicine Nephrology; Physician Assistant; Admitting Provider Family Medicine; Emergency Provider Emergency Medicine; PCP Registered Nurse; Visit Provider Internal Medicine Critical Care Medicine
DX: E11.628 Type 2 diabetes mellitus with other skin complications (principal); I12.0 Hypertensive chronic kidney disease with stage 5 chronic kidney disease or end stage renal disease; L03.032 Cellulitis of left toe; N18.6 End stage renal disease; E11.42 Type 2 diabetes mellitus with diabetic polyneuropathy; E11.22 Type 2 diabetes mellitus with diabetic chronic kidney disease; E11.51 Type 2 diabetes mellitus with diabetic peripheral angiopathy without gangrene; I77.9 Disorder of arteries and arterioles, unspecified; I48.0 Paroxysmal atrial fibrillation; I25.10 Atherosclerotic heart disease of native coronary artery without angina pectoris; E78.5 Hyperlipidemia, unspecified; E66.9 Obesity, unspecified; M06.9 Rheumatoid arthritis, unspecified; M10.9 Gout, unspecified; G47.33 Obstructive sleep apnea (adult) (pediatric); Z20.822 Contact with and (suspected) exposure to COVID-19; Z96.652 Presence of left artificial knee joint; Z99.2 Dependence on renal dialysis; Z95.5 Presence of coronary angioplasty implant and graft; Z95.1 Presence of aortocoronary bypass graft; Z79.02 Long term (current) use of antithrombotics/antiplatelets; Z79.01 Long term (current) use of anticoagulants; Z79.4 Long term (current) use of insulin; Z79.60 Long term (current) use of unspecified immunomodulators and immunosuppressants; Z89.421 Acquired absence of other right toe(s); Z86.010 Personal history of colon polyps
CPT/HCPCS: 36415; 73630; 80048; 80053; 82948; 83036; 83605; 83735; 85025; 85027; 85610; 85730; 86140; 86706; 87040; 87340; 87517; 87636; 93922; 96365; 96366; 96367; 96368; 99285; A9270; G0257; G0378; J0692; J1644; J3370; J7030

== ENCOUNTER → 2022-11-21 14:30 | Outpatient (CLI) | payer MEDICARE, SELFPAY ==
--- NOTE | ~2022-11-21 | XR_ITS ---
EXAMINATION: XR chest 2V DATE: 11/21/2022 15:00 INDICATION: Shortness of breath. Cough. TECHNIQUE: Frontal and lateral views of the chest were obtained. COMPARISON: Chest single view 01/12/2020, CT abdomen and pelvis 09/04/2021 FINDINGS: There are mild airspace opacities in left mid and lower lung zones. There is a small locula luna left pleural effusion. No pneumothorax. The heart size is normal. Median sternotomy wires and med iastinal surgical clips are seen, likely from prior coronary artery bypass grafting. A left internal jugular central venous catheter is seen with tip in the right atrium. IMPRESSION: 1. Mild airspace opacities in left mid and lower lung zones, consistent with atelectasis/scarring armand rubén pneumonia. 2. Small loculated left pleural effusion. Reviewed, dictated and finalized at location A. IMPRESSION: 1. Mild airspace opacities in left mid and lower lung zones, consistent with at electasis/scarring versus pneumonia. 2. Small loculated left pleural effusion.
== END ==
PROVIDERS: PCP Registered Nurse; Visit Provider Nurse Practitioner
DX: R06.02 Shortness of breath (principal); R91.8 Other nonspecific abnormal finding of lung field; J90 Pleural effusion, not elsewhere classified
CPT/HCPCS: 71046

== ENCOUNTER 2022-11-29 11:53 | Outpatient (CLI) | payer MEDICARE, SELFPAY ==
--- NOTE | ~2022-11-29 | CT_ITS ---
EXAMINATION: CT diagnostic chest wo con DATE: 11/29/2022 12:19 INDICATION: Shortness of breath TECHNIQUE: Computed tomography (CT) of the chest was performed without intravenous contrast. The dose -length product (DLP) was 617.36 mGy-cm. Automated exposure control and iterative reconstruction tech Diet4[employer] were employed. COMPARISON: None FINDINGS: There is a small left pleural effusion with a loculated component. A few scattered pulmonar y nodules are identified which measure up to 4 mm in the right lower lobe. Calcified pulmonary nodule s and calcified right hilar and mediastinal lymph nodes are consistent with old granulomatous disease . There is mild atelectasis in the left mid and lower lung zones. Mild bilateral gynecomastia is note d. No pathologically enlarged thoracic lymph nodes are identified. The heart size is normal. A large bore left internal jugular catheter ends with its tip in the proximal right atrium. Median sternotom y wires and mediastinal surgical clips are seen from prior coronary artery bypass grafting. The gallb ladder is surgically absent. There are bridging osteophytes at multiple levels in the spine, consiste nt with diffuse idiopathic skeletal hyperostosis (DISH). IMPRESSION: 1. Small left pleural effusion with loculation. 2. Mild atelectasis. Reviewed, dictated and finalized at location A.
== END 2022-11-29 11:54 | disposition home or self-care (01) ==
PROVIDERS: PCP Registered Nurse; Visit Provider Nurse Practitioner
DX: R06.02 Shortness of breath (principal); J90 Pleural effusion, not elsewhere classified; J98.11 Atelectasis
CPT/HCPCS: 71250

== ENCOUNTER 2022-11-29 15:06 | Inpatient (IN) | payer MEDICARE, SELFPAY ==
--- NOTE | ~2022-11-29 | XR_ITS ---
EXAMINATION: [id number] DATE: 11/30/22 INDICATION: Left pleural effusion status post thoracentesis. TECHNIQUE: Frontal and lateral views of the chest were obtained. COMPARISON: Chest 2 views 11/21/2022, chest CT 11/29/2022 FINDINGS: There is a small loculated left pleural effusion. There is mild atelectasis in left mid and lower lung zones. No pneumothorax. The heart size is normal. Median sternotomy wires and mediastinal surgical clips are seen, likely from prior coronary artery bypass grafting. There is a left internal jugular central venous catheter with tip in right atrium. IMPRESSION: 1. Mild atelectasis in left mid and lower lung zones. 2. Small loculated left pleural effusion. Reviewed, dictated and finalized at location A.
--- NOTE | ~2022-11-29 | US_ITS ---
EXAMINATION: US thoracentesis DATE: 11/30/2022 22:13 INDICATION: pleural effusion TECHNIQUE: The procedure and its risks, benefits, and alternatives were discussed with the patient. P otential risks discussed included bleeding, infection, and pneumothorax. The patient understood the r isks and agreed to proceed. The skin was prepped and draped in sterile fashion. 1% lidocaine was used for local anesthesia. Under ultrasound guidance, a 5 Fr catheter with trochar was advanced into the left pleural effusion. Fluid was aspirated. The catheter was removed, and a dressing was applied. The re were no immediate complications. FINDINGS: Ultrasound images demonstrate a left pleural effusion and the catheter within the fluid. IMPRESSION: 1. Successful ultrasound-guided thoracentesis yielding 50 mL of kathryn-colored fluid. Reviewed, dictated and finalized at location A.
[2022-11-29 15:12] VITALS: BP 128/75; PULSE 84; RESP 13; TEMP 36.7; O2SAT 97
--- NOTE | 2022-11-29 15:17 | ECG_ITS ---
Measurements Intervals [place] Rate: 86 P: 64 IL: 182 QRS: 14 QRSD: 98 T: 62 QT: 318 QTc: 381 Interpretive Statements SINUS RHYTHM POSSIBLE INFERIOR MYOCARDIAL INFARCTION , OF INDETERMINATE AGE [30 ms Q WAVE IN II/aVF] COMPARED TO ECG 05/30/2022 13:38:55 NO SIGNIFICANT CHANGES Electronically Signed On 11-29-2022 17:12:23 CDT by Bobby Grijalva M.D.
[2022-11-29 15:32] VITALS: BP 105/58; PULSE 80; RESP 17; O2SAT 98
[2022-11-29 15:34] LABS: Basophils Absolute Auto 0.1 K/mm3 (0.0-0.1); Basophils Percent Auto 0.7 % (0.2-1.2); Eosinophils Absolute Auto 0.2 K/mm3 (0-0.3); Eosinophils Percent Auto 1.7 % (0-4.4); Hematocrit 41.4 % (42.0-52.0); Hemoglobin 13.6 g/dL (14.0-18.0); Immature Granulocyte Absolute 0.09 K/mm3 (0.00-0.031); Immature Granulocyte Percent A 0.7 % (0-0.5); Lymphocytes Absolute Auto 1.86 K/mm3 (0.9-3.2); Lymphocytes Percent Auto 13.9 % (18.3-44.2); Mean Corpuscular HGB Conc 32.9 g/dl (32-36); Mean Corpuscular Hemoglobin 31.3 pg (26-34); Mean Corpuscular Volume 95.2 fl (80-100); Mean Platelet Volume 9.5 fl (7.4-10.4); Monocytes Absolute Auto 1.3 K/mm3 (0.1-0.6); Monocytes Percent Auto 9.7 % (2.6-8.5); Neutrophils Absolute Auto 9.8 K/mm3 (1.3-6.7); Neutrophils Percent Auto 73.3 % (45.5-73.1); Platelet Count Result 274 k/mm3 (150-375); Red Blood Count 4.35 M/mm3 (4.6-6.20); Red Cell Distribution Width 14.3 % (11.5-14.5); White Blood Count 13.4 K/mm3 (4.5-10.0)
[2022-11-29 15:42] LABS: Alanine Aminotransferase 24 U/L (6-50); Albumin Level 4.3 g/dL (3.5-5.1); Alkaline Phosphatase 84 U/L (38-126); Anion Gap 11 mmol/L (8-16); Aspartate Amino Transferase 23 U/L (17-59); Bilirubin,Total 0.8 mg/dL (0.2-1.3); Blood Urea Nitrogen 43 mg/dL (9-20); Calcium 9.9 mg/dL (8.4-10.2); Carbon Dioxide 27 mmol/L (22-30); Chloride 100 mmol/L (98-107); Estimated CRCL calculation 22 ml/min; Estimated Glomerular Filt Rate 18; Glucose 97 mg/dL (65-110); Lactic Acid Reflex 2.1 mmol/L (0.7-2.0); Potassium 4.5 mmol/L (3.4-5.0); Sodium 138 mmol/L (137-145)
[2022-11-29 15:45] LABS: Partial Thromboplastin Time 25.5 SECONDS (22.3-36.8); Prothrombin Time 14.1 Seconds (11.1-14.7)
--- NOTE | 2022-11-29 16:03 | ED.SOB ---
HPI - SOB/Dyspnea General Chief Complaint: Shortness of Breath/Dyspnea Stated Complaint: SOB, pneumonia Time Seen by Provider: 11/29/22 15:19 History of Present Illness HPI Narrative: 77yoM has been having several weeks of coughing, has had antibiotics including a Z-Chema and a big white pill his doctor ordered a CT that showed a small pleural effusion with loculations, and told him to go to the hospital. Related Data Home Medications Medication Instructions Recorded Confirmed allopurinol 300 mg tablet 400 mg PO QAM 08/12/19 09/28/22 benazepril 20 mg tablet 20 mg PO DAILY 08/12/19 09/28/22 cinnamon bark 500 mg capsule 1,000 mg PO DAILY 08/17/19 09/28/22 clopidogrel 75 mg tablet 75 mg PO DAILY 10/07/19 09/28/22 carvedilol 25 mg tablet 6.25 mg PO Q12H 01/12/20 09/28/22 leflunomide 20 mg tablet 40 mg PO DAILY 01/12/20 09/28/22 atorvastatin 80 mg tablet 80 mg PO QPM 04/10/20 09/28/22 cholecalciferol (vitamin D3) 75 3,000 unit PO DAILY 04/10/20 09/28/22 mcg (3,000 unit) tablet hydroxychloroquine 200 mg tablet 200 mg PO BID 02/03/21 09/28/22 nitroglycerin 0.4 mg sublingual 0.4 mg sublingual Q5M PRN Chest 03/09/22 09/28/22 tablet Pain Adults Multivitamin 1 tablet PO BID 05/27/22 09/28/22 apixaban 5 mg tablet (Eliquis) 5 mg PO BID 05/27/22 09/28/22 ascorbic acid (vitamin C) 1,000 mg 1,000 mg PO DAILY 05/27/22 09/28/22 tablet furosemide 80 mg tablet 80 mg PO DAILY 05/27/22 09/28/22 metoprolol tartrate 25 mg tablet 12.5 mg PO DAILY 05/27/22 09/28/22 tamsulosin 0.4 mg capsule 0.4 mg PO DAILY 05/27/22 09/28/22 zinc 50 mg PO DAILY 05/27/22 09/28/22 acetaminophen 650 mg tablet 650 mg PO Q4H PRN pain 07/10/22 09/28/22 indapamide 2.5 mg tablet 2.5 mg PO DAILY 07/10/22 09/28/22 insulin lispro 100 unit/mL 1 sliding scale dose subcut 07/10/22 09/28/22 subcutaneous pen USEASDIRECTD isosorbide mononitrate 30 mg 30 mg PO DAILY 07/10/22 09/28/22 tablet,extended release 24 hr ketoconazole 2 % topical cream 1 applic topical DAILY 07/10/22 09/28/22 sennosides 8.6 mg-docusate sodium 1 tab-cap PO HS PRN constipation 07/10/22 09/28/22 50 mg tablet Allergies Allergy/AdvReac Type Severity Reaction Status Date / Time No Known Allergies Allergy Unknown Verified 09/28/22 08:29 Review of Systems Review of Systems: CONST: No fever. HEENT: No sore throat C/V: Slight irritation with cough RESP: cough GI: No abdominal pain : No dysuria. M/S: No joint pain. SKIN: No rash. NEURO: [No headache or focal numbness or weakness] PSYCH: [No depression] [facility] Past Medical History Medical History (Updated 11/29/22 @ 16:34 by Felicia Valdivia MD) Arthritis Chronic anticoagulation Coronary artery disease STEMI 08/17/2019. History of multiple stents. Status post 3 vessel bypass in January 2022. 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) use of other immunomodulators and immunosuppressants Deborah-Segovia tear (08/2021) Obesity Obstructive sleep apnea on CPAP Paroxysmal atrial fibrillation Rheumatoid arthritis Surgical History Surgical History History of amputation of toe History of arthroscopy of left knee History of cardiac catheterization History of cardioversion History of cataract extraction with lens replacement History of colonoscopy with polypectomy History of coronary artery bypass graft x 3 (01/2022) History of coronary artery stent placement x4 History of esophagogastroduodenoscopy History of foot surgery History of laparoscopic cholecystectomy (01/2022) History of total left knee replacement Family History Family History Other Adopted Social History Social History Social History: Surrogate saira
--- NOTE | 2022-11-29 16:15 | PC.NURSE ---
spoke with Lisa from [facility] and she states she spoke with radiologist and they would like patient to be off his eliquis for 24 hours prior to procedure. provider made aware
[2022-11-29 16:40] LABS: Glucose Point of Care 67 mg/dl (65-105)
--- NOTE | 2022-11-29 16:47 | PC.NURSE ---
Spoke with Mary in regards to patient diet before midnight and ER okayed for patient to be on diabetic diet until NPO tonight.
--- NOTE | 2022-11-29 16:58 | PM.IMHP ---
H&P: HPI History of Present Illness Date/Time: 11/29/22 18:00 Chief Complaint: Shortness of breath. Narrative: This a 77-year-old male with insulin-dependent diabetes, end-stage renal disease on hemodialysis, coronary artery disease, paroxysmal atrial fibrillation on anticoagulation, peripheral arterial disease, rheumatoid arthritis on immunosuppressants, and other comorbidities who presented to the emergency department at the direction of his primary care provider for evaluation of shortness of breath. The patient provides the following history. He reports a cough for the last several weeks and he completed two courses of antibiotics (Z-Chema and Augmentin) and a prednisone taper. Unfortunately his cough has lingered and it is productive of yellowish sputum. He continues to have some shortness of breath with exertion as well. He was sent for a CT of the chest today which showed a small left pleural effusion with loculation and was directed to the emergency department for further workup. On arrival to the ED he was afebrile with stable vital signs. Pertinent labs include a WBC count of 13.4 and lactic acid of 2.1. In the ED he was given a dose of ceftriaxone, metronidazole, and vancomycin and he is being admitted in this setting for diagnostic thoracentesis tomorrow (he took apixaban today). At the time my evaluation he has no specific complaints. He denies fever, chills, sweats, headache, sinus congestion, sore throat, chest pain, pleuritic pain, nausea, vomiting, and diarrhea. Review of Systems Review of Systems: Twelve systems were reviewed and are negative except for as per HPI. [facility] Past Medical History Medical History (Updated 11/29/22 @ 17:00 by Kassi Tamayo PA-C) Arthritis Chronic anticoagulation Coronary artery disease STEMI 08/17/2019. History of multiple stents. Status post 3 vessel bypass in January 2022. COVID-19 (12/2019) Diabetic peripheral neuropathy End-stage renal disease on hemodialysis Gout Hyperlipidemia Hypertension Insulin dependent type 2 diabetes mellitus senior care (current) use of other immunomodulators and immunosuppressants Deborah-Segovia tear (08/2021) Obesity Obstructive sleep apnea on CPAP Paroxysmal atrial fibrillation Peripheral arterial occlusive disease Rheumatoid arthritis Surgical History Surgical History History of amputation of toe History of arthroscopy of left knee History of cardiac catheterization History of cardioversion History of cataract extraction with lens replacement History of colonoscopy with polypectomy History of coronary artery bypass graft x 3 (01/2022) History of coronary artery stent placement x4 History of esophagogastroduodenoscopy History of foot surgery History of laparoscopic cholecystectomy (01/2022) History of total left knee replacement Family History Family History Other Adopted Social History Social History Social History: Surrogate decision maker: Amanda Navarro, spouse. Code status: Full code. Smoking status: Never smoker Second hand tobacco smoke exposure: No Alcohol intake: never Substance use: never Substance use type: does not use Lack of Transportation: No Lack of Food: Never True Current Housing: I Have Housing Concerned About Future Housing: No Difficulty Paying Gas/Electric Bills: No Difficulty Paying for Meds: No Currently Unemployed: No Education: Bachelor's Degree Difficulty w/ Childcare or Family Care: No Additional living arrangements comments: Lives with spouse in [place]. 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 Spiritual care concerns: No Agree to blood products: Yes Meds Home Medications and Allergies Home Medications Medication Instructions Recorded Confirmed Type allopur
[2022-11-29 17:44] VITALS: BMI 35.6
--- NOTE | 2022-11-29 17:48 | PC.NURSE ---
This patient, Erickson Navarro, was admitted to Medical Room 341-01. Patient/family oriented to hospital policies and general routines including ID bracelet, bed and alarms, visiting hours, pain management, procedures, bathroom and other care routines, personal items, smoking policy, room service/diet, and visiting hours. Information on how to activate the Rapid Response Team has been discussed. Patient/Family are encouraged to report perceived risks to care and to ask questions if they do not understand what they are told or what they should do.
--- NOTE | 2022-11-29 18:12 | PC.NURSE ---
Patient is unsure of medications. can bring list from home, but not until tomorrow 11/30/2022.
[2022-11-29 18:18] VITALS: BP 122/58; PULSE 77; RESP 16; TEMP 36.5; O2SAT 98
[2022-11-29] MEDS: metroNIDAZOLE 500 MG/ISO 100ML 500 MG/100 ML BAG 100 MG IVPB (18:31)
[2022-11-29 18:34] LABS: Reflex Lactic Acid Yes or No Add Lactic
[2022-11-29 18:42] LABS: Amylase 76 U/L (30-110); Bilirubin,Total 0.7 mg/dL (0.2-1.3); Cholesterol 101 mg/dL (0-200); Triglycerides 177 mg/dL (<150)
[2022-11-29 19:46] LABS: Lactic Acid 1.9 mmol/L (0.7-2.0)
[2022-11-29 20:55] VITALS: BP 134/68; PULSE 74; RESP 18; TEMP 36.9; O2SAT 97
[2022-11-29 21:03] LABS: Glucose Point of Care 244 mg/dl (65-105)
[2022-11-29] MEDS: CEFEPIME 1 GM/NS 50 ML 1 GM/50 ML BAG IVPB (21:09)
[2022-11-29] MEDS: INSULIN ASPART (*BKC) 100 UNITS/ML SUB-Q (21:09)
[2022-11-30 12:10] LABS: Glucose Point of Care 189 mg/dl (65-105)
--- NOTE | 2022-11-30 12:21 | CONS_ITS ---
HISTORY OF PRESENT ILLNESS The patient is a very pleasant 77-year-old gentleman who has multiple medical problems including hypertension, end-stage renal disease, on dialysis 3 times a week, renal osteodystrophy, anemia of chronic kidney disease. ?The patient was out of town for a while and developed pneumonia. ?He received antibiotics for that. ?He came back in [facility], but was so weak. ?He skipped 3 rounds of dialysis. ?A week after go back in [facility], he came back to [place] to do a treatment. ?I believe that was about 10 days ago. ?He has been coming to treatments ever since then. ?He has had a persistent cough. ?Yesterday, the patient's cough got worse and he developed some nausea and vomiting and so came to the ER. ?In the ER, he got a chest x-ray, which showed a pleural effusion and infiltrate on the left lower area and so he was admitted. ?He was given antibiotics last night. ?He feels about the same this morning, although he is not as nauseated. ?The patient is going to get a thoracentesis this afternoon and then dialysis. PAST MEDICAL HISTORY As above. SOCIAL HISTORY He does not smoke or drink. REVIEW OF SYSTEMS He denies any skin rash, joint pains, or swelling. ?No ENT or neurologic issues. ?No endocrine issues. ?No psychiatric issues. ?No chest pain or palpitations or fainting. ?PULMONARY: ?As above. ?No constipation, diarrhea or belly pain. ?No urologic issue. ?He is still making about a urine. PHYSICAL EXAMINATION GENERAL: ?He is a well-developed, well-nourished gentleman, lying in the hospital bed, in no acute distress. VITAL SIGNS: ?Blood pressure 134/68, respiratory rate 18, pulse 97, temperature is 98.4. SKIN: ?Warm and dry. ?No rash. ?No subcu nodules. HEAD: ?Normocephalic, atraumatic. EYES: ?No sclerae and conjunctivae. MOUTH: ?Normal lips and gums. NECK: ?No nodes or thyromegaly. BACK: ?No CVA tenderness. LUNGS: ?Symmetric. ?He has increased expiratory phase and some rhonchi at both bases. ?Decreased breath sounds at the left base. HEART: ?Regular rate and rhythm. ?No rub or gallop. ABDOMEN: ?Bowel sounds are positive. ?Soft, nontender. ?No HSM. ?No masses. ?No bruits. EXTREMITIES: ?No cyanosis, clubbing, or edema. PSYCH: ?The patient is calm and comfortable, not anxious or depressed. NEURO: ?He is alert and oriented x3. ?Motor is 5/5. ?Cranial nerves 2 through 12 intact. ?Reflexes 2+ and equal in the biceps and patellar tendons. ?Cerebellar, normal rapid alternating movements. LABORATORY DATA Lactic acid 1.9, calcium 9.9, hemoglobin 13.6, platelet count 224, white count 13.4. ?Sodium 138, potassium 4.5, chloride 69, CO2 27, glucose 97, BUN 43, creatinine 3.4. IMPRESSION The patient has end-stage renal disease. ?He will get dialysis later today.? The patient's volume status looks okay. ?I am not going to take any fluid off. ?His potassium was only 4.5, so we will do a 3K bath.? The patient has pneumonia. ?He is getting antibiotics for this. ?He is also on inhalers and other supportive care.? The patient has had anemia in the past. ?His hemoglobin is pretty good today at 13.6. ?He might be a little dehydrated, but he is eating and drinking.? Renal osteodystrophy. ?We will check a renal panel in the morning.? Thank you very much. MIRIAM
[2022-11-30 12:38] LABS: Glucose Point of Care 173 mg/dl (65-105)
--- NOTE | 2022-11-30 18:47 | PC.NURSE ---
Paper documentation exists on this patient due to [employer] [facility] downtime on 11/30/22 from [id number] to [id number]
[2022-11-30 20:15] VITALS: PULSE 74; O2SAT 97
[2022-11-30 21:31] VITALS: BP 139/64; PULSE 88; RESP 18; TEMP 36.8; O2SAT 97
[2022-11-30] MEDS: VANCOMYCIN 1,250 MG/NS 250 ML 1,250 MG/250 ML BAG 166.67 MG IVPB (21:31)
[2022-11-30] MEDS: APIXABAN 5 MG TABLET PO (21:32)
[2022-11-30] MEDS: GABAPENTIN 300 MG CAPSULE 600 MG PO (21:32)
[2022-11-30 22:06] LABS: Glucose Point of Care 248 mg/dl (65-105)
[2022-11-30 22:30] VITALS: PULSE 86; O2SAT 97
[2022-11-30] MEDS: metroNIDAZOLE 500 MG/ISO 100ML 500 MG/100 ML BAG 100 MG IVPB (22:30)
[2022-11-30] MEDS: CEFEPIME 1 GM/NS 50 ML 1 GM/50 ML BAG IVPB (23:13)
[2022-12-01 05:12] VITALS: BP 101/73; PULSE 78; RESP 18; TEMP 36.1; O2SAT 98
[2022-12-01] MEDS: metroNIDAZOLE 500 MG/ISO 100ML 500 MG/100 ML BAG 100 MG IVPB ×3 (05:12→21:22)
[2022-12-01 06:14] LABS: Anion Gap 6 mmol/L (8-16); Blood Urea Nitrogen 27 mg/dL (9-20); Calcium 8.4 mg/dL (8.4-10.2); Carbon Dioxide 32 mmol/L (22-30); Chloride 97 mmol/L (98-107); Estimated CRCL calculation 26 ml/min; Estimated Glomerular Filt Rate 22; Glucose 176 mg/dL (65-110); Potassium 4.1 mmol/L (3.4-5.0); Sodium 135 mmol/L (137-145)
[2022-12-01 08:12] LABS: Glucose Point of Care 156 mg/dl (65-105)
[2022-12-01] MEDS: APIXABAN 5 MG TABLET PO ×2 (08:46→20:48)
[2022-12-01] MEDS: ASPIRIN 81 MG CHEWABLE TABLET PO (08:46)
[2022-12-01] MEDS: lisinopriL 10 MG TABLET PO (08:46)
[2022-12-01] MEDS: EZETIMIBE 10 MG TABLET PO (08:46)
[2022-12-01] MEDS: GABAPENTIN 300 MG CAPSULE 600 MG PO (08:46)
[2022-12-01] MEDS: ATORVASTATIN 40 MG TABLET 80 MG PO (08:47)
[2022-12-01] MEDS: allopurinoL 100 MG TABLET PO (08:47)
--- NOTE | 2022-12-01 09:11 | PM.IMPN ---
Progress Note: A&P Assessment and Plan (1) Pleural effusion on left: Code(s): J90 - Pleural effusion, not elsewhere classified Status: Acute (2) History of recent pneumonia: Code(s): Z87.01 - Personal history of pneumonia (recurrent) Status: Acute (3) End-stage renal disease on hemodialysis: Code(s): N18.6 - End stage renal disease; Z99.2 - Dependence on renal dialysis Status: Acute (4) Insulin dependent type 2 diabetes mellitus: Code(s): E11.9 - Type 2 diabetes mellitus without complications; Z79.4 - oysterman (current) use of insulin Status: Chronic (5) Paroxysmal atrial fibrillation: Code(s): I48.0 - Paroxysmal atrial fibrillation Status: Chronic (6) Chronic anticoagulation: Code(s): Z79.01 - alf (current) use of anticoagulants Status: Acute (7) Obstructive sleep apnea on CPAP: Code(s): G47.33 - Obstructive sleep apnea (adult) (pediatric); Z99.89 - Dependence on other enabling machines and devices Status: Acute (8) Rheumatoid arthritis: Code(s): M06.9 - Rheumatoid arthritis, unspecified Status: Acute (9) alf (current) use of other immunomodulators and immunosuppressants: Code(s): Z79.69 - alf (current) use of other immunomodulators and immunosuppressants Status: Acute Plan Parapneumonic effusion with small loculated left pleural effusion treated with Augmentin and Z-Chema for presumed pneumonia. Persistent shortness of breath and cough On vancomycin Flagyl and metronidazole MRSA screen is negative. Will stop vancomycin. Status post diagnostic thoracentesis culture pending Rheumatoid arthritis on immunosuppressants Insert renal disease on hemodialysis Type 2 diabetes on insulin Paroxysmal atrial fibrillation on Eliquis Subjective Date/time seen: 12/01/22 09:11 Interval history: Presented with several weeks of coughing CT chest showed small pleural effusion with loculation. Mild leukocytosis on admission. With neutrophilia. Started on vancomycin metronidazole and Flagyl. Creatinine of 3.4 with elevated lactic acid. On Eliquis at home. Underlying diabetes mellitus on insulin. Has underlying end-stage renal disease on hemodialysis Monday coronary artery disease status post CABG peripheral vascular disease status post left leg angioplasty. JAZMYNE, hypertension, peripheral neuropathy. Charcot foot right toe amputation. Proximal atrial fibrillation on anticoagulation. Rheumatoid arthritis on immunosuppressants. Leflunomide and hydroxychloroquine Status post thoracentesis 12/01/2022 50 mL of kathryn colored fluid drained Sputum culture specimen unacceptable Blood culture x2 negative 12/01/2022 he feels great cough has improved since the tap. Wants to go home Review of Systems Review of Systems: All systems reviewed & are unremarkable except as noted in HPI and below Exam Narrative: General: Well-developed, nontoxic-appearing male in the semi-Rothman position in bed. HEENT: PERRL, EOMI. Sclera anicteric. Oral mucosa moist. Neck: Supple. Respiratory: Respirations are nonlabored. Clear to auscultation bilaterally Cardiovascular: Regular rate and rhythm with S1-S2. Gastrointestinal: Abdomen is soft, protuberant, nontender, and nondistended with positive bowel sounds. Skin: Warm and dry. No rash or lesions on limited exam. Extremities: No cyanosis, clubbing, or edema. Radial and pedal pulses intact. Neurological: Alert. Cranial nerves 2-12 are grossly intact. No gross focal deficits to casual conversation. Psychiatric: Pleasant and cooperative with normal mood and affect. Objective Data Vital Signs Vital Signs: Vital Signs - 24 hr 11/30/22 20:15 11/30/22 20:15 11/30/22 21:31 Temperature 98.2 F Pulse Rate 74 88 Respiratory Rate 18 Blood Pressure 139/64 Pulse Oximetry 97 97 Oxygen Delivery CPAP Room Air Fraction of Inspired Oxygen 06
[2022-12-01 09:34] LABS: pH Pleural Fluid 7.324 (7.210-7.500)
[2022-12-01 09:40] LABS: Basophils Absolute Auto 0.1 K/mm3 (0.0-0.1); Basophils Percent Auto 1.1 % (0.2-1.2); Eosinophils Absolute Auto 0.4 K/mm3 (0-0.3); Eosinophils Percent Auto 3.7 % (0-4.4); Hematocrit 40.1 % (42.0-52.0); Hemoglobin 12.6 g/dL (14.0-18.0); Immature Granulocyte Absolute 0.11 K/mm3 (0.00-0.031); Lymphocytes Absolute Auto 1.42 K/mm3 (0.9-3.2); Lymphocytes Percent Auto 13.3 % (18.3-44.2); Mean Corpuscular HGB Conc 31.4 g/dl (32-36); Mean Corpuscular Hemoglobin 30.9 pg (26-34); Mean Corpuscular Volume 98.3 fl (80-100); Mean Platelet Volume 9.9 fl (7.4-10.4); Monocytes Absolute Auto 1.3 K/mm3 (0.1-0.6); Monocytes Percent Auto 12.4 % (2.6-8.5); Neutrophils Absolute Auto 7.3 K/mm3 (1.3-6.7); Neutrophils Percent Auto 68.5 % (45.5-73.1); Platelet Count Result 232 k/mm3 (150-375); Red Blood Count 4.08 M/mm3 (4.6-6.20); Red Cell Distribution Width 14.5 % (11.5-14.5); White Blood Count 10.7 K/mm3 (4.5-10.0)
--- NOTE | 2022-12-01 11:34 | PM.PNNEP ---
Progress Note: A&P Assessment and Plan (1) End stage renal disease: Code(s): N18.6 - End stage renal disease Status: Acute Assessment and Plan: the patient has end-stage renal disease. He dialyzes on Wednesdays and Fridays. His volume status looks good he makes lots of urine. His creatinine has not been low enough to come off dialysis lately. Continue to try to see if he can come off dialysis in the future. But right now since he has pneumonia I think we need to continue dialysis 3 times a week to be sure he is getting all the kidney poisons off. (2) Pneumonia: Code(s): J18.9 - Pneumonia, unspecified organism Status: Acute Assessment and Plan: He is on antibiotics now. A thoracentesis yesterday. Most of the tests are pending. The pH looked okay (3) JAZMYNE (obstructive sleep apnea): Code(s): G47.33 - Obstructive sleep apnea (adult) (pediatric) Status: Acute (4) HTN (hypertension): Code(s): I10 - Essential (primary) hypertension Status: Chronic Assessment and Plan: the patient has hypertension. Blood pressure is under good control (5) Diabetes: Qualifiers: Diabetes mellitus type: type 2 Diabetes mellitus roasterman insulin use: without senior care use Diabetes mellitus complication status: with kidney complications Diabetes mellitus complication detail: with chronic kidney disease Chronic kidney disease stage: stage 3 (moderate) Chronic kidney disease stage 3 subtype: stage 3b (GFR 30-44) Qualified Code(s): E11.22 - Type 2 diabetes mellitus with diabetic chronic kidney disease; N18.32 - Chronic kidney disease, stage 3b Code(s): E11.9 - Type 2 diabetes mellitus without complications Status: Chronic Assessment and Plan: management per ho (6) Hyperlipidemia: Code(s): E78.5 - Hyperlipidemia, unspecified Status: Acute Assessment and Plan: he takes atorvastatin Subjective Date/time seen: 12/01/22 11:34 Interval history: Erickson is feeling better today. Less of a cough and no shortness of breath. He is eager for discharge Review of Systems Cardiovascular: Cardiovascular: Reports no additional cardiovascular complaints Respiratory: Respiratory: Reports no additional respiratory complaints Gastrointestinal: Gastrointestinal: Reports no additional gastrointestinal complaints Genitourinary: Genitourinary: Reports no additional male genitourinary complaints Exam Narrative: WDWN in NAD skin no rash head ncat lungs minimally coarse at the bases cor reg no rub abd BS+ nontender and soft ext no edema. Objective Data Vital Signs Vital Signs: Vital Signs - 24 hr 11/30/22 20:15 11/30/22 20:15 11/30/22 21:31 Temperature 98.2 F Pulse Rate 74 88 Respiratory Rate 18 Blood Pressure 139/64 Pulse Oximetry 97 97 Oxygen Delivery CPAP Room Air Fraction of Inspired Oxygen 12/01/22 05:12 11/30/22 22:30 12/01/22 04:04 Temperature 97 F L Pulse Rate 78 86 Respiratory Rate 18 Blood Pressure 101/73 Pulse Oximetry 98 97 Oxygen Delivery CPAP CPAP Fraction of Inspired Oxygen 12/01/22 08:45 Temperature Pulse Rate Respiratory Rate Blood Pressure Pulse Oximetry Oxygen Delivery Room Air Fraction of Inspired Oxygen Intake/Output Intake/Output: Intake & Output 11/28/22 11/29/22 11/30/22 12/01/22 23:59 23:59 23:59 23:59 Intake Total 100 400 440 Balance 100 400 440 Meds/Results Medications: Active Medications Generic Name Dose Route Start Last Admin Trade Name Freq PRN Reason Stop Dose Admin Acetaminophen 650 mg 11/29/22 17:06 Acetaminophen 325 Mg Tablet PO Q6H PRN Mild Pain (1-3) or Fever Allopurinol 100 mg 12/01/22 08:00 12/01/22 08:47 Allopurinol 100 Mg Tablet PO 100 mg DAILY@0800 PAVITHRA Administration Apixaban 5 mg 11/30/22 21:00 12/01/22 08:46 Apixaban 5 Mg Table
[2022-12-01 12:09] LABS: Glucose Point of Care 263 mg/dl (65-105)
[2022-12-01] MEDS: INSULIN ASPART (*BKC) 100 UNITS/ML SUB-Q ×3 (12:24→20:54)
[2022-12-01 12:33] LABS: Hematocrit 38.5 % (42.0-52.0); Hemoglobin 12.2 g/dL (14.0-18.0); INR 1.1; Mean Corpuscular Volume 97.7 fl (80-100); Red Blood Count 3.94 M/mm3 (4.6-6.20); White Blood Count 11.4 K/mm3 (4.5-10.0)
[2022-12-01 12:34] LABS: Hemoglobin A1C 6.5 % (<5.7); Mean Corpuscular HGB Conc 31.7 g/dl (32-36); Platelet Count Result 215 k/mm3 (150-375); Red Cell Distribution Width 14.2 % (11.5-14.5)
[2022-12-01 12:35] LABS: Pleural fluid source Pleural fluid
[2022-12-01 12:36] LABS: Appearance Pleural Fluid Cloudy (Clear); Color Pleural Fluid Red (Colorless); Lymphocytes Pleural Fluid 94 %; Monocytes Pleural Fluid 3 %; Neutrophils Pleural Fluid 3 % (0-25); Nucleated Cell Pleural Fluid 316 /uL (0-1000); RBC Pleural Fluid 40000 /uL (0-0)
[2022-12-01 14:00] VITALS: BP 105/71; PULSE 83; RESP 16; TEMP 36.7; O2SAT 98
[2022-12-01 16:49] LABS: Glucose Point of Care 336 mg/dl (65-105)
[2022-12-01 20:42] VITALS: BP 112/46; PULSE 71; RESP 18; TEMP 36.6; O2SAT 99
[2022-12-01] MEDS: CEFEPIME 1 GM/NS 50 ML 1 GM/50 ML BAG IVPB (20:48)
[2022-12-01 21:00] LABS: Glucose Point of Care 213 mg/dl (65-105)
[2022-12-02] VITALS (16 sets, daily range): BP systolic 118–140; BP diastolic 48–82; PULSE 61–79; RESP 16–18; TEMP 35.6–37; O2SAT 96–100
[2022-12-02 04:45] LABS: Pneumococcal Antigen Urine Not Detected (Not Detected)
[2022-12-02] MEDS: metroNIDAZOLE 500 MG/ISO 100ML 500 MG/100 ML BAG 100 MG IVPB (05:12)
[2022-12-02 05:49] LABS: Hematocrit 37.9 % (42.0-52.0); Hemoglobin 11.7 g/dL (14.0-18.0); Mean Corpuscular HGB Conc 30.9 g/dl (32-36); Mean Corpuscular Hemoglobin 31.1 pg (26-34); Mean Corpuscular Volume 100.8 fl (80-100); Mean Platelet Volume 9.8 fl (7.4-10.4); Platelet Count Result 184 k/mm3 (150-375); Red Blood Count 3.76 M/mm3 (4.6-6.20); Red Cell Distribution Width 14.3 % (11.5-14.5); White Blood Count 9.9 K/mm3 (4.5-10.0)
[2022-12-02 06:00] LABS: Alanine Aminotransferase 20 U/L (6-50); Albumin Level 3.6 g/dL (3.5-5.1); Alkaline Phosphatase 76 U/L (38-126); Anion Gap 5 mmol/L (8-16); Aspartate Amino Transferase 22 U/L (17-59); Bilirubin,Total 0.6 mg/dL (0.2-1.3); Blood Urea Nitrogen 41 mg/dL (9-20); Calcium 8.5 mg/dL (8.4-10.2); Carbon Dioxide 31 mmol/L (22-30); Chloride 99 mmol/L (98-107); Estimated CRCL calculation 19 ml/min; Estimated Glomerular Filt Rate 15; Glucose 167 mg/dL (65-110); Magnesium 2.1 mg/dL (1.6-2.3); Phosphorus 4.3 mg/dL (2.5-4.5); Sodium 135 mmol/L (137-145)
[2022-12-02 06:12] LABS: Vancomycin Random 8.5 ug/mL (10-20)
[2022-12-02] MEDS: INSULIN ASPART (*BKC) 100 UNITS/ML SUB-Q (08:29)
[2022-12-02 08:45] LABS: Glucose Point of Care 222 mg/dl (65-105)
--- NOTE | 2022-12-02 09:38 | PC.NURSE ---
Pt to dialysis via bed at 0930.
--- NOTE | 2022-12-02 12:02 | PM.PNNEP ---
Progress Note: A&P Assessment and Plan (1) End stage renal disease: Code(s): N18.6 - End stage renal disease Status: Acute Assessment and Plan: the patient has end-stage renal disease. He dialyzes on Wednesdays and Fridays. he is getting dialysis today. His creatinine before dialysis jumped up from 2.8-3.9. This is a reflection of his good muscle mass. After he is done with the pneumonia and its treatment we can get a 24hour urine again as an outpatient. He is okay for discharge from the kidney standpoint. (2) Pneumonia: Code(s): J18.9 - Pneumonia, unspecified organism Status: Acute Assessment and Plan: He is on antibiotics now. Still awaiting final results of the thoracentesis. (3) JAZMYNE (obstructive sleep apnea): Code(s): G47.33 - Obstructive sleep apnea (adult) (pediatric) Status: Acute (4) HTN (hypertension): Code(s): I10 - Essential (primary) hypertension Status: Chronic Assessment and Plan: the patient has hypertension. Blood pressure is under good control ; systolic ranging between 100 and 130 for the most part (5) Diabetes: Qualifiers: Diabetes mellitus type: type 2 Diabetes mellitus terminal makeup operator insulin use: without fpc use Diabetes mellitus complication status: with kidney complications Diabetes mellitus complication detail: with chronic kidney disease Chronic kidney disease stage: stage 3 (moderate) Chronic kidney disease stage 3 subtype: stage 3b (GFR 30-44) Qualified Code(s): E11.22 - Type 2 diabetes mellitus with diabetic chronic kidney disease; N18.32 - Chronic kidney disease, stage 3b Code(s): E11.9 - Type 2 diabetes mellitus without complications Status: Chronic Assessment and Plan: management per ho (6) Hyperlipidemia: Code(s): E78.5 - Hyperlipidemia, unspecified Status: Acute Assessment and Plan: he takes atorvastatin Subjective Date/time seen: 12/02/22 12:02 Interval history: Erickson is in good spirits today. He is eager for discharge. He has been walking the halls and feels strong. He has not been coughing anymore. He has had no fevers. He is on antibiotics. Right now he is on dialysis. He is tolerating this well. He was seen at 10:30 a.m. Exam Narrative: WDWN in NAD skin no rash or subcu nodules head ncat lungs fairly clear cor reg no rub abd BS+ nontender and soft ext no edema. Objective Data Vital Signs Vital Signs: Vital Signs - 24 hr 12/01/22 14:00 12/01/22 20:42 12/02/22 05:14 Temperature 98.1 F 97.8 F 97.1 F L Pulse Rate 83 71 61 Respiratory Rate 16 18 18 Blood Pressure 105/71 112/46 L 128/69 Pulse Oximetry 98 99 100 Oxygen Delivery 12/02/22 08:00 Temperature Pulse Rate Respiratory Rate Blood Pressure Pulse Oximetry Oxygen Delivery Room Air Intake/Output Intake/Output: Intake & Output 11/29/22 11/30/22 12/01/22 12/02/22 23:59 23:59 23:59 23:59 Intake Total 416 387 8151 830 Balance 763 309 0069 830 Meds/Results Medications: Active Medications Generic Name Dose Route Start Last Admin Trade Name Freq PRN Reason Stop Dose Admin Acetaminophen 650 mg 11/29/22 17:06 Acetaminophen 325 Mg Tablet PO Q6H PRN Mild Pain (1-3) or Fever Allopurinol 100 mg 12/01/22 08:00 12/01/22 08:47 Allopurinol 100 Mg Tablet PO 100 mg DAILY@0800 PAVITHRA Administration Apixaban 5 mg 11/30/22 21:00 12/01/22 20:48 Apixaban 5 Mg Tablet PO 5 mg Q12HR PAVITHRA Administration Aspirin 81 mg 12/01/22 08:00 12/01/22 08:46 Aspirin 81 Mg Chewable Tablet PO 81 mg DAILY@0800 PAVITHRA Administration Atorvastatin Calcium 80 mg 12/01/22 09:00 12/01/22 08:47 Atorvastatin 40 Mg Tablet PO 80 mg DAILY PAVITHRA Administration Dextrose 12.5 gm 11/29/22 17:06 Dextrose 50% 25 Gm/50 Ml Syringe IV PUSH PRN PRN Hypoglycemia Protocol
--- NOTE | 2022-12-02 13:06 | PM.DS ---
DS: Admitting Diagnosis Discharge Date 12/02/2022 Admitting Diagnosis Pneumonia DS: Discharge Diagnosis Discharge Diagnosis (1) Pleural effusion on left: Code(s): J90 - Pleural effusion, not elsewhere classified Status: Acute (2) History of recent pneumonia: Code(s): Z87.01 - Personal history of pneumonia (recurrent) Status: Acute (3) End-stage renal disease on hemodialysis: Code(s): N18.6 - End stage renal disease; Z99.2 - Dependence on renal dialysis Status: Acute (4) Insulin dependent type 2 diabetes mellitus: Code(s): E11.9 - Type 2 diabetes mellitus without complications; Z79.4 - superintendent container terminal (current) use of insulin Status: Chronic (5) Paroxysmal atrial fibrillation: Code(s): I48.0 - Paroxysmal atrial fibrillation Status: Chronic (6) Chronic anticoagulation: Code(s): Z79.01 - [facility] (current) use of anticoagulants Status: Acute (7) Obstructive sleep apnea on CPAP: Code(s): G47.33 - Obstructive sleep apnea (adult) (pediatric); Z99.89 - Dependence on other enabling machines and devices Status: Acute (8) Rheumatoid arthritis: Code(s): M06.9 - Rheumatoid arthritis, unspecified Status: Acute (9) superintendent container terminal (current) use of other immunomodulators and immunosuppressants: Code(s): Z79.69 - [facility] (current) use of other immunomodulators and immunosuppressants Status: Acute DS: Summary Hospital Course Hospital Course: Parapneumonic effusion with small loculated left pleural effusion treated with Augmentin and Z-Chema for presumed pneumonia.? Persistent shortness of breath and cough. Treated with vancomycin Flagyl and metronidazole. MRSA screen is negative.? Status post diagnostic thoracentesis culture pending however minimal collection to be able to culture. PH was normal. Patient's symptoms resolved after the tap. To cover for potential bacteria will switch antibiotics to oral metronidazole Levaquin and doxycycline. Doxycycline to cover for MRSA. The MRSA screen was negative. His WBC count did improve to normal during the hospital course. Rheumatoid arthritis on immunosuppressants Insert renal disease on hemodialysis Type 2 diabetes on insulin Paroxysmal atrial fibrillation on Eliquis Time Spent with Patient Time attestation: Total time spent providing and/or coordinating discharge services: 40 minutes Exam Narrative: General: Well-developed, nontoxic-appearing male in the semi-Rothman position in bed. HEENT: PERRL, EOMI. Sclera anicteric. Oral mucosa moist. Neck: Supple. Respiratory: Respirations are nonlabored. Clear to auscultation bilaterally Cardiovascular: Regular rate and rhythm with S1-S2. Gastrointestinal: Abdomen is soft, protuberant, nontender, and nondistended with positive bowel sounds. Skin: Warm and dry. No rash or lesions on limited exam. Extremities: No cyanosis, clubbing, or edema. Radial and pedal pulses intact. Neurological: Alert. Cranial nerves 2-12 are grossly intact. No gross focal deficits to casual conversation. Psychiatric: Pleasant and cooperative with normal mood and affect. DS: Data Data Completed and Pending Completed studies during hospitalization: Pending at discharge 11/29/22 17:09 Cytology [PTH] Routine Labs on day of discharge: Labs from last 24 hours 12/02/22 12/02/22 12/01/22 08:26 05:14 20:47 WBC 9.9 RBC 3.76 L Hgb 11.7 L Hct 37.9 L MCV 100.8 H MCH 31.1 MCHC 30.9 L RDW 14.3 Plt Count 184 MPV 9.8 Sodium 135 L Potassium 4.0 Chloride 99 Carbon Dioxide 31 H Anion Gap 5 L BUN 41 H D Creatinine 3.90 H Estim Creat Clear Calc 19 Estimated GFR 15 L Glucose 167 H POC Capillary Glucose 222 H 213 H Calcium 8.5 Phosphorus 4.3 Magnesium 2.1 Total Bilirubin 0.6 AST 22 ALT 20 Alkaline Phosphatase 76 Total Protein 7.0 Albumin 3.6 Random Vanc
[2022-12-02] MEDS: VANCOMYCIN 1,250 MG/NS 250 ML 1,250 MG/250 ML BAG 166.67 MG IVPB (13:50)
[2022-12-02] MEDS: GABAPENTIN 300 MG CAPSULE 600 MG PO (13:52)
[2022-12-02] MEDS: APIXABAN 5 MG TABLET PO (13:52)
[2022-12-02] MEDS: allopurinoL 100 MG TABLET PO (13:52)
[2022-12-02] MEDS: EZETIMIBE 10 MG TABLET PO (13:52)
[2022-12-02] MEDS: lisinopriL 10 MG TABLET PO (13:52)
[2022-12-02] MEDS: ASPIRIN 81 MG CHEWABLE TABLET PO (13:52)
[2022-12-02] MEDS: ATORVASTATIN 40 MG TABLET 80 MG PO (13:52)
[2022-12-02 15:05] LABS: Mycoplasma IgM Antibody Titer 6 U/mL (<770)
[2022-12-03 05:56] LABS: Legionella pneumophila Ag Ur Not Detected (Not Detected)
== END 2022-12-02 15:55 | disposition home or self-care (01) | DRG 186 ==
LOC: ANHED 15:42 → ANH3MED 16:27
PROVIDERS: Physician Assistant; Admitting Provider Hospitalist; Emergency Provider Emergency Medicine; PCP Registered Nurse; Visit Provider Internal Medicine
DX: J90 Pleural effusion, not elsewhere classified (principal); N18.6 End stage renal disease; I12.0 Hypertensive chronic kidney disease with stage 5 chronic kidney disease or end stage renal disease; E11.22 Type 2 diabetes mellitus with diabetic chronic kidney disease; E11.42 Type 2 diabetes mellitus with diabetic polyneuropathy; E78.5 Hyperlipidemia, unspecified; G47.33 Obstructive sleep apnea (adult) (pediatric); E66.9 Obesity, unspecified; I48.0 Paroxysmal atrial fibrillation; I73.9 Peripheral vascular disease, unspecified; I25.10 Atherosclerotic heart disease of native coronary artery without angina pectoris; M06.9 Rheumatoid arthritis, unspecified; Z87.01 Personal history of pneumonia (recurrent); Z99.2 Dependence on renal dialysis; Z79.4 Long term (current) use of insulin; Z79.01 Long term (current) use of anticoagulants; I25.2 Old myocardial infarction; Z95.5 Presence of coronary angioplasty implant and graft; Z68.33 Body mass index [BMI] 33.0-33.9, adult; Z86.16 Personal history of COVID-19; Z95.1 Presence of aortocoronary bypass graft; Z98.49 Cataract extraction status, unspecified eye; Z96.1 Presence of intraocular lens; Z90.49 Acquired absence of other specified parts of digestive tract; Z96.652 Presence of left artificial knee joint; Z89.429 Acquired absence of other toe(s), unspecified side; Z79.69 Long term (current) use of other immunomodulators and immunosuppressants
CPT/HCPCS: 32555; 36415; 71250; 80048; 80053; 80202; 82150; 82247; 82465; 82948; 83036; 83605; 83735; 83986; 84100; 84155; 84478; 85025; 85027; 85610; 85730; 86738; 87040; 87070; 87081; 87205; 87449; 87899; 88108; 88184; 88305; 89051; 93005; 96365; 96375; 99285; A9270; G0257; G0378; J0692; J0696; J1644; J1815; J3370; J7030

== ENCOUNTER 2022-12-12 11:55 | Outpatient (CLI) | payer MEDICARE, SELFPAY ==
--- NOTE | ~2022-12-12 | XR_ITS ---
Clinical Indication: Pleural effusion PA and lateral views of the chest: Comparison: 11/21/2022 Findings: Left-sided central venous line is unchanged. Minimal left pleural effusion probably present . Probable minimal left basilar pulmonary edema or atelectasis. Right lung clear. Cardiomediastinal silhouette is stable, status post CABG. Bones and soft tissues are unremarkable. Impression: Minimal left pleural effusion and probable mild left basilar pulmonary edema/atelectasis. Stable support line, as above. Reviewed, dictated and finalized at location . Impression: Minimal left pleural effusion and probable mild left basilar pulmonary edema/at electasis. Stable support line, as above.
== END 2022-12-12 11:56 | disposition home or self-care (01) ==
PROVIDERS: PCP Registered Nurse; Visit Provider Internal Medicine
DX: J90 Pleural effusion, not elsewhere classified (principal)
CPT/HCPCS: 71046

== ENCOUNTER 2023-07-14 15:26 | Inpatient (IN) | payer MEDICARE, SELFPAY ==
[2023-07-14] VITALS (17 sets, daily range): BP systolic 111–136; BP diastolic 45–63; PULSE 63–73; RESP 14–22; TEMP 36.3–36.5; O2SAT 98–100; BMI 37.7
--- NOTE | ~2023-07-14 | XR_ITS ---
XR chest 1V portable 07/14/2023 15:53 Indication: Chest pain with exertion Procedure: AP portable chest Comparison: Comparison to multiple prior studies sequentially, with oldest reviewed study dated . Findings: Status post median sternotomy for CABG. Cardiomegaly. Mild interstitial edema. Chronic scar ring left mid thorax. No significant effusion or pneumothorax. Impression: 1: Cardiomegaly with interstitial edema. Reviewed, dictated and finalized at location [facility] Impression: 1: Cardiomegaly with interstitial edema.
--- NOTE | 2023-07-14 15:31 | ECG_ITS ---
Measurements Intervals [place] Rate: 73 P: 50 [place]: 215 QRS: 16 QRSD: 109 T: 28 QT: 411 QTc: 455 Interpretive Statements SINUS RHYTHM WITH SINUS ARRHYTHMIA WITH FIRST DEGREE AV BLOCK DELAYED PRECORDIAL R/S TRANSITION INFERIOR INFARCT, AGE INDETERMINATE BASELINE WANDER- V3 ABNORMAL ECG COMPARED TO ECG 11/29/2022 15:15:13 SINUS ARRHYTHMIA NOW PRESENT FIRST DEGREE AV BLOCK NOW PRESENT Electronically Signed On 07-14-2023 16:04:30 REHABILITATION THERAPY AIDE by Philippe Abdi D.O.
[2023-07-14 15:59] LABS: Basophils Absolute Auto 0.1 K/mm3 (0.0-0.1); Basophils Percent Auto 0.6 % (0.2-1.2); Eosinophils Absolute Auto 0.2 K/mm3 (0-0.3); Eosinophils Percent Auto 1.5 % (0-4.4); Hematocrit 35.3 % (42.0-52.0); Hemoglobin 11.3 g/dL (14.0-18.0); Immature Granulocyte Absolute 0.05 K/mm3 (0.00-0.031); Immature Granulocyte Percent A 0.4 % (0-0.5); Lymphocytes Absolute Auto 1.27 K/mm3 (0.9-3.2); Lymphocytes Percent Auto 10.8 % (18.3-44.2); Mean Platelet Volume 9.6 fl (7.4-10.4); Monocytes Absolute Auto 1.3 K/mm3 (0.1-0.6); Monocytes Percent Auto 10.6 % (2.6-8.5); Neutrophils Percent Auto 76.1 % (45.5-73.1); Platelet Count Result 203 k/mm3 (150-375); Red Blood Count 3.64 M/mm3 (4.6-6.20); Red Cell Distribution Width 13.2 % (11.5-14.5); White Blood Count 11.8 K/mm3 (4.5-10.0)
[2023-07-14] MEDS: ASPIRIN 81 MG CHEWABLE TABLET 324 MG PO (16:11)
--- NOTE | 2023-07-14 16:11 | PC.NURSE ---
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 243mg Aspirin administered.
[2023-07-14 16:12] LABS: INR 1.1; Prothrombin Time 14.9 Seconds (11.1-14.7)
[2023-07-14 16:13] LABS: Partial Thromboplastin Time 31.3 SECONDS (22.3-36.8)
[2023-07-14 16:16] LABS: Alanine Aminotransferase 11 U/L (6-50); Albumin Level 4.2 g/dL (3.5-5.1); Alkaline Phosphatase 81 U/L (38-126); Anion Gap 12 mmol/L (8-16); Aspartate Amino Transferase 20 U/L (17-59); Bilirubin,Total 1.1 mg/dL (0.2-1.3); Blood Urea Nitrogen 41 mg/dL (9-20); Calcium 9.1 mg/dL (8.4-10.2); Carbon Dioxide 30 mmol/L (22-30); Chloride 94 mmol/L (98-107); Estimated CRCL calculation 18 ml/min; Estimated Glomerular Filt Rate 14; Glucose 209 mg/dL (65-110); Lipase 87 U/L (23-300); Potassium 3.8 mmol/L (3.4-5.0); Sodium 136 mmol/L (137-145)
[2023-07-14 16:34] LABS: Troponin I 0.223 ng/mL (0.000-0.034)
--- NOTE | 2023-07-14 16:44 | ED.CHESTPAIN ---
HPI - Chest Pain General Chief Complaint: Chest Pain Stated Complaint: chest pain Time Seen by Provider: 07/14/23 15:50 History of Present Illness HPI narrative: Patient is a 78-year-old male who presents ER with chest pain. Is been increasing in frequency over last 2 weeks. He walked up 13 steps and had the sensation of an elephant sitting on his chest. He took a nitro and it improved. Had similar symptoms will trying to tie a shoe earlier today. He gets dialysis 3 days a week and had his full dialysis today. No fevers or chills or sweats. Had 3 vessel bypass 14 months ago. Patient is also had stenting of his right lower extremity and his heart. He is compliant with home medications. He sees Dr. Apodaca. Related Data Home Medications Medication Instructions Recorded Confirmed allopurinol 300 mg tablet 400 mg PO QAM 08/12/19 05/16/23 benazepril 20 mg tablet 20 mg PO DAILY 08/12/19 05/16/23 cinnamon bark 500 mg capsule 1,000 mg PO DAILY 08/17/19 05/16/23 clopidogrel 75 mg tablet 75 mg PO DAILY 10/07/19 05/16/23 carvedilol 25 mg tablet 6.25 mg PO Q12H 01/12/20 05/16/23 leflunomide 20 mg tablet 40 mg PO DAILY 01/12/20 05/16/23 atorvastatin 80 mg tablet 80 mg PO QPM 04/10/20 05/16/23 cholecalciferol (vitamin D3) 75 3,000 unit PO DAILY 04/10/20 05/16/23 mcg (3,000 unit) tablet hydroxychloroquine 200 mg tablet 200 mg PO BID 02/03/21 05/16/23 nitroglycerin 0.4 mg sublingual 0.4 mg sublingual Q5M PRN Chest 03/09/22 05/16/23 tablet Pain Adults Multivitamin 1 tablet PO BID 05/27/22 05/16/23 apixaban 5 mg tablet (Eliquis) 5 mg PO BID 05/27/22 05/16/23 ascorbic acid (vitamin C) 1,000 mg 1,000 mg PO DAILY 05/27/22 05/16/23 tablet furosemide 80 mg tablet 80 mg PO DAILY 05/27/22 05/16/23 metoprolol tartrate 25 mg tablet 12.5 mg PO DAILY 05/27/22 05/16/23 tamsulosin 0.4 mg capsule 0.4 mg PO DAILY 05/27/22 05/16/23 zinc 50 mg PO DAILY 05/27/22 05/16/23 acetaminophen 650 mg tablet 650 mg PO Q4H PRN pain 07/10/22 05/16/23 insulin lispro 100 unit/mL 1 sliding scale dose subcut 07/10/22 05/16/23 subcutaneous pen USEASDIRECTD isosorbide mononitrate 30 mg 30 mg PO DAILY 07/10/22 05/16/23 tablet,extended release 24 hr ketoconazole 2 % topical cream 1 applic topical DAILY 07/10/22 05/16/23 sennosides 8.6 mg-docusate sodium 1 tab-cap PO HS PRN constipation 07/10/22 05/16/23 50 mg tablet Allergies Allergy/AdvReac Type Severity Reaction Status Date / Time No Known Allergies Allergy Unknown Verified 05/16/23 09:13 Review of Systems Review of Systems: All systems reviewed & are unremarkable except as noted in HPI and below Constitutional: Constitutional: Reports no additional constitutional complaints ENT: Reports system reviewed and no additional complaints, except as documented Cardiovascular: Cardiovascular: Reports chest pain, Denies rapid heart rate, Denies radiating jaw, neck or arm pain and Denies slow heart rate Respiratory: Respiratory: Reports no additional respiratory complaints Gastrointestinal: Gastrointestinal: Reports no additional gastrointestinal complaints Genitourinary: Genitourinary: Reports no additional male genitourinary complaints [facility] Past Medical History Medical History Arthritis Chronic anticoagulation Coronary artery disease STEMI 08/17/2019. History of multiple stents. Status post 3 vessel bypass in January 2022. 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
[2023-07-14] MEDS: HEPARIN SOD/D5W 100 UNITS/ML 25,000 UNITS/250 ML BAG 10 UNITS IV CONT (17:14)
[2023-07-14] MEDS: HEPARIN SODIUM 5,000 UNITS/ML VIAL 4000 UNITS IV PUSH (17:15)
--- NOTE | 2023-07-14 18:31 | ECG_ITS ---
Measurements Intervals [place] Rate: 65 P: AL: 0 QRS: 24 QRSD: 105 T: 12 QT: 390 QTc: 407 Interpretive Statements SINUS RHYTHM LOW QRS VOLTAGE IN PRECORDIAL LEADS CONSIDER ANTERIOR INFARCT, AGE INDETERMINATE INFERIOR INFARCT, AGE INDETERMINATE BASELINE ARTIFACT- I, II, III, AVR, AVL, AVF ABNORMAL ECG COMPARED TO ECG 07/14/2023 16:00:26 NO SIGNIFICANT CHANGES Electronically Signed On 07-14-2023 21:11:29 INDEX CLERK by Philippe Abdi D.O.
--- NOTE | 2023-07-14 19:27 | PC.NURSE ---
Unable to except report upon ED RN calling due to care coordination. Pt arrived to the room on a stretcher. Staff at bedside upon entering. The pt is denying distress. Heparin gtt infusing at 10. Report given to Sandy RN et rate verified. Fall precautions noted et intact. Call light in reach. No manifestations of distress noted.
--- NOTE | 2023-07-14 19:52 | ADMGEN ---
This patient, Erickson Navarro, was admitted to IMU Room 205-02 on 07/14/23 at 1856. Patient/family oriented to hospital policies and general routines including ID bracelet, bed and alarms, visiting hours, pain management, procedures, bathroom and other care routines, personal items, smoking policy, room service/diet, and visiting hours. Pt arrived to unit with a heparin gtt running at 10ml/hr. Heparin gtt verified with previous RN, Becky. Information on how to activate the Rapid Response Team has been discussed. Patient/Family are encouraged to report perceived risks to care and to ask questions if they do not understand what they are told or what they should do.
[2023-07-14 20:04] LABS: Troponin I 0.243 ng/mL (0.000-0.034)
--- NOTE | 2023-07-14 20:18 | PM.IMHP ---
H&P: HPI History of Present Illness Date/Time: 07/14/23 18:30 Chief Complaint: Chest pain. Narrative: This is a very pleasant 78-year-old male with insulin-dependent diabetes, Charcot foot, necrotizing fasciitis requiring right toe amputation, coronary artery disease, paroxysmal atrial fibrillation, end-stage renal disease on hemodialysis, and other comorbidities who presented to the emergency department for evaluation of chest pain. Over the last couple of weeks he has had intermittent episodes of left anterior chest discomfort ?like an elephant is sitting on there.? It seems to be occurring more so with exertion but today he noticed the discomfort even when getting dressed. Symptoms are just like those he experienced prior to requiring stents and ultimate bypass. Nitroglycerin helps. He denies associated nausea, vomiting, and sweats. He is currently without discomfort. EKG done on arrival did not show any significant changes compared to prior tracings. Initial troponin was elevated at 0.223 and he has been started on a heparin drip at the request of Cardiology. He is being admitted in this setting for close monitoring. Of note he had angioplasty of the right lower extremity on Monday but he admits that at that time he did not tell the vascular surgeon about the chest discomfort he had been having. Review of Systems Review of Systems: Twelve systems were reviewed and are negative except for as per HPI. [facility] Past Medical History Medical History (Updated 07/14/23 @ 23:39 by Kassi Tamayo PA-C) Arthritis Coronary artery disease STEMI 08/17/2019. History of multiple stents. Status post 3 vessel bypass in January 2022. 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 of other immunomodulators and immunosuppressants Deborah-Segovia tear (08/2021) Obesity Obstructive sleep apnea on CPAP Paroxysmal atrial fibrillation Peripheral arterial occlusive disease Rheumatoid arthritis Surgical History Surgical History History of amputation of toe History of arthroscopy of left knee History of cardiac catheterization History of cardioversion History of cataract extraction with lens replacement History of colonoscopy with polypectomy History of coronary artery bypass graft x 3 (01/2022) History of coronary artery stent placement x4 History of esophagogastroduodenoscopy History of foot surgery History of laparoscopic cholecystectomy (01/2022) History of total left knee replacement Family History Family History Other Adopted Social History Social History Social History: Surrogate decision maker: Amanda Navarro, spouse. Code status: Full code. Smoking status: Never smoker Second hand tobacco smoke exposure: Yes (As a child.) Alcohol intake: never Substance use: never Substance use type: does not use Do You Feel Safe in your Home?: Yes Lack of Transportation: No Lack of Food: Never True Current Housing: I Have Housing Concerned About Future Housing: No Difficulty Paying Gas/Electric Bills: No Difficulty Paying for Meds: No Currently Unemployed: No Education: Bachelor's Degree Difficulty w/ Childcare or Family Care: No Additional living arrangements comments: Lives with spouse in [place]. 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 Spiritual care concerns: No Agree to blood products: Yes Meds Home Medications and Allergies Home Medications Medication Instructions Recorded Confirmed Type allopurinol 300 mg tablet 400 mg PO QAM 08/12/19 07/14/23 History cinnamon bark 500 mg capsule 1,000 mg PO DAILY 08/17/19 07/14/23 History clopidogrel 75 mg tabl
[2023-07-14 22:44] LABS: MRSA (PCR) NOT DETECTED (NOT DETECTE)
[2023-07-14 23:31] LABS: Basophils Absolute Auto 0.1 K/mm3 (0.0-0.1); Basophils Percent Auto 0.7 % (0.2-1.2); Eosinophils Absolute Auto 0.3 K/mm3 (0-0.3); Eosinophils Percent Auto 2.7 % (0-4.4); Hematocrit 32.7 % (42.0-52.0); Hemoglobin 10.3 g/dL (14.0-18.0); Immature Granulocyte Absolute 0.04 K/mm3 (0.00-0.031); Immature Granulocyte Percent A 0.4 % (0-0.5); Lymphocytes Absolute Auto 2.01 K/mm3 (0.9-3.2); Lymphocytes Percent Auto 18.6 % (18.3-44.2); Mean Corpuscular HGB Conc 31.5 g/dl (32-36); Mean Corpuscular Hemoglobin 30.7 pg (26-34); Mean Corpuscular Volume 97.6 fl (80-100); Mean Platelet Volume 9.9 fl (7.4-10.4); Monocytes Absolute Auto 1.4 K/mm3 (0.1-0.6); Monocytes Percent Auto 13.2 % (2.6-8.5); Neutrophils Absolute Auto 6.9 K/mm3 (1.3-6.7); Neutrophils Percent Auto 64.4 % (45.5-73.1); Platelet Count Result 182 k/mm3 (150-375); Red Blood Count 3.35 M/mm3 (4.6-6.20); Red Cell Distribution Width 13.2 % (11.5-14.5); White Blood Count 10.8 K/mm3 (4.5-10.0)
[2023-07-15] VITALS (15 sets, daily range): BP systolic 117–131; BP diastolic 52–63; PULSE 61–74; RESP 18–20; TEMP 36–36.3; O2SAT 93–100
[2023-07-15 00:08] LABS: INR 1.2; Partial Thromboplastin Time 50.6 SECONDS (22.3-36.8); Prothrombin Time 15.3 Seconds (11.1-14.7)
[2023-07-15] MEDS: HEPARIN SODIUM 5,000 UNITS/ML VIAL 4000 UNITS IV PUSH (00:15)
[2023-07-15 01:09] LABS: Troponin I 0.256 ng/mL (0.000-0.034)
--- NOTE | 2023-07-15 05:24 | ECG_ITS ---
Measurements Intervals [place] Rate: 62 P: 143 TN: 213 QRS: 165 QRSD: 116 T: 176 QT: 410 QTc: 419 Interpretive Statements SINUS RHYTHM WITH FIRST DEGREE AV BLOCK ARM LEADS REVERSED INTRAVENTRICULAR CONDUCTION DELAY BORDERLINE R WAVE PROGRESSION, ANTERIOR LEADS INFERIOR INFARCT, AGE INDETERMINATE ABNORMAL ECG COMPARED TO ECG 07/14/2023 18:35:48 FIRST DEGREE AV BLOCK NOW PRESENT Electronically Signed On 07-15-2023 6:52:47 HEARING HEALTH TECHNICIAN by Philippe Abdi D.O.
--- NOTE | 2023-07-15 05:41 | PC.NURSE ---
Pt C/O midsternal chest pressure 3/10 upon waking. No associated symptoms. Stat EKG obtained and placed in chart. Pt's chest pressure resolved spontaneously by the time the EKG was completed. VS remains stable. notified.
[2023-07-15 06:01] LABS: Glucose Point of Care 194 mg/dl (65-105)
[2023-07-15 06:29] LABS: Basophils Absolute Auto 0.1 K/mm3 (0.0-0.1); Eosinophils Absolute Auto 0.3 K/mm3 (0-0.3); Eosinophils Percent Auto 3.1 % (0-4.4); Hemoglobin 10.8 g/dL (14.0-18.0); Immature Granulocyte Absolute 0.05 K/mm3 (0.00-0.031); Immature Granulocyte Percent A 0.5 % (0-0.5); Lymphocytes Absolute Auto 1.83 K/mm3 (0.9-3.2); Lymphocytes Percent Auto 16.8 % (18.3-44.2); Mean Corpuscular HGB Conc 31.8 g/dl (32-36); Mean Corpuscular Hemoglobin 30.9 pg (26-34); Mean Corpuscular Volume 97.4 fl (80-100); Mean Platelet Volume 9.3 fl (7.4-10.4); Monocytes Absolute Auto 1.5 K/mm3 (0.1-0.6); Monocytes Percent Auto 13.3 % (2.6-8.5); Neutrophils Absolute Auto 7.1 K/mm3 (1.3-6.7); Neutrophils Percent Auto 65.3 % (45.5-73.1); Platelet Count Result 177 k/mm3 (150-375); Red Blood Count 3.49 M/mm3 (4.6-6.20); Red Cell Distribution Width 13.2 % (11.5-14.5); White Blood Count 10.9 K/mm3 (4.5-10.0)
[2023-07-15 06:45] LABS: Partial Thromboplastin Time 87.1 SECONDS (22.3-36.8)
[2023-07-15 06:52] LABS: Anion Gap 11 mmol/L (8-16); Blood Urea Nitrogen 52 mg/dL (9-20); Calcium 9.1 mg/dL (8.4-10.2); Carbon Dioxide 27 mmol/L (22-30); Chloride 97 mmol/L (98-107); Estimated CRCL calculation 14 ml/min; Estimated Glomerular Filt Rate 10; Glucose 193 mg/dL (65-110); Magnesium 2.2 mg/dL (1.6-2.3); Potassium 4.3 mmol/L (3.4-5.0); Sodium 135 mmol/L (137-145)
[2023-07-15 08:34] LABS: Glucose Point of Care 176 mg/dl (65-105)
[2023-07-15 10:13] LABS: Troponin I 0.179 ng/mL (0.000-0.034)
[2023-07-15 12:42] LABS: Glucose Point of Care 174 mg/dl (65-105)
[2023-07-15] MEDS: HEPARIN SODIUM 5,000 UNITS/ML VIAL 3500 UNITS IV PUSH (13:34)
[2023-07-15] MEDS: HEPARIN SOD/D5W 100 UNITS/ML 25,000 UNITS/250 ML BAG 16 UNITS IV CONT (13:35)
--- NOTE | 2023-07-15 14:59 | PM.CNNEP ---
Assessment and Plan Assessment and plan (1) Non-ST elevation [place] (NSTEMI): Code(s): I21.4 - Non-ST elevation (NSTEMI) myocardial infarction Status: Acute Assessment and Plan: The patient has unstable angina. He is going to get a cardiac catheterization on Monday He is on a heparin drip and p.r.n. morphine (2) End stage renal disease: Code(s): N18.6 - End stage renal disease Status: Acute Assessment and Plan: Patient has end-stage renal disease. This is due to diabetes and hypertension. He had dialysis yesterday and will get more dialysis on Monday. This can happen after his cardiac catheterization. (3) JAZMYNE (obstructive sleep apnea): Code(s): G47.33 - Obstructive sleep apnea (adult) (pediatric) Status: Acute Assessment and Plan: He uses a CPAP machine religiously at night (4) HTN (hypertension): Code(s): I10 - Essential (primary) hypertension Status: Chronic Assessment and Plan: His blood pressure is under good control (5) Diabetes: Qualifiers: Diabetes mellitus type: type 2 Diabetes mellitus terminal system operator insulin use: without terminal system operator use Diabetes mellitus complication status: with kidney complications Diabetes mellitus complication detail: with chronic kidney disease Chronic kidney disease stage: stage 3 (moderate) Chronic kidney disease stage 3 subtype: stage 3b (GFR 30-44) Qualified Code(s): E11.22 - Type 2 diabetes mellitus with diabetic chronic kidney disease; N18.32 - Chronic kidney disease, stage 3b Code(s): E11.9 - Type 2 diabetes mellitus without complications Status: Chronic Assessment and Plan: Management per hospitalists (6) Hyperlipidemia: Code(s): E78.5 - Hyperlipidemia, unspecified Status: Acute Assessment and Plan: He is on atorvastatin History of Present Illness Reason for Consult Consult date: 07/15/23 Chief Complaint Chief complaint: nstemi History of Present Illness Narrative: Erickson is a very pleasant 78-year-old gentleman has multiple problems including end-stage renal disease on hemodialysis 3 times a week, diabetes, hypertension, Charcot foot, history of necrotizing fasciitis status post amputation of the right toe, coronary disease status post bypass and multiple stents, atrial fibrillation, arthritis, hyperlipidemia, sleep apnea on a CPAP machine, rheumatoid arthritis and peripheral vascular disease. The patient says that he is been having chest pain for the last 3 weeks. It is substernal chest pressure similar to what he has had in the past with his heart. It is accompanied by some shortness of breath. It worsens with almost any exertion now. Before, it was just with walking a lot, but now it is with just getting dressed. He did say anything to the dialysis nurses or to myself on around about the chest pain. In the last couple of days the pain has become much more frequent so he called the sheet sewer yesterday after he finished his dialysis and was instructed to go to the ER. He was seen in the ER and evaluated. This is felt to be angina. He was placed on heparin drip given some nitro and he is now in the hospital in telemetry. He has been seen by the sheet sewer who is going to do a cardiac catheterization on Monday. Patient's blood sugars have been okay. He just had an arteriogram of his right leg earlier this week and had stents placed. The patient's dialysis went well on Monday. He is due again on Monday. Review of Systems Constitutional: Constitutional: Reports no additional constitutional complaints Eyes: Eyes: Reports no additional eye complaints ENT: Reports system reviewed and no additional complaints, except as documented Cardiovascular: Cardiovascular: Reports no additional cardiovascular complaints Respiratory: Respiratory: Reports no additional respiratory complaints Gastrointestinal: Gastrointestinal: Reports no additional gastroint
--- NOTE | 2023-07-15 15:58 | PM.CNCAR ---
Assessment and Plan Assessment and plan (1) Non-ST elevation [place] (NSTEMI): Code(s): I21.4 - Non-ST elevation (NSTEMI) myocardial infarction Status: Acute Assessment and Plan: Patient presents classical typical anginal symptoms worse with activity resolved with rest and nitroglycerin with elevated troponin consistent with acute coronary syndrome/NSTEMI. Continue heparin infusion for systemic anticoagulation along with aspirin 81 mg daily, clopidogrel 75 mg daily, atorvastatin 80 mg daily, carvedilol 6.25 mg twice daily, substitution for benazepril with lisinopril 10 mg daily, Zetia 10 mg daily. At this time, patient is asymptomatic and hemodynamically stable. Very lengthy discussion had with the patient and his with regards to risks versus benefits invasive angiography. Given his complex anatomy and history of CABG along with peripheral arterial disease we need to review peripheral intervention records with regards to arterial access feasibility although he reports intervention through his right femoral artery without difficulty in the past. Discussed if significant recurrent and refractory anginal symptoms or with significant upper trending of troponin patient weight taken urgently to the heart catheterization left. However, if patient remains completely asymptomatic, hemodynamically stable with downward trending troponins continue medical management stabilization with plans for invasive coronary angiography Monday with Dr. Apodaca. NPO after midnight Monday night. Risks versus benefits and alternatives discussed. Patient verbalized understanding and agreed. All questions answered to their satisfaction. Plan to continue heparin infusion for 48 hours. (2) Coronary artery disease: Qualifiers: Coronary Disease-Associated Artery/Lesion type: resighini artery [place] vs. transplanted heart: resighini heart Associated angina: with unstable angina Qualified Code(s): I25.110 - Atherosclerotic heart disease of res[place] coronary artery with unstable angina pectoris Code(s): I25.10 - Atherosclerotic heart disease of res[place] coronary artery without angina pectoris Status: Chronic Assessment and Plan: As above, continue aggressive medical management. (3) Paroxysmal atrial fibrillation: Code(s): I48.0 - Paroxysmal atrial fibrillation Status: Chronic Assessment and Plan: Patient maintaining sinus rhythm. Patient is not on systemic anticoagulation as an outpatient. Do not resume. DVT prophylaxis advised. Continue telemetry. Continue aspirin and clopidogrel. Continue carvedilol 6.25 mg twice daily. (4) Peripheral arterial occlusive disease: Code(s): I77.9 - Disorder of arteries and arterioles, unspecified Status: Acute Assessment and Plan: Obtain peripheral arterial intervention report from Colleen boyd. Continue dual antiplatelet therapy with aspirin and clopidogrel, atorvastatin, Zetia. (5) End-stage renal disease on hemodialysis: Code(s): N18.6 - End stage renal disease; Z99.2 - Dependence on renal dialysis Status: Acute Assessment and Plan: Hemodialysis per Nephrology. Monitor electrolytes carefully. Replete as appropriate. (6) Diabetes mellitus: Qualifiers: Diabetes mellitus complication detail: with foot ulcer Diabetes mellitus complication status: with skin complications Diabetes mellitus supervisor intermediates insulin use: with supervisor intermediates use Diabetes mellitus type: type 2 Qualified Code(s): E11.621 - Type 2 diabetes mellitus with foot ulcer; L97.509 - Non-pressure chronic ulcer of other part of unspecified foot with unspecified severity; Z79.4 - [facility] (current) use of insulin Code(s): E11.9 - Type 2 diabetes mellitus without complications Status: Acute Assessment and Plan: Management per primary service. Continue to monitor blood sugars closely. (7) Obstructive sleep apnea on CPAP: Code(s): G47.33
[2023-07-15 16:42] LABS: Glucose Point of Care 207 mg/dl (65-105)
[2023-07-15] MEDS: INSULIN ASPART (*BKC) 100 UNITS/ML SUB-Q (17:31)
[2023-07-15] MEDS: ATORVASTATIN 40 MG TABLET 80 MG PO (17:32)
[2023-07-15] MEDS: ASPIRIN 81 MG ENTERIC TABLET PO (17:32)
--- NOTE | 2023-07-15 18:23 | PM.IMPN ---
Progress Note: A&P Assessment and Plan (1) Non-ST elevation [place] (NSTEMI): Code(s): I21.4 - Non-ST elevation (NSTEMI) myocardial infarction Status: Acute (2) Obesity: Code(s): E66.9 - Obesity, unspecified Status: Acute (3) JAZMYNE (obstructive sleep apnea): Code(s): G47.33 - Obstructive sleep apnea (adult) (pediatric) Status: Acute (4) HTN (hypertension): Code(s): I10 - Essential (primary) hypertension Status: Chronic (5) Diabetes: Qualifiers: Diabetes mellitus type: type 2 Diabetes mellitus care home insulin use: without care home use Diabetes mellitus complication status: with kidney complications Diabetes mellitus complication detail: with chronic kidney disease Chronic kidney disease stage: stage 3 (moderate) Chronic kidney disease stage 3 subtype: stage 3b (GFR 30-44) Qualified Code(s): E11.22 - Type 2 diabetes mellitus with diabetic chronic kidney disease; N18.32 - Chronic kidney disease, stage 3b Code(s): E11.9 - Type 2 diabetes mellitus without complications Status: Chronic (6) Hyperlipidemia: Code(s): E78.5 - Hyperlipidemia, unspecified Status: Acute (7) Rheumatoid arthritis: Code(s): M06.9 - Rheumatoid arthritis, unspecified Status: Acute (8) Type 2 diabetes mellitus with hyperglycemia, with long-term current use of insulin: Code(s): E11.65 - Type 2 diabetes mellitus with hyperglycemia; Z79.4 - skilled nursing (current) use of insulin Status: Acute (9) Essential hypertension: Code(s): I10 - Essential (primary) hypertension Status: Acute (10) Neuropathy: Code(s): G62.9 - Polyneuropathy, unspecified Status: Acute (11) IBS (irritable bowel syndrome): Code(s): K58.9 - Irritable bowel syndrome without diarrhea Status: Acute (12) Anemia: Qualifiers: Anemia type: unspecified type Qualified Code(s): D64.9 - Anemia, unspecified Code(s): D64.9 - Anemia, unspecified Status: Acute (13) Chronic renal insufficiency: Code(s): N18.9 - Chronic kidney disease, unspecified Status: Acute (14) Coronary artery disease: Qualifiers: Coronary Disease-Associated Artery/Lesion type: [place] artery [place] vs. transplanted heart: [place] heart Associated angina: with unstable angina Qualified Code(s): I25.110 - Atherosclerotic heart disease of [place] coronary artery with unstable angina pectoris Code(s): I25.10 - Atherosclerotic heart disease of [place] coronary artery without angina pectoris Status: Chronic (15) ESRD on dialysis: Code(s): N18.6 - End stage renal disease; Z99.2 - Dependence on renal dialysis Status: Acute (16) Paroxysmal atrial fibrillation: Code(s): I48.0 - Paroxysmal atrial fibrillation Status: Chronic (17) Chronic anticoagulation: Code(s): Z79.01 - skilled nursing (current) use of anticoagulants Status: Acute (18) skilled nursing (current) use of other immunomodulators and immunosuppressants: Code(s): Z79.69 - skilled nursing (current) use of other immunomodulators and immunosuppressants Status: Acute Plan Continue with current medications Continuous cardiopulmonary tele monitoring Patient has NSTEMI in the background of having known CAD with multiple stents in the past Continue with IV heparin drip as per protocol Cardiology evaluated the patient and spoke with me. They plan to take him for cardiac catheterization on Monday Continue Plavix, high-dose statin ... Consider adding beta-veronica Patient evaluated by Nephrology and will continue hemodialysis while in the hospital Patient's next hemodialysis will be on Monday after cardiac catheterization Follow-up closely with Nephrology and Cardiology for further management recommendations ? Patient seen and examined at bedside during my morning rounds ? Collaborated with patient's nurse at the bedside in detail and addressed
[2023-07-15 19:24] LABS: Partial Thromboplastin Time 96.4 SECONDS (22.3-36.8)
[2023-07-15 20:56] LABS: Glucose Point of Care 171 mg/dl (65-105)
[2023-07-15] MEDS: carvediloL 6.25 MG TABLET PO (22:17)
[2023-07-16] VITALS (18 sets, daily range): BP systolic 112–136; BP diastolic 45–70; PULSE 55–67; RESP 18–20; TEMP 36.4–36.7; O2SAT 97–100
[2023-07-16 01:45] LABS: Partial Thromboplastin Time 90.8 SECONDS (22.3-36.8)
[2023-07-16 04:39] LABS: Basophils Absolute Auto 0.1 K/mm3 (0.0-0.1); Basophils Percent Auto 0.7 % (0.2-1.2); Eosinophils Absolute Auto 0.3 K/mm3 (0-0.3); Eosinophils Percent Auto 2.5 % (0-4.4); Hematocrit 32.1 % (42.0-52.0); Hemoglobin 10.2 g/dL (14.0-18.0); Immature Granulocyte Absolute 0.05 K/mm3 (0.00-0.031); Immature Granulocyte Percent A 0.4 % (0-0.5); Lymphocytes Absolute Auto 1.71 K/mm3 (0.9-3.2); Lymphocytes Percent Auto 13.2 % (18.3-44.2); Mean Corpuscular HGB Conc 31.8 g/dl (32-36); Mean Corpuscular Hemoglobin 31.3 pg (26-34); Mean Corpuscular Volume 98.5 fl (80-100); Mean Platelet Volume 9.9 fl (7.4-10.4); Monocytes Absolute Auto 1.6 K/mm3 (0.1-0.6); Monocytes Percent Auto 12.1 % (2.6-8.5); Neutrophils Absolute Auto 9.2 K/mm3 (1.3-6.7); Neutrophils Percent Auto 71.1 % (45.5-73.1); Platelet Count Result 183 k/mm3 (150-375); Red Blood Count 3.26 M/mm3 (4.6-6.20); White Blood Count 12.9 K/mm3 (4.5-10.0)
[2023-07-16 05:04] LABS: Anion Gap 13 mmol/L (8-16); Blood Urea Nitrogen 65 mg/dL (9-20); Calcium 9.3 mg/dL (8.4-10.2); Carbon Dioxide 26 mmol/L (22-30); Chloride 96 mmol/L (98-107); Estimated CRCL calculation 13 ml/min; Estimated Glomerular Filt Rate 9; Glucose 204 mg/dL (65-110); Magnesium 2.3 mg/dL (1.6-2.3); Phosphorus 6.3 mg/dL (2.5-4.5); Sodium 135 mmol/L (137-145); Troponin I 0.126 ng/mL (0.000-0.034)
[2023-07-16] MEDS: HEPARIN SOD/D5W 100 UNITS/ML 25,000 UNITS/250 ML BAG 16 UNITS IV CONT ×2 (05:49→21:36)
[2023-07-16] MEDS: carvediloL 6.25 MG TABLET PO ×2 (09:01→20:30)
[2023-07-16] MEDS: lisinopriL 10 MG TABLET PO (09:01)
[2023-07-16] MEDS: ATORVASTATIN 40 MG TABLET 80 MG PO (09:01)
[2023-07-16] MEDS: ASPIRIN 81 MG ENTERIC TABLET PO (09:01)
[2023-07-16] MEDS: CLOPIDOGREL BISULFATE 75 MG TABLET PO (09:01)
[2023-07-16] MEDS: EZETIMIBE 10 MG TABLET PO (09:02)
[2023-07-16 10:54] LABS: Glucose Point of Care 197 mg/dl (65-105)
[2023-07-16] MEDS: INSULIN GLARGINE (*BKC) 100 UNITS/ML 20 UNITS SUB-Q (11:05)
[2023-07-16 12:09] LABS: Glucose Point of Care 173 mg/dl (65-105)
--- NOTE | 2023-07-16 12:42 | PM.PNNEP ---
Progress Note: A&P Assessment and Plan (1) Non-ST elevation [place] (NSTEMI): Code(s): I21.4 - Non-ST elevation (NSTEMI) myocardial infarction Status: Acute Assessment and Plan: The patient has unstable angina. He is going to get a cardiac catheterization on tomorrow He feels a lot better. Things have settled down quite a bit. Only 1 episode of chest pain with ADLs. He is on a heparin drip and p.r.n. morphine Discussed with Dr. Cleveland (2) End stage renal disease: Code(s): N18.6 - End stage renal disease Status: Acute Assessment and Plan: Patient has end-stage renal disease. This is due to diabetes and hypertension. He had dialysis yesterday and will get more dialysis on Monday. I asked Dr. Cleveland to have Dr. Apodaca let Dr. Madrid know when the catheterization is done so we can get dialysis done after that. (3) JAZMYNE (obstructive sleep apnea): Code(s): G47.33 - Obstructive sleep apnea (adult) (pediatric) Status: Acute Assessment and Plan: He uses a CPAP machine religiously at night (4) HTN (hypertension): Code(s): I10 - Essential (primary) hypertension Status: Chronic Assessment and Plan: His blood pressure is under good control (5) Diabetes: Qualifiers: Diabetes mellitus type: type 2 Diabetes mellitus extermination inspector insulin use: without [facility] use Diabetes mellitus complication status: with kidney complications Diabetes mellitus complication detail: with chronic kidney disease Chronic kidney disease stage: stage 3 (moderate) Chronic kidney disease stage 3 subtype: stage 3b (GFR 30-44) Qualified Code(s): E11.22 - Type 2 diabetes mellitus with diabetic chronic kidney disease; N18.32 - Chronic kidney disease, stage 3b Code(s): E11.9 - Type 2 diabetes mellitus without complications Status: Chronic Assessment and Plan: Management per hospitalists (6) Hyperlipidemia: Code(s): E78.5 - Hyperlipidemia, unspecified Status: Acute Assessment and Plan: He is on atorvastatin Subjective Date/time seen: 07/16/23 12:42 Interval history: Patient is awake and alert. is in the room. He had a tiny bit of chest pressure when he was in the bathroom shaving. Garcia no chest pain. Review of Systems Cardiovascular: Cardiovascular: Reports no additional cardiovascular complaints Respiratory: Respiratory: Reports no additional respiratory complaints Gastrointestinal: Gastrointestinal: Reports no additional gastrointestinal complaints Genitourinary: Genitourinary: Reports no additional male genitourinary complaints Exam Narrative: WDWN in NAD skin no rash head ncat lungs clear cor reg no rub abd BS+ nontender and soft ext no edema. Objective Data Vital Signs Vital Signs: Vital Signs - 24 hr 07/15/23 16:00 07/15/23 20:00 07/15/23 14:00 Temperature 96.8 F L 96.9 F L Pulse Rate 66 70 69 Respiratory Rate 18 18 Blood Pressure 128/52 L 117/63 Pulse Oximetry 99 100 Oxygen Delivery Fraction of Inspired Oxygen 07/15/23 16:00 07/15/23 18:00 07/15/23 22:17 Temperature Pulse Rate 68 68 72 Respiratory Rate Blood Pressure Pulse Oximetry Oxygen Delivery Fraction of Inspired Oxygen 07/15/23 22:46 07/15/23 20:00 07/15/23 20:00 Temperature Pulse Rate 70 68 Respiratory Rate 18 Blood Pressure Pulse Oximetry 100 Oxygen Delivery Room Air Room Air Fraction of Inspired Oxygen 07/15/23 22:00 07/16/23 00:32 07/16/23 00:00 Temperature 97.9 F Pulse Rate 67 64 64 Respiratory Rate 18 18 Blood Pressure 133/48 L Pulse Oximetry 99 99 Oxygen Delivery CPAP Fraction of Inspired Oxygen 07/16/23 00:00 07/16/23 01:38 07/16/23 04:45 Temperature 97.9 F Pulse Rate 65 64 61 Respiratory Rate 18 Blood Pressure 136/70 Pulse Oximetry 99 Oxygen Delivery Fraction of Inspired Oxygen 07/16/23 04:00 07/16/23
--- NOTE | 2023-07-16 13:42 | PM.PNCARD ---
Progress Note: A&P Assessment and Plan (1) Non-ST elevation [place] (NSTEMI): Code(s): I21.4 - Non-ST elevation (NSTEMI) myocardial infarction Status: Acute Assessment and Plan: Patient presents classical typical anginal symptoms worse with activity resolved with rest and nitroglycerin with elevated troponin consistent with acute coronary syndrome/NSTEMI. At this time, patient is asymptomatic while at rest and hemodynamically stable. Given his complex anatomy and history of CABG along with peripheral arterial disease we need to review peripheral intervention records with regards to arterial access feasibility although he reports intervention through his right femoral artery without difficulty in the past. Discussed if significant recurrent and refractory anginal symptoms or with significant upper trending of troponin patient weight taken urgently to the heart catheterization left. Once again, discussed if patient remains asymptomatic, hemodynamically stable with downward trending troponins continue medical management stabilization with plans for invasive coronary angiography Monday with Dr. Apodaca. NPO after midnight Monday night. Risks versus benefits and alternatives discussed. Patient verbalized understanding and agreed. All questions answered to their satisfaction. Plan to continue heparin infusion for 48 hours. They agree with plan of care. Continue heparin infusion for systemic anticoagulation along with aspirin 81 mg daily, clopidogrel 75 mg daily, atorvastatin 80 mg daily, carvedilol 6.25 mg twice daily, substitution for benazepril with lisinopril 10 mg daily, Zetia 10 mg daily. (2) Coronary artery disease: Qualifiers: Coronary Disease-Associated Artery/Lesion type: [place] artery [place] vs. transplanted heart: [place] heart Associated angina: with unstable angina Qualified Code(s): I25.110 - Atherosclerotic heart disease of [place] coronary artery with unstable angina pectoris Code(s): I25.10 - Atherosclerotic heart disease of [place] coronary artery without angina pectoris Status: Chronic Assessment and Plan: As above, continue aggressive medical management. Troponins trending downward. (3) Paroxysmal atrial fibrillation: Code(s): I48.0 - Paroxysmal atrial fibrillation Status: Chronic Assessment and Plan: Patient maintaining sinus rhythm. Patient is not on systemic anticoagulation as an outpatient. Do not resume. DVT prophylaxis advised. Continue telemetry. Continue aspirin and clopidogrel. Continue carvedilol 6.25 mg twice daily. (4) Peripheral arterial occlusive disease: Code(s): I77.9 - Disorder of arteries and arterioles, unspecified Status: Acute Assessment and Plan: Obtain peripheral arterial intervention report from Colleen boyd. Continue dual antiplatelet therapy with aspirin and clopidogrel, atorvastatin, Zetia. (5) End-stage renal disease on hemodialysis: Code(s): N18.6 - End stage renal disease; Z99.2 - Dependence on renal dialysis Status: Acute Assessment and Plan: Hemodialysis per Nephrology. Monitor electrolytes carefully. Replete as appropriate. Plan for hemodialysis after coronary angiography. Communicate with hemodialysis with regards to timing of left heart catheterization. Appreciate Dr Hernandez's involvement and recommendations. (6) Diabetes mellitus: Qualifiers: Diabetes mellitus complication detail: with foot ulcer Diabetes mellitus complication status: with skin complications Diabetes mellitus residential insulin use: with termite inspector use Diabetes mellitus type: type 2 Qualified Code(s): E11.621 - Type 2 diabetes mellitus with foot ulcer; L97.509 - Non-pressure chronic ulcer of other part of unspecified foot with unspecified severity; Z79.4 - termite inspector (current) use of insulin Code(s): E11.9 - Type 2 diabetes mellitus without complications Status: Acute As
[2023-07-16 16:28] LABS: Glucose Point of Care 209 mg/dl (65-105)
--- NOTE | 2023-07-16 17:12 | ECG_ITS ---
Measurements Intervals [place] Rate: 59 P: 103 VT: 222 QRS: 31 QRSD: 120 T: 26 QT: 420 QTc: 419 Interpretive Statements SINUS BRADYCARDIA WITH FIRST DEGREE AV BLOCK INTRAVENTRICULAR CONDUCTION DELAY DELAYED PRECORDIAL R/S TRANSITION INFERIOR INFARCT, AGE INDETERMINATE BASELINE ARTIFACT- I, II, III, AVR, AVL, AVF, V1-V6 ABNORMAL ECG COMPARED TO ECG 07/15/2023 05:34:52 SINUS BRADYCARDIA NOW PRESENT Electronically Signed On 07-17-2023 14:36:10 REIMBURSEMENT AUDITOR by Philippe Abdi D.O.
[2023-07-16] MEDS: INSULIN ASPART (*BKC) 100 UNITS/ML SUB-Q (18:05)
--- NOTE | 2023-07-16 18:23 | PM.IMPN ---
Progress Note: A&P Assessment and Plan (1) Non-ST elevation [place] (NSTEMI): Code(s): I21.4 - Non-ST elevation (NSTEMI) myocardial infarction Status: Acute (2) Obesity: Code(s): E66.9 - Obesity, unspecified Status: Acute (3) JAZMYNE (obstructive sleep apnea): Code(s): G47.33 - Obstructive sleep apnea (adult) (pediatric) Status: Acute (4) HTN (hypertension): Code(s): I10 - Essential (primary) hypertension Status: Chronic (5) Diabetes: Qualifiers: Diabetes mellitus type: type 2 Diabetes mellitus group home insulin use: without group home use Diabetes mellitus complication status: with kidney complications Diabetes mellitus complication detail: with chronic kidney disease Chronic kidney disease stage: stage 3 (moderate) Chronic kidney disease stage 3 subtype: stage 3b (GFR 30-44) Qualified Code(s): E11.22 - Type 2 diabetes mellitus with diabetic chronic kidney disease; N18.32 - Chronic kidney disease, stage 3b Code(s): E11.9 - Type 2 diabetes mellitus without complications Status: Chronic (6) Hyperlipidemia: Code(s): E78.5 - Hyperlipidemia, unspecified Status: Acute (7) Rheumatoid arthritis: Code(s): M06.9 - Rheumatoid arthritis, unspecified Status: Acute (8) Type 2 diabetes mellitus with hyperglycemia, with long-term current use of insulin: Code(s): E11.65 - Type 2 diabetes mellitus with hyperglycemia; Z79.4 - residential (current) use of insulin Status: Acute (9) Essential hypertension: Code(s): I10 - Essential (primary) hypertension Status: Acute (10) Neuropathy: Code(s): G62.9 - Polyneuropathy, unspecified Status: Acute (11) IBS (irritable bowel syndrome): Code(s): K58.9 - Irritable bowel syndrome without diarrhea Status: Acute (12) Anemia: Qualifiers: Anemia type: unspecified type Qualified Code(s): D64.9 - Anemia, unspecified Code(s): D64.9 - Anemia, unspecified Status: Acute (13) Chronic renal insufficiency: Code(s): N18.9 - Chronic kidney disease, unspecified Status: Acute (14) Coronary artery disease: Qualifiers: Coronary Disease-Associated Artery/Lesion type: [place] artery [place] vs. transplanted heart: [place] heart Associated angina: with unstable angina Qualified Code(s): I25.110 - Atherosclerotic heart disease of [place] coronary artery with unstable angina pectoris Code(s): I25.10 - Atherosclerotic heart disease of [place] coronary artery without angina pectoris Status: Chronic (15) ESRD on dialysis: Code(s): N18.6 - End stage renal disease; Z99.2 - Dependence on renal dialysis Status: Acute (16) Paroxysmal atrial fibrillation: Code(s): I48.0 - Paroxysmal atrial fibrillation Status: Chronic (17) Chronic anticoagulation: Code(s): Z79.01 - residential (current) use of anticoagulants Status: Acute (18) residential (current) use of other immunomodulators and immunosuppressants: Code(s): Z79.69 - residential (current) use of other immunomodulators and immunosuppressants Status: Acute Plan Admit patient to IMU under full inpatient status Continue with current medications Continuous cardiopulmonary tele monitoring Patient has NSTEMI in the background of having known CAD with multiple stents in the past Continue with IV heparin drip as per protocol Continue with p.r.n. nitroglycerin for chest pain control Cardiology evaluated the patient and spoke with me. They plan to take him for cardiac catheterization in am Continue aspirin, Plavix, beta-veronica, high-dose statin Patient evaluated by Nephrology and will continue hemodialysis while in the hospital Patient's next hemodialysis will be on Monday after cardiac catheterization Follow-up closely with Nephrology and Cardiology for further management recommendations ? Patient seen and examined at bedside during
--- NOTE | 2023-07-16 20:31 | PC.NURSE ---
This RN was summoned to the pts room with c/o Chest pain 5/10. VS obtain et B/P did not support Nitroglycerin being given. Attending contacted with T.O to obtain a ECG et to call Cardiology. Dr. Saenz was called et given report on events with TGloriaB/ Vincent RN 1. NS 250 ml Bolus Wide Open 2. The give Nitroglycerin. Upon entering the pts room to complete orders the pt was still reporting pain 5/10 Chest pain. The pt was given education on POC. et agreed. The pt had Heparin going PIV access x 1. New IV supplies were brought into the room to start a IV. Upon assessing the pts pain the pt reported Chest pain was resolving the pt was noted with labored breathing. The pt questions the orders a second time et education was given. The pt then declined the intervention et endorsed he was getting back to normal. The pt was still noted to be labored breathing. Education was given to pt et the pt declined. The pt spouse endorsed she wanted the interventions completed. The pt decline et then questioned the NS bolus et the Nitroglycerin. Education was given to explain why the interventions were put into place by the MD et the pt declined. The pt insisted that the interventions be carried out. Education was given to the that the pt is A&Ox4 et has refused. A second RN was at the bedside to assist in the pts care. Dr. Law was called et given report. Call light left in reach et the pt has continued to deny any further distress et none noted.
[2023-07-16 21:16] LABS: Glucose Point of Care 137 mg/dl (65-105)
[2023-07-17] VITALS (55 sets, daily range): BP systolic 93–115; BP diastolic 40–56; PULSE 42–78; RESP 12–22; TEMP 35.7–37; O2SAT 95–100
[2023-07-17 05:13] LABS: Basophils Absolute Auto 0.1 K/mm3 (0.0-0.1); Basophils Percent Auto 0.7 % (0.2-1.2); Eosinophils Absolute Auto 0.4 K/mm3 (0-0.3); Eosinophils Percent Auto 2.8 % (0-4.4); Hematocrit 30.7 % (42.0-52.0); Hemoglobin 9.6 g/dL (14.0-18.0); Immature Granulocyte Absolute 0.07 K/mm3 (0.00-0.031); Immature Granulocyte Percent A 0.6 % (0-0.5); Lymphocytes Absolute Auto 1.81 K/mm3 (0.9-3.2); Lymphocytes Percent Auto 14.4 % (18.3-44.2); Mean Corpuscular HGB Conc 31.3 g/dl (32-36); Mean Corpuscular Hemoglobin 30.8 pg (26-34); Mean Corpuscular Volume 98.4 fl (80-100); Monocytes Absolute Auto 1.2 K/mm3 (0.1-0.6); Monocytes Percent Auto 9.7 % (2.6-8.5); Neutrophils Percent Auto 71.8 % (45.5-73.1); Platelet Count Result 186 k/mm3 (150-375); Red Blood Count 3.12 M/mm3 (4.6-6.20); Red Cell Distribution Width 13.2 % (11.5-14.5); White Blood Count 12.5 K/mm3 (4.5-10.0)
[2023-07-17 05:21] LABS: Partial Thromboplastin Time 81.6 SECONDS (22.3-36.8)
[2023-07-17 05:29] LABS: Albumin Level 3.8 g/dL (3.5-5.1); Anion Gap 13 mmol/L (8-16); Blood Urea Nitrogen 81 mg/dL (9-20); Calcium 8.9 mg/dL (8.4-10.2); Carbon Dioxide 23 mmol/L (22-30); Chloride 97 mmol/L (98-107); Estimated CRCL calculation 11 ml/min; Estimated Glomerular Filt Rate 8; Glucose 152 mg/dL (65-110); Phosphorus 7.6 mg/dL (2.5-4.5); Potassium 4.1 mmol/L (3.4-5.0); Sodium 133 mmol/L (137-145)
[2023-07-17 06:14] LABS: Hepatitis B Surface Anti Res Negative
[2023-07-17 07:57] LABS: Glucose Point of Care 142 mg/dl (65-105)
[2023-07-17] MEDS: lisinopriL 10 MG TABLET PO (09:34)
[2023-07-17] MEDS: EZETIMIBE 10 MG TABLET PO (09:34)
[2023-07-17] MEDS: CLOPIDOGREL BISULFATE 75 MG TABLET PO (09:34)
[2023-07-17] MEDS: ATORVASTATIN 40 MG TABLET 80 MG PO (09:37)
[2023-07-17] MEDS: carvediloL 6.25 MG TABLET PO (09:37)
[2023-07-17] MEDS: ASPIRIN 81 MG ENTERIC TABLET PO (09:43)
--- NOTE | 2023-07-17 11:48 | WPDCARDPROC ---
Cardiac Cath Procedure Note Date of procedure:: 07/17/23 Performing physician:: Ravi Apodaca MD Indication:: exertional angina coronary disease with previous CABG end-stage renal disease on hemodialysis Brief clinical history:: this is a 78-year-old man who underwent PCI of his proximal circumflex in the remote past. He was then referred for surgical revascularization in January of 2022 to treat distal left main and ostial LAD/circumflex stenosis. The patient following surgery developed end-stage renal disease and has been on dialysis since then. He now presents with ischemic chest pain for several weeks. Symptoms are occurring with modest activity. Follow-up angiography has been recommended in that setting. He is known to have left coronary dominant circulation. Surgery in January of 2022 consisted of and CAMARA graft to the LAD and a radial artery graft to the ramus and then to the largest OM circumflex branch. Procedure Procedure performed:: Coronary angiography radial artery graft angiography left internal mammary graft angiography Sedation/Medication given:: fentanyl 25 mg Versed 2 mg case start time 11:20 a.m. case end time 11:40 a.m. sedation provided by Parvin Lama RN trained observer Access site:: right femoral artery Estimated blood loss:: 25 cc Procedure note:: patient was brought to the cardiac catheterization lab in the postabsorptive state where the right femoral triangle was prepared in the usual fashion. Anesthesia was provided with 1% lidocaine infiltrated locally. The femoral artery was punctured and a J-wire was placed into the iliacs, femoral in the central aorta. The 5 [place] vascular sheath was placed following this left heart catheterization was carried out. I used a 5 [place] FL4 catheter to engage and inject the left coronary artery. I then used a 5 [place] JR4 catheter to engage and inject the right coronary artery as well as the radial artery graft. I then used a 5 [place] NAI catheter to inject the left internal mammary artery graft. The cineangiograms were then reviewed and the case was terminated. The patient was taken to the holding area for manual sheath removal. Procedure was uncomplicated and he left the catheter finisher and inspector without any evidence of groin hematoma. Preparations are made for hemodialysis following this procedure Findings:: the left main coronary artery is totally occluded in its distal aspect. There was no antegrade flow into the [place] left coronary artery the right coronary artery is small to medium in caliber and non dominant gives rise to 2 right ventricular branches. There is no significant disease in the non dominant right and there is no collateral filling from this vessel to the left coronary artery. Left internal mammary graft to the LAD shows a to be a large caliber segment of mammary artery is anastomosis to the mid LAD is patent the [place] LAD is medium in caliber but fills from the anastomosis down to the apex and proximally to the proximal aspect of the LAD. Radial artery graft to the ramus / OM shows it to be a medium caliber segment of radial artery. Its proximal anastomosis and anastomosis to the OM 2 are patent. There is no filling to the ramus branch this was angiographically very small and this side to side anastomosis appears to be occluded. Proximal to the anastomosis in OM 2 there is high-grade disease in the 2nd marginal representing at least 80-90% stenosis the remainder of the circumflex including the remaining marginal branches the posterior lateral branches and the left PDA are therefore ischemic related to occlusion of the [place] circumflex as well as high-grade stenosis in the OM branch proximal to the anastomosis. Conclusion:: 1. Left coronary dominant circulation with total occlusion of the distal left main coronary 2. non dominant right coronary artery which is free of significant disease 3. patent CAMARA to the LAD
--- NOTE | 2023-07-17 12:47 | PM.PNCARD ---
Progress Note: A&P Assessment and Plan (1) Chest pain: Code(s): R07.9 - Chest pain, unspecified Status: Acute Plan 78-year-old man with: Ischemic heart disease with recent onset of anginal-type symptoms. Catheterization today unfortunately demonstrates occlusion of the distal left main coronary artery. He has a patent NAI to the LAD and a patent radial artery graft to the 2nd OM branch however the remainder of his dominant circumflex is ischemic as there is significant obstructive disease proximal to the radial artery graft anastomosis. I will advanceHis beta-veronica dosage and start isosorbide for medical therapy and have the films reviewed by interventional colleague at [facility] to consider the option of SPRAYER MACHINE intervention of the dominant circumflex. If the patient is stable he can probably be discharged tomorrow as his anginal symptoms are related to total occlusion of his left main and significant disease in the OM branch proximal to the anastomosis. Ravi Apodaca MD [facility] Subjective Date/time seen: Date of service:07/17/23 12:47 Interval history: Follow-up for unstable angina, CAD, NSTEMI Patient feels well this time. No anginal symptoms at rest. He states with a ambulation to the restroom, shower or shampooing his hair he got mild chest discomfort which resolved promptly with rest. Troponins continued to down trend. Denies shortness of breath. at bedside. Remains on heparin infusion. Date of service 07/17/2023: Patient underwent follow-up coronary angiography today to investigate recent onset of anginal symptoms. Found to have total occlusion of the distal aspect of his left main coronary artery. Has patent NAI graft to the LAD and a patent radial artery graft to the OM 2 branch of the circumflex. Unfortunately there appears to be significant obstructive disease proximal to the OM 2 anastomosis resulting in the majority of the dominant circumflex being ischemic territory. Long conversation with the patient and his about the strategies including treating this medically or and/or considering attempting a SPRAYER MACHINE intervention of his circumflex from the distal left main. Exam Narrative: General: Pleasant man sitting upright in bed well developed, alert and oriented x3. No apparent distress, comfortable, pleasant, and cooperative. Quite talkative. at bedside. Head: atraumatic, normocephalic Eyes: EOM intact, sclerae anicteric, conjunctivae unremarkable Ears/Nose: external inspection of ears and nose were grossly normal Mouth/Throat: oral mucosa pink and moist Neck: supple, normal range of motion, no jugular venous distention or carotid bruits, thyroid nonpalpable, trachea midline. Cardiac: Regular rate and rhythm, normal S1-S2, no murmurs No gallops or rubs. Lungs: Clear to auscultation bilaterally, no rales, wheezes, or rhonchi. Abdomen: Obese, soft, nontender, nondistended, positive bowel sounds throughout. No appreciable hepatosplenomegaly, rebound guarding or rigidity noted. Abdominal aorta nonpalpable, no appreciable bruits. Extremities: No edema, no clubbing, or cyanosis. Extremities warm and well perfused. Third right toe surgically removed, Skin: Warm and dry without ecchymoses, rashes, and/or petechiae. Musculoskeletal: Muscle strength and tone intact throughout without obvious deformities. Healed median sternotomy scar Vascular: Carotid upstrokes 2+ bilaterally, radial pulses 2+ on the right absence secondary to surgical harvest left radial artery, faintly palpable left DP nonpalpable on the right Neurologic: Cranial nerves 2-12 grossly intact, examination grossly nonfocal Psychiatric: Mood calm and appropriate. Objective Data Vital Signs Vital Signs: Vital Signs - 24 hr 07/16/23 16:00 07/16/23 19:06 07/16/23 16:00 Temperature 36.5 C Pulse Rate 56 L Respiratory Rate 18 Blood Pres
--- NOTE | 2023-07-17 14:25 | SUR.PHASEII ---
ACT stated to Dr. Apodaca, verbal order received that it is ok to pull sheath
--- NOTE | 2023-07-17 16:01 | SUR.PHASEII ---
Patient transferred over to dialysis. Madelaine RN at bedside to assess patient and groin site. Report given
--- NOTE | 2023-07-17 16:30 | PM.PNNEP ---
Progress Note: A&P Assessment and Plan (1) End stage renal disease: Code(s): N18.6 - End stage renal disease Status: Chronic Assessment and Plan: HD today continue Mon/Mon/Monday outpatient dialysis schedule follow electrolytes, volume status, and clearance (2) Non-ST elevation [place] (NSTEMI): Code(s): I21.4 - Non-ST elevation (NSTEMI) myocardial infarction Status: Acute Assessment and Plan: s/p cardiac catheterization with results noted Cardiology following likely to need high risk intervention versus repeat CABG continue medical management (3) HTN (hypertension): Code(s): I10 - Essential (primary) hypertension Status: Chronic Assessment and Plan: reasonable contril follow trend of hemodynamics (4) JAZMYNE (obstructive sleep apnea): Code(s): G47.33 - Obstructive sleep apnea (adult) (pediatric) Status: Chronic Assessment and Plan: using CPAP at night (5) Diabetes: Qualifiers: Diabetes mellitus type: type 2 Diabetes mellitus terminal manager insulin use: without group home use Diabetes mellitus complication status: with kidney complications Diabetes mellitus complication detail: with chronic kidney disease Chronic kidney disease stage: stage 3 (moderate) Chronic kidney disease stage 3 subtype: stage 3b (GFR 30-44) Qualified Code(s): E11.22 - Type 2 diabetes mellitus with diabetic chronic kidney disease; N18.32 - Chronic kidney disease, stage 3b Code(s): E11.9 - Type 2 diabetes mellitus without complications Status: Chronic Assessment and Plan: follow accu-cheks glycemic control per hospitalists Will continue to follow. Subjective Date/time seen: 07/17/23 16:30 Interval history: Follopw-up for end stage renal disease on hemodialysis. Chart reviewed -- assuming care from Dr. Hernandez; s/p cardiac catheterization earlier today and currently receiving hemodialysis at the time of my visit (seen on HD at 4:20PM); no apparent distress noted; feels reasonably well. Exam Narrative: General: elderly but WD/WN male in NAD Heart: normal S1 and S2; no rub Lungs: clear to auscultation Abdomen: soft, nontender, nondistended, positive bowel sounds Extremities: no cyanosis or clubbing; no edema Skin: warm and dry Objective Data Vital Signs Vital Signs: Vital Signs Temp Pulse Resp BP Pulse Ox O2 Del Method 07/17/23 16:12 53 L 115/48 L 07/17/23 15:45 51 L 19 97/45 L 100 Room Air 07/17/23 15:30 52 L 16 112/50 L 98 Room Air 07/17/23 15:15 50 L 20 96/47 L 100 Room Air 07/17/23 15:00 52 L 16 101/50 L 100 Room Air 07/17/23 14:26 53 L 12 105/50 L 100 Room Air 07/17/23 14:15 52 L 16 107/52 L 100 Room Air 07/17/23 14:00 52 L 17 103/48 L 97 Room Air 07/17/23 13:45 49 L 18 94/47 L 100 Room Air 07/17/23 13:30 51 L 22 H 105/48 L 98 Room Air 07/17/23 13:15 50 L 18 95/47 L 100 Room Air 07/17/23 13:00 51 L 17 99/51 L 98 Room Air 07/17/23 12:45 52 L 21 H 105/46 L 100 Room Air 07/17/23 12:30 97.2 F L 56 L 12 99/45 L 95 Room Air 07/17/23 12:15 51 L 14 101/51 L 98 Room Air 07/17/23 12:00 55 L 16 104/49 L 99 Room Air 07/17/23 11:54 53 L 15 95/56 L 97 Room Air 07/17/23 10:00 56 L 07/17/23 08:00 61 07/17/23 09:37 58 L 07/17/23 07:30 96.2 F L 61 20 105/40 L 96 07/17/23 06:14 97.6 F 57 L 18 105/47 L 100 07/17/23 04:00 CPAP 07/17/23 06:00 64 07/17/23 04:00 56 L 07/17/23 02:00 42 L 07/17/23 00:00 56 L 07/16/23 22:00 55 L 07/16/23 20:00 59 L 07/17/23 02:58 Room Air 07/17/23 01:13 97.6 F 57 L 18 105/44 L 98 07/16/23 23:28 Room Air 07/16/23 21:19 Room Air 07/16/23 20:30 59 L 07/16/23 20:17 97.6 F 58 L 18 116/45 L 07/16/23 19:06 120/56 L 100 Intake/Output Intake/O
--- NOTE | 2023-07-17 16:30 | PM.IMPN ---
Progress Note: A&P Assessment and Plan (1) Non-ST elevation [place] (NSTEMI): Code(s): I21.4 - Non-ST elevation (NSTEMI) myocardial infarction Status: Acute (2) Obesity: Code(s): E66.9 - Obesity, unspecified Status: Acute (3) JAZMYNE (obstructive sleep apnea): Code(s): G47.33 - Obstructive sleep apnea (adult) (pediatric) Status: Acute (4) HTN (hypertension): Code(s): I10 - Essential (primary) hypertension Status: Chronic (5) Diabetes: Qualifiers: Diabetes mellitus type: type 2 Diabetes mellitus skilled nursing insulin use: without skilled nursing use Diabetes mellitus complication status: with kidney complications Diabetes mellitus complication detail: with chronic kidney disease Chronic kidney disease stage: stage 3 (moderate) Chronic kidney disease stage 3 subtype: stage 3b (GFR 30-44) Qualified Code(s): E11.22 - Type 2 diabetes mellitus with diabetic chronic kidney disease; N18.32 - Chronic kidney disease, stage 3b Code(s): E11.9 - Type 2 diabetes mellitus without complications Status: Chronic (6) Hyperlipidemia: Code(s): E78.5 - Hyperlipidemia, unspecified Status: Acute (7) Rheumatoid arthritis: Code(s): M06.9 - Rheumatoid arthritis, unspecified Status: Acute (8) Type 2 diabetes mellitus with hyperglycemia, with long-term current use of insulin: Code(s): E11.65 - Type 2 diabetes mellitus with hyperglycemia; Z79.4 - shelter (current) use of insulin Status: Acute (9) Essential hypertension: Code(s): I10 - Essential (primary) hypertension Status: Acute (10) Neuropathy: Code(s): G62.9 - Polyneuropathy, unspecified Status: Acute (11) IBS (irritable bowel syndrome): Code(s): K58.9 - Irritable bowel syndrome without diarrhea Status: Acute (12) Anemia: Qualifiers: Anemia type: unspecified type Qualified Code(s): D64.9 - Anemia, unspecified Code(s): D64.9 - Anemia, unspecified Status: Acute (13) Chronic renal insufficiency: Code(s): N18.9 - Chronic kidney disease, unspecified Status: Acute (14) Coronary artery disease: Qualifiers: Coronary Disease-Associated Artery/Lesion type: [place] artery [place] vs. transplanted heart: pala heart Associated angina: with unstable angina Qualified Code(s): I25.110 - Atherosclerotic heart disease of [place] coronary artery with unstable angina pectoris Code(s): I25.10 - Atherosclerotic heart disease of [place] coronary artery without angina pectoris Status: Chronic (15) ESRD on dialysis: Code(s): N18.6 - End stage renal disease; Z99.2 - Dependence on renal dialysis Status: Acute (16) Paroxysmal atrial fibrillation: Code(s): I48.0 - Paroxysmal atrial fibrillation Status: Chronic (17) Chronic anticoagulation: Code(s): Z79.01 - shelter (current) use of anticoagulants Status: Acute (18) shelter (current) use of other immunomodulators and immunosuppressants: Code(s): Z79.69 - shelter (current) use of other immunomodulators and immunosuppressants Status: Acute Plan Admit patient to IMU under full inpatient status Continue with current medications Continuous cardiopulmonary tele monitoring Patient has NSTEMI in the background of having known CAD with multiple stents in the past Continue with IV heparin drip as per protocol Continue with p.r.n. nitroglycerin for chest pain control Continue aspirin, Plavix, beta-veronica, high-dose statin Patient evaluated by Nephrology and will continue hemodialysis while in the hospital 07/17/2023: Patient underwent cardiac catheterization today with Cardiology recommendations as below: Patient's is undergoing hemodialysis will be today after cardiac catheterization Follow-up closely with Nephrology and Cardiology for further management recommendations Possible DC in a.m. with close outpatient follow-u
--- NOTE | 2023-07-17 17:16 | PC.NURSE ---
1507-Report from [facility] Consultant nurse Willa. Patient on bedrest until 2050 and will go to dialysis after recovery period.
[2023-07-17 17:19] LABS: Activated Clotting Time 169 SEC (74-137)
[2023-07-17 17:19] LABS: Activated Clotting Time 158 SEC (74-137)
[2023-07-17 17:19] LABS: Activated Clotting Time 142 SEC (74-137)
[2023-07-17] MEDS: carvediloL 12.5 MG TABLET PO (20:42)
[2023-07-17 20:43] LABS: Hepatitis B Surface Antigen Negative (Negative)
[2023-07-17 20:51] LABS: Glucose Point of Care 130 mg/dl (65-105)
[2023-07-17] MEDS: NITROGLYCERIN SL 0.4 MG TABLET SUBLINGUAL (23:27)
[2023-07-18] VITALS (14 sets, daily range): BP systolic 98–119; BP diastolic 39–44; PULSE 51–60; RESP 16–24; TEMP 36.2–36.6; O2SAT 95–100
[2023-07-18 05:13] LABS: Basophils Absolute Auto 0.1 K/mm3 (0.0-0.1); Basophils Percent Auto 0.8 % (0.2-1.2); Eosinophils Absolute Auto 0.1 K/mm3 (0-0.3); Eosinophils Percent Auto 1.2 % (0-4.4); Hematocrit 32.9 % (42.0-52.0); Hemoglobin 10.6 g/dL (14.0-18.0); Immature Granulocyte Absolute 0.05 K/mm3 (0.00-0.031); Immature Granulocyte Percent A 0.5 % (0-0.5); Lymphocytes Percent Auto 12.3 % (18.3-44.2); Mean Corpuscular HGB Conc 32.2 g/dl (32-36); Mean Corpuscular Hemoglobin 31.5 pg (26-34); Mean Corpuscular Volume 97.6 fl (80-100); Mean Platelet Volume 9.7 fl (7.4-10.4); Monocytes Absolute Auto 1.2 K/mm3 (0.1-0.6); Monocytes Percent Auto 11.6 % (2.6-8.5); Neutrophils Absolute Auto 7.8 K/mm3 (1.3-6.7); Neutrophils Percent Auto 73.6 % (45.5-73.1); Platelet Count Result 195 k/mm3 (150-375); Red Blood Count 3.37 M/mm3 (4.6-6.20); Red Cell Distribution Width 13.2 % (11.5-14.5); White Blood Count 10.6 K/mm3 (4.5-10.0)
[2023-07-18 06:01] LABS: Albumin Level 4.1 g/dL (3.5-5.1); Anion Gap 12 mmol/L (8-16); Blood Urea Nitrogen 51 mg/dL (9-20); Calcium 9.2 mg/dL (8.4-10.2); Carbon Dioxide 30 mmol/L (22-30); Chloride 97 mmol/L (98-107); Estimated CRCL calculation 13 ml/min; Estimated Glomerular Filt Rate 10; Glucose 148 mg/dL (65-110); Phosphorus 5.8 mg/dL (2.5-4.5); Potassium 4.2 mmol/L (3.4-5.0); Sodium 139 mmol/L (137-145)
[2023-07-18 07:56] LABS: Glucose Point of Care 134 mg/dl (65-105)
[2023-07-18] MEDS: ATORVASTATIN 40 MG TABLET 80 MG PO (08:27)
[2023-07-18] MEDS: carvediloL 12.5 MG TABLET PO (08:27)
[2023-07-18] MEDS: lisinopriL 10 MG TABLET PO (08:28)
[2023-07-18] MEDS: EZETIMIBE 10 MG TABLET PO (08:28)
[2023-07-18] MEDS: ASPIRIN 81 MG ENTERIC TABLET PO (08:28)
[2023-07-18] MEDS: CLOPIDOGREL BISULFATE 75 MG TABLET PO (08:29)
[2023-07-18] MEDS: ISOSORBIDE MONONITRATE 60 MG TAB.ER.24H PO (08:29)
[2023-07-18] MEDS: INSULIN GLARGINE (*BKC) 100 UNITS/ML 20 UNITS SUB-Q (08:38)
--- NOTE | 2023-07-18 11:13 | PM.PNCARD ---
Progress Note: A&P Assessment and Plan (1) Non-ST elevation [place] (NSTEMI): Code(s): I21.4 - Non-ST elevation (NSTEMI) myocardial infarction Status: Acute Assessment and Plan: Ischemic heart disease with recent onset of anginal-type symptoms.? Catheterization yesterday unfortunately demonstrates occlusion of the distal left main coronary artery.? He has a patent NAI to the LAD and a patent radial artery graft to the 2nd OM branch however the remainder of his dominant circumflex is ischemic as there is significant obstructive disease proximal to the radial artery graft anastomosis. Referral to [facility] for PCI vs redo CABG (2) Chest pain: Code(s): R07.9 - Chest pain, unspecified Status: Acute Assessment and Plan: Secondary to above. See plan below. (3) CAD (coronary artery disease): Code(s): I25.10 - Atherosclerotic heart disease of [place] coronary artery without angina pectoris Status: Chronic Assessment and Plan: Complex CAD involving distal left main coronary artery, circumflex artery (patent NAI to the LAD and a patent radial artery graft to the 2nd OM branch however the remainder of his dominant circumflex is ischemic as there is significant obstructive disease proximal to the radial artery graft anastomosis) Continue ASA, statin, plavix Increase beta veronica Started on Imdur Referral to [facility] for consideration of SLEEVE SETTER intervention to circumflex artery Subjective Date/time seen: 07/18/23 11:13 Interval history: Follow-up for unstable angina, CAD, NSTEMI Patient feels well this time. No anginal symptoms at rest. He states with a ambulation to the restroom, shower or shampooing his hair he got mild chest discomfort which resolved promptly with rest. Troponins continued to down trend. Denies shortness of breath. at bedside. Remains on heparin infusion. Date of service 07/17/2023: Patient underwent follow-up coronary angiography today to investigate recent onset of anginal symptoms. Found to have total occlusion of the distal aspect of his left main coronary artery. Has patent NAI graft to the LAD and a patent radial artery graft to the OM 2 branch of the circumflex. Unfortunately there appears to be significant obstructive disease proximal to the OM 2 anastomosis resulting in the majority of the dominant circumflex being ischemic territory. Long conversation with the patient and his about the strategies including treating this medically or and/or considering attempting a SLEEVE SETTER intervention of his circumflex from the distal left main. Date of service 07/18/23: No acute events overnight. Stable today with no recurrent chest pain. Review of Systems Review of Systems: Remainder of the review of systems is otherwise negative aside from that noted in the HPI. All systems reviewed & are unremarkable except as noted in HPI and below Constitutional: Constitutional: Reports as per HPI and Reports no additional constitutional complaints Eyes: Eyes: Reports as per HPI and Reports no additional eye complaints ENT: Reports system reviewed and no additional complaints, except as documented and Reports as per HPI Cardiovascular: Cardiovascular: Reports as per HPI and Reports no additional cardiovascular complaints Respiratory: Respiratory: Reports as per HPI and Reports no additional respiratory complaints Gastrointestinal: Gastrointestinal: Reports as per HPI and Reports no additional gastrointestinal complaints Genitourinary: Genitourinary: Reports no additional male genitourinary complaints and Reports as per HPI Musculoskeletal: Musculoskeletal: Reports no additional musculoskeletal complaints and Reports as per HPI Integumentary/Breasts: Skin/Breast: Reports system reviewed and no additional complaints, except as docu and Reports as per HPI Neurologic: Reports system reviewed and no additional complaints, except as documented and Reports as per HPI Psychiatr
--- NOTE | 2023-07-18 11:32 | PM.PNNEP ---
Progress Note: A&P Assessment and Plan (1) End stage renal disease: Code(s): N18.6 - End stage renal disease Status: Chronic Assessment and Plan: HD tomorrow continue Mon/Mon/Monday outpatient dialysis schedule follow electrolytes, volume status, and clearance (2) CAD (coronary artery disease): Code(s): I25.10 - Atherosclerotic heart disease of [place] coronary artery without angina pectoris Status: Chronic Assessment and Plan: s/p cardiac catheterization with results noted: occlusion of the distal left main coronary artery. patent NAI to the LAD and a patent radial artery graft to the 2nd OM branch however the remainder of his dominant circumflex is ischemic as there is significant obstructive disease proximal to the radial artery graft anastomosis.? Cardiology following continue aggressive medical management (3) HTN (hypertension): Code(s): I10 - Essential (primary) hypertension Status: Chronic Assessment and Plan: reasonable contril follow trend of hemodynamics (4) JAZMYNE (obstructive sleep apnea): Code(s): G47.33 - Obstructive sleep apnea (adult) (pediatric) Status: Chronic Assessment and Plan: using CPAP at night (5) Diabetes: Qualifiers: Diabetes mellitus type: type 2 Diabetes mellitus custodial insulin use: without intermediate card tender use Diabetes mellitus complication status: with kidney complications Diabetes mellitus complication detail: with chronic kidney disease Chronic kidney disease stage: stage 3 (moderate) Chronic kidney disease stage 3 subtype: stage 3b (GFR 30-44) Qualified Code(s): E11.22 - Type 2 diabetes mellitus with diabetic chronic kidney disease; N18.32 - Chronic kidney disease, stage 3b Code(s): E11.9 - Type 2 diabetes mellitus without complications Status: Chronic Assessment and Plan: follow accu-cheks glycemic control per hospitalists Will continue to follow. Subjective Date/time seen: 07/18/23 11:32 Interval history: Follow-up for end stage renal disease on hemodialysis. Tolerated hemodialysis treatment yesterday afternon following cardiac catheterization; no apparent distress noted at this time; otherwise, feels reasonable well. Exam Narrative: General: elderly but WD/WN male in NAD Heart: normal S1 and S2; no rub Lungs: clear to auscultation Abdomen: soft, nontender, nondistended, positive bowel sounds Extremities: no cyanosis or clubbing; no edema Skin: warm and intact Objective Data Vital Signs Vital Signs: Vital Signs Temp Pulse Resp BP Pulse Ox O2 Del Method O2 Flow Rate 07/18/23 11:20 54 L 07/18/23 10:00 51 L 07/18/23 09:25 95 07/18/23 08:00 60 24 H 99 Room Air 07/18/23 08:00 60 07/18/23 08:27 57 L 07/18/23 07:51 97.2 F L 58 L 24 H 102/43 L 99 07/18/23 05:37 56 L 07/18/23 04:07 97.4 F L 58 L 16 104/40 L 100 07/18/23 03:22 56 L 18 98 CPAP 07/18/23 03:22 56 L 07/18/23 02:00 58 L 07/17/23 23:10 61 97 Room Air 07/18/23 00:00 59 L 18 98 CPAP 07/18/23 00:00 59 L 07/18/23 00:06 97.7 F 60 18 119/44 L 98 07/17/23 21:35 64 07/17/23 20:30 63 20 100 Nasal Cannula 2 07/17/23 20:30 63 07/17/23 20:42 78 07/17/23 20:33 97.8 F 62 20 110/50 L 100 07/17/23 19:15 58 L 102/45 L 07/17/23 19:00 57 L 102/46 L 07/17/23 20:10 97.4 F L 64 16 108/51 L 100 07/17/23 20:04 61 101/43 L 07/17/23 19:45 59 L 110/44 L 07/17/23 19:30 59 L 101/43 L Intake/Output Intake/Output: Intake & Output 07/15/23 07/16/23 07/17/23 07/18/23 23:59 23:59 23:59 23:59 Intake Total 2670 194 250 318 Output Total 1000 0 3000 300 Balance 1670 1939 -275 18 Meds/Results Medications: Active Medications Generic Name Dose Route Start Last Admin ? Trade Name
[2023-07-18 11:54] LABS: Glucose Point of Care 197 mg/dl (65-105)
--- NOTE | 2023-07-18 14:04 | PM.DS ---
DS: Admitting Diagnosis Discharge Date 07/18/2023: Admitting Diagnosis Non ST elevated [place] DS: Discharge Diagnosis Discharge Diagnosis (1) CAD (coronary artery disease): Code(s): I25.10 - Atherosclerotic heart disease of [place] coronary artery without angina pectoris Status: Acute (2) Non-ST elevation [place] (NSTEMI): Code(s): I21.4 - Non-ST elevation (NSTEMI) myocardial infarction Status: Acute (3) Obesity: Code(s): E66.9 - Obesity, unspecified Status: Acute (4) JAZMYNE (obstructive sleep apnea): Code(s): G47.33 - Obstructive sleep apnea (adult) (pediatric) Status: Acute (5) HTN (hypertension): Code(s): I10 - Essential (primary) hypertension Status: Chronic (6) Diabetes: Qualifiers: Diabetes mellitus type: type 2 Diabetes mellitus [facility] insulin use: without petroleum terminal plant operator use Diabetes mellitus complication status: with kidney complications Diabetes mellitus complication detail: with chronic kidney disease Chronic kidney disease stage: stage 3 (moderate) Chronic kidney disease stage 3 subtype: stage 3b (GFR 30-44) Qualified Code(s): E11.22 - Type 2 diabetes mellitus with diabetic chronic kidney disease; N18.32 - Chronic kidney disease, stage 3b Code(s): E11.9 - Type 2 diabetes mellitus without complications Status: Chronic (7) Hyperlipidemia: Code(s): E78.5 - Hyperlipidemia, unspecified Status: Acute (8) Rheumatoid arthritis: Code(s): M06.9 - Rheumatoid arthritis, unspecified Status: Acute (9) Type 2 diabetes mellitus with hyperglycemia, with long-term current use of insulin: Code(s): E11.65 - Type 2 diabetes mellitus with hyperglycemia; Z79.4 - oysterman (current) use of insulin Status: Acute (10) Essential hypertension: Code(s): I10 - Essential (primary) hypertension Status: Acute (11) Neuropathy: Code(s): G62.9 - Polyneuropathy, unspecified Status: Acute (12) IBS (irritable bowel syndrome): Code(s): K58.9 - Irritable bowel syndrome without diarrhea Status: Acute (13) Acute kidney injury superimposed on CKD: Code(s): N17.9 - Acute kidney failure, unspecified; N18.9 - Chronic kidney disease, unspecified Status: Acute (14) Obstructive sleep apnea on CPAP: Code(s): G47.33 - Obstructive sleep apnea (adult) (pediatric); Z99.89 - Dependence on other enabling machines and devices Status: Acute (15) ESRD on dialysis: Code(s): N18.6 - End stage renal disease; Z99.2 - Dependence on renal dialysis Status: Acute (16) Paroxysmal atrial fibrillation: Code(s): I48.0 - Paroxysmal atrial fibrillation Status: Chronic (17) Chronic anticoagulation: Code(s): Z79.01 - [place] (current) use of anticoagulants Status: Acute (18) half-way (current) use of other immunomodulators and immunosuppressants: Code(s): Z79.69 - half-way (current) use of other immunomodulators and immunosuppressants Status: Acute DS: Summary Hospital Course Reason for hospitalization: Patient admitted with chest pain Hospital Course: H&P: HPI History of Present Illness Date/Time: 07/14/23? 18:30 Chief Complaint: Chest pain. Narrative: This is a very pleasant 78-year-old male with insulin-dependent diabetes, Charcot foot, necrotizing fasciitis requiring right toe amputation, coronary artery disease, paroxysmal atrial fibrillation, end-stage renal disease on hemodialysis, and other comorbidities who presented to the emergency department for evaluation of chest pain. Over the last couple of weeks he has had intermittent episodes of left anterior chest discomfort ?like an elephant is sitting on there.? It seems to be occurring more so with exertion but today he noticed the discomfort even when getting dressed. Symptoms are just like those he experienced prior to requiring stents and ultimate bypass. Nitroglycerin helps. He manuela
[2023-07-20 13:36] LABS: Hepatitis B Core Ab Total Nonreactive (Nonreactive)
== END 2023-07-18 15:08 | disposition home or self-care (01) | DRG 280 ==
LOC: ANHED 18:36 → ANHIMU 18:52
PROVIDERS: Internal Medicine Nephrology; Physician Assistant; Specialist; Student in an Organized Health Care Education/Training Program; Admitting Provider General Practice; Emergency Provider Emergency Medicine; PCP Registered Nurse; Visit Provider Family Medicine
PROC: 4A023N7 Measurement of Cardiac Sampling and Pressure, Left Heart, Percutaneous Approach (ICD-10-PCS; CPT 93459; principal; 2023-07-17 13:00)
DX: I21.4 Non-ST elevation (NSTEMI) myocardial infarction (principal); N18.6 End stage renal disease; N17.9 Acute kidney failure, unspecified; I12.0 Hypertensive chronic kidney disease with stage 5 chronic kidney disease or end stage renal disease; I25.119 Atherosclerotic heart disease of native coronary artery with unspecified angina pectoris; I48.0 Paroxysmal atrial fibrillation; I10 Essential (primary) hypertension; E11.22 Type 2 diabetes mellitus with diabetic chronic kidney disease; E78.5 Hyperlipidemia, unspecified; M06.9 Rheumatoid arthritis, unspecified; E11.65 Type 2 diabetes mellitus with hyperglycemia; K58.9 Irritable bowel syndrome, unspecified; E11.42 Type 2 diabetes mellitus with diabetic polyneuropathy; G47.33 Obstructive sleep apnea (adult) (pediatric); D64.9 Anemia, unspecified; I73.9 Peripheral vascular disease, unspecified; E66.9 Obesity, unspecified; Z68.37 Body mass index [BMI] 37.0-37.9, adult; Z79.4 Long term (current) use of insulin; Z99.2 Dependence on renal dialysis; Z95.5 Presence of coronary angioplasty implant and graft; Z86.16 Personal history of COVID-19; Z95.1 Presence of aortocoronary bypass graft; Z79.01 Long term (current) use of anticoagulants; Z96.1 Presence of intraocular lens; Z98.49 Cataract extraction status, unspecified eye; Z96.652 Presence of left artificial knee joint; Z90.49 Acquired absence of other specified parts of digestive tract; Z89.421 Acquired absence of other right toe(s); I25.2 Old myocardial infarction
CPT/HCPCS: 36415; 71045; 80048; 80053; 80069; 82948; 83690; 83735; 84484; 85025; 85610; 85730; 86704; 86706; 87040; 87340; 87641; 93005; 93459; 96365; 96366; 99291; A9270; C1887; C1894; G0257; G0378; J0461; J1644; J1815; J2250; J3010; J7030; J7040; J7050

== ENCOUNTER 2023-08-31 08:02 | Outpatient (CLI) | payer MEDICARE, SELFPAY ==
--- NOTE | ~2023-08-31 | US_ITS ---
EXAMINATION: US arterial ankle brachial ind DATE: 08/31/2023 09:02 INDICATION: Peripheral arterial occlusive disease with claudication TECHNIQUE: Segmental pressures and plethysmographic and Doppler waveforms of the brachial and lower e xtremity arteries were obtained. COMPARISON: None. FINDINGS: Right radial artery pressure of 135 mm Hg. The left brachial artery pressure is unable to be obtained due to the presence of a dialysis fistula the left upper arm. The right ankle-brachial index (SHYLA) is unable to be obtained due to inability to occlude the vessels (normal >= 0.9-1.0). The right great toe-brachial index (TBI) is 0.46 (normal >= 0.65). Arterial Dop pler waveforms are biphasic with brisk systolic upstrokes at both right posterior tibial and dorsalis pedis arteries. The left SHYLA is also unable to be obtained due to inability to occlude the vessels. The left TBI is 0 .46. Arterial Doppler waveforms are biphasic with brisk systolic upstrokes at both left posterior tib ial and dorsalis pedis arteries. IMPRESSION: 1. Arterial occlusive disease to bilateral lower limbs with mildly decreased bilateral toe brachial i ndices. Reviewed, dictated and finalized at location L. IMPRESSION: 1. Arterial occlusive disease to bilateral lower limbs with mildly decreased bi lateral toe brachial indices.
== END 2023-08-31 08:03 | disposition home or self-care (01) ==
LOC: ANHIMG 08:04
PROVIDERS: PCP Registered Nurse
DX: I77.1 Stricture of artery (principal); I73.9 Peripheral vascular disease, unspecified
CPT/HCPCS: 93922

== ENCOUNTER 2025-04-04 10:44 | Emergency (ER) | payer MEDICARE, SELFPAY ==
[2025-04-04 11:04] VITALS: BP 98/64; PULSE 88; RESP 16; TEMP 36.8; O2SAT 99
--- OUTSIDE RECORDS SUMMARY | 2025-04-04 11:25 | XMS_ITS | Encounter Summary ---
Author Organization [facility] Address [address] [place] [address] Phone Care Team Providers Care Paper Coater Name Role Phone Lizzy Villa Primary Care Provider + Lance King MD Unavailable Jeannie Diaz RN Unavailable [phone] Ravi Apodaca MD Unavailable [phone] Fawad Campbell MD Unavailable Mat Haywood MD Unavailable [phone] Stevenson Moreno MD Unavailable Encounter Details Date Type Department Care Team (Late st Contact Info) Description 10/22/2020 Orders Only [facility] Scanning, Provider Social History Tobacco Use Types Packs/Day Years Used Date Smoking Tobacco: Never Smokeless Tobacco: Never Alcohol Use Standard Drinks/Week Comments No 0 (1 standard drink = 0.6 oz pur e alcohol) Sex and Gender Information Value Date Recorded Sex Assigned at Not on file Legal 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 difficile Comment:11/18/22 Patient received Vanc March 2022 for C. Diff. No S&S of C. Diff currently. 03/29/2022 03/29/2022 11/18/2022 12: 37 PM CDT documented as of this encounter Care Teams Paper Coater Relationship Specialty Start Date End Date Lizzy Villa PA PCP - General 10/24/17 Lance King MD Surgeon Cardiothoracic Surgery 04/01/22 Jeannie Diaz, RN [address] [facility] [address] [place] [address] Unit Clerk 01/06/23 07/11/23 Ravi Apodaca MD [address] [facility] [address] [place] [id number] Consulting Physician Cardiology 01/13/23 Fawad Campbell MD [address] [facility] [address] [place] [address] Consulting Physician Vascular Surgery 01/13/23 Mat Haywood MD [address] [place], [place] [id number] Consulting Physician Clinical Cardiac Electrophysiology 10/05/23 Stevenson Moreno MD [address] [place] [address] Consulting Physician Interventional Cardiology 10/05/23 Dr Ani Rogers Medical Officer Nephrology 01/13/23 documented as of this encounter
--- OUTSIDE RECORDS SUMMARY | 2025-04-04 11:25 | XMS_ITS | Clinical Summary ---
Author Organization [facility] Facility Address [address] [place] [id number] Care Team Providers Care Wood Heel Flap Inserter Name Role Phone Unavailable Primary Care Provider Unavailabl e Social History Tobacco Use Types Packs/Day Years Used Date Smoking Tobacco: Never Assessed Sex and Gender Information Value Date Recorded Sex Assigned at Not on file Legal Sex Male 2:53 PM EDT Gender Identity Not on file Sexual Orientation Not on file Plan of Treatment Health Maintenance Due Date Last Done Comments Pneumococcal Vaccine: 50+ Ye ars (1 of 1 - PCV) 1995 Influenza Vaccine (#1) 2025 Hepatitis B Vaccine Aged Out No longe r eligible based on patient's age to complete this topic Insurance Medicare [facility] ([id number])
--- OUTSIDE RECORDS SUMMARY | 2025-04-04 11:25 | XMS_ITS | Encounter Summary ---
Author Organization [facility] Address [address] [place] [address] Phone Care Team Providers Care Mix Chemist Name Role Phone Lizzy Villa Primary Care Provider + Lance King MD Unavailable [phone] Jeannie Diaz RN Unavailable [phone] Ravi Apodaca MD Unavailable [phone] Fawad Campbell MD Unavailable Mat Haywood MD Unavailable [phone] Stevenson Moreno MD Unavailable Encounter Details Date Type Department Care Team (Late st Contact Info) Description 01/27/2021 Orders Only [facility] Scanning, Provider Social History Tobacco Use Types Packs/Day Years Used Date Smoking Tobacco: Never Smokeless Tobacco: Never Alcohol Use Standard Drinks/Week Comments No 0 (1 standard drink = 0.6 oz pur e alcohol) Sex and Gender Information Value Date Recorded Sex Assigned at Not on file 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 Gender Identity Not on file Sexual Orientation Not on file documented as of this encounter Plan of Treatment Not on file documented as of this encounter Procedures Procedure Name Priority Date/Time Associated Diagnosis Comments SCAN - LABS 01/27/2021 documented in this encounter Results * SCAN - LABS (01/27/2021) us Provider Scanning Final Result documented in [...] documented as of this encounter Care Teams Mix Chemist Relationship Specialty Start Date End Date Lizzy Villa PA PCP - General 10/24/17 Lance King MD Surgeon Cardiothoracic Surgery 04/01/22 Jeannie Diaz, RN [address] [facility] [address] [place] [address] Camouflage Specialist 01/06/23 07/11/23 Ravi Apodaca MD [address] [facility] [address] [place] [address] Consulting Physician Cardiology 01/13/23 Fawad Campbell MD [address] [facility] [address] [place] [address] Consulting Physician Vascular Surgery 01/13/23 Mat Haywood MD [address] [facility] [address] [place], [place] [id number] Consulting Physician Clinical Cardiac Electrophysiology 10/05/23 Stevenson Moreno MD [address] [facility] [address] [place] [address] Consulting Physician Interventional Cardiology 10/05/23 Dr Ani Rogers Corporate Strategy Associate Nephrology 01/13/23 documented as of this encounter
--- OUTSIDE RECORDS SUMMARY | 2025-04-04 11:25 | XMS_ITS | Encounter Summary ---
Author Organization [facility] Address [address] [place] [address] Phone Care Team Providers Care Rotary Pump Operator Name Role Phone Lizzy Villa Primary Care Provider + Lance King MD Unavailable [phone] Jeannie Diaz RN Unavailable [phone] Ravi Apodaca MD Unavailable [phone] Fawad Campbell MD Unavailable Mat Haywood MD Unavailable [phone] Stevenson Moreno MD Unavailable Encounter Details Date Type Department Care Team (Late st Contact Info) Description 11/18/2021 Orders Only [facility] Scanning, Provider Social History Tobacco Use Types Packs/Day Years Used Date Smoking Tobacco: Never Smokeless Tobacco: Never Alcohol Use Standard Drinks/Week Comments No 0 (1 standard drink = 0.6 oz pur e alcohol) AUDIT-C Answer Date Recorded Q1: How often do you have a drink containing alc ohol? 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 difficile Comment:11/18/22 Patient received Vanc March 2022 for C. Diff. No S&S of C. Diff currently. 03/29/2022 03/29/2022 11/18/2022 12: 37 PM CDT documented as of this encounter Care Teams Rotary Pump Operator Relationship Specialty Start Date End Date Lizzy Villa PA PCP - General 10/24/17 Lance King MD Surgeon Cardiothoracic Surgery 04/01/22 Jeannie Diaz, RN [address] [facility] [address] [place], [place] [id number] Press Operator Printing 01/06/23 07/11/23 Ravi Apodaca MD [address] [place], [place] [id number] Consulting Physician Cardiology 01/13/23 Fawad Campbell MD [address] [facility] [address] [place] [address] Consulting Physician Vascular Surgery 01/13/23 Mat Haywood MD [address] [facility] [address] [place] [address] Consulting Physician Clinical Cardiac Electrophysiology 10/05/23 Stevenson Moreno MD [address] [facility] [address] [place] [address] Consulting Physician Interventional Cardiology 10/05/23 Dr Ani Rogers Incident Manager Nephrology 01/13/23 documented as of this encounter
--- OUTSIDE RECORDS SUMMARY | 2025-04-04 11:25 | XMS_ITS | Clinical Summary ---
Author Organization [facility] Address [address] [place] [address] Care Team Providers Care Service Learning Coordinator Name Role Phone Lizzy Villa PA Primary Care Provider + Lance King MD Unavailable [phone] Ravi Apodaca MD Unavailable [phone] Pancho Franco MD Unavailable Mat Haywood MD Unavailable [phone] Stevenson Moreno MD Unavailable Allergies No known active allergies Medications ezetimibe (ZETIA) 10 mg tabletIndications: hyperlipidemia Take 1 tablet (10 mg total) by mouth every morning 02/11/20 21 Active multivit-min/yonathan us fumarate (MULTI VITAMIN ORAL) Take 1 tablet by mouth 2 (two) times a day Active gabapentin (NEURONTIN) 300 mg capsule Take 1 capsule (300 mg total) by mouth daily Active insulin lispro (HumaLOG, ADMELOG) 100 unit/mL pen for injection Inject 15 Units under the skin 3 (three) times a day after meals Active insulin glargine 100 unit/mL (3 mL) pen for injection Inject 42 Units under the skin daily before breakfast Basaglar Active lidocaine-prilocai ne cream Apply 1 g (1 Application total) topically 3 (three) times a week Apply to dialyis access site 30 minutes before dialysis. 04/07/20 23 Active ascorbic acid, vitamin C, (VITAMIN C) 1,000 mg CR tablet Take 1 tablet (1,000 mg total) by mouth daily Active zinc gluconate 50 mg tablet Take 1 tablet (50 mg total) by mouth daily Active ketoconazole (NIZORAL) 2 % cream Apply topically daily Active omega-3 fatty acids-fish oil 300-1,000 mg capsule Take 1 capsule (1 g total) by mouth daily Active furosemide (LASIX) 80 mg tablet Take 1 tablet (80 mg total) by mouth 2 (two) times a day 07/25/19 24 Active cinnamon bark 500 mg capsule Take 1 capsule (500 mg total) by mouth daily Active aspirin 81 mg enteric coated tablet Take 1 tablet (81 mg total) by mouth daily Active allopurinoL (ZYLOPRIM) 100 mg tablet Take 1 tablet (100 mg total) by mouth daily Active atorvastatin (LIPITOR) 80 mg tablet Take 1 tablet (80 mg total) by mouth nightly Active coenzyme Q10 100 mg capsule Take 1 capsule (100 mg total) by mouth daily Active turmeric 400 mg capsule Take by mouth Active tamsulosin (FLOMAX) 0.4 mg extended release capsule 1 capsule (0.4 mg total) Active isosorbide mononitrate ER (IMDUR) 60 mg 24 hr tabletIndications: Coronary artery disease of [place] artery of [place] heart with stable angina pectoris Take 1 tablet (60 mg total) by mouth daily 90 tablet 3 07/01/19 25 026 Active clopidogreL (PLAVIX) 75 mg tablet TAKE 1 TABLET BY MOUTH DAILY 90 tablet 2 08/22/19 25 Active ondansetron ODT (ZOFRAN-ODT) 4 mg disintegrating tablet 1 tablet on the tongue and allow to dissolve Orally every 4 hours as needed for 30 day(s) 10/29/19 22 Active omeprazole (PriLOSEC) 20 mg capsuleIndications :Constipation, unspecified constipation type,Nausea and vomiting, unspecified vomiting type Take 1 capsule (20 mg total) by mouth daily Take 1 capsule on an empty stomach 60 minutes prior to a meal. 30 capsule 2 01/04/20 25 Active lubiprostone (AMITIZA) 8 mcg capsuleIndications :Constipation Predominant Irritable Bowel Syndrome Take 1 capsule (8 mcg total) by mouth 2 (two) times a day with meals 60 capsule 5 01/04/20 25 Active pantoprazole sodium (PANTOPRAZOLE ORAL) Take by mouth Active hydroxychloroquine (PLAQUENIL) 200 mg tablet TAKE 1 TABLET BY MOUTH TWICE DAILY 180 tablet 3 01/11/20 Active lisinopriL (PRINIVIL,ZESTRIL) 2.5 mg tablet TAKE ONE-HALF TABLET BY MOUTH DAILY 45 tablet 3 01/11/20 25 Active metoprolol XL (TOPROL-XL) 50 mg extended release tablet TAKE 1 TABLET BY MOUTH DAILY 90 tablet 01/11/20 25 Active nitroglycerin (NITROSTAT) 0.4 mg SL tablet May place one tab SL PRN chest pain. May repeat every 5 min up to 3 tabs in 15 min. 25 tablet 11 01/29/20 25 Active Active Problems Problem Noted Date Diagnosed Date Other complication of arteriovenous dialysis fis sherrell 03/04/2025 Constipation 01/02/2025 Assessment & Plan (01/02/2025 12:28 PM CDT): Differential includes CIC, functional. He is on dialysis 3 times per week which is also contributing to the symptoms. KUB ordered today and we will discuss results by phone tomorrow afternoon. Considering initiating Amitiza 8 mcg twice daily. Vomiting without nausea 10/31/2024 Assessment & Plan (10/31/2024 3:12 PM CDT): Patient is diabetic most recent A1c was 6.8%. The differential includes gastroparesis. Have placed an order for a gastric emptying study . He had a lengthy discussion today about following a gastroparesis diet including eating frequent small meals, eating low-fat foods, low-cholesterol foods, low- fiber foods, and when appropriate adding pureed foods to his diet (examples here would be applesauce and mashed potatoes if these are foods that you can tolerate. Also avoid laying down immediately after eating. A referral to a dietitian has been made. Acute coronary syndrome 10/09/2024 NSTEMI (non-ST elevated myocardial infarction) 0 10/09/2024 Coronary artery disease invo lving [place] coronary artery of [place] heart with unstable angina pectoris 10/09/2024 Coronary artery disease of n ative artery of [place] heart with stable angina pectoris 10/08/2024 Chest pain 10/02/2023 Unstable angina 10/02/2023 Esophageal dysphagia 10/02/[address] [place] artery 07/18/2023 ESRD (end stage renal disease) on dialysis 01/03 Assessment & Plan (08/29/2024 3:07 PM CDT): Impression: Patient is being dialyzed through a left brachiocephalic AV fistula without any issues. Audible bruit and palpable thrill noted on exam. Av duplex scan reveals a patent AV fistula. Plan: Continue utilizing AV fistula for dialysis as per Nephrology. -recommend patient to follow-up in 3 months for re-evaluation with repeat AV duplex scan. Patient requested to be seen in 6 months to a year. Made patient aware of the recommendations as these follow ups allow us to intervene if there are issues in a timely manner. Scheduling made me aware that he made his follow up appointment in 6 months vs. 3 months that was recommended. Assessment & Plan (12/05/2023 12:21 PM CDT): Left brachiocephalic AV fistula functioning well for dialysis. No surgical procedure intervention indicated this time. Follow-up in the office in 6 months with repeat left arm AV fistula scan Assessment & Plan (02/07/2023 9:55 AM CDT): Left brachiocephalic arteriovenous fistula with good thrill. We will give it time to mature. Repeat evaluation in 6 weeks. ESRD (end stage renal disease) 10/06/2022 Assessment & Plan (03/14/2023 10:55 AM CDT): Patient following up today status post brachiocephalic fistula creation 01/17/2023. Coming in today to assess for maturity. Currently being dialyzed through a left IJ Perma catheter. Fistula does have good volume flow not yet readily visible. Palpable bruit audible thrill on exam. Plan: Follow-up in 1 one-month. Assessment & Plan (02/07/2023 9:55 AM CDT): Status post left brachiocephalic arteriovenous fistula. We will give this time to mature. Repeat evaluation in 6 weeks. Assessment & Plan (11/15/2022 1:21 PM CDT): History of acute kidney injury leading to dialysis status post three-vessel CABG in February of 2022. He has been on dialysis through a left IJ Perma catheter placed by Dr. Ward 03/29/2022. He is being evaluated for permanent access evaluation per Dr. Hernandez. Vein mapping done today shows he is sizable for a fistula creation. He is right arm dominant. Does have a history of his radial artery harvested for his CABG. Discussed the process for fistula creation as he is a candidate and veins are sizable. Discussed the potential risks of the procedure and answered all questions at this time. Patient is agreeable wishes to proceed. Discussed the patient with Dr. Pancho Franco. Hx of CABG 04/14/2022 Persistent atrial fibrillation 04/14/2022 S/P CABG x 3 04/01/2022 Severe malnutrition 03/26/2022 Nausea and vomiting 02/15/2022 Overview (03/29/2022): Added automatically from request for surgery [id number] Assessment & Plan (01/02/2025 12:29 PM CDT): Gastric emptying study was negative. Uncertain if he continues to take pantoprazole 40 mg. If so, please remember to take this on an empty stomach 1 hour prior to a meal. Also do not take this with any other medications. Resolution expected with more frequent incomplete bowel movements. Postoperative follow-up 06/29/2021 Sprain of shoulder and upper arm 06/29/2021 Acquired trigger finger 06/29/2021 Carpal tunnel syndrome 06/29/2021 Disorder of shoulder 06/29/2021 Lesion of ulnar nerve 06/29/2021 Osteoarthritis 06/29/2021 Radiotherapy follow-up 06/29/2021 Spinal enthesopathy 06/29/2021 Charcot's arthropathy 08/21/2018 Overview (08/21/2018): Added automatically from request for surgery [id number] Abduction deformity of foot, right 08/21/2018 Overview (08/21/2018): Added automatically from request for surgery [id number] Rocker bottom foot deformity 08/21/2018 Overview (08/21/2018): Added automatically from request for surgery [id number] Acquired claw toe of right foot 08/21/2018 Overview (06/29/2021): Added automatically from request for surgery [id number] Overview: Added automatically from request for surgery [id number] Hammertoe of right foot 08/21/2018 Overview (08/21/2018): Added automatically from request for surgery [id number] 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 08/21/2018 Overview (08/21/2018): Added automatically from request for surgery [id number] Abduction deformity of foot, right 08/21/2018 Overview (06/29/2021): Overview: Added automatically from request for surgery [id number] Hammertoe of right foot 08/21/2018 Overview (06/29/2021): Overview: Added automatically from request for surgery [id number] Rocker bottom foot deformity 08/21/2018 Overview (06/29/2021): Overview: Added automatically from request for surgery [id number] High risk medication use 08/09/2018 Chronic kidney disease, stage 4 (severe) 018 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 03/28/2018 Closed dislocation of right foot 03/28/2018 Charcot's joint of right foot 03/28/2018 Swelling of extremity, right 03/07/2018 Pain of lower extremity 03/07/2018 Coronary artery disease invo lving [facility] coronary artery of [place] heart without angina pectoris 04/25/2017 History of coronary artery stent placement 04/25 Morbid obesity with body mass index (BMI) of 40. 0 to 49.9 04/25/2017 Acquired absence of other right toe(s) 6 Type 2 diabetes mellitus with autonomic neuropat hy 03/23/2016 Foot pain 03/10/2016 Numbness and tingling in both hands 01/21/2016 Assessment & Plan (12/05/2023 12:26 PM CDT): Symptoms associated with numbness. No pain. This has been a chronic issue for the patient long before dialysis access creation. As symptoms are bilateral, not likely associated with fistula Pain of toe 04/12/2015 Seronegative rheumatoid arthritis 04/12/2015 Ankle pain 03/04/2015 Knee pain 03/04/2015 Polyarthralgia 12/18/2014 Obstructive sleep apnea 12/09/2013 Pure hypercholesterolemia 11/02/2013 Overview (06/29/2021): PURE HYPERCHOLESTEROLEM Overview: PURE HYPERCHOLESTEROLEM Assessment & Plan (11/15/2022 1:22 PM CDT): Continue Zetia Type 2 diabetes mellitus wit h chronic kidney disease on chronic dialysis, with long-term current use of insulin 11/02/2013 Overview (09/23/2016): DMII WO CMP UNCNTRLD Assessment & Plan (08/29/2024 3:01 PM CDT): Impression: Chronic and stable Plan: Continue insulin Assessment & Plan (11/15/2022 1:21 PM CDT): Continue diabetic diet and medical management as per PCP. Atherosclerosis 01/10/2013 Assessment & Plan (10/31/2024 3:13 PM CDT): Referral to a dietitian. Given patient's cardiac history, he should be eating a low to no cholesterol diet. Please reach out via [employer] with any questions or concerns. Coronary arteriosclerosis in [place] artery 01/10 Pickwickian syndrome 12/18/2012 Benign essential HTN 02/14/2012 Overview (06/29/2021): HYPERTENSION NOS Overview: HYPERTENSION NOS Overview: HYPERTENSION NOS Assessment & Plan (08/29/2024 3:02 PM CDT): Impression: Chronic and stable. Plan: Continue Lasix, isosorbide, lisinopril, metoprolol Assessment & Plan (11/15/2022 1:22 PM CDT): Metoprolol Type 2 diabetes mellitus without complications 0 02/14/2012 Overview (06/29/2021): Overview: DMII WO CMP UNCNTRLD Type 2 diabetes mellitus wit h diabetic chronic kidney disease 12/29/2011 Resolved Problems Problem Noted Date Diagnosed Date Resolved Date Rheumatoid arthritis without rheumatoid factor, unspecified site 04/12/2015 11/28/2022 Encounters Date Type Department Care Team Description 03/06/2025 Telephone [facility] Cardiology [address] [place] [address] Ravi Apoadca MD Bleeding/Bruising 03/04/2025 7:58 AM CDT - 03/04/2025 11:59 PM CDT Hospital Encounter [facility] Dialysis Access Center at [facility] [address] [place] [address] Other complication of arteriovenous dialysis fistula, initial encounter (Primary Dx); ESRD (end stage renal disease) on dialysis (HCC); Pure hypercholesterolemi a; Benign essential HTN Discharge Disposition: Discharge to home or self care 03/04/2025 7:58 AM CDT - 03/04/2025 11:59 PM CDT Hospital Encounter [facility] Medical Office Building 2 Vascular [address] [place] [address] Dependence on renal dialysis; End stage renal disease; Other complication of arteriovenous dialysis fistula, initial encounter Discharge Disposition: Discharge to home or self care 02/20/2025 8:20 AM CDT Office Visit [facility] Medicine Rheumatology [address] [place] [address] 2nd Floor [address] [place] [address] Vivien Stovall NP Seronegative rheumatoid arthritis (HCC) (Primary Dx) 01/16/2025 Documentation [facility] Medicine Rheumatology [address] 2[address] [place] [address] Joon Meier Eye Exam (08-27-24 leena forte ok for plaquenil) 01/06/2025 9:30 AM CDT Office Visit [facility] Cardiology [address] [place] [id number] Ravi Apodaca MD Coronary artery disease involving [place] coronary artery of [place] heart without angina pectoris (Primary Dx); History of coronary artery stent placement; Hx of CABG 01/06/2025 Telephone [facility] Gastroenterology at [facility] [address] [address] Harvey Baptiste PA 01/02/2025 12:36 PM CDT - 01/02/2025 11:59 PM CDT Hospital Encounter [facility] - Imaging [address] [place] [address] Constipation, unspecified constipation type Discharge Disposition: Discharge to home or self care 01/02/2025 11:30 AM CDT Office Visit [facility] Gastroenterology at [facility] [address] [address] Harvey Baptiste PA Slow transit constipation (Primary Dx); Constipation, unspecified constipation type; Nausea and vomiting, unspecified vomiting type from Last 3 Months Immunizations Immunization Administration Dates Next Due Pneumococcal Polysaccharide PPV23 02/14/2012 TD Preservative Free 02/17/2016 Surgical History Surgery Date Site/Laterality Comments KNEE ARTHROSCOPY W/ MENISCAL REPAIR 10 years ago Left COLONOSCOPY TOE AMPUTATION 06/19/2016 - 06/18/2017 Right CATARACT EXTRACTION W/ INTRAOCULAR LENS IMPLANT 06/19/2015 - 06/18/2016 Bilateral CORONARY ANGIOPLASTY WITH STENT PLACEMENT 2019, 2013, 2009 percutaneous transluminal balloon angioplasty with insertion of stent into coronary artery-LCX CARDIAC CATHETERIZATION 10/17/2010 - 11/16/2010 FOOT SURGERY 09/11/2018 Right right great toe IP joint arthrodesis CHOLECYSTECTOMY 01/17/2022 - 02/16/2022 CENTRAL LINE PLACEMENT > 5 YEARS 03/21/2022 N/A TUNNELED LINE PLACEMENT > 5 YEARS 03/29/2022 N/A DANIA permacatritchie - Dr. Ward (removed 05/31/23 - Dr. Pancho Franco) CORONARY ARTERY BYPASS GRAFT 06/19/2021 - 06/18/2022 triple bypass REPLACEMENT TOTAL KNEE July 2021 PORT PLACEMENT CHEST >5 YEARS 02/18/2016 N/A PORT PLACEMENT CHEST >5 YEARS 02/18/2016 N/A DIALYSIS FISTULA CREATION 01/17/2023 Left LUE brachiocephalic AVF - Dr. Pancho Franco CARDIAC CATHETERIZATION 10/09/2024 N/A Procedure: LEFT HEART CATHETERIZATION WITH CORONARY ANGIOGRAPHY AND WITH OR WITHOUT LEFT VENTRICULOGRAM [id number]; Surgeon: Stevenson Moreno MD; Location: [facility] CARDIAC ROTATING EQUIPMENT SPECIALIST; Service: Cardiovascular; Laterality: N/A; Medical devices from this surgery are in the Medical Devices section. Medical History Medical History Date Comments Hyperlipidemia Hypertension Peripheral neuropathy Obesity Foot fracture, left 12/2014 Toe fracture, right 01/2015 CAD (coronary artery disease) S/ P PCI Stents, then triple bypass CABG JAZMYNE on CPAP cpap at night Achilles tendon tear, right, initial encounter Amputation of third toe, rig ht, traumatic 01/2016 Ankle pain Pain and swelling of toe, right Rheumatoid arthritis without rheumatoid factor, unspecified site (HCC) Charcot foot due to diabetes mellitus (HCC) 03/2018 Right foot due to Diabetes Mitral valve regurgitation mild per TTE 06/26/2017 Tricuspid valve regurgitation mi ld per TTE 06/26/2017 End stage chronic kidney disease (HCC) dialysis 3 x weekly, M-W-F; Nephropathy Covid-19 12/2019 Motion sickness when sitting in the back seat of a car Type 2 diabetes mellitus Postoperative complication pt st ates after gallbladder surgery woke up clenching his chest, had ID- 2 weeks later had triple bypass Arrhythmia History of AFib. Cardioversion in May 2022. Now NSR ID (myocardial infarction) (HCC) 2018 pt states after waking up after gallbladder surgery, had a ID History of pneumonia Limb alert care status 12/2022 Left arm Anemia r/t CKD Gout Hemodialysis-associated hypotension Midodrine Nausea and vomiting 02/15/2022 Family History * Patient is adopted Medical History Relation Name Comments No Known Problems Mother Other Other No family histo ry of Diabetes mellitus; Anesthesia problems Neg Hx Diabetes Neg Hx Relation Name Status Comments Mother Alive Other Social History Tobacco Use Types Packs/Day Years Used Date Smoking Tobacco: Never Passive Smoke Exposure: Past Smokeless Tobacco: Never Tobacco Cessation:Counseling Given: Not Answered Alcohol Use Standard Drinks/Week Comments No 0 (1 standard drink = 0.6 oz pur e alcohol) [facility] Utilities Answer Date Recorded In the past 12 months has e electric, gas, oil, or water company threatened to shut off services in your home? No 10/10/2024 Social Connection and Isolation Panel Answer Date Recorded In a typical week, how many times do you talk on the phone with family, friends, or neighbors? More than three times a week 10/10/2024 How often do you get togethe r with friends or relatives? More than three times a week 10/10/2024 How often do you attend chur ch or taoism services? More than 4 times per year 10/10/2024 Do you belong to any clubs o r organizations such as hinduism groups, unions, fraternal or athletic groups, or school groups? Yes 10/10/2024 How often do you attend meet ings of the clubs or organizations you belong to? More than 4 times per year 10/10/2024 Are you , , di vorced, , never , or living with a partner? 10/10/2024 AUDIT-C Answer Date Recorded Q1: How often do you have a drink containing alcohol? Never 01/17/2023 Q2: How many drinks containi ng alcohol do you have on a typical day when you are drinking? Patient does not drink Q3: How often do you have si x or more drinks on one occasion? Never 01/17/2023 Overall Financial Resource Strain (CARDIA) Answe r Date Recorded How hard is it for you to pa y for the very basics like food, housing, medical care, and heating? Not very hard 10/10/2024 PHQ-2 Answer Date Recorded PHQ-2 Total Score (If total score is 3 or more points, staff should administer the PHQ-9) 0 01/02/2025 [facility] - Occupational Stress Questionnaire Answer Date Recorded Do you feel stress - tense, restless, nervous, or anxious, or unable to sleep at night because your mind is troubled all the time - these days? Not at all 04/05/2022 Hunger Vital Sign Answer Date Recorded Within the past 12 months, y ou worried that your food would run out before you got the money to buy more. Never true 10/11/19 25 Within the past 12 months, t he food you bought just didn't last and you didn't have money to get more. Never true 10/10/2024 PRAPARE - Transportation Answer Date Re corded In the past 12 months, has l ack of transportation kept you from medical appointments or from getting medications? No 09/18 In the past 12 months, has l ack of transportation kept you from meetings, work, or from getting things needed for daily living? No 10/10/2024 Housing Stability Vital Sign Answer Marcus e Recorded In the last 12 months, was t here a time when you were not able to pay the mortgage or rent on time? No 10/04/2023 In the last 12 months, how many places have you lived? 1 10/04/2023 In the last 12 months, was t here a time when you did not have a steady place to sleep or slept in a mcc (including now)? No 10/04/2023 Housing Stability Vital Sign Answer Marcus e Recorded In the last 12 months, was t here a time when you were not able to pay the mortgage or rent on time? No 10/10/2024 In the past 12 months, how m any times have you moved where you were living? 0 10/10/2024 At any time in the past 12 m [facility], were you homeless or living in a mcc (including now)? No 10/10/2024 Personal Safety Answer Date Recorded Have you ever been in or are you currently in a harmful physical or emotional relationship or is someone making you feel afraid or unsafe? 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 Gender Identity Not on file Sexual Orientation Not on file Obstetrics History Last Filed Vital Signs Vital Sign Reading Time Taken Comments Blood Pressure 123/70 03/04/2025 8:45 AM CDT Pulse 57 03/04/2025 8:45 AM CDT Temperature 37 C (98.6 F) 02/20/2025 8:23 AM CDT Respiratory Rate 18 03/04/2025 8:45 AM CDT Oxygen Saturation 100% 03/04/2025 8:45 AM CDT Inhaled Oxygen Concentration - - Weight 118.8 kg (262 lb) 02/20/2025 8:23 AM CDT Height 181.6 cm (5' 11.5) 02/20/2025 8:23 AM CD T Body Mass Index 36.03 02/20/2025 8:23 AM CDT Plan of Treatment Health Maintenance Due Date Last Done Comments Albumin Creatinine Ratio, Urine 1945 Dilated Eye Exam 1945 Foot Exam 1945 Zoster Vaccine (1 of 2) 01/16/1964 Well Visit 65+ 2010 Pneumococcal vaccine 65+ (2 of 2 - PCV) 02/13/2013 02/14/2012 DTaP/Tdap/Td Vaccine (1 - Tdap) 02/18/2016 6 Influenza Vaccine (#1) 2025 Hemoglobin A1C 04/11/2025 10/10/2024, 09/17, 08/04/2021, Additional history exists Lipid Panel 10/10/2025 10/10/2024, 09/17, 10/06/2022, Additional history exists eGFR 10/10/2025 10/10/2024, 09/18, 10/04/2023, Additional history exists Fall Risk Assessment 10/11/2025 10/11/2024 Depression Screening 01/02/2026 01/02/2025, 04/01/2022, 04/01/2022 Hepatitis B Screening Completed 10/10/2024 Medical Devices Implanted Type Area Certified Vehicle Fire Investigator Device Identifier Shelf Expiration Date Model / Serial / Lot 3.8 X 50mm Mini Max Torque Screw Implanted:Qty: 1 on 09/11/2018 by Elham Canela MD at [facility] Screw Right: Foot [employer] / 0 / Orthohelix [id number] Maxtorque 4mm 32.5mm Cannulated Self Drill Foot Ankle Long Thread - S0 - [id number] Implanted:Qty: 1 on 09/11/2018 by Elham Canela MD at [facility] Screw Right: Foot Orthohelix [id number] / 0 / [place] [employer] Ever Synergy Xd 4mm 48mm System Coronary Stent Everolimus [id number] - S0 - [id number] Implanted:Qty: 1 on 07/20/2023 by Stevenson Moreno MD at [facility] Stent [employer] Ever 04/10/2025 [id number] / 0 / [id number] [employer] Ever Stent Coronary Drug Eluting Rapid Exchange Synergy Megatron 5.82y77rn [place] Chromium [id number] - S0 - [id number] Implanted:Qty: 1 on 07/20/2023 by Stevenson Moreno MD at [facility] Stent [employer] Ever 11/08/2023 [id number] / 0 / [id number] Berry V[employer] Device Clsr Perclose Prostyle Sut-Mediatd Closure-Repair Sys 13218-23 - S0 - [id number] Implanted:Qty: 1 on 07/20/2023 by Stevenson Moreno MD at [facility] Vascular Closure Device [employer] 04/18/2025 [id number] / 0 / [id number] Berry Vascular Device Clsr Perclose Prostyle Sut-Mediatd Closure-Repair Sys 41359-54 - S0 - [id number] Implanted:Qty: 1 on 07/20/2023 by Stevenson Moreno MD at [facility] Vascular Closure Device [employer] 04/18/2025 59189-31 / 0 / [id number] Berry Vascular Device Clsr Perclose Prostyle Sut-Mediatd Closure-Repair Sys 93103-19 - S0 - [id number] Implanted:Qty: 1 on 10/03/2023 by Stevenson Moreno MD at [facility] Vascular Closure Device Right: Femoral [employer] 06/18/2025 97717-04 / 0 / [id number] Berry Vascular System Closure Repair Femoral Artery Suture Mediated Perclose Prostyle 62382-84 - S0 - [id number] Implanted:Qty: 1 on 10/09/2024 by Stevenson Moreno MD at [facility] Vascular Closure Device [employer] 08/16/2026 00214-91 / 0 / [id number] [id number] Implanted:Qty: 4 N/A: Heart [employer] Ar-1915sf Corkscrew Fiberwire 3.5mm 12mm Self Tap Eyelet Handle Motor And Controls Tester - [id number] Implanted:Qty: 1 on 09/11/2018 by Elham Canela MD at [facility] Right: Foot [employer] Inc 04/18/2023 [id number]-[id number] / / [id number] Ar[employer] Inc Ar-1915sf [place]ks[place]w Fiberwire 3.5mm 12mm Self Tap Eyelet Handle Motor And Controls Tester - [id number] Implanted:Qty: 1 on 09/11/2018 by Elham Canela MD at [facility] Right: Foot [employer] Inc 01/16/2023 AR-1915SF / / [id number] Depuy Orthopaedics Inc [id number] Attune Cemented Posterior Stabilize Knee Left 8 Component Femoral - [id number] Implanted:Qty: 1 on 08/18/2021 by Lucian Tidwell MD at [facility] Left: Knee [employer] Orth[employer]ed[employer] Inc [id number] 06/18/2031 [id number] / / [id number] Depuy Orth[employer] Inc [id number] Attune S+ Cement Fix Bearing Knee 8 Baseplate Tibial - [id number] Implanted:Qty: 1 on 08/18/2021 by Lucian Tidwell MD at [facility] Left: Knee [employer] Orth[employer]ed[employer] Inc [id number] 03/18/2030 [id number] / / [id number] Depuy Orth[employer]ed[employer] Inc [id number] Attune 41mm Cemented Medialize Knee Dome Patellar Aox Sterile - [id number] Implanted:Qty: 1 on 08/18/2021 by Lucian Tidwell MD at [facility] Left: Knee [employer] Orth[employer] Inc [id number] 03/18/2023 [id number] / / [id number] Dep[employer] Orth[employer]ed[employer] Inc [id number] Attune 8mm Posterior Stabilize Fix Bearing Knee 8 Insert Tibial - [id number] Implanted:Qty: 1 on 08/18/2021 by Lucian Tidwell MD at [facility] [employer] Orth[employer] Inc 01/16/2026 [id number] / / [id number] Stevan Orthopaedics 6197-9-010 Simplex P Full Dose Radiopaque Preblend Cement Bone Tobramycin - [id number] Implanted:Qty: 4 on 08/18/2021 by Lucian Tidwell MD at [facility] Left: Knee [employer] 11/16/2022 [id number] / / [id number] Angio Dynamics Duramax Vascpak Safesheath D-Pro 15.5fr 32cm Kit Catheter [id number] - [id number] Implanted:Qty: 1 on 03/29/2022 at [facility] Ang[employer] 11/17/2023 [id number] / / [id number] Vas[employer] Ltd Device 6fr Closure Celt Acd Vascular Sterile Latex Free Disposable Mahogany Kclt-06 - [id number] Implanted:Qty: 1 on 09/08/2022 at [facility] [employer] LTD 08/14/2025 KCLT-06 / / [id number] [employer] Ever Angio-Seal Vip 6fr Closere Device [id number] - [id number] Implanted:Qty: 1 on 07/12/2023 at [facility] [employer] Ever 02/09/2024 [id number] / / [id number] Explanted Type Area Certified Vehicle Fire Investigator Device Identifier Shelf Expiration Date Model / Serial / Lot [employer]aire [employer] Instruments [id number] Connie 5/64in 9in [place] One End Pin Fixation Stainless - S0 - [id number] Explanted:Qty: 1 on 09/11/2018 at [facility] Wire Right: Foot [employer] [id number] / 0 / [employer] K-Wire Explanted:Qty: 1 on 09/11/2018 by Elham Canela MD at [facility] Wire Right: Foot Kopo Kopo Inc / 0 / Description:Provisional fixi ation [employer] Instruments 1600-945ns Ahsan .045in 9in [place] Point Both Ends Orthopedic Wire - S0 - [id number] Explanted:Qty: 4 on 09/11/2018 by Elham Canela MD at [facility] Wire Right: Foot [employer] 1600-405NS / 0 / Description:Provisional fixa tion Procedures Procedure Name Priority Date/Time Associated Diagnosis Comments US HEMODIALYSIS ACCESS Schedule Routine, Read Routine (OP Routine) 03/04/2025 8:49 AM CDT Dependence on renal dialysis End stage renal disease Other complication of arteriovenous dialysis fistula, initial encounter XR KUB Schedule Routine, Read Routine (OP Routine) 01/02/2025 1:02 PM CDT Constipation, unspecified constipation type EGFR Routine 10/10/2024 12:41 AM CDT HEMOGLOBIN A1C Routine 10/10/2024 12:41 AM CDT LIPID PANEL Routine 10/10/2024 12:41 AM CDT from Last 3 Months or Most Recently Relevant to Health Maintenance Results * US Hemodialysis Access (03/04/2025 8:49 AM CDT) Anatomical Region Laterality Modality Vascular N/A Ultrasound 03/04/2025 8:18 AM CDT Narrative 03/04/2025 2:47 PM CDT Hemodialysis Access Duplex Report Patient Name: ERICKSON NAVARRO W : 1945 (80y 1m) Sex: M Study Date: 03/04/2025 08:18:40 AM Wastewater Analyst: YUE CABRERA Provider: PANCHO FRANCO Ref Provider: PANCHO FRANCO PROCEDURES: Vascular Report: Color Duplex ultrasound with velocity measurements was performed of the arteriovenous fistula in the left upper extremity. INDICATIONS: Dialysis graft complication. HISTORY: S/P LT BRACHIOCEPH AVF 01/17/23. COMPARISONS: No change compared to prior study. The previous exam was completed on 08/29/24. AVF: Vessel Velocity Lt Location LT BRACHIOCEPH AVF Lt [place] Artery 161.00 cm/sec Lt Arterial Anast 700.00 cm/sec Lt Prx AVF 253.00 cm/sec Lt Mid AVF 116.00 cm/sec Lt Dst AVF 86.00 cm/sec Lt [place] Vein 109 CEPH ARCH, 48 SUB V cm/sec Lt [place] Artery VF 761.00 mL/min Lt Mid AVF VF 4042.00 mL/min FINDINGS: Study Quality: The study quality is adequate. Fistula: The arteriovenous fistula is located in the left upper arm. Patent upper extremity arteriovenous fistula with no evidence of stenosis. CONCLUSIONS: 1. Patent left brachiocephalic arteriovenous fistula. No evidence of stenosis. Electronically Signed By: Pancho Franco MD 03/04/2025 1:45:59 PM CDT Procedure Note Pancho Franco MD - 03/04/2025 Hemodialysis Access Duplex Report Patient Name: ERICKSON NAVARRO W : 1945 (80y 1m) Sex: M Study Date: 03/04/2025 08:18:40 AM Wastewater Analyst: YUE CABRERA Provider: PANCHO FRANCO Provider: PANCHO FRANCO PROCEDURES: Vascular Report: Color Duplex ultrasound with velocity measurements wasperformed of the arteriovenous fistula in the left upper extremity. INDICATIONS: Dialysis graft complication. HISTORY: S/P LT BRACHIOCEPH AVF 01/17/23. COMPARISONS: No change compared to prior study. The previous exam was completed on08/29/24. AVF: Vessel Velocity Lt Location LT BRACHIOCEPH AVF Lt [place] Artery 161.00 cm/sec Lt Arterial Anast 700.00 cm/sec Lt Prx AVF 253.00 cm/sec Lt Mid AVF 116.00 cm/sec Lt Dst AVF 86.00 cm/sec Lt [place] Vein 109 CEPH ARCH, 48 SUB V cm/sec Lt [place] Artery VF 761.00 mL/min Lt Mid AVF VF 4042.00 mL/min FINDINGS: Study Quality: The study quality is adequate. Fistula: The arteriovenous fistula is located in the left upper arm.Patent upper extremity arteriovenous fistula with no evidence of stenosis. CONCLUSIONS: 1. Patent left brachiocephalic arteriovenous fistula. No evidence ofstenosis. Electronically Signed By: Pancho Franco MD 03/04/2025 1:45:59 PM CDT Pancho Franco MD [facility] [place] PROCEDURES Final Result * XR KUB (01/02/2025 1:02 PM CDT) Anatomical Region Laterality Modality Body, Abdomen N/A Computed Radiogr aphy 01/02/2025 2:59 PM CDT Impressions 01/02/2025 2:59 PM CDT 1. The stool burden is within normal limits. 2. Mild gaseous distention of the stomach is noted. 3. Otherwise postoperative KUB within expected limits. COMMENT: Please see above for additional findings. Electronically signed by: Chuck Guevara M.D. Narrative 01/02/2025 2:59 PM CDT XR KUB HISTORY: Please evaluate for fecal burden/fecal loading. COMPARISON: None available. FINDINGS: A one view radiograph of the abdomen was presented for evaluation. FINDINGS: A one view radiograph of the abdomen was presented for evaluation. There is evidence of a previous median sternotomy as well as cardiac surgery. Surgical clips are noted in the right upper quadrant of the abdomen. A right hip arthroplasty is also present. There is mild gaseous distention of the stomach. The small and large bowel pattern is within expected limits. The stool burden is within expected limits. There is no evidence of a significant amount of stool in the rectosigmoid colon. The included lung bases are grossly clear of the infiltrates. There is no evidence of a radiopaque calculus in the included portion of the urinary tract. Procedure Note Chuck Guevara MD - 01/02/2025 XR KUB HISTORY: Please evaluate for fecal burden/fecal loading. COMPARISON: None available. FINDINGS: A one view radiograph of the abdomen was presented for evaluation. FINDINGS: A one view radiograph of the abdomen was presented for evaluation. There is evidence of a previous median sternotomy as well as cardiac surgery. Surgical clips are noted in the right upper quadrant of the abdomen. A right hip arthroplasty is also present. There is mild gaseous distention of the stomach. The small and large bowel pattern is within expected limits. The stool burden is within expected limits. There is no evidence of a significant amount of stool in the rectosigmoid colon. The included lung bases are grossly clear of the infiltrates. There is no evidence of a radiopaque calculus in the included portion of the urinary tract. IMPRESSION: 1. The stool burden is within normal limits. 2. Mild gaseous distention of the stomach is noted. 3. Otherwise postoperative KUB within expected limits. COMMENT: Please see above for additional findings. Electronically signed by: Chuck Guevara M.D. Harvey WERNER IMG XR PROCEDURES Final R esult * (ABNORMAL) eGFR (10/10/2024 12:41 AM CDT) eGFR 14(L) >=60 mL/min/1. 73 m2 Comment: Interpretive Data Reference Interval Normal >/= 90 mL/min/1.73m2 Mildly decreased* 60 - 89 mL/min/1.73m2 Mildly to moderately decreased 45 - 59 mL/min/1.73m2 Moderately to severely decreased 30 - 44 mL/min/1.73m2 Severely decreased 15 - 29 mL/min/1.73m2 Kidney Failure < 15 mL/min/1.73m2 *Relative to young adult level Estimated glomerular filtration rate is determined by the 2020 CKD-EPI equation recommended by the National Kidney Foundation (A Unifying Approach to GFR Estimation: Recommendations of the NKF-ASK Task Force on Reassessing the Inclusion of Race in Diagnosing Kidney Disease, JASN 2020). The CKD-EPI equation should not be used for patients with unstable renal function and has not been validated in children and those over 70. Current interpretive data was last reviewed 2021. Blood 10/10/2024 12:4 1 AM CDT 10/10/2024 1:08 AM CDT Kraig Almodovar MD LAB BLOOD ORDERABLES Fi nal Result [facility] [address] Department [place] [address] * (ABNORMAL) Hemoglobin A1c (10/10/2024 12:41 AM CDT) Hgb A1C 6.8(H) 4.0 - 5.6 % Estimated Average Glucose 148 mg/dL [facility] Comment: The ADA recommends reporting an estimated Average Glucose (eAG) with all Hemoglobin A1c results using the equation derived from a study of 507 normal and diabetic adults. Minority populations were underrepresented and children were not included. (Diabetes Care 31:4899-5621, 2008). The eAG is not equivalent to a fasting glucose. Blood 10/10/2024 12:4 1 AM CDT 10/10/2024 1:08 AM CDT Otis Nuñez MD LAB BLOOD ORDERABLES Final Resul t [facility] [address] Department [place] [address] * (ABNORMAL) Lipid panel (10/10/2024 12:41 AM CDT) Cholesterol 111 30 - 199 mg/dL Comment: Interpretive Data Ages < or = 19 years Acceptable: <170 mg/dL Borderline high: 170-199 mg/dL High: >or= 200 mg/dL Ages > or = 20 years Desirable: <200 mg/dL Borderline high: 200-239 mg/dL High: >or= 240 mg/dL Literature References: 1. Expert Panel on Integrated Guidelines for Cardiovascular Health and Risk Reduction in Children and Adolescents. Pediatrics 2011;128:S213 2. NCEP Expert Panel. Circulation 2004;110:227 Current Interpretive Data was last revised on 2018. Triglycerides 86 <=149 mg/dL [facility] Comment: Interpretive Data Ages < or = 9 years Acceptable: <75 mg/dL Borderline high: 75-99 mg/dL High: >or= 100 mg/dL Ages 10 to 20 years Acceptable: <90 mg/dL Borderline high: 90-129 mg/dL High: >or= 130 mg/dL Ages > or = 20 years Desirable: <150 mg/dL Borderline high: 150-199 mg/dL High: 200-499 mg/dL Very high: >or= 499 mg/dL Literature References: 1. Expert Panel on Integrated Guidelines for Cardiovascular Health and Risk Reduction in Children and Adolescents. Pediatrics 2011;128:S213 2. NCEP Expert Panel. Circulation 2004;110:227 Current Interpretive Data was last revised on 2018. HDL 38(L) >=40 mg/dL [facility] Comment: Interpretive Data Ages < or = 19 years Acceptable: >45 mg/dL Borderline low: 40-45 mg/dL Low: <40 mg/dL Ages > or = 20 years Desirable: >or= 60 mg/dL Low: <40 mg/dL Literature References: 1. Expert Panel on Integrated Guidelines for Cardiovascular Health and Risk Reduction in Children and Adolescents. Pediatrics 2011;128:S213 2. NCEP Expert Panel. Circulation 2004;110:227 Current Interpretive Data was last revised on 2018. LDL, calculated 56 <=129 mg/dL [facility] Comment: Interpretive Data Ages < or = 19 years Acceptable: <110 mg/dL Borderline high: 110-129 mg/dL High: >or= 130 mg/dL Ages > or = 20 years Optimal: <100 mg/dL Near optimal: 100-129 mg/dL Borderline high: 130-159 mg/dL High: >160 mg/dL Calculated using the Gelacio LDL-C estimating equation. This equation was implemented on 2024. Prior to this date LDL-C was estimated using the Friedewald equation. Literature References: 1. Expert Panel on Integrated Guidelines for Cardiovascular Health and Risk Reduction in Children and Adolescents. Pediatrics 2011;128:S213 2. NCEP Expert Panel. Circulation 2004;110:227 3. Gelacio Pratt et al. JOHN Cardiol. 2020 October 17;5(5):540-548. doi: 10.1001/jamacardio.2020.0013 Current Interpretive Data was last revised on 2024. Non-HDL Cholesterol 73 mg/dL [facility] Comment: Interpretive Data Ages < or = 19 years Acceptable: <120 mg/dL Borderline high: 120-144 mg/dL High: >145 mg/dL Ages > or = 20 years When triglycerides are >200 mg/dL, Non-HDL cholesterol is a secondary target of therapy with treatment goals that are 30 mg/dL greater than the LDL cholesterol target. Literature References: 1. Expert Panel on Integrated Guidelines for Cardiovascular Health and Risk Reduction in Children and Adolescents. Pediatrics 2011;128:S213 2. NCEP Expert Panel. Circulation 2004;110:227 Current Interpretive Data was last revised on 2018. Chol/HDL ratio 3 [facility] Blood 10/10/2024 12:4 1 AM CDT 10/10/2024 1:08 AM CDT us Otis Nuñez MD LAB BLOOD ORDERABLES Final Resul t [facility] [address] Department [place] [address] from Last 3 Months or Most Recently Relevant to Health Maintenance Insurance MEDICARE BLUE CROSS MEDICARE SUPPLEMENT MEDICARE [facility] MEDICARE BLUE CROSS MEDICARE SUPPLEMENT MEDICARE Advance Directives For more information, please contact: [phone] * Full Code (Latest Code Status on File) Date Activated Date Inactivated Comments 10/09/2024 5:50 PM 10/11/2024 4:14 PM * Full Code Date Activated Date Inactivated Comments 10/09/2024 5:50 PM 10/09/2024 5:50 PM * Full Code Date Activated Date Inactivated Comments 10/02/2023 3:56 PM 10/05/2023 2:43 PM * Full Code Date Activated Date Inactivated Comments 10/02/2023 1:11 PM 10/02/2023 3:56 PM * Full Code Date Activated Date Inactivated Comments 07/20/2023 11:30 AM 07/20/2023 9:07 PM Care Teams Service Learning Coordinator Relationship Specialty Start Date End Date Lizyz Villa PA PCP - General 10/24/17 Lance King MD Surgeon Cardiothoracic Surgery 04/01/22 Ravi Apodaca MD [address] [facility] [address] [place] [id number] Consulting Physician Cardiology 01/13/23 Pancho Franco MD [address] [facility] [address] [address] Consulting Physician Vascular Surgery 01/13/23 Mat Haywood MD [address] [facility] [facility] [address], [place] [address] Consulting Physician Clinical Cardiac Electrophysiology 10/05/23 Stevenson Moreno MD [address] [facility] [address] [place] [address] Consulting Physician Interventional Cardiology 10/05/23 Dr Ritchie Rogers Vp Human Resources Nephrology 01/13/23
--- OUTSIDE RECORDS SUMMARY | 2025-04-04 11:25 | XMS_ITS | Clinical Summary ---
Author Organization [facility] Address [address] [place] [address] Care Team Providers Care Sales Training Representative Name Role Phone Lizzy Villa APRN, NATALI Primary Care Provider + Allergies No known active allergies Medications allopurinol (ZYLOPRIM) 100 MG Tablet Take 100 mg by mouth daily. Active amiodarone (CORDARONE) 200 MG Tablet Take 200 mg by mouth daily. Active apixaban (ELIQUIS) 5 MG Tablet Take 5 mg by mouth 2 times daily. Active Ascorbic Acid (Vitamin C CR) 1000 MG Tablet Controlled Release Take by mouth. Activ e aspirin EC 81 MG Tablet Delayed Response Take 81 mg by mouth daily. Active atorvastatin (LIPITOR) 80 MG Tablet Take 80 mg by mouth daily. Active benazepril (LOTENSIN) 20 MG Tablet Take 20 mg by mouth daily. Active carvedilol (COREG) 6.25 MG Tablet Take 6.25 mg by mouth 2 times daily. Active Vitamin D3 (cholecalciferol ) 1000 UNIT Tablet Take 25 mcg by mouth daily. Active clopidogrel (PLAVIX) 75 MG Tablet Take 75 mg by mouth daily. Active ezetimibe (ZETIA) 10 MG Tablet Take 10 mg by mouth daily. Active furosemide (LASIX) 80 MG Tablet Take 80 mg by mouth daily. Active gabapentin (NEURONTIN) 600 MG Tablet Take 600 mg by mouth 3 times daily. Active hydroxychloroqui ne (PLAQUENIL) 200 MG Tablet Take 400 mg by mouth daily. Active indapamide (LOZOL) 2.5 MG Tablet Take 2.5 mg by mouth every morning. Active isosorbide dinitrate (ISORDIL) 30 MG Tablet Take 30 mg by mouth 4 times daily. Active leflunomide (ARAVA) 20 MG Tablet Take 20 mg by mouth daily. Active linagliptin (TRADJENTA) 5 MG Tablet Take 5 mg by mouth daily. Active metoclopramide (REGLAN) 5 MG Tablet Take 5 mg by mouth 2 times daily. Active metoprolol tartrate (LOPRESSOR) 25 MG Tablet Take 12.5 mg by mouth nightly. Active Multiple Vitamin (MULTI-VITAMIN PO) Take by mouth. Activ e nitroGLYCERIN (NITROSTAT) 0.4 MG SL Tablet 0.4 mg by Sublingual route every 5 minutes as needed. Active pantoprazole (PROTONIX) 40 MG Tablet Delayed Response Take 40 mg by mouth daily. Active Nutritional Supplements (PROTEIN SUPPLEMENT 80% PO) Take by mouth. Activ e ramelteon (ROZEREM) 8 MG Tablet Take 8 mg by mouth nightly. Active tamsulosin (FLOMAX) 0.4 MG Capsule Take 0.4 mg by mouth daily. Active Zinc 50 MG Capsule Take by mouth. 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 Gender Identity Not on file Sexual Orientation Not on file Last Filed Vital Signs Vital Sign Reading Time Taken Comments Blood Pressure 118/78 07/26/2022 3:56 PM BRICK WASHER Pulse - - Temperature - - Respiratory Rate 16 07/26/2022 3:56 PM BRICK WASHER Oxygen Saturation - - Inhaled Oxygen Concentration - - Weight 125.6 kg (277 lb) 07/26/2022 3:56 PM BRICK WASHER Height 182.9 cm (6') 07/26/2022 3:56 PM BRICK WASHER Body Mass Index 37.57 07/26/2022 3:56 PM BRICK WASHER Plan of Treatment Health Maintenance Due Date Last Done Comments Hepatitis C Virus (HCV) Screening 1945 TdaP Immunization 1945 SARS-COV-2 Immunization (#1) 1950 Zoster Immunization (1 of 2) 01/16/1964 Medicare Initial AWV [id number] 12/17/2010 Pneumococcal Immunization (5 0+ years) (2 of 2 - PCV) 02/13/2013 02/14/2012 Respiratory Syncytial Virus (RSV) Immunization (Adult) (1 - 1-dose 75+ series) 01/16/2020 Influenza Immunization (#1) 2025 DTaP/Tdap/Td Immunization Discontinued 02/17/2016 Hepatitis B Immunization Aged Out No longer eligible based on patient's age to complete this topic Human Papillomavirus (HPV) Immunization Aged Out No longer eligible b ased on patient's age to complete this topic Meningococcal Immunization (ACWY) Aged Out No longer eligible based on patient's age to complete this topic Rotavirus Immunization Aged Out No lo nger eligible based on patient's age to complete this topic Insurance MEDICARE [facility] Care Teams Sales Training Representative Relationship Specialty Start Date End Date Lizzy Villa APRN, MEDICAL ARTIST [address] [place] [address] PCP - General Primary Care 07/26/22
--- OUTSIDE RECORDS SUMMARY | 2025-04-04 11:25 | XMS_ITS | Encounter Summary ---
Author Organization [facility] Address [address] [place] [id number] Care Team Providers Care Sales Performance Manager Name Role Phone Lizzy Villa Primary Care Provider [phone] Lizzy Villa Unavailable [phone] Ravi Apodaca MD Unavailable [phone] Encounter Details Date Type Department Care Team (Late st Contact Info) Description 01/12/2022 Prep for Procedure [facility] Pre-Admission Testing [place], [place] [id number] Sky Bueno MD [address] [place] [id number] Social History Tobacco Use Types Packs/Day Years Used Date Smoking Tobacco: Never Smokeless Tobacco: Never Alcohol Use Standard Drinks/Week Comments No 0 (1 standard drink = 0.6 oz pur e alcohol) AUDIT-C Answer Date Recorded Frequency of Alcohol Consumption Never 07/24/2018 Average Number of Drinks Not on file 019 Frequency of Binge Drinking Not on file 10/2018 PHQ-2 Answer Date Recorded PHQ-2 Score - If the patient scores above 3, please move on to questions 3-9 0 11/17/2021 Sex and Gender Information Value Date Recorded Sex Assigned at Male 02/05/2025 11:16 AM CDT Legal Sex Male 4:08 PM CDT Gender Identity Male 09/23/2021 5:10 AM CDT Sexual Orientation Not on file COVID-19 Exposure Response Date Recorded In the last 10 days, have yo u been in contact with someone who was confirmed or suspected to have Coronavirus/COVID-19? No / Unsure 01/14/2022 2:05 AM CDT documented as of this encounter Functional Status * Calculated C-SSRS Risk Score (Lifetime/Recent) Answer Date of Assessment Author Status No Risk Indicated 01/12/2022 10:43 AM CDT Rai Brown RN Active * [place] Suicide Severity Rating Scale (Screener/Recent Self-Report) Question Answer Date of Assessment Author Status 1. Wish to be (Past 1 Month) No 01/12/2022 10:43 AM CDT Chapin Brown RN Active 2. Non-Specific Active Suicidal Thoughts (Past 1 Month) No 01/12/2022 10:43 AM CDT Chapin Brown RN Active 6. Suicidal Behavior (Lifetime) No 01/12/2022 10:43 AM CDT Chapin Brown RN Active documented as of this encounter Mental Status * Question Answer Entry Date Author Status Because of a physical, mental, or emotional condition, do you have serious difficulty concentrating, remembering, or making decisions? No 01/14/2022 2:04 AM CDT Ashok Tan RN Active documented in this encounter Plan of Treatment Not on file documented as of this encounter Goals Goal Patient Goal Type Associated Problems Recent Progress Patient-Stated? Author Patient will return to prior living situation and remain independent in ADLs upon discharge from hospital General No Vonnie Dotson RN documented as of this encounter Results * CORONAVIRUS (COVID 19) (01/10/2022 9:18 AM CDT) SPEC DESCRIPTION NASAL 01/11/20 9:54 AM CDT [facility] CORONAVIRUS SARS COV 2 PCR (RESP) NEGATIVE NEGATIVE 01/10/2022 6:55 PM CDT [facility] Comment: THE SARS-CoV-2 TEST HAS BEEN AUTHORIZED BY THE FDA UNDER AN EUA FOR USE BY AUTHORIZED LABORATORIES. PERFORMED BY NUCLEIC ACID AMPLIFICATION PCR FIRST TEST NO 01/10/2022 9:54 AM CDT [facility] EMPLOYED IN HEALTHCARE NO 01/10/2022 9:54 AM CDT [facility] SYMPTOMATIC DEFINED BY CDC NO 01/10/2022 9:54 AM CDT [facility] HOSPITALIZATION STATUS NO 01/10/2022 9:54 AM CDT [facility] PATIENT IN ICU NO 01/10/2022 9:54 AM CDT [facility] RESIDENT OF [facility] NO 01/10/2022 9:54 AM CDT [facility] NASAL STRUCTURE / Unknown 01/10/2022 9:18 AM CDT Sky Bueno MD MICROBIOLOGY - GENERAL OR DERABLES Final Result [facility] [address] [place] [address], [facility] [address] [place] [address], documented in this encounter Visit Diagnoses Diagnosis Preoperative testing- Primary Preoperative examination, unspecified documented in this encounter Additional Health Concerns Assessment Noted Time PHQ-9 Depression Total Score: 0 04/05/20 21 9:48 AM CDT documented as of this encounter Care Teams Sales Performance Manager Relationship Specialty Start Date End Date Lizzy Villa APNP [facility] [place] [address] PCP - General NURSE PRACTITIONER 07/18/18 Lizzy Villa APNP [address] [place] [address] PCP - Med Group - MSSP Attributed Provider 06/19/15 06/18/22 Ravi Apodaca MD [address] [place] [id number] CARDIOVASCULAR DISEASE 01/05/22 documented as of this encounter
--- OUTSIDE RECORDS SUMMARY | 2025-04-04 11:25 | XMS_ITS | Patient Health Record ---
Author Organization [facility] Address [address] [facility] [address] [place] [address] Care Team Providers Care Catastrophe Claims Supervisor Name Role Phone Daisy RUIZ, Lizzy Primary Care Provider Ricki ALMAZAN NP, MIKE Unavailable [phone] Allergies No Known Allergies Reason For Referral No Information Medications Medication SIG (Take, Route, Frequency, Duration) Notes Start Date End Date Status Ezetimibe 10 MG 1 tablet Orally Once a day Active Aspirin 81 81 MG 1 tablet Orally Once a day Active Hydroxychloroquine Sulfate 200 MG as directed Orally Active Dicyclomine HCl 20 MG 1 tablet Orally Th ree times a day Active Probiotic 250 MG 1 capsule Orally Twi ce a day Active Ondansetron 4 MG 1 tablet on the tong ue and allow to dissolve Orally every 4 hours as needed; Duration: 30 day(s) 10/28/2021 Active MCT Oil - 15 ml Orally Three times a day Active Creon 61019-48514 UNIT as directed Orally Active Tamsulosin HCl 0.4 MG 1 capsule Orally O nce a day Active Allopurinol 100 MG 1 tablet Orally Once a day Active Indapamide 2.5 MG 1 tablet in the morn ing Orally Once a day Active Leflunomide 20 MG 1 tablet Orally Once a day Active Betaine - 3 scoops dissolved i n 4 to 6 ounces of water Orally Twice a day Active Charcoal 200 MG as directed Orally Active Basaglar KwikPen 100 UNIT/ML as directed Subcutaneous Active HumaLOG 100 UNIT/ML as directed Subcutaneous Active Zinc 50 MG 1 tablet Orally Once a day Active Carvedilol 6.25 MG 1 tablet with food Orally Twice a day Active Vitamin C 100 MG 1 tablet Orally Once a day Active Benazepril HCl 10 MG 1 tablet Orally Onc e a day Active Atorvastatin Calcium 10 MG 1 tablet Oral ly Once a day Active Isosorbide Dinitrate 10 MG 1 tablet Oral ly Twice a day Active Turmeric Curcumin 5-1000 MG as directed Orally Active Collagen - as directed Externally Active Liposomal Regular - as directed Externally Active Gabapentin 600 MG 1 tablet Orally Once a day Active Cinnamon 500 MG as directed Orally Active Plan Of Treatment Pending Test Test Name Order Date Ultrasound : Right Upper Quadrant 2021 Insurance Providers Payer Name Payer Address Payer Phone Subscriber Number Group Number Insured Name Patient Relationship to Insured Coverage Start Date Coverage End Date [place] [address] [place], [place] [id number] Erickson Navarro Self - patient is the insured [facility] Medicare Supplement [address] [place], [place] [id number] PLAN F Erickson Navarro Self - patient is the insured Medical (General) History Medical History History ICD Code hypertension Gout hyperlipidemia sleep apnea Pickwickian syndrome type II diabetes heart attack Surgical History Surgery Date(Month/Year) toe amputation cardiac stent knee replacement
--- OUTSIDE RECORDS SUMMARY | 2025-04-04 11:25 | XMS_ITS ---
Author Organization [facility] Address [address] [place] [address] Care Team Providers Care Technology Manager Name Role Phone Lizzy Villa PA Primary Care Provider + Lance King MD Unavailable [phone] Ravi Apodaca MD Unavailable [phone] Pancho Campbell MD Unavailable Mat Haywood MD Unavailable Stevenson Moreno MD Unavailable Dialysis Access Sites Type Status Location Placement Date Removal Da te Hemodialysis AV Access 01/17/23 Upper arm Active Left Upper Arm - Anterior 01/17/2023 Hemodialysis Cath Double 03/29/22 Tunneled catheter Left Internal Jugular Inactive Left Neck (side) - Anterior 03/29/2022 05/31/2023 Hemodialysis Cath Double Inactive Left Ne ck (side) - Anterior 03/21/2022 03/29/2022 Procedures Procedure Name Priority Date/Time Associated Diagnosis [...] or Most Recently Relevant to Health Maintenance Allergies No known active allergies Medications ezetimibe [...] 24 hr tabletIndications: Coronary artery disease of [place] artery of [place] heart with stable angina pectoris Take 1 [...] MOUTH TWICE DAILY 180 tablet 3 01/11/20 25 Active lisinopriL (PRINIVIL,ZESTRIL) 2.5 mg tablet TAKE ONE-HALF TABLET BY MOUTH DAILY 45 tablet 3 01/11/20 25 Active metoprolol XL (TOPROL-XL) 50 mg extended release tablet TAKE 1 TABLET BY MOUTH DAILY 90 tablet 3 01/11/20 25 Active nitroglycerin (NITROSTAT) 0.4 mg [...] 0 10/09/2024 Coronary artery disease invo lving [place] coronary artery of [place] heart with unstable angina pectoris 10/09/2024 Coronary artery disease of n ative artery of [place] heart with stable angina pectoris 10/08/2024 Chest pain 10/02/2023 Unstable angina 10/02/2023 Esophageal dysphagia 10/02/2023 CAD in [place] artery 07/18/2023 ESRD (end stage renal disease) [...] proceed. Discussed the patient with Dr. Pancho Campbell. Hx of CABG 04/14/2022 Persistent atrial fibrillation 04/14/2022 S/P CABG x 3 04/01/2022 Severe malnutrition 03/26/2022 Nausea and vomiting 02/15/2022 Overview (03/29/2022): Added automatically from request for surgery [id number] Assessment & Plan (01/02/2025 12:29 PM CDT): [...] (08/21/2018): Added automatically from request for surgery [id number] Abduction deformity of foot, right 08/21/2018 Overview (08/21/2018): Added automatically from request for surgery [id number] Rocker bottom foot deformity 08/21/2018 Overview (08/21/2018): Added automatically from request for surgery [id number] Acquired claw toe of right foot 08/21/2018 Overview (06/29/2021): Added automatically from request for surgery [id number] Overview: Added automatically from request for surgery [id number] Hammertoe of right foot 08/21/2018 Overview (08/21/2018): Added automatically from request for surgery [id number] 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 08/21/2018 Overview (08/21/2018): Added automatically from request for surgery [id number] Abduction deformity of foot, right 08/21/2018 Overview (06/29/2021): Overview: Added automatically from request for surgery [id number] Hammertoe of right foot 08/21/2018 Overview (06/29/2021): Overview: Added automatically from request for surgery [id number] Rocker bottom foot deformity 08/21/2018 Overview (06/29/2021): Overview: Added automatically from request for surgery [id number] High risk medication use 08/09/2018 Chronic kidney disease, stage 4 (severe) 018 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 Please reach out via ProPerformat with any questions or concerns. Coronary arteriosclerosis in [place] artery 01/10 Pickwickian syndrome 12/18/2012 Benign essential [...] wit h diabetic chronic kidney disease 12/29/2011 Immunizations Immunization Administration Dates Next Due Pneumococcal Polysaccharide PPV23 02/14/2012 TD Preservative Free 02/17/2016 Social History Tobacco Use Types Packs/Day Years Used Date Smoking Tobacco: Never Passive Smoke Exposure: Past Smokeless Tobacco: Never Tobacco Cessation:Counseling Given: Not Answered Alcohol Use Standard Drinks/Week Comments No 0 (1 standard drink = 0.6 oz pur e alcohol) [facility] Utilities Answer Date Recorded In the [...] often do you attend chur ch or temple services? More than 4 times per year 10/10/2024 Do you belong to any clubs o r organizations such as congregation groups, unions, fraternal or athletic groups, or [...] staff should administer the PHQ-9) 0 01/02/2025 [facility] [place] [facility] - Occupational Stress Questionnaire Answer Date Recorded [...] place to sleep or slept in a fci (including now)? No 10/04/2023 Housing Stability Vital Sign Answer Marcus e Recorded In the last 12 months, was t here a time when you were not able to pay the mortgage or rent on time? No 10/10/2024 In the past 12 months, how m any times have you moved where you were living? 0 10/10/2024 At any time in the past 12 m [facility], were you homeless or living in a fci (including now)? No 10/10/2024 Personal Safety Answer Date Recorded Have you ever been in or are you currently in a harmful physical or emotional relationship or is someone making you feel afraid or unsafe? 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 Gender Identity Not on file Sexual Orientation [...] Mass Index 36.03 02/20/2025 8:23 AM CDT Results * US Hemodialysis Access (03/04/2025 8:49 AM CDT) Anatomical Region Laterality Modality Vascular N/A Ultrasound 03/04/2025 8:18 AM CDT Narrative 03/04/2025 2:47 PM CDT Hemodialysis Access Duplex Report Patient Name: REICKSON NAVARRO W : 1945 (80y 1m) Sex: M Study Date: 03/04/2025 08:18:40 AM Roof Bolter Helper: YUE CABRERA Provider: PANCHO CAMPBELL Provider: PANCHO CAMPBELL PROCEDURES: Vascular Report: Color Duplex ultrasound with velocity measurements was performed of the arteriovenous fistula in the left upper extremity. INDICATIONS: Dialysis graft complication. HISTORY: S/P LT BRACHIOCEPH AVF 01/17/23. COMPARISONS: No change compared to prior study. The previous exam was completed on 08/29/24. AVF: Vessel Velocity Lt Location LT BRACHIOCEPH AVF Lt [place] Artery 161.00 cm/sec Lt Arterial Anast 700.00 cm/sec Lt Prx AVF 253.00 cm/sec Lt Mid AVF 116.00 cm/sec Lt Dst AVF 86.00 cm/sec Lt [place] Vein 109 CEPH ARCH, 48 SUB V cm/sec Lt [place] Artery VF 761.00 mL/min Lt Mid AVF VF 4042.00 mL/min FINDINGS: Study Quality: The study quality is adequate. Fistula: The arteriovenous fistula is located in the left upper arm. Patent upper extremity arteriovenous fistula with no evidence of stenosis. CONCLUSIONS: 1. Patent left brachiocephalic arteriovenous fistula. No evidence of stenosis. Electronically Signed By: Pancho Campbell MD 03/04/2025 1:45:59 PM CDT Procedure Note Pancho Campbell MD - 03/04/2025 Hemodialysis Access Duplex Report Patient Name: ERICKSON NAVARRO W : 1945 (80y 1m) Sex: M Study Date: 03/04/2025 08:18:40 AM Roof Bolter Helper: YUE CABRERA Provider: PANCHO CAMPBELL Ref Provider: PANCHO CAMPBELL PROCEDURES: Vascular Report: Color Duplex ultrasound with velocity measurements wasperformed of the arteriovenous fistula in the left upper extremity. INDICATIONS: Dialysis graft complication. HISTORY: S/P LT BRACHIOCEPH AVF 01/17/23. COMPARISONS: No change compared to prior study. The previous exam was completed on08/29/24. AVF: Vessel Velocity Lt Location LT BRACHIOCEPH AVF Lt [place] Artery 161.00 cm/sec Lt Arterial Anast 700.00 cm/sec Lt Prx AVF 253.00 cm/sec Lt Mid AVF 116.00 cm/sec Lt Dst AVF 86.00 cm/sec Lt [place] Vein 109 CEPH ARCH, 48 SUB V cm/sec Lt Y[place] Artery VF 761.00 mL/min Lt Mid AVF VF 4042.00 mL/min FINDINGS: Study Quality: The study quality is adequate. Fistula: The arteriovenous fistula is located in the left upper arm.Patent upper extremity arteriovenous fistula with no evidence of stenosis. CONCLUSIONS: 1. Patent left brachiocephalic arteriovenous fistula. No evidence ofstenosis. Electronically Signed By: Pancho Campbell MD 03/04/2025 1:45:59 PM CDT Pancho Campbell MD [facility] US PROCEDURES Final Result * XR KUB [...] of Race in Diagnosing Kidney Disease, JASN 202). The CKD-EPI equation should not be used for patients with unstable renal function and has not been validated in children and those over 70. Current interpretive data was last reviewed 2021. Blood 10/10/2024 12:4 1 AM CDT 10/10/2024 1:08 AM CDT Kraig Almodovar MD LAB BLOOD ORDERABLES Fi nal Result Performing Organization Address [facility] de Phone Number [facility] [address] Department [place] [address] * (ABNORMAL) Hemoglobin A1c (10/10/2024 12:41 AM CDT) Hgb A1C 6.8(H) 4.0 - 5.6 % Estimated Average Glucose 148 mg/dL [facility] Comment: The ADA recommends reporting an estimated Average Glucose (eAG) with all Hemoglobin A1c results using the equation derived from a study of 507 normal and diabetic adults. Minority populations were underrepresented and children were not included. (Diabetes Care 31:5493-4005, 2008). The eAG is not equivalent to a fasting glucose. Blood 10/10/2024 12:4 1 AM CDT 10/10/2024 1:08 AM CDT us Otis Nuñez MD LAB BLOOD ORDERABLES Final Resul t Performing Organization Address [facility] de Phone Number [facility] [address] Department [place] [address] * (ABNORMAL) Lipid panel (10/10/2024 12:41 AM [...] revised on 2018. Triglycerides 86 <=149 mg/dL [facility] Comment: Interpretive Data Ages < or = [...] revised on 2018. HDL 38(L) >=40 mg/dL [facility] Comment: Interpretive Data Ages < or = [...] on 2018. LDL, calculated 56 <=129 mg/dL [facility] Comment: Interpretive Data Ages < or = 19 years Acceptable: <110 mg/dL Borderline high: 110-129 mg/dL High: >or= 130 mg/dL Ages > or = 20 years Optimal: <100 mg/dL Near optimal: 100-129 mg/dL Borderline high: 130-159 mg/dL High: >160 mg/dL Calculated using the Brizuela LDL-C estimating equation. This equation was implemented on 2024. Prior to this date LDL-C was estimated using the Friedewald equation. Literature References: 1. Expert Panel on Integrated Guidelines for Cardiovascular Health and Risk Reduction in Children and Adolescents. Pediatrics 2011;128:S213 2. NCEP Expert Panel. Circulation 2004;110:227 3. Gelacio M et al. JOHN Cardiol. 2020 October 17;5(5):540-548. doi: 10.1001/jamacardio.2020.0013 Current Interpretive Data was last revised on 2024. Non-HDL Cholesterol 73 mg/dL [facility] Comment: Interpretive Data Ages < or = [...] last revised on 2018. Chol/HDL ratio 3 [facility] Blood 10/10/2024 12:4 1 AM CDT 10/10/2024 1:08 AM CDT Otis Nuñez MD LAB BLOOD ORDERABLES Final Resul t [facility] [address] [place] [address] from Last 3 Months or Most Recently Relevant to Health Maintenance
--- OUTSIDE RECORDS SUMMARY | 2025-04-04 11:25 | XMS_ITS | Clinical Summary ---
Author Organization [facility] Address [address] [place] [address] Phone Care Team Providers Care Photolettering Machine Operator Name Role Phone DaisyLizzy Primary Care Provider [phone] Allergies No known active allergies Medications aspirin (ASPIR-LOW) 81 MG EC tablet 3 Active benazepril (LOTENSIN) 20 MG tablet 1 bid 0 8 Active cholecalciferol (VITAMIN D-3) 2000 units capsule 1 daily 0 8 Active gabapentin (NEURONTIN) 600 MG tablet 0 Active cinnamon 500 MG capsule Take 1,000 mg by mouth daily Active leflunomide (ARAVA) 20 MG tablet leflunomide 20 mg tablet 9 Active nitroglycerin (NITROSTAT) 0.4 MG SL tablet Nitrostat 0.4 mg sublingual tablet Active isosorbide mononitrate (IMDUR) 30 MG 24 hr tablet Take 30 mg by mouth 1 (one) time each day Active clopidogrel (PLAVIX) 75 MG tablet Take 75 mg by mouth 1 (one) time each day Active Multiple Vitamin (MULTIVITAMIN) capsule Take 1 capsule by mouth 1 (one) time each day Active zinc gluconate 50 MG tablet Take 50 mg by mouth 1 (one) time each day Active OneTouch Verio test strip 4 (four) times a day for testing 0 Active carvedilol (COREG) 6.25 MG tablet 2 Active Creon 59617-65584 units capsule 1 Active ezetimibe (ZETIA) 10 MG tablet 1 Active dicyclomine (BENTYL) 10 MG capsule 1 Active hydroxychloroquin e (PLAQUENIL) 200 MG tablet 1 Active tamsulosin (FLOMAX) 0.4 MG 24 hr capsule 1 Active ascorbic acid (VITAMIN C) 1000 MG tablet Take 1,000 mg by mouth daily Active CHARCOAL ACTIVATED PO Take by mouth Act zan Digestive Enzymes (BETAINE HCL PO) Take by mouth Active Insulin Glargine (BASAGLAR KWIKPEN SC) Inject under the skin Active MISC NATURAL PRODUCTS IJ Inject as directed Raw organic meal Active COLLAGEN PO Take by mouth Acti ve MISC NATURAL PRODUCTS ER PO Take by mouth Human superbeets Active Turmeric 500 MG tablet Take by mouth Active MISC NATURAL PRODUCTS ER PO Take by mouth Amazing grass Active medium chain triglycerides (MCT OIL) oil Take 15 mL by mouth 3 (three) times a day Active allopurinol (ZYLOPRIM) 100 MG tablet Take 100 mg by mouth 2 (two) times a day Active indapamide (LOZOL) 2.5 MG tablet TAKE 1 TABLET BY MOUTH 1 TIME EVERY DAY IN THE MORNING 90 tablet 3 2 Active atorvastatin (LIPITOR) 80 MG tablet TAKE 1 TABLET BY MOUTH DAILY 90 tablet 3 2 Active Active Problems Problem Noted Date Diagnosed Date Chronic kidney disease, stage 4 (severe) 018 Gout 07/13/2016 Hyperlipidemia 04/28/2014 Obstructive sleep apnea 12/09/2013 Coronary arteriosclerosis in [place] artery 01/10 Essential (primary) hypertension 02/14/2012 Overview (05/22/2021): Overview: HYPERTENSION NOS Type 2 diabetes mellitus wit h diabetic chronic kidney disease 12/29/2011 Immunizations Immunization Administration Dates Next Due Influenza TIV (IM) 07/07/2021(Deferred: Patient Refused) Pneumococcal Polysaccharide 02/14/2012 TD Preservative Free 02/17/2016 Family History Medical History Relation Comments Kidney disease Relative Relation Status Comments Relative Social History Tobacco Use Types Packs/Day Years Used Date Smoking Tobacco: Never Smokeless Tobacco: Never Alcohol Use Standard Drinks/Week Comments Yes 0 (1 standard drink = 0.6 oz pur e alcohol) Sex and Gender Information Value Date Recorded Sex Assigned at Not on file Legal Sex Male 8:55 AM MST Gender Identity Not on file Sexual Orientation Not on file Last Filed Vital Signs Vital Sign Reading Time Taken Comments Blood Pressure 124/70 01/17/2022 3:06 PM CDT Pulse 72 01/17/2022 3:06 PM CDT Temperature 36.8 C (98.2 F) 01/17/2022 3:06 PM CDT Respiratory Rate - - Oxygen Saturation - - Inhaled Oxygen Concentration - - Weight 133 kg (294 lb) 01/17/2022 3:06 PM CDT Height 185.4 cm (6' 1) 01/17/2022 3:06 PM CDT Body Mass Index 38.79 01/17/2022 3:06 PM CDT Plan of Treatment Health Maintenance Due Date Last Done Comments Pneumococcal PPSV23/PCV13 65 + Years / Low and Medium Risk (2 of 3 - PCV) 02/13/2013 02/14/2012 Influenza Vaccine (#1) 2025 Insurance MEDICARE [facility] Care Teams Photolettering Machine Operator Relationship Specialty Start Date End Date Lizzy Villa NPI: [id number] [place] [id number] PCP - General Family Medicine 12/19/18
--- OUTSIDE RECORDS SUMMARY | 2025-04-04 11:25 | XMS_ITS | Clinical Summary ---
Author Organization [facility] Address [facility] [place] [address] Care Team Providers Care Product Communications Manager Name Role Phone Magda Villa Primary Care Provider [phone] Ravi Apodaca MD Unavailable [phone] Allergies No known active allergies Medications atorvastatin 80 MG tablet Take 1 tablet (80 mg total) by mouth daily. 9 Active ONETOUCH VERIO test strip U 1 STRIP QID UTD 3 8 Active Insulin Syringe-Needle U-100 (INSULIN SYRINGE .5CC/31GX5/16) 31G X 5/16 0.5 ML Misc 4 Active allopurinol 100 MG tablet Take 3 tablets (300 mg total) by mouth daily. Active NEEDLE, DISP, 18 G 18G X 1-1/2 MiscIndications :Hypogonadism in male 1 Package by Does not apply route every 21 days. 6 each 1 9 Active SYRINGE-NEEDLE, DISP, 3 ML (B-D 3CC LUER-CHRISTELLE SYR 15GK2-4/2) 23G X 1-1/2 3 ML MiscIndications :Hypogonadism, testicular USE MONTHLY DIRECTED 10 each 0 Active isosorbide mononitrate ER 30 MG 24 hr tablet Take 1 tablet (30 mg total) by mouth daily. 0 Active clopidogrel 75 MG tablet Take 1 tablet (75 mg total) by mouth daily. 0 Active insulin lispro 100 UNIT/ML injection (VIAL) 15 Units 4 (four) times a day. Active ezetimibe 10 MG tablet Take 1 tablet (10 mg total) by mouth daily. 1 Active Ascorbic Acid 1000 MG Tab Take 1,000 mg by mouth daily. Active ketoconazole (NIZORAL) 2 % creamIndication s:Rash Apply topically daily. 30 g 1 4 Active aspirin EC (ECOTRIN) 81 MG tablet Take 1 tablet (81 mg total) by mouth daily. Active Emollient (COLLAGEN) Cream as directed Externally Active hydroxychloroqu ine (PLAQUENIL) 200 MG tablet Take 1 tablet (200 mg total) by mouth 2 (two) times daily. 4 Active insulin glargine (LANTUS) 100 UNIT/ML injection (PEN) Inject 42 Units into the skin daily. Active furosemide (LASIX) 80 MG tablet Take 1 tablet (80 mg total) by mouth daily. Active SHOWER CHAIR, DME,Indications :History of right hip replacement 1 Device by Other route as needed. 24 inch, with back if possible 1 Device 4 Active budesonide (PULMICORT) 0.5 MG/2ML nebulizer solutionIndicat ions:Acute cough,SOB (shortness of breath) Take 2 mLs (0.5 mg total) by nebulization 2 (two) times daily as needed. 960 mL 5 Active Additional Information Patient not taking.Reported on 02/05/2025 albuterol sulfate HFA 108 (90 Base) MCG/ACT inhalerIndicati ons:SOB (shortness of breath),URI (upper respiratory infection) Inhale 2 puffs into the lungs every 4 (four) hours as needed for Wheezing. 18 g 5 Active nitroglycerin (NITROSTAT) 0.4 MG SL tablet May place one tab SL PRN chest pain. May repeat every 5 min up to 3 tabs in 15 min. 5 Active omeprazole (PRILOSEC) 20 MG capsule Take 1 capsule (20 mg total) by mouth daily. 5 Active tamsulosin (FLOMAX) 0.4 MG Cap 1 capsule (0.4 mg total). Active gabapentin (NEURONTIN) 300 MG capsule Take 1 capsule (300 mg total) by mouth daily. Active lisinopril (PRINIVIL) 2.5 MG tablet Take 0.5 tablets (1.25 mg total) by mouth daily. 4 025 Active Problems Problem Noted Date Diagnosed Date Diabetes due to underlying condition w erica ortiz latleigh ann comp 02/05/2025 Pulmonary emphysema, unspecified emphysema type 02/05/2025 ESRD (end stage renal disease) on dialysis 04/17 S/P samm 01/12/2022 Precordial pain 01/12/2022 Assessment & Plan (01/12/2022 10:04 PM CDT): He had some chest discomfort after his laparoscopic cholecystectomy. I agree with EKG that did not show ischemic changes. I agree with cardiac enzymes and the first set of enzymes was negative. If the patient second set of enzymes negative, no further cardiac work-up is needed. It is possible that his chest discomfort was related to his surgery. Acquired claw toe of right foot 08/21/2018 Overview (04/23/2019): Overview: Added automatically from request for surgery [id number] Rocker bottom foot deformity 08/21/2018 Overview (04/23/2019): Overview: Added automatically from request for surgery [id number] Hammertoe of right foot 08/21/2018 Overview (04/23/2019): Overview: Added automatically from request for surgery [id number] Abduction deformity of foot, right 08/21/2018 Overview (04/23/2019): Overview: Added automatically from request for surgery [id number] High risk medication use 08/09/2018 Chronic kidney disease, stage 4 (severe) 018 Closed dislocation of right foot 03/28/2018 Abnormal bone xray 03/15/2018 Serum creatinine raised 03/15/2018 Pain of lower extremity 03/07/2018 Fatigue 03/07/2018 Swelling of extremity, right 03/07/2018 Abnormal EMG 07/12/2017 Right trigger finger 06/25/2017 Bilateral hand numbness 06/23/2017 Erectile dysfunction 05/04/2017 History of coronary artery stent placement 04/25 Obesity, morbid 04/25/2017 Left shoulder pain 03/15/2017 Achrochordon 09/14/2016 Umbilical hernia 09/14/2016 Acquired absence of other right toe(s) 6 skilled nursing current use of insulin 03/23/2016 Foot pain 03/10/2016 Numbness and tingling sensation of skin 01/21/20 Hip pain 06/25/2015 Pain of toe 04/12/2015 Seronegative rheumatoid arthritis 04/12/2015 Ankle pain 03/04/2015 Knee pain 03/04/2015 Polyarthralgia 12/18/2014 Benign prostatic hyperplasia 04/14/2014 Obstructive sleep apnea 12/09/2013 Pure hypercholesterolemia 11/02/2013 Overview (07/24/2018): Overview: PURE HYPERCHOLESTEROLEM Actinic keratosis 09/30/2013 Coronary artery disease of n ative artery of [place] heart with stable angina pectoris 01/10/2013 Essential (primary) hypertension 02/14/2012 Overview (07/24/2018): Overview: HYPERTENSION NOS Gout 02/14/2012 Hyperlipidemia 02/14/2012 Hypogonadism, testicular 02/14/2012 Type 2 diabetes mellitus without complications 0 02/14/2012 Overview (07/24/2018): Overview: DMII WO CMP UNCNTRLD Atrial fibrillation Resolved Problems Problem Noted Date Diagnosed Date Resolved Date Diabetic retinopathy of both eyes 09/01/2022 04/17/2024 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 03/28/2018 04/17/2024 Hyperkalemia 03/13/2018 10/22/2018 Boil of trunk 03/07/2018 10/22/2018 Cough 07/12/2017 04/23/2019 Partial thickness burn 07/12/201710/22 BMI 40.0-44.9, adult 06/23/2017 019 Necrotizing fasciitis 03/23/20162021 Screening PSA (prostate specific antigen) 04/14/2014 02/28/2020 Pickwickian syndrome 12/18/2012 024 Encounter for preventive health examination 02/14/2012 02/28/2020 Encounters Date Type Department Care Team Description 02/07/2025 Scan [facility] Scanned, Doc [facility] 02/05/2025 11:00 AM CDT Office Visit [facility] Internal [address] [address] Magda Villa APNP Weakness (Pt would like to get a motorized wheelchair, as he c/o difficulty walking even shorter distances without needing to sit/stop. He reports he has been having to rely on the rental/loaner scooters available at stores when going out.) 02/05/2025 Results Follow-Up [address] [address] Magda Villa APNP XR LUMB SPINE 3V, XR THOR SPINE 3V 02/05/2025 Travel 02/04/[address] [address] Magda Villa APNP Advice 01/06/2025 Scan [facility]VCS Scanned, Doc [facility] 01/02/2025 Scan [facility] Scanned, Doc Med Group from Last 3 Months Immunizations Immunization Administration Dates Next Due Pneumococcal (Pneumovax 23) 02/14/2012 Td (Tenivac) preservative free 02/17/2016 Family History * Patient is adopted Relation Status Comments Father Mother Alive Social History Tobacco Use Types Packs/Day Years Used Date Smoking Tobacco: Never Passive Smoke Exposure: Never Smokeless Tobacco: Never Tobacco Cessation:Counseling Given: No Alcohol Use Standard Drinks/Week Comments No 0 (1 standard drink = 0.6 oz pur e alcohol) AUDIT-C Answer Date Recorded Frequency of Alcohol Consumption Never 07/24/2018 Average Number of Drinks Not on file 019 Frequency of Binge Drinking Not on file 10/2018 PHQ-2 Answer Date Recorded Patient Health Questionnaire-2 Score 0 02/05/2025 Sex and Gender Information Value Date Recorded Sex Assigned at Male 02/05/2025 11:16 AM CDT Legal Sex Male 4:08 PM CDT Gender Identity Male 09/23/2021 5:10 AM CDT Sexual Orientation Not on file Last Filed Vital Signs Vital Sign Reading Time Taken Comments Blood Pressure 144/58 02/05/2025 11:16 AM CDT Pulse 66 02/05/2025 11:16 AM CDT Temperature 37 C (98.6 F) 02/05/2025 11:16 AM CDT Respiratory Rate 16 02/05/2025 11:16 AM CDT Oxygen Saturation 93% 02/05/2025 11:16 AM CDT Inhaled Oxygen Concentration - - Weight 119.1 kg (262 lb 8 oz) 02/05/2025 11:16 A M CDT Height 180.3 cm (5' 11) 02/05/2025 11:16 AM CDT Body Mass Index 36.61 02/05/2025 11:16 AM CDT Plan of Treatment Health Maintenance Due Date Last Done Comments Annual Medicare Wellness Visit 2010 ASCVD LDL 10/21/2022 10/21/2021, 10/22/2018 Diabetes: Retinopathy Eye Exam 10/29/2024 10/30/2023, 08/15/2022, 06/25/2021, Additional history exists COVID-19 Vaccine ( - season) 2025 Hemoglobin A1C 04/11/2025 10/10/2024, 11/2 11/2023, 10/03/2023, Additional history exists DTaP, Tdap and Td Vaccines (1 - Tdap) 04/17/2074 02/17/2016 Postponed from 02/18/2016 (Patient Refused) Influenza Adult (#1) 2074 Postpon ed from 03/19/2025 (Patient Refused) Lipid Panel 04/17/2074 10/06/2022, 05/0 10/2021, 12/12/2019, Additional history exists Postponed from 10/07/2023 (Patient Refused) Pneumococcal Vaccine: 50+ Years (2 of 2 - PCV) 04/17/2074 02/14/2012 Postponed from 02/13/2013 (Patient Refused) RSV Immunization or 60+ Years (1 - 1-dose 75+ series) 04/17/2074 Postponed from 01/16/2020 (Patient Refused) Zoster Vaccines (1 of 2) 04/17/2074 Pos tponed from 1995 (Patient Refused) PHQ-2 (Physician [place]) Completed 02/05/2025 Meningococcal B Vaccine Aged Out No l onger eligible based on patient's age to complete this topic Meningococcal Vaccine Aged Out No zach dajuan eligible based on patient's age to complete this topic RSV Immunizations Under 20 Months Aged Out No longer eligible based on patient's age to complete this topic Goals Goal Patient Goal Type Associated Problems Recent Progress Patient-Stated? Author Patient will return to prior living situation and remain independent in ADLs upon discharge from [facility] Vonnie Chaudhari RN Procedures Procedure Name Priority Date/Time Associated Diagnosis Comments XR THOR SPINE 3V Routine 02/05/2025 12:1 2 PM CDT Mid back pain XR LUMB SPINE 3V Routine 02/05/2025 12:1 2 PM CDT Low back pain potentially associated with radiculopathy HEMOGLOBIN, GLYCOSYLATED Routine 05/14/2024 DIABETIC RETINOPATHY EXAM (POSITIVE)(SCAN ORDER) Routine 10/30/2023 LIPID PANEL Routine 10/21/2021 8:14 AM CDT Coronary arteriosclerosis in [place] artery from Last 3 Months or Most Recently Relevant to Health Maintenance Results * XR THOR SPINE 3V (02/05/2025 12:12 PM CDT) Anatomical Region Laterality Modality Spine Radiographic Tory ging 02/05/2025 2:33 PM CDT Impressions 02/05/2025 2:34 PM CDT IMPRESSION: 1. No acute abnormality identified. 2. Degenerative changes as described. Ordered By: MAGDA VILLA Interpreted By: Fito Murrell MD, 02/05/2025 2:33 PM Narrative 02/05/2025 2:34 PM CDT [facility] Family and Internal Medicine - [address] [address] Examination: XR THOR SPINE 3V Exam time: 02/05/2025 11:57 AM Clinical history: Mid and low back pain. Comparison: No prior exam Technique: AP, lateral, and swimmer's views Findings: There is no evidence of vertebral segmentation anomalies. 12 rib pairs. No evidence of fracture or acute osseous abnormality throughout the thoracic spine. No evidence of subluxation. Bridging anterior lateral vertebral body endplate spurring changes mid and lower thoracic spine. Atherosclerotic calcifications aortic arch and descending thoracic aorta. Median sternotomy changes. Surgical clips right upper quadrant of the abdomen. Procedure Note Fito Murrell MD - 02/05/2025 [facility] [place] [address] Examination: XR THOR SPINE 3V Exam time: 02/05/2025 11:57 AM Clinical history: Mid and low back pain. Comparison: No prior exam Technique: AP, lateral, and swimmer's views Findings: There is no evidence of vertebral segmentation anomalies. 12 ribpairs. No evidence of fracture or acute osseous abnormality throughout thethoracic spine. No evidence of subluxation. Bridging anterior lateralvertebral body endplate spurring changes mid and lower thoracic spine.Atherosclerotic calcifications aortic arch and descending thoracic aorta.Median sternotomy changes. Surgical clips right upper quadrant of theabdomen. IMPRESSION: 1. No acute abnormality identified. 2. Degenerative changes as described. Ordered By: MAGDA VILLA Interpreted By: Fito Murrell MD, 02/05/2025 2:33 PM us Magda Villa APNP GENERAL IMAGING Final Resul t * XR LUMB SPINE 3V (02/05/2025 12:12 PM CDT) Anatomical Region Laterality Modality Spine Radiographic Tory ging 02/05/2025 2:39 PM CDT Impressions 02/05/2025 2:41 PM CDT IMPRESSION: 1. No acute abnormality identified. 2. Degenerative changes as described. Ordered By: MAGDA VILLA Interpreted By: Fito Murrell MD, 02/05/2025 2:39 PM Narrative 02/05/2025 2:41 PM CDT [facility] and Internal [place] [id number] Examination: XR LUMB SPINE 3V Exam time: 02/05/2025 11:57 AM Clinical history: Low back pain Comparison: No prior exam Technique: AP, lateral, and lumbosacral views Findings: There are 5 lumbar-type vertebra. Mild chronic appearing anterior wedge configuration L1 vertebral body. Anterior vertebral body endplate spurring L1-2 and L3-4 levels. Decrease intervertebral disc heights L1-2 and L2-3 levels with vacuum disc phenomenon consistent with disc degeneration. Minimal retrolisthesis L2 on L3. Prominent facet joint degenerative changes L4-5 and L5-S1 levels. Aortoiliac atherosclerotic calcifications. Right hip arthroplasty changes partially visualized. Sacroiliac joints appear unremarkable. No evidence of fracture or acute osseous abnormality. Procedure Note Fito Murrell MD - 02/05/2025 [facility] Internal [place] [id number] Examination: XR LUMB SPINE 3V Exam time: 02/05/2025 11:57 AM Clinical history: Low back pain Comparison: No prior exam Technique: AP, lateral, and lumbosacral views Findings: There are 5 lumbar-type vertebra. Mild chronic appearinganterior wedge configuration L1 vertebral body. Anterior vertebral bodyendplate spurring L1-2 and L3-4 levels. Decrease intervertebral discheights L1-2 and L2-3 levels with vacuum disc phenomenon consistent withdisc degeneration. Minimal retrolisthesis L2 on L3. Prominent facet jointdegenerative changes L4-5 and L5-S1 levels. Aortoiliac atheroscleroticcalcifications. Right hip arthroplasty changes partially visualized.Sacroiliac joints appear unremarkable. No evidence of fracture or acuteosseous abnormality. IMPRESSION: 1. No acute abnormality identified. 2. Degenerative changes as described. Ordered By: MAGDA VILLA Interpreted By: Fito Murrell MD, 02/05/2025 2:39 PM us Magda Villa APNP GENERAL IMAGING Final Resul t * HEMOGLOBIN, GLYCOSYLATED (05/14/2024) HGB A1C 6.9 % 05/14/2024 Default History Genericprovider LABORATORY Final Result * DIABETIC RETINOPATHY EXAM (POSITIVE) (10/30/2023) Doc [facility] Scanned SCANNING Final Resu lt [facility] ONBASE * (ABNORMAL) LIPID PANEL (10/21/2021 8:14 AM CDT) Pathologist [facility] CHOLESTEROL 85 <200 MG/DL 10/21/2021 3:15 PM CDT [facility] TRIGLYCERIDES 83 <150 MG/DL 10/21/2021 3:15 PM CDT [facility] HDL 33(L) >40 MG/DL 10/21/2021 3:15 PM CDT [facility] LDL-C 35 <100 MG/DL 10/21/2021 3:15 PM CDT [facility] VLDL CALCULATION 17 5 - 28 MG/DL 10/21/2021 3:15 PM CDT [facility] CHOL/HDL RATIO 2.6 0.0 - 4.0 10/21/2021 3:15 PM CDT [facility] LDL/HDL 1.1 0.41 - 2.13 10/21/2021 3:15 PM CDT [facility] NON HDL CHOLESTEROL 52 <140 MG/DL 10/21/2021 3:15 PM CDT [facility] 10/21/2021 8:14 AM CDT Magda [facility] LABORAT[facility] Final Resul t [facility] [address] [place] [address], from Last 3 Months or Most Recently Relevant to Health Maintenance Insurance MEDICARE Member Subscriber Plan / Payer (Ef fective 2009-Present) Name:Erickson Navarro Relation to Subscriber:Self Name:Erickson Navarro Payer ID:Not on file Group ID:Not on file Type:Indemnity Address: ATTN CLAIMS [address] [place], [place] [id number] [address] MEDICARE [id number] [place] [address] Advance Directives Documents on File Type Date Recorded Patient Puddler Helper Expl anation Power of Grocery Associate 05/29/2019 POA * Full Code (Latest Code Status on File) Date Activated Date Inactivated Comments 01/13/2022 7:38 PM 01/14/2022 4:11 PM * Full Code Date Activated Date Inactivated Comments 01/12/2022 4:44 PM 01/13/2022 7:38 PM Care Teams Product Communications Manager Relationship Specialty Start Date End Date Magda Villa APNP [address] [place] [address] PCP - General NURSE PRACTITIONER 07/18/18 Ravi Apodaca MD [address] [address] CARDIOVASCULAR DISEASE 01/05/22
--- NOTE | 2025-04-04 12:21 | PC.NURSE ---
Patient stood at bedside to attempt urination-unable to urinate-Dr Mead aware and at bedside
[2025-04-04 13:22] LABS: Hematocrit 36.7 % (42.0-52.0); Hemoglobin 11.5 g/dL (14.0-18.0); Immature Granulocyte Percent A 0.7 % (0-0.5); Lymphocytes Absolute Auto 1.48 K/mm3 (0.9-3.2); Mean Corpuscular HGB Conc 31.3 g/dl (32-36); Mean Corpuscular Hemoglobin 31.8 pg (26-34); Mean Corpuscular Volume 101.4 fl (80-100); Nucleated Red Blood Cells Absolute Auto 0.000 K/mm3 (0.0-0.012); Nucleated Red Blood Cells Perc 0.0 % (0.0-0.2); Platelet Count Result 223 k/mm3 (150-375); Red Blood Count 3.62 M/mm3 (4.6-6.20); White Blood Count 10.6 K/mm3 (4.5-10.0)
--- OUTSIDE RECORDS SUMMARY | 2025-04-04 13:29 | XMS_ITS | Encounter Summary ---
Author Organization [facility] Address [address] [place] [address] Care Team Providers Care Battery Filler Name Role Phone Lizzy Villa Primary Care Provider [phone] Lizzy Villa Unavailable [phone] Ravi Apodaca MD Unavailable [phone] Encounter Details Date Type Department Care Team (Late st Contact Info) Description 01/12/2022 Prep for Procedure [facility] Pre-Admission Testing [place], [place] [id number] Sky Bueno MD [address] [place] [id number] Social History Tobacco Use Types Packs/Day [...] No Risk Indicated 01/12/2022 10:43 AM CDT Ria Brown RN Active * [place] Suicide Severity Rating Scale (Screener/Recent Self-Report) Question [...] SPEC DESCRIPTION NASAL 01/11/20 9:54 AM CDT [facility] CORONAVIRUS SARS COV 2 PCR (RESP) NEGATIVE NEGATIVE 01/10/2022 6:55 PM CDT [facility] Comment: THE SARS-CoV-2 TEST HAS BEEN AUTHORIZED BY THE FDA UNDER AN EUA FOR USE BY AUTHORIZED LABORATORIES. PERFORMED BY NUCLEIC ACID AMPLIFICATION PCR FIRST TEST NO 01/10/2022 9:54 AM CDT [facility] EMPLOYED IN HEALTHCARE NO 01/10/2022 9:54 AM CDT [facility] SYMPTOMATIC DEFINED BY CDC NO 01/10/2022 9:54 AM CDT [facility] HOSPITALIZATION STATUS NO 01/10/2022 9:54 AM CDT [facility] PATIENT IN ICU NO 01/10/2022 9:54 AM CDT [facility] RESIDENT OF [facility] NO 01/10/2022 9:54 AM CDT [facility] NASAL STRUCTURE / Unknown 01/10/2022 9:18 AM CDT Sky Bueno MD MICROBIOLOGY - GENERAL OR DERABLES Final Result [facility] [address] [place] [address], [facility] [address] [place] [address], documented in this encounter Visit Diagnoses Diagnosis Preoperative testing- Primary Preoperative examination, unspecified documented in this encounter Additional Health Concerns Assessment Noted Time PHQ-9 Depression Total Score: 0 04/05/20 21 9:48 AM CDT documented as of this encounter Care Teams Battery Filler Relationship Specialty Start Date End Date Lizyz Vlila APNP [facility] [place] [address] PCP - General NURSE PRACTITIONER 07/18/18 Lizzy Villa APNP [address] [place] [address] PCP - Med Group - MSSP Attributed Provider 06/19/15 06/18/22 Ravi Apodaca MD [address] [place] [address] CARDIOVASCULAR DISEASE 01/05/22 documented as of this encounter
--- OUTSIDE RECORDS SUMMARY | 2025-04-04 13:29 | XMS_ITS | Clinical Summary ---
Author Organization [facility] Address [address] [place] [address] Care Team Providers Care Asphalt Machine Operator Name Role Phone Lizzy Villa PA Primary Care Provider + Lance King MD Unavailable [phone] Ravi Apodaca MD Unavailable [phone] Pancho Franco MD Unavailable Mat Haywood MD Unavailable Stevenson Moreno MD Unavailable Allergies No known [...] 24 hr tabletIndications: Coronary artery disease of [place] artery of [place] heart with stable angina pectoris Take 1 [...] 0 10/09/2024 Coronary artery disease invo lving [place] coronary artery of [place] heart with unstable angina pectoris 10/09/2024 Coronary artery disease of n ative artery of [place] heart with stable angina pectoris 10/08/2024 Chest pain 10/02/2023 Unstable angina 10/02/2023 Esophageal dysphagia 10/02/2023 CAD in [place] artery 07/18/2023 ESRD (end stage renal disease) [...] (03/29/2022): Added automatically from request for surgery [id number] Assessment & Plan (01/02/2025 12:29 PM CDT): [...] (08/21/2018): Added automatically from request for surgery [id number] Abduction deformity of foot, right 08/21/2018 Overview (08/21/2018): Added automatically from request for surgery [id number] Rocker bottom foot deformity 08/21/2018 Overview (08/21/2018): Added automatically from request for surgery [id number] Acquired claw toe of right foot 08/21/2018 Overview (06/29/2021): Added automatically from request for surgery [id number] Overview: Added automatically from request for surgery [id number] Hammertoe of right foot 08/21/2018 Overview (08/21/2018): Added automatically from request for surgery [id number] 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 08/21/2018 Overview (08/21/2018): Added automatically from request for surgery [id number] Abduction deformity of foot, right 08/21/2018 Overview (06/29/2021): Overview: Added automatically from request for surgery [id number] Hammertoe of right foot 08/21/2018 Overview (06/29/2021): Overview: Added automatically from request for surgery [id number] Rocker bottom foot deformity 08/21/2018 Overview (06/29/2021): Overview: Added automatically from request for surgery [id number] High risk medication use 08/09/2018 Chronic kidney disease, stage 4 (severe) 018 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 03/28/2018 Closed dislocation of right foot 03/28/2018 Charcot's joint of right foot 03/28/2018 Swelling of extremity, right 03/07/2018 Pain of lower extremity 03/07/2018 Coronary artery disease invo lving [place] coronary artery of [place] heart without angina pectoris 04/25/2017 History of [...] no cholesterol diet. Please reach out via Media [employer] with any questions or concerns. Coronary arteriosclerosis in [place] artery 01/10 Pickwickian syndrome 12/18/2012 Benign essential [...] Type Department Care Team Description 03/06/2025 Telephone [facility] Medical [facility] Cardiology [address] [place] [address] Ravi Apodaca MD Bleeding/Bruising 03/04/2025 7:58 AM CDT - 03/04/2025 11:59 PM CDT Hospital Encounter [facility] Dialysis Access Center at [facility] [address] [place] [address] Other complication of arteriovenous dialysis fistula, initial encounter (Primary Dx); ESRD (end stage renal disease) on dialysis (HCC); Pure hypercholesterolemi a; Benign essential HTN Discharge Disposition: Discharge to home or self care 03/04/2025 7:58 AM CDT - 03/04/2025 11:59 PM CDT Hospital Encounter [facility] Medical Office Building 2 Vascular [address] [place] [address] Dependence on renal dialysis; End stage renal disease; Other complication of arteriovenous dialysis fistula, initial encounter Discharge Disposition: Discharge to home or self care 02/20/2025 8:20 AM CDT Office Visit [facility] Rheumatology [address] [place] [address] 2nd Floor [address] [place] [address] Vivien Stovall NP Seronegative rheumatoid arthritis (HCC) (Primary Dx) 01/16/2025 Documentation [facility] Rheumatology [address] [address] [facility] 2[address] [place] [address] Joon Meier Eye Exam (08-27-24 leena forte ok for plaquenil) 01/06/2025 9:30 AM CDT Office Visit [facility] Medical Group Cardiology [address] [place] [address] Ravi Apodaca MD Coronary artery disease involving [place] coronary artery of [place] heart without angina pectoris (Primary Dx); History of coronary artery stent placement; Hx of CABG 01/06/2025 Telephone [facility] Gastroenterology at [facility] [address] [address] Harvey Baptiste PA 01/02/2025 12:36 PM CDT - 01/02/2025 11:59 PM CDT Hospital Encounter [facility] - Imaging [address] [place] [address] Constipation, unspecified constipation type Discharge Disposition: Discharge to home or self care 01/02/2025 11:30 AM CDT Office Visit [facility] Gastroenterology at [facility] [address], [place] [address] Harvey Baptiste PA Slow transit constipation (Primary [...] ANGIOGRAPHY AND WITH OR WITHOUT LEFT VENTRICULOGRAM 17860; Surgeon: Stevenson Moreno MD; Location: [facility] CARDIAC AGRICULTURAL LABOR CAMP MANAGER; Service: Cardiovascular; Laterality: N/A; Medical devices from [...] surgery woke up clenching his chest, had PR- 2 weeks later had triple bypass Arrhythmia History of AFib. Cardioversion in May 2022. Now NSR PR (myocardial infarction) (HCC) 2018 pt states after waking up after gallbladder surgery, had a PR History of pneumonia Limb alert care status [...] drink = 0.6 oz pur e alcohol) [facility] Utilities Answer Date Recorded In the [...] often do you attend chur ch or faith services? More than 4 times per year 10/10/2024 Do you belong to any clubs o r organizations such as uatsdin groups, unions, fraternal or athletic groups, or [...] staff should administer the PHQ-9) 0 01/02/2025 [facility] - Occupational Stress Questionnaire Answer Date [...] place to sleep or slept in a alf (including now)? No 10/04/2023 Housing Stability Vital Sign Answer Marcus e Recorded In the last 12 months, was t here a time when you were not able to pay the mortgage or rent on time? No 10/10/2024 In the past 12 months, how m any times have you moved where you were living? 0 10/10/2024 At any time in the past 12 m [facility], were you homeless or living in a alf (including now)? No 10/10/2024 Personal Safety Answer Date Recorded Have you ever been in or are you currently in a harmful physical or emotional relationship or is someone making you feel afraid or unsafe? Denies 10/09/2024 Sex and Gender Information Value Date Recorded Sex Assigned at Not on file Legal Sex Male 12:38 AM [employer]PER[employer] Gender Identity Not on file Sexual Orientation [...] Completed 10/10/2024 Medical Devices Implanted Type Area Dry Cell Sealer Device Identifier Shelf Expiration Date Model / Serial / Lot 3.8 X 50mm Mini Max Torque Screw Implanted:Qty: 1 on 09/11/2018 by Elham Canela MD at [facility] Screw Right: Foot [employer] Inc / 0 / Orthohelix [id number] l Maxtorque 4mm 32.5mm Cannulated Self Drill Foot Ankle Long Thread - S0 - [id number] Implanted:Qty: 1 on 09/11/2018 by Elham Canela MD at [facility] Screw Right: Foot Orthohelix [id number]-[id number] -[id number] / 0 / [employer] Ever Synergy Xd 4mm 48mm System Coronary Stent Everolimus [id number] - S0 - [id number] Implanted:Qty: 1 on 07/20/2023 by Stevenson Moreno MD at [facility] Stent [employer] Ever 04/10/2025 [id number] / 0 / [id number] [employer] Ever Stent Coronary Drug Eluting Rapid Exchange Synergy Megatron 5.64w53ac Cabazon Chromium [id number] - S0 - [id number] Implanted:Qty: 1 on 07/20/2023 by Stevenson Moreno MD at [facility] Stent [employer] Ever 11/08/2023 [id number] / 0 / [id number] Berry Vascular Device Clsr Perclose Prostyle Sut-Mediatd Closure-Repair Sys 55661-65 - S0 - [id number] Implanted:Qty: 1 on 07/20/2023 by Stevenson Moerno MD at [facility] Vascular Closure Device Berry Vascular 04/18/2025 84452-42 / 0 / [id number] Berry Vascular Device Clsr Perclose Prostyle Sut-Mediatd Closure-Repair Sys 36748-59 - S0 - [id number] Implanted:Qty: 1 on 07/20/2023 by Stevenson Moreno MD at [facility] Vascular Closure Device Berry Vascular 04/18/2025 49419-75 / 0 / [id number] Berry Vascular Device Clsr Perclose Prostyle Sut-Mediatd Closure-Repair Sys 95275-04 - S0 - [id number] Implanted:Qty: 1 on 10/03/2023 by Stevenson Moreno MD at [facility] Vascular Closure Device Right: Femoral Berry Vascular 06/18/2025 02636-99 / 0 / [id number] Berry Vascular System Closure Repair Femoral Artery Suture Mediated Perclose Prostyle 96033-10 - S0 - [id number] Implanted:Qty: 1 on 10/09/2024 by Stevenson Moreno MD at [facility] Vascular Closure Device Berry Vascular 08/16/2026 95081-25 / 0 / [id number] Stents Implanted:Qty: 4 N/A: Heart Arthrex Inc Ar-1915sf Corkscrew Fiberwire 3.5mm 12mm Self Tap Eyelet Handle Mill Crane Operator - [id number] Implanted:Qty: 1 on 09/11/2018 by Elham Canela MD at [facility] Right: Foot Arthrex Inc 04/18/2023 AR-[id number] / / [id number] Arthrex Inc Ar-1915sf Corkscrew Fiberwire 3.5mm 12mm Self Tap Eyelet Handle Mill Crane Operator - [id number] Implanted:Qty: 1 on 09/11/2018 by Elham Canela MD at [facility] Right: Foot Arthrex Inc 01/16/2023 AR-1915SF / / [id number] Depuy Orthopaedics Inc [id number] Attune Cemented Posterior Stabilize Knee Left 8 Component Femoral - [id number] Implanted:Qty: 1 on 08/18/2021 by Lucian Tidwell MD at [facility] Left: Knee Depuy Orthopaedics Inc [id number] 06/18/2031 [id number] / / [id number] Depuy Orthopaedics Inc [id number] Attune S+ Cement Fix Bearing Knee 8 Baseplate Tibial - [id number] Implanted:Qty: 1 on 08/18/2021 by Lucian Tidwell MD at [facility] Left: Knee Depuy Orthopaedics Inc [id number] 03/18/2030 [id number] / / [id number] Depuy Orthopaedics Inc [id number] Attune 41mm Cemented Medialize Knee Dome Patellar Aox Sterile - [id number] Implanted:Qty: 1 on 08/18/2021 by Lucian Tidwell MD at [facility] Left: Knee Depuy Orthopaedics Inc [id number] 03/18/2023 [id number] / / [id number] Depuy Orthopaedics Inc [id number] Attune 8mm Posterior Stabilize Fix Bearing Knee 8 Insert Tibial - [id number] Implanted:Qty: 1 on 08/18/2021 by Lucian Tidwell MD at [facility] Depuy Orthopaedics Inc 01/16/2026 [id number] / / [id number] Stevan Orthopaedics 6197-9-010 Simplex P Full Dose Radiopaque Preblend Cement Bone Tobramycin - [id number] Implanted:Qty: 4 on 08/18/2021 by Lucian Tidwell MD at [facility] Left: Knee Stevan Orthopaedics 11/16/2022 6197-9-010 / / [id number] Angio Dynamics Duramax Vascpak Safesheath D-Pro 15.5fr 32cm Kit Catheter [id number] - [id number] Implanted:Qty: 1 on 03/29/2022 at [facility] Angio Dynamics 11/17/2023 [id number] / / [id number] Vasorum Ltd Device 6fr Closure Celt Acd Vascular Sterile Latex Free Disposable Mahogany Kclt-06 - [id number] Implanted:Qty: 1 on 09/08/2022 at [facility] VASORUM LTD 08/14/2025 KCLT-06 / / [id number] TerEvernote Medical Ever Angio-Seal Vip 6fr Closere Device [id number] - [id number] Implanted:Qty: 1 on 07/12/2023 at [facility] Weddingful Ever 02/09/2024 [id number] / / [id number] Explanted Type Area Dry Cell Sealer Device Identifier Shelf Expiration Date Model / Serial / Lot Microaire Surgical Instruments [id number] Connie 5/64in 9in Trocar Point One End Pin Fixation Stainless - S0 - [id number] Explanted:Qty: 1 on 09/11/2018 at [facility] Wire Right: Foot [employer]aire [employer] Instruments [id number] / 0 / Andrade Medical K-Wire Explanted:Qty: 1 on 09/11/2018 by Elham Canela MD at [facility] Wire Right: Foot Canary[employer] Inc / 0 / Description:Provisional fixi ation Microaire Surgical Instruments 1600-945ns Ahsan .045in 9in Trocar Point Both Ends Orthopedic Wire - S0 - [id number] Explanted:Qty: 4 on 09/11/2018 by Elham Canela MD at [facility] Wire Right: Foot [employer] Instruments 1600-105NS / 0 / Description:Provisional fixa tion Procedures [...] Sex: M Study Date: 03/04/2025 08:18:40 AM Portfolio Analyst: YUE CABRERA Provider: PANCHO FRANCO Ref Provider: PANCHO FRANCO PROCEDURES: Vascular Report: Color Duplex ultrasound with velocity measurements was performed of the arteriovenous fistula in the left upper extremity. INDICATIONS: Dialysis graft complication. HISTORY: S/P LT BRACHIOCEPH AVF 01/17/23. COMPARISONS: No change compared to prior study. The previous exam was completed on 08/29/24. AVF: Vessel Velocity Lt Location LT BRACHIOCEPH AVF Lt Tribe Artery 161.00 cm/sec Lt Arterial Anast 700.00 cm/sec Lt Prx AVF 253.00 cm/sec Lt Mid AVF 116.00 cm/sec Lt Dst AVF 86.00 cm/sec Lt Tribe Vein 109 CEPH ARCH, 48 SUB V cm/sec Lt Tribe Artery VF 761.00 mL/min Lt Mid AVF [...] Sex: M Study Date: 03/04/2025 08:18:40 AM Portfolio Analyst: YUE CABRERA Provider: PANCHO FRANCO Provider: PANCHO FRANCO PROCEDURES: Vascular Report: Color Duplex ultrasound with velocity measurements wasperformed of the arteriovenous fistula in the left upper extremity. INDICATIONS: Dialysis graft complication. HISTORY: S/P LT BRACHIOCEPH AVF 01/17/23. COMPARISONS: No change compared to prior study. The previous exam was completed on08/29/24. AVF: Vessel Velocity Lt Location LT BRACHIOCEPH AVF Lt Tribe Artery 161.00 cm/sec Lt Arterial Anast 700.00 cm/sec Lt Prx AVF 253.00 cm/sec Lt Mid AVF 116.00 cm/sec Lt Dst AVF 86.00 cm/sec Lt Tribe Vein 109 CEPH ARCH, 48 SUB V cm/sec Lt Tribe Artery VF 761.00 mL/min Lt Mid AVF VF 4042.00 mL/min FINDINGS: Study Quality: The study quality is adequate. Fistula: The arteriovenous fistula is located in the left upper arm.Patent upper extremity arteriovenous fistula with no evidence of stenosis. CONCLUSIONS: 1. Patent left brachiocephalic arteriovenous fistula. No evidence ofstenosis. Electronically Signed By: Pancho Franco MD 03/04/2025 1:45:59 PM CDT Pancho Franco MD [facility] [place] PROCEDURES Final Result * XR KUB [...] MD LAB BLOOD ORDERABLES Fi nal Result [facility] [address] Department [place] [address] * (ABNORMAL) Hemoglobin A1c (10/10/2024 12:41 AM CDT) Hgb A1C 6.8(H) 4.0 - 5.6 % Estimated Average Glucose 148 mg/dL [facility] Comment: The ADA recommends reporting an estimated Average Glucose (eAG) with all Hemoglobin A1c results using the equation derived from a study of 507 normal and diabetic adults. Minority populations were underrepresented and children were not included. (Diabetes Care 31:3879-4586, 2008). The eAG is not equivalent to a fasting glucose. Blood 10/10/2024 12:4 1 AM CDT 10/10/2024 1:08 AM CDT Otis Nuñez MD LAB BLOOD ORDERABLES Final Resul t [facility] [address] [place] [address] * (ABNORMAL) Lipid panel (10/10/2024 12:41 AM [...] revised on 2018. Triglycerides 86 <=149 mg/dL [facility] Comment: Interpretive Data Ages < or [...] revised on 2018. HDL 38(L) >=40 mg/dL [facility] Comment: Interpretive Data Ages < or [...] on 2018. LDL, calculated 56 <=129 mg/dL [facility] Comment: Interpretive Data Ages < or [...] revised on 2024. Non-HDL Cholesterol 73 mg/dL [facility] Comment: Interpretive Data Ages < or [...] last revised on 2018. Chol/HDL ratio 3 [facility] Blood 10/10/2024 12:4 1 AM CDT 10/10/2024 1:08 AM CDT us Otis Nuñez MD LAB BLOOD ORDERABLES Final Resul t [facility] [address] Department [place] [address] from Last 3 Months or Most Recently Relevant to Health Maintenance Insurance MEDICARE BLUE CROSS MEDICARE SUPPLEMENT MEDICARE [facility] MEDICARE BLUE CROSS MEDICARE SUPPLEMENT MEDICARE Advance Directives For more information, please contact: [phone] * Full Code (Latest Code Status on [...] 11:30 AM 07/20/2023 9:07 PM Care Teams Asphalt Machine Operator Relationship Specialty Start Date End Date Lizzy Villa PA PCP - General 10/24/17 Lance King MD Surgeon Cardiothoracic Surgery 04/01/22 Ravi Apodaca MD [address] [facility] [address] [place] [address] Consulting Physician Cardiology 01/13/23 Pancho Franco MD [address] [facility] [address] [address] Consulting Physician Vascular Surgery 01/13/23 Mat Haywood MD [address] [facility] [address], [place] [address] Consulting Physician Clinical Cardiac Electrophysiology 10/05/23 Stevenson Moreno MD [address] [facility] [address] [place] [address] Consulting Physician Interventional Cardiology 10/05/23 Dr Ritchie Rogers Intake Rn Nephrology 01/13/23
--- OUTSIDE RECORDS SUMMARY | 2025-04-04 13:29 | XMS_ITS | Clinical Summary ---
Author Organization [facility] Facility Address [address] [place] [address] Care Team Providers Care Train Caller Name Role Phone Unavailable Primary Care Provider [...] age to complete this topic Insurance Medicare [facility] ([id number])
--- OUTSIDE RECORDS SUMMARY | 2025-04-04 13:29 | XMS_ITS | Clinical Summary ---
Author Organization [facility] Address [address] [facility] [place] [address] Care Team Providers Care Presser And Blocker Knitted Goods Name Role Phone Lizzy Villa APRN, NATALI [...] on file Legal Sex Male 9:15 AM BUSINESS APPLICATIONS MANAGER Gender Identity Not on file Sexual Orientation Not on file Last Filed Vital Signs Vital Sign Reading Time Taken Comments Blood Pressure 118/78 07/26/2022 3:56 PM BUSINESS APPLICATIONS MANAGER Pulse - - Temperature - - Respiratory Rate 16 07/26/2022 3:56 PM BUSINESS APPLICATIONS MANAGER Oxygen Saturation - - Inhaled Oxygen Concentration - - Weight 125.6 kg (277 lb) 07/26/2022 3:56 PM BUSINESS APPLICATIONS MANAGER Height 182.9 cm (6') 07/26/2022 3:56 PM BUSINESS APPLICATIONS MANAGER Body Mass Index 37.57 07/26/2022 3:56 PM BUSINESS APPLICATIONS MANAGER Plan of Treatment Health Maintenance Due Date [...] age to complete this topic Insurance MEDICARE [facility] Care Teams Presser And Blocker Knitted Goods Relationship Specialty Start Date End Date Lizzy Villa APRN, CHAMBER WORKER [address] [place] [address] PCP - General Primary Care 07/26/22
--- OUTSIDE RECORDS SUMMARY | 2025-04-04 13:29 | XMS_ITS ---
Author Organization [facility] Address [address] [place] [address] Care Team Providers Care Dado Operator Name Role Phone Lizzy Villa PA Primary Care Provider + Lance King MD Unavailable [phone] Ravi Apodaca MD Unavailable [phone] Pancho Campbell MD Unavailable Mat Haywood MD [...] 24 hr tabletIndications: Coronary artery disease of [place] artery of [place] heart with stable angina pectoris Take 1 [...] 0 10/09/2024 Coronary artery disease invo lving [place] coronary artery of [place] heart with unstable angina pectoris 10/09/2024 Coronary artery disease of n ative artery of [place] heart with stable angina pectoris 10/08/2024 Chest pain 10/02/2023 Unstable angina 10/02/2023 Esophageal dysphagia 10/02/2023 CAD in [place] artery 07/18/2023 ESRD (end stage renal disease) [...] (03/29/2022): Added automatically from request for surgery [id number] Assessment & Plan (01/02/2025 12:29 PM CDT): [...] (08/21/2018): Added automatically from request for surgery [id number] Abduction deformity of foot, right 08/21/2018 Overview (08/21/2018): Added automatically from request for surgery [id number] Rocker bottom foot deformity 08/21/2018 Overview (08/21/2018): Added automatically from request for surgery [id number] Acquired claw toe of right foot 08/21/2018 Overview (06/29/2021): Added automatically from request for surgery [id number] Overview: Added automatically from request for surgery [id number] Hammertoe of right foot 08/21/2018 Overview (08/21/2018): Added automatically from request for surgery [id number] 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 08/21/2018 Overview (08/21/2018): Added automatically from request for surgery [id number] Abduction deformity of foot, right 08/21/2018 Overview (06/29/2021): Overview: Added automatically from request for surgery [id number] Hammertoe of right foot 08/21/2018 Overview (06/29/2021): Overview: Added automatically from request for surgery [id number] Rocker bottom foot deformity 08/21/2018 Overview (06/29/2021): Overview: Added automatically from request for surgery [id number] High risk medication use 08/09/2018 Chronic kidney disease, stage 4 (severe) 018 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 Please reach out via [employer] with any questions or concerns. Coronary arteriosclerosis in [place] artery 01/10 Pickwickian syndrome 12/18/2012 Benign essential [...] drink = 0.6 oz pur e alcohol) [facility] Utilities Answer Date Recorded In the [...] often do you attend chur ch or methodist services? More than 4 times per year 10/10/2024 Do you belong to any clubs o r organizations such as baptism groups, unions, fraternal or athletic groups, or [...] staff should administer the PHQ-9) 0 01/02/2025 [facility] [place] of Occupat ional Health - Occupational Stress [...] any time in the past 12 m [facility], were you homeless or living in a fci (including now)? No 10/10/2024 Personal Safety Answer Date Recorded Have you ever been in or are you currently in a harmful physical or emotional relationship or is someone making you feel afraid or unsafe? 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 INDICATIONS: Dialysis graft complication. HISTORY: S/P LT BRACHIOCEPH AVF 01/17/23. COMPARISONS: No change compared to prior study. The previous exam was completed on 08/29/24. AVF: Vessel Velocity Lt Location LT BRACHIOCEPH AVF Lt [place] Artery 161.00 cm/sec Lt Arterial Anast 700.00 cm/sec Lt Prx AVF 253.00 cm/sec Lt Mid AVF 116.00 cm/sec Lt Dst AVF 86.00 cm/sec Lt [place] Vein 109 CEPH ARCH, 48 SUB V cm/sec Lt [place] Artery VF 761.00 mL/min Lt Mid AVF [...] Sex: M Study Date: 03/04/2025 08:18:40 AM Bank Analyst: YUE CABRERA Provider: PANCHO CAMPBELL Ref Provider: PANCHO CAMPBELL PROCEDURES: Vascular Report: Color Duplex ultrasound with velocity measurements wasperformed of the arteriovenous fistula in the left upper extremity. INDICATIONS: Dialysis graft complication. HISTORY: S/P LT BRACHI[place]PH AVF 01/17/23. COMPARISONS: No change compared to prior study. The previous exam was completed on08/29/24. AVF: Vessel Velocity Lt Location LT BRACHI[place]EPH AVF Lt [place] Artery 161.00 cm/sec Lt Arterial Anast 700.00 cm/sec Lt Prx AVF 253.00 cm/sec Lt Mid AVF 116.00 cm/sec Lt Dst AVF 86.00 cm/sec Lt [place] Vein 109 CEPH ARCH, 48 SUB V cm/sec Lt [place] Artery VF 761.00 mL/min Lt Mid AVF VF 4042.00 mL/min FINDINGS: Study Quality: The study quality is adequate. Fistula: The arteriovenous fistula is located in the left upper arm.Patent upper extremity arteriovenous fistula with no evidence of stenosis. CONCLUSIONS: 1. Patent left brachiocephalic arteriovenous fistula. No evidence ofstenosis. Electronically Signed By: Pancho Campbell MD 03/04/2025 1:45:59 PM CDT Pancho Campbell MD [facility] US PROCEDURES Final Result * XR KUB [...] ORDERABLES Fi nal Result Performing Organization Address [facility] de Phone Number [facility] [address] [place] [address] * (ABNORMAL) Hemoglobin A1c (10/10/2024 12:41 AM CDT) Hgb A1C 6.8(H) 4.0 - 5.6 % Estimated Average Glucose 148 mg/dL [facility] Comment: The ADA recommends reporting an estimated Average Glucose (eAG) with all Hemoglobin A1c results using the equation derived from a study of 507 normal and diabetic adults. Minority populations were underrepresented and children were not included. (Diabetes Care 31:2741-0806, 2008). The eAG is not equivalent to a fasting glucose. Blood 10/10/2024 12:4 1 AM CDT 10/10/2024 1:08 AM CDT us Otis Nuñez MD LAB BLOOD ORDERABLES Final Resul t Performing Organization Address [facility] de Phone Number [facility] [address] [place] [address] * (ABNORMAL) Lipid panel (10/10/2024 12:41 AM [...] revised on 2018. Triglycerides 86 <=149 mg/dL [facility] Comment: Interpretive Data Ages < or = [...] revised on 2018. HDL 38(L) >=40 mg/dL [facility] Comment: Interpretive Data Ages < or = [...] on 2018. LDL, calculated 56 <=129 mg/dL [facility] Comment: Interpretive Data Ages < or = [...] revised on 2024. Non-HDL Cholesterol 73 mg/dL [facility] Comment: Interpretive Data Ages < or = [...] last revised on 2018. Chol/HDL ratio 3 [facility] Blood 10/10/2024 12:4 1 AM CDT 10/10/2024 1:08 AM CDT Otis Nuñez MD LAB BLOOD ORDERABLES Final Resul t [facility] [address] [place] [address] from Last 3 Months or Most Recently Relevant to Health Maintenance
--- OUTSIDE RECORDS SUMMARY | 2025-04-04 13:29 | XMS_ITS | Clinical Summary ---
Author Organization [facility] Address [address] [place] [address] Phone Care Team Providers Care It Security Analyst Name Role Phone DaisyLizzy Primary Care Provider Allergies No known active allergies Medications aspirin [...] (COREG) 6.25 MG tablet 2 Active Creon 93822-27859 units capsule 1 Active ezetimibe (ZETIA) 10 [...] Obstructive sleep apnea 12/09/2013 Coronary arteriosclerosis in [place] artery 01/10 Essential (primary) hypertension 02/14/2012 Overview [...] 02/14/2012 Influenza Vaccine (#1) 2025 Insurance MEDICARE [facility] Care Teams It Security Analyst Relationship Specialty Start Date End Date Lizzy Villa NPI: [id number] [place] [id number] PCP - General Family Medicine 12/19/18
--- OUTSIDE RECORDS SUMMARY | 2025-04-04 13:29 | XMS_ITS | Encounter Summary ---
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[employer] Gender Identity Not on file Sexual Orientation [...] documented as of this encounter Care Teams Pack Room Operator Relationship Specialty Start Date End Date Lizzy Villa PA PCP - General 10/24/17 Lance King MD Surgeon Cardiothoracic Surgery 04/01/22 Jeannie Diaz, RN [address] [facility] [address] [place] [address] Scientific Research Associate 01/06/23 07/11/23 Ravi Apodaca MD [address] [facility] [address] [place] [address] Consulting Physician Cardiology 01/13/23 Fawad Campbell MD [address] [facility] [address] [place] [address] Consulting Physician Vascular Surgery 01/13/23 Mat Haywood MD [address] [facility] [address] [place], [place] [address] Consulting Physician Clinical Cardiac Electrophysiology 10/05/23 Stevenson Moreno MD [address] [facility] [address] [place] [address] Consulting Physician Interventional Cardiology 10/05/23 Dr Ani Rogers Material Expediter Nephrology 01/13/23 documented as of this encounter
--- OUTSIDE RECORDS SUMMARY | 2025-04-04 13:29 | XMS_ITS | Encounter Summary ---
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 [address] [place], [place] [id number] Candy Puller 01/06/23 07/11/23 Ravi Apodaca MD [address] [place], [place] [address] Consulting Physician Cardiology 01/13/23 Fawad Campbell MD [address] [facility] [address] [place] [address] Consulting Physician Vascular Surgery 01/13/23 Mat Haywood MD [address] [facility] [address] [place] [address] Consulting Physician Clinical Cardiac Electrophysiology 10/05/23 Stevenson Moreno MD [address] [facility] [address] [place] [address] Consulting Physician Interventional Cardiology 10/05/23 Dr Ani Rogers Make Ready Mechanic Nephrology 01/13/23 documented as of this encounter
--- OUTSIDE RECORDS SUMMARY | 2025-04-04 13:29 | XMS_ITS | Clinical Summary ---
Author Organization [facility] Address [facility] [place] [address] Care Team Providers Care Orthophotography Technician Name Role Phone Magda Villa Primary Care Provider [phone] Ravi Apodaca MD Unavailable [phone] Allergies No known active allergies Medications atorvastatin [...] DISP, 3 ML (B-D 3CC LUER-CHRISTELLE SYR 52WV1-2/2) 23G X 1-1/2 3 ML MiscIndications :Hypogonadism, [...] Overview: Added automatically from request for surgery [id number] Rocker bottom foot deformity 08/21/2018 Overview (04/23/2019): Overview: Added automatically from request for surgery [id number] Hammertoe of right foot 08/21/2018 Overview (04/23/2019): Overview: Added automatically from request for surgery [id number] Abduction deformity of foot, right 08/21/2018 Overview (04/23/2019): Overview: Added automatically from request for surgery [id number] High risk medication use 08/09/2018 Chronic kidney [...] Acquired absence of other right toe(s) 6 jail current use of insulin 03/23/2016 Foot pain 03/10/2016 Numbness and tingling sensation of skin 01/21/20 Hip pain 06/25/2015 Pain of toe 04/12/2015 Seronegative rheumatoid arthritis 04/12/2015 Ankle pain 03/04/2015 Knee pain 03/04/2015 Polyarthralgia 12/18/2014 Benign prostatic hyperplasia 04/14/2014 Obstructive sleep apnea 12/09/2013 Pure hypercholesterolemia 11/02/2013 Overview (07/24/2018): Overview: PURE HYPERCHOLESTEROLEM Actinic keratosis 09/30/2013 Coronary artery disease of n ative artery of [place] heart with stable angina pectoris 01/10/2013 Essential [...] Group 02/05/2025 11:00 AM CDT Office Visit [facility] Internal [address] [address] Magda Villa APNP Weakness (Pt would like to get a motorized wheelchair, as he c/o difficulty walking even shorter distances without needing to sit/stop. He reports he has been having to rely on the rental/loaner scooters available at stores when going out.) 02/05/2025 Results Follow-Up [address] [address] Magda Villa APNP XR LUMB SPINE 3V, XR THOR SPINE 3V 02/05/2025 Travel 02/04/[address] [address] Magda Villa APNP Advice 01/06/2025 Scan MG [...] tponed from 1995 (Patient Refused) PHQ-2 (Physician [place]) Completed 02/05/2025 Meningococcal B Vaccine Aged Out [...] remain independent in ADLs upon discharge from [facility] Vonnie Chaudhari RN Procedures Procedure Name Priority Date/Time Associated Diagnosis Comments XR THOR SPINE 3V Routine 02/05/2025 12:1 2 PM CDT Mid back pain XR LUMB SPINE 3V Routine 02/05/2025 12:1 2 PM CDT Low back pain potentially associated with radiculopathy HEMOGLOBIN, GLYCOSYLATED Routine 05/14/2024 DIABETIC RETINOPATHY EXAM (POSITIVE)(SCAN ORDER) Routine 10/30/2023 LIPID PANEL Routine 10/21/2021 8:14 AM CDT Coronary arteriosclerosis in [place] artery from Last 3 Months or Most [...] 2:33 PM Narrative 02/05/2025 2:34 PM CDT [facility] Family and Internal Medicine - [address] [address] Examination: XR THOR SPINE 3V Exam time: [...] Procedure Note Fito Murrell MD - 02/05/2025 [facility] [place] [address] Examination: XR THOR SPINE 3V Exam time: [...] 2:39 PM Narrative 02/05/2025 2:41 PM CDT [facility] and Internal [place] [id number] Examination: XR LUMB SPINE 3V Exam time: [...] Procedure Note Fito Murrell MD - 02/05/2025 [facility] Internal [place] [id number] Examination: XR LUMB SPINE 3V Exam time: [...] LIPID PANEL (10/21/2021 8:14 AM CDT) Pathologist [facility] CHOLESTEROL 85 <200 MG/DL 10/21/2021 3:15 PM CDT [facility] TRIGLYCERIDES 83 <150 MG/DL 10/21/2021 3:15 PM CDT [facility] HDL 33(L) >40 MG/DL 10/21/2021 3:15 PM CDT [facility] LDL-C 35 <100 MG/DL 10/21/2021 3:15 PM CDT [facility] VLDL CALCULATION 17 5 - 28 MG/DL 10/21/2021 3:15 PM CDT [facility] CHOL/HDL RATIO 2.6 0.0 - 4.0 10/21/2021 3:15 PM CDT [facility] LDL/HDL 1.1 0.41 - 2.13 10/21/2021 3:15 PM CDT [facility] NON HDL CHOLESTEROL 52 <140 MG/DL 10/21/2021 3:15 PM CDT [facility] 10/21/2021 8:14 AM CDT [facility] Final Resul t [facility] ERRTHURadha MARYNEAL [address] [place] [address], from Last 3 Months or Most Recently Relevant to Health Maintenance Insurance MEDICARE Member Subscriber Plan / Payer (Ef fective 2009-Present) Name:Erickson Navarro Relation to Subscriber:Self Name:Erickson Navarro Payer ID:Not on file Group ID:Not on file Type:Indemnity Address: ATTN CLAIMS [address] [place], [place] [id number] [address] MEDICARE [id number] [place] [address] Advance Directives Documents on File Type Date Recorded Patient Patient Registration Rep Expl anation Power of Tiler 05/29/2019 POA * Full Code (Latest Code Status on File) Date Activated Date Inactivated Comments 01/13/2022 7:38 PM 01/14/2022 4:11 PM * Full Code Date Activated Date Inactivated Comments 01/12/2022 4:44 PM 01/13/2022 7:38 PM Care Teams Orthophotography Technician Relationship Specialty Start Date End Date Magda Villa APNP [address] [place] [address] PCP - General NURSE PRACTITIONER 07/18/18 Ravi Apodaca MD [address] [address] CARDIOVASCULAR DISEASE 01/05/22
--- OUTSIDE RECORDS SUMMARY | 2025-04-04 13:29 | XMS_ITS | Encounter Summary ---
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 Gender Identity Not on file Sexual Orientation [...] documented as of this encounter Care Teams Assembler Hydraulic Backhoe Relationship Specialty Start Date End Date Lizzy Villa PA PCP - General 10/24/17 Lance King MD Surgeon Cardiothoracic Surgery 04/01/22 Jeannie Diaz, RN [address] [facility] [address] [place] [address] Drupal Php Developer 01/06/23 07/11/23 Ravi Apodaca MD [address] [facility] [address] [place] [address] Consulting Physician Cardiology 01/13/23 Fawad Campbell MD [address] [facility] [address] [place] [address] Consulting Physician Vascular Surgery 01/13/23 Mat Haywood MD [address] [facility] [address] [place], [place] [address] Consulting Physician Clinical Cardiac Electrophysiology 10/05/23 Stevenson Moreno MD [address] [facility] [address] [place] [address] Consulting Physician Interventional Cardiology 10/05/23 Dr Ani [address] Media Analytics Manager Nephrology 01/13/23 documented as of this encounter
[2025-04-04 13:35] LABS: Alanine Aminotransferase 25 U/L (6-50); Albumin Level 4.8 g/dL (3.5-5.1); Alkaline Phosphatase 93 U/L (38-126); Anion Gap 12 mmol/L (4-12); Aspartate Amino Transferase 29 U/L (17-59); Bilirubin,Total 0.8 mg/dL (0.2-1.3); Blood Urea Nitrogen 35 mg/dL (9-20); Calcium 9.2 mg/dL (8.4-10.2); Carbon Dioxide 31 mmol/L (22-30); Chloride 92 mmol/L (98-107); Estimated CRCL calculation 12 ml/min; Estimated Glomerular Filt Rate 10; Glucose 195 mg/dL (65-110); Potassium 5.1 mmol/L (3.4-5.0); Sodium 135 mmol/L (137-145); Total Protein 8.7 g/dL (6.3-8.2)
[2025-04-04 13:36] LABS: Add Urine Microscopic? YES; Appearance Urine Cloudy (Clear); Glucose Urine UA Negative (Negative); Leukocyte Esterase Ur 2+ LEU/UL (Negative); Need Manual Microscopic Reviewed; Nitrate Urine Negative (Negative); Non Pathogenic Casts >20; Specific Grav Ur 1.019 (1.001-1.035)
--- NOTE | 2025-04-04 13:51 | ED.GENADULT ---
HPI - General Adult General Chief complaint: Recheck/Abnormal Lab/Rx Stated complaint: foggy mind has not urinated x 4 days. dialysis Time Seen by Provider: 04/04/25 12:05 History of Present Illness HPI narrative: Patient is an 80-year-old male who presents ER due to the fact that he has not urinated in approximately 4 days. Reports usually he pees 3 times a day but then it went will down to once a day and now he has not urinated for 4 days. He is on dialysis 3 days a week. 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 He has had no fevers or chills but has felt a little more foggy with his thought. There was concern that he could potentially have an infection in his urine. He has had no dysuria. He has no suprapubic pain. Patient also reports some mild right-sided back pain over last month. No known injury. Related Data Home Medications ?Medication ?Instructions ?Recorded ?Confirmed ?Last Taken ?Type cinnamon bark 500 mg capsule 1,000 mg PO DAILY 08/17/19 09/02/24 07/14/23 10:30 History clopidogrel 75 mg tablet 75 mg PO DAILY 10/07/19 09/02/24 07/14/23 10:30 History atorvastatin 80 mg tablet 80 mg PO QPM 04/10/20 09/02/24 07/13/23 21:00 History hydroxychloroquine 200 mg tablet 200 mg PO BID 02/03/21 09/02/24 07/14/23 10:30 History nitroglycerin 0.4 mg sublingual 0.4 mg sublingual Q5M PRN Chest 03/09/22 09/02/24 07/14/23 13:00 History tablet Pain Adults Multivitamin 1 tablet PO BID 05/27/22 09/02/24 07/14/23 10:00 History ascorbic acid (vitamin C) 1,000 mg 1,000 mg PO DAILY 05/27/22 09/02/24 07/14/23 10:30 History tablet zinc 50 mg PO DAILY 05/27/22 09/02/24 07/14/23 10:30 History ketoconazole 2 % topical cream 1 applic topical DAILY PRN .fungal 07/10/22 09/02/24 Unknown History rash aspirin 81 mg chewable tablet 81 mg PO DAILY 07/14/23 09/02/24 07/14/23 10:30 History (Children's Aspirin) insulin lispro 100 unit/mL See Rx Instructions .Route .COMPLEX 07/14/23 09/02/24 07/14/23 13:00 History subcutaneous pen (Humalog KwikPen (U-100) Insulin) omega-3 fatty acids-vitamin E 1 cap PO HS 07/14/23 09/02/24 07/13/23 21:00 History 1,000 mg capsule allopurinol 100 mg tablet 100 mg PO DAILY 07/15/23 09/02/24 Unknown History insulin glargine 100 unit/mL 42 unit subcut QAM 07/15/23 09/02/24 Unknown History subcutaneous solution (Lantus U-100 Insulin) Allergies Allergy/AdvReac Type Severity Reaction Status Date / Time No Known Allergies Allergy Unknown Verified 04/04/25 11:07 Review of Systems Review of Systems: All systems reviewed & are unremarkable except as noted in HPI and below Constitutional: Constitutional: Reports no additional constitutional complaints ENT: Reports system reviewed and no additional complaints, except as documented Cardiovascular: Cardiovascular: Reports no additional cardiovascular complaints Respiratory: Respiratory: Reports no additional respiratory complaints Genitourinary: Genitourinary: Reports no additional male genitourinary complaints [facility] Past Medical History Medical History Peripheral arterial occlusive disease assisted (current) use of other immunomodulators and immunosuppressants End-stage renal disease on hemodialysis Paroxysmal atrial fibrillation Arthritis COVID-19 (12/2019) Diabetic peripheral neuropathy Insulin dependent type 2 diabetes mellitus Hypertension Obstructive sleep apnea on CPAP Coronary artery disease STEMI 08/17/2019. History of multiple stents. Status post 3 vessel bypass in January 2022. Deborah-Segovia tear (08/2021) Gout Rheumatoid arthritis Hyperlipidemia Obesity Surgical History Surgical History History of foot surgery History of cardioversion History of amputation of toe History of laparoscopic cholecystectomy (01/2022) History of coronary artery bypass graft x 3 (01/2022) History of arthroscopy of left knee History of esophagogastroduodenoscopy History of cataract extraction with lens replacement History of cardiac catheterization History of colonoscopy with polypectomy History of total left knee replacement History of coronary artery stent placement x4 Family History Family History Other Adopted Social History Social History Social History: Surrogate decision maker: Amanda Navarro, spouse. Code status: Full code. Smoking status: Never smoker Second hand tobacco smoke exposure: Yes (As a child.) Alcohol intake: never Substance use: never Substance use type: does not use Do You Feel Safe in your Home?: Yes Lack of Transportation: No Lack of Food: Never True Current Housing: I Have Housing Concerned About Future Housing: No Difficulty Paying Gas/Electric Bills: No Difficulty Paying for Meds: No Currently Unemployed: No Education: Bachelor's Degree Difficulty w/ Childcare or Family Care: No Additional living arrangements comments: Lives with spouse in [place]. 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 Spiritual care concerns: No Agree to blood products: Yes Exam Narrative: GENERAL: Well-appearing, well-nourished, and in no acute distress. HEAD: Normocephalic, atraumatic. ENT: Mucous membranes moist. CHEST: Clear to auscultation. No respiratory distress. HEART: Regular rate and rhythm. Normal peripheral pulses. ABDOMEN: Soft, nontender, nondistended. No CVA tenderness. EXTREMITIES: Normal range of motion. No edema. SKIN: Warm, dry, no rash. NEURO: Alert and oriented x3. PSYCH: Normal mood and affect. Course Course Emergency Course: Patient with 200 mL of urine in his bladder. Possible infection. Will be placed on cefuroxime. Follow-up with PCP. Vital Signs Vital signs: Vital Signs Temperature 98.2 F 04/04/25 11:04 Pulse Rate 88 04/04/25 11:04 Respiratory Rate 16 04/04/25 11:04 Blood Pressure 98/64 L 04/04/25 11:04 Pulse Oximetry 99 04/04/25 11:04 Temperature 98.2 F 04/04/25 11:04 Pulse Rate 88 04/04/25 11:04 Respiratory Rate 16 04/04/25 11:04 Blood Pressure 98/64 L 04/04/25 11:04 Pulse Oximetry 99 04/04/25 11:04 Medical Decision Making Vital Signs Vital Signs: Vital Signs Temperature 98.2 F 04/04/25 11:04 Pulse Rate 88 04/04/25 11:04 Respiratory Rate 16 04/04/25 11:04 Blood Pressure 98/64 L 04/04/25 11:04 Pulse Oximetry 99 04/04/25 11:04 Temperature 98.2 F 04/04/25 11:04 Pulse Rate 88 04/04/25 11:04 Respiratory Rate 16 04/04/25 11:04 Blood Pressure 98/64 L 04/04/25 11:04 Pulse Oximetry 99 04/04/25 11:04 Lab Data 04/04/25 13:08 04/04/25 13:08 Labs: Lab Results 04/04/25 Range/Units 13:08 WBC 10.6 H (4.5-10.0) K/mm3 RBC 3.62 L (4.6-6.20) M/mm3 Hgb 11.5 L (14.0-18.0) g/dL Hct 36.7 L (42.0-52.0) % MCV 101.4 H (80-100) fl MCH 31.8 (26-34) pg MCHC 31.3 L (32-36) g/dl RDW 13.5 (11.5-14.5) % Plt Count 223 (150-375) k/mm3 MPV 9.4 (7.4-10.4) fl Immature Gran % (Auto) 0.7 H (0-0.5) % Neut % (Auto) 70.3 (45.5-73.1) % Lymph % (Auto) 14.0 L (18.3-44.2) % Stewart % (Auto) 12.1 H (2.6-8.5) % Eos % (Auto) 2.1 (0-4.4) % Baso % (Auto) 0.8 (0.2-1.2) % Lymph # (Auto) 1.48 (0.9-3.2) K/mm3 Stewart # (Auto) 1.3 H (0.1-0.6) K/mm3 Eos # (Auto) 0.2 (0-0.3) K/mm3 Baso # (Auto) 0.1 (0.0-0.1) K/mm3 Abs Immat Gran (auto) 0.07 H (0.00-0.031) K/mm3 Absolute Neuts (auto) 7.5 H (1.3-6.7) K/mm3 Absolute Nucleated RBC 0.000 (0.0-0.012) K/mm3 Nucleated RBC % 0.0 (0.0-0.2) % Sodium 135 L (137-145) mmol/L Potassium 5.1 H (3.4-5.0) mmol/L Chloride 92 L (98-107) mmol/L Carbon Dioxide 31 H (22-30) mmol/L Anion Gap 12 (4-12) mmol/L BUN 35 H D (9-20) mg/dL Creatinine 5.57 H (0.7-1.3) mg/dL Estim Creat Clear Calc 12 ml/min Estimated GFR 10 L (59 - ) Glucose 195 H (65-110) mg/dL Calcium 9.2 (8.4-10.2) mg/dL Total Bilirubin 0.8 (0.2-1.3) mg/dL AST 29 (17-59) U/L ALT 25 (6-50) U/L Alkaline Phosphatase 93 (38-126) U/L Total Protein 8.7 H (6.3-8.2) g/dL Albumin 4.8 (3.5-5.1) g/dL Urine Color Dark yellow (Yellow) Urine Appearance Cloudy H (Clear) Urine pH 5.0 (5.0-9.0) Ur Specific [place] 1.019 (1.001-1.035) Urine Protein 3+ H (Negative) mg/dL Urine Glucose (UA) Negative (Negative) mg/dL Urine Ketones Trace H (Negative) mg/dL Ur Blood (Man) 2+ H (Negative) Urine Nitrate Negative (Negative) Urine Bilirubin Negative (Negative) Urine Urobilinogen 1.0 (<2.0) mg/dL Add Ur Microanalysis Reviewed Leukocyte Esterase Rfl 2+ H (Negative) SHANTE/UL Urine RBC 0-2 (0-2) /hpf Urine WBC 21-50 H (0-3) /hpf Ur Squamous Epith Cells Few (Few) /hpf Urine Bacteria None seen /hpf Urine Casts >20 Discharge Plan Discharge Clinical Impression: Acute UTI, Decreased urination Patient Disposition: Home Condition: Stable Instructions: Antibiotic Form, Urinary Tract Infection in Men (ED) Additional Instructions: Take cefuroxime to treat an infection. You will take 1 dose daily. On dialysis days take it after dialysis. Return to the ER if yohu have fever over 101F, you cannot keep down food/water, or you have other concerns. Patient Language: Hungarian Prescriptions: New cefuroxime axetil 500 mg tablet 500 mg PO DAILY Qty: 7 0RF No Action clopidogrel 75 mg tablet 75 mg PO DAILY atorvastatin 80 mg tablet 80 mg PO QPM nitroglycerin 0.4 mg tablet, sublingual 0.4 mg sublingual Q5M PRN (Reason: Chest Pain) Rx Instructions: do not exceed 3 doses per episode Numote Verio test strips Strip 1 strip miscellaneous TIDWMEAL 90 Days Qty: 300 2RF (DME) blood-glucose meter [OneTouch Verio Flex meter] Misc See Rx Instructions .Route Qty: 1 0RF Rx Instructions: As directed (DME) lancing device with lancets [JobTalentsTouch Delica Plus Lanc Dev] Kit See Rx Instructions .Route Qty: 1 0RF Rx Instructions: As directed (DME) lancets [[employer]Touch Delica Plus Lancet] 33 gauge misc See Rx Instructions .Route Qty: 300 2RF Rx Instructions: check 3 times daily hydroxychloroquine 200 mg tablet 200 mg PO BID insulin lispro [Humalog KwikPen Insulin] 100 unit/mL insulin pen See Rx Instructions .ROUTE .COMPLEX Rx Instructions: Pt takes 15units with each meal and will take 15 units around 7072-2822 if blood sugar is >280. aspirin [Children's Aspirin] 81 mg tablet,chewable 81 mg PO DAILY omega-3 fatty acids-vitamin E 1,000 mg Capsule 1 cap PO HS insulin glargine [Lantus U-100 Insulin] 100 unit/mL Solution 42 unit SUBCUT QAM Rx Instructions: Give 42 units SQ QD before breakfast. allopurinol 100 mg Tablet 100 mg PO DAILY carvedilol [Coreg] 12.5 mg Tablet 12.5 mg PO Q12HR Qty: 60 0RF isosorbide mononitrate 60 mg Tablet Extended Release 24 Hr 60 mg PO QAM Qty: 30 0RF nitroglycerin [Nitrostat] 0.4 mg Tablet, Sublingual 0.4 mg sublingual Q5MIN PRN (Reason: Chest Pain) Qty: 25 0RF lisinopril 2.5 mg tablet 2.5 mg PO DAILY Qty: 30 0RF cinnamon bark 500 mg Capsule 1,000 mg PO DAILY Adults Multivitamin 1 tablet PO BID ascorbic acid (vitamin C) 1,000 mg Tablet 1,000 mg PO DAILY zinc 50 mg PO DAILY ketoconazole 2 % cream 1 applic TOPICAL DAILY PRN (Reason: .fungal rash) Rx Instructions: Apply to under arms. (DME) pen needle, diabetic 31 gauge x 5/16 needle See Rx Instructions .ROUTE .MEDSUPPLY Qty: 600 1RF Rx Instructions: Use with insulin injections 4 times daily benzonatate 200 mg capsule 200 mg PO TID PRN (Reason: cough) Qty: 90 2RF budesonide 0.5 mg/2 mL suspension for nebulization 0.5 mg inhalation BID PRN (Reason: shortness of breath) Qty: 120 3RF furosemide 80 mg tablet 80 mg PO BID Qty: 180 3RF Rx Instructions: may hold before dialysis on dialysis days tamsulosin 0.4 mg capsule 0.4 mg PO QHS Qty: 90 3RF ezetimibe 10 mg tablet See Rx Instructions .ROUTE .COMPLEX Qty: 90 3RF Dose Instruction: TAKE 1 TABLET BY MOUTH DAILY Rx Instructions: TAKE 1 TABLET BY MOUTH DAILY gabapentin 300 mg capsule See Rx Instructions .ROUTE .COMPLEX Qty: 90 1RF Dose Instruction: TAKE 1 CAPSULE BY MOUTH DAILY Rx Instructions: TAKE 1 CAPSULE BY MOUTH DAILY Follow-up/Referrals: Daisy,JOSEPH Ball [Primary Care Provider] - 1 Week
[2025-04-04 14:55] VITALS: BP 140/109; PULSE 53; RESP 18; TEMP 37.1; O2SAT 97
== END 2025-04-04 14:57 | disposition home or self-care (01) ==
PROVIDERS: Emergency Provider Emergency Medicine; PCP Registered Nurse
DX: N39.0 Urinary tract infection, site not specified (principal); R33.9 Retention of urine, unspecified
CPT/HCPCS: 36415; 80053; 81001; 85025; 87086; 99283